=== PATIENT | male | born 1935 | race Caucasian/White ===

== ENCOUNTER 2024-01-31 14:43 | Outpatient (REF) | payer MEDICARE, BC, SELFPAY ==
[2024-01-31 15:16] LABS: Mean Corpuscular HGB Conc 30.8 g/dL (29.9-35.2); Mean Corpuscular Hemoglobin 32.7 pg (25.9-34.0); Mean Corpuscular Volume 106.1 fL (80.0-94.0); Mean Platelet Volume 11.5 fL (9.5-13.5); Platelet Count 142 10^3/uL (150-450); Red Blood Count 2.45 10^6/uL (4.70-6.10); Red Cell Distribution Width 17.7 % (11.0-15.0); White Blood Count 12.7 10^3/uL (4.0-11.0)
[2024-01-31 15:44] LABS: Band Neutrophils Absolute 0.3 10^3/uL (0.0-0.3); Lymphocytes Absolute Manual 1.14 10^3/uL (1.20-3.80); Monocytes Absolute Manual 0.88 10^3/uL (0.30-0.80); Segmented Neut Absolute Manual 10.41 10^3/uL (1.4-6.5)
[2024-01-31 15:45] LABS: Anisocytosis 1+; Macrocytosis 2+
[2024-01-31 15:46] LABS: Alanine Aminotransferase 48 U/L (16-63); Albumin Globulin Ratio 0.9; Alkaline Phosphatase 185 U/L (46-116); Aspartate Amino Transferase 19 U/L (15-37); Bilirubin Total 0.7 mg/dL (0.2-1.0); Calcium 8.8 mg/dL (8.5-10.1); Carbon Dioxide 20.5 mmol/L (21.0-32.0); Chloride 97 mmol/L (98-107); Estimated GFR (African America 15 (>=60); Estimated GFR (Non-African Ame 12 (>=60); Globulin 3.5 g/dL; Glucose 352 mg/dL (74-106); Sodium 128 mmol/L (136-145); Total Protein 6.5 g/dL (6.4-8.2)
[2024-01-31 15:54] LABS: Potassium 8.5 mmol/L (3.5-5.1)
== END 2024-01-31 14:44 | disposition home or self-care (01) ==
LOC: LAB 14:43
DX: R53.1 Weakness (principal)
CPT/HCPCS: 36415; 80053; 85007; 85027

== ENCOUNTER 2024-02-13 11:35 | Outpatient (REF) | payer MEDICARE, BC, SELFPAY ==
--- OUTSIDE RECORDS SUMMARY | 2024-02-13 11:39 | XMS_ITS | CCD ---
Author Name Unknown Address [address] [place] [address] Organization [facility] Care Team Providers Care Mirror Department Supervisor Name Role Phone Albert Meza DO W Primary Care Provider Aquiles Lim MD Unavailable [phone] Dustin Jacobs Unavailable William Bailey Unavailable Sharift DO Albert W Primary Care Provider Aquiles Lim MD Unavailable [phone] [place] Sharlene CRAVEN Attending U Aquiles Morgan MD Unavailable [phone] AQUILES LIM Attending Unavailable MUMMERT, ALBERT W Primary Care Unavailable AQUIELS LIM Attending Unavailable MUMMERT, ALBERT W Primary Care Unavailable MALKA RIVERA Attending Unavailable MUMMERT, ALBERT W Primary Care Unavailable MALKA RIVERA Referring Unavailable MUMMERT, ALBERT W Primary Care Unavailable MALKA RIVERA Referring Unavailable MUMMERT, ALBERT W Primary Care Unavailable CasimertDO Albert Primary Care Provider MD Dustin Jacobs Attending Provider [phone] Albert Meza DO W Primary Care Provider MD Dustin Jacobs Attending Provider [phone] KENJI Cho Attending Provider [phone] DO Babatunde Masters Emergency Provider [phone] MD Massiel Ramirez Admit Provider MD Massiel Ramirez Attending Provider [phone] Mummert, Albert Primary Care Unavailable Dustin Jacobs Admitting Unavailable Dustin Jacobs Attending Unavailable Mummert, Albert Primary Care Unavailable Willy Quiroz Admitting Unavailable William Bailey Consulting UnavailKevin Thomas Attending Unavailable Mummert, Albert Primary Care Unavailable William Dean Attending Unavailable Kevin Oliveira Consulting Unavailable Massiel Ramirez Admitting Unavailable Jose Rafael Cho Consulting Unavailable Paolo Curtis Consulting Unavailable Miguel Carpenter Consulting Unavailable Nancy Roy Consulting Unavailable Tri Beal Consulting Unavailable SinghArron de la cruz Consulting Unavailable Fly Dinerohash Consulting Unavailable Meron Talbot Consulting Unavailable Samuel Paz Consulting Unavaila ble Jose Rafael Cho REdin Admitting Unavailable Jose Rafael Cho REdin Attending Unavailable Kuavelino Jose Rafael R. Admitting Unavailable Kubitz Ojse Rafael REdin Attending Unavailable Mummert, Albert Primary Care Unavailable Dolce, Alejandro R Attending Unavailable Dolce, Alejandro R Admitting Unavailable Mummert DO, Albert Primary Care Unavailable STEVEN Zamarripa Attending Unavailable STEVEN Zamarripa Admitting Unavailable Mummert DO, Albert Primary Care Unavailable Wilberto Holland Attending Unavailable StaerWilberto Admitting Unavailable Mummert DO, Albert Primary Care Unavailable Kevin Shell Attending Unavailab Kevin Alberto Admitting Unavailab le Mummert DO, Albert Primary Care Unavailable Mummert DO, Albert Primary Care Unavailable Dinero, Markos Admitting Unavailable Dinero, Markos Attending Unavailable Mummert DO, Albert Primary Care Unavailable Mummert DO, Ablert Attending Unavailable Mummert DO, Albert Admitting Unavailable Mummert DO, Albert Primary Care Unavailable Jbara, Yaser Admitting Unavailable Jbara, Yaser Attending Unavailable STEVEN Zamarripa Attending Unavailable Mummert DO, Albert Primary Care Unavailable STEVEN Zamarripa Admitting Unavailable Mummert DO, Albert Primary Care Unavailable Mummert DO, Albert Admitting Unavailable Mummert DO, Albert Attending Unavailable Zamarripa, PA Yeny Attending Unavailable STEVEN Zamarripa Admitting Unavailable Mummert DO, Albert Primary Care Unavailable [place], Sharlene M Attending Unavailable [place], Sharlene M Admitting Unavailable Mummert DO, Albert Primary Care Unavailable Mummert DO, Albert Primary Care Unavailable Dinero, Markos Admitting Unavailable Dinero, Markos Attending Unavailable [place], Sharlene M Attending Unavailable Mummert DO, Albert Primary Care Unavailable [place], Sharlene M Admitting Unavailable Earl, Ziad Attending Unavailable Mummert DO, Albert Primary Care Unavailable Earl, Ziad Admitting Unavailable STEVEN Zamarripa Attending Unavailable STEVEN Zamarripa Admitting Unavailable Mummert DO, Albert Primary Care Unavailable STEVEN Zamarripa Attending Unavailable STEVEN Zamarripa Admitting Unavailable Mummert DO, Albert Primary Care Unavailable Kashk, Adalberto I Attending Unavailable Mummert DO, Albert Primary Care Unavailable Kashk, Adalberto I Admitting Unavailable Earl, Ziad Attending Unavailable Earl, Ziad Admitting Unavailable Mummert DO, Albert Primary Care Unavailable Wilberto Holland Attending Unavailable Mummert DO, Albert Primary Care Unavailable Yessica, Oren Admitting Unavailable Mummert DO, Albert Primary Care Unavailable Mummert DO, Albert Attending Unavailable STEVEN Zamarripa Admitting Unavailable STEVEN Zamarripa Attending Unavailable Mummert DO, Albert Primary Care Unavailable Mummert DO, Albert Primary Care Unavailable Mummert DO, Albert Primary Care Unavailable Mummert DO, Albert Attending Unavailable Mummert DO, Albert Primary Care Unavailable Mummert DO, Albert Primary Care Unavailable Mummert DO, Albert Attending Unavailable Mummert DO, Albert Primary Care Unavailable Mummert DO, Albert Attending Unavailable Mummert DO, Albert Primary Care Unavailable Mummert DO, Albert Attending Unavailable Mummert DO, Albert Primary Care Unavailable Mummert DO, Albert Attending Unavailable Mummert DO, Albert Primary Care Unavailable Mummert DO, Albert Attending Unavailable Mummert DO, Albert Primary Care Unavailable Mummert DO, Albert Attending Unavailable Mummert DO, Albert Primary Care Unavailable Mummert DO, Albert Attending Unavailable Mummert DO, Albert Primary Care Unavailable Mummert DO, Albert Attending Unavailable Mummert DO, Albert Primary Care Unavailable Mummert DO, Albert Attending Unavailable Mummert DO, Albert Primary Care Unavailable Mummert DO, Albert Attending Unavailable Ruiz Muro Attending Unavailable Mummert DO, Albert Primary Care Unavailable Ruiz Muro Admitting Unavailable Mummert DO, Albert Primary Care Unavailable Dinero, Markos Attending Unavailable Dinero, Markos Admitting Unavailable Le, Oscar K Attending Unavailable Mummert DO, Albert Primary Care Unavailable Le, Oscar K Admitting Unavailable Mummert DO, Albert Primary Care Unavailable Yessica, Oren Admitting Unavailable You Sanches Unavailyuval Juan, Oren Attending Unavailable Earl, Oleksandr Attending Unavailable Earl, Ziad Admitting Unavailable Mummert DO, Albert Primary Care Unavailable Mummert DO, Albert Primary Care Unavailable Mummert DO, Albert Attending Unavailable Mummert DO, Albert Admitting Unavailable Mummert DO, Albert Primary Care Unavailable Dinero, Markos Admitting Unavailable Dinero, Markos Attending Unavailable Kong Osman Attending Unavailable Mummert DO, Albert Primary Care Unavailable Kong Osman Admitting Unavailable Shaguftaer, Wilberto Attending Unavailable Mummert DO, Albert Primary Care Unavailable Cristy Hollandvin Admitting Unavailable STEVEN Zamarripa Admitting Unavailable STEVEN Zamarripa Attending Unavailable Mummert DO, Albert Primary Care Unavailable FOX [place] Attending Unavailable Mummert DO, Albert Primary Care Unavailable [place] Admitting Unavailable JOSE RAFAEL CHO Attending Unavailable JOSE RAFAEL CHO Attending Unavailable JOSE RAFAEL CHO Attending Unavailable JOSE RAFAEL HCO R Attending Unavailable JOSE RAFAEL CHO R Attending Unavailable JOSE RAFAEL CHO R Attending Unavailable JOSE RAFAEL CHO Attending Unavailable Medications Current Medications Medication Drug Class(es) Dates Sig (Normalized) Sig (Original) Albuterol Sulfate 108 (90 Base) MCG/ACT (3 sources) take 1 puff(s) by inhalation every four hours as needed Albuterol Sulfate 108 (90 Base) MCG/ACT 1 puff as needed Inhalation every 4 hrs Active allopurinol 100 mg oral tablet (7 sources) Xanthine Oxidase Inhibitor Start: 01-03-2024 take 100 mg by mouth once daily Allopurinol Active 100 MG PO Daily January 03, 2024 12:00am Start: 11-27-2022 take 2 tablets by mo uth once daily allopurinol (Zyloprim) 100 MG tablet See Instructions, Instructions: TAKE 2 TABLETS BY MOUTH ONCE DAILY, # 180 tab(s), 3 Refill(s), Pharmacy: [facility], TAKE 2 TABLETS BY MOUTH ONCE DAILY, 182.88, cm, 05/15/23 22:42:00 EDT, Height/Length Dosing, 118.84, kg, 05/15/23 22:42:00 EDT, Weight Dosing 0 11/27/2022 Active amLODIPine 10 mg oral tablet (17 sources) Dihydropyridine Calcium Channel [place] Start: 06-28-2023 take 10 mg by mouth once daily Amlodipine Active 10 MG PO Daily January 03, 2024 12:00am Comment on above: Take 10 mg by mouth once daily. aspirin 81 mg oral tablet (18 sources) Platelet Aggregation Inhibitor, Nonsteroidal Anti-inflammatory Drug Start: 01-03-2024 take 81 mg by mouth once daily Aspirin Active 81 MG PO Daily January 03, 2024 12:00am aspirin (Aspir-L ow) 81 MG EC tablet 1 (one) time each day at the same time. 0 Active Aspirin Active Comment on above: Take 81 mg by mouth once daily. atorvastatin 40 mg oral tablet (12 sources) HMG-CoA Reductase Inhibitor Start: take 40 mg by mouth once daily at bedtime Atorvastatin Active 40 MG PO Daily at bedtime January 03, 2024 12:00am Start: 11-04-2017 take 1 tablet by hugo th once daily at bedtime atorvastatin (LIPITOR) 80 mg tablet Take 1 tablet by mouth daily at bedtime. 90 tablet 3 11/04/2017 Active take 1 tablet by hugo th every twenty-four hours Atorvastatin Calcium 40 MG 1 tablet Orally Once a day Active Comment on above: Take 1 tablet by hugo th daily at bedtime. buPROPion hydrochloride 100 mg oral tablet (7 sources) Aminoketone Start: take 100 mg by mouth once daily Bupropion Hcl Active 100 MG PO Daily January 03, 2024 12:00am Start: 08-24-2023 take 1 tablet by hugo th twice daily buPROPion SR (Wellbutrin SR) 100 MG 12 hr tablet 1 tab(s), PO, BID, # 180 tab(s), 2 Refill(s), Pharmacy: [facility], 1 tab(s) PO BID, 182.8, cm, 07/20/23 14:00:00 EDT, Height/Length Dosing, 125.1, kg, 07/20/23 14:00:00 EDT, Weight Dosing 0 08/24/2023 Active calcium carbonate 500 mg chewable tablet (1 source) Start: 01-16-2024 take 1000 mg by mouth every four hours Calcium Carbonate Active 1000 MG PO Q4H 0 January 16, 2024 12:00am cilostazol 100 mg oral tablet (3 sources) Phosphodiesterase 3 Inhibitor take 1 tablet by mouth every twelve hours Cilostazol 100 MG 1 tablet 30 minutes before or 2 hours after breakfast and dinner Orally Twice a day Active docosahexaenoic acid 120 mg / eicosapentaenoic acid 180 mg oral capsule (6 sources) omega-3 (fish oil) 1000 MG capsule 1 capsule 1 (one) time each day at the same time. 0 Active famotidine 20 mg oral tablet (5 sources) Histamine-2 Receptor Antagonist Start: 01-03-2024 take 1 tablet by mouth twice daily Famotidine (Acid Vest Tailor (Famotidine)) 20 mg tablet Active 20 MG PO Twice daily January 03, 2024 12:00am take 1 tablet by hugo th every twelve hours Famotidine 20 MG 1 tablet as needed Oral ly Twice a day Active Fish Oils (3 sources) take 1 capsule by mouth once daily Fish Oil 1000 MG 1 capsule Orally Once a day Active fluticasone propionate 0.05 mg/actuat metered dose nasal spray (8 sources) Corticosteroid Start: 01-03-2024 take 1 spray(s) nasal route once daily Fluticasone Propionate (24 Hour Allergy Relief) 50 mcg/actuation spray,suspension Active 1 SPRAY INTRANASAL Daily January 03, 2024 12:00am administer into each nostril fluticasone (Eleazar nase) 50 MCG/ACT nasal spray 1 (one) time each day at the same time. 0 Active furosemide 20 mg oral tablet (19 sources) Loop Diuretic Start: 01-16-2024 take 60 mg by mouth twice daily Furosemide Active 60 MG PO BID@0800,1600 0 January 16, 2024 12:00am Start: 01-03-2024 End: 01-16-2024 take 80 mg by mouth once daily Furosemide Discontinued 80 MG PO Daily January 03, 2024 12:00am January 16, 2024 9:30am Start: 11-29-2020 take 2 tablets by [facility] once daily furosemide (LASIX) 40 mg tablet Take 2 tablets by mouth once daily. Takes 80 mg daily 0 11/29/2020 Active furosemide (Lasi x) 80 MG tablet Take by mouth. 0 Active take 1 tablet by [facility] every twenty-four hours Furosemide 40 MG 1 tablet Orally Once a day Active Comment on above: Take 2 tablets by [facility] once daily. Takes 80 mg daily gabapentin 300 mg oral capsule (18 sources) Anti-epileptic Agent Start: 01-03-2024 take 300 mg by mouth three times daily Gabapentin Active 300 MG PO Three times daily January 03, 2024 12:00am take 1 capsule by [facility] every twelve hours gabapentin (Neurontin) 300 MG capsule 1 capsule every 12 (twelve) hours. 0 Active take 1 capsule by [facility] every twelve hours Gabapentin 300 MG 1 capsule Orally BID Active take 2 tablets by [facility] three times daily gabapentin (NEURONTIN) 300 mg capsule Ta ke 200 mg by mouth three times daily. 2 tabs three times a day 0 Active Comment on above: Take 200 mg by mouth three times daily. 2 tabs three times a day glimepiride 1 mg oral tablet (9 sources) Sulfonylurea glimepiride (Jackson ryl) 1 MG tablet 1 (one) time each day at the same time. 0 Active glipiZIDE 5 mg oral tablet (2 sources) Sulfonylurea Start: 2023 take 2.5 mg by mouth once daily Glipizide Active 2.5 MG PO Daily January 03, 2024 12:00am hydrALAZINE hydrochloride 25 mg oral tablet (2 sources) Arteriolar Vasodilator Start: 2023 take 50 mg by mouth twice daily Hydralazine Active 50 MG PO Twice daily January 03, 2024 12:00am hydroxychloroquine sulfate 200 mg oral tablet (2 sources) Antimalarial, Antirheumatic Agent Start: 2023 take 200 mg by mouth twice daily Hydroxychloroquine Active 200 MG PO Twice daily January 03, 2024 12:00am lisinopril 10 mg oral tablet (13 sources) Angiotensin Converting Enzyme Inhibitor take 1 tablet by mouth once daily lisinopril 10 MG tablet take 1 tablet by oral route every day Oral 0 Active End: 10-12-2023 take 1 tablet by mouth once daily lisinopril (ZESTRIL, PRINIVIL) 5 mg tablet Take 5 mg by mouth once daily. 0 10/12/2023 Discontinued (Course of therapy completed) Comment on above: Take 5 mg by mouth o nce daily. losartan potassium 25 mg oral tablet (2 sources) Angiotensin 2 Receptor Siena Start: 01-03-20 take 25 mg by mouth once daily Losartan Active 25 MG PO Daily January 03, 2024 12:00am mecobalamin 1 mg chewable tablet (6 sources) Methylcobalamin ([id number]) 1 MG chewable tablet [id number] 0 Active melatonin 5 mg oral tablet (1 source) Start: 01-16-20 take 10 mg by mouth once daily at bedtime Melatonin Active 10 MG PO Daily at bedtime 0 January 16, 2024 12:00am metoprolol tartrate 25 mg oral tablet (9 sources) beta-Adrenergic [place] metoprolol tartrate (Lopressor) 25 MG tablet every 12 (twelve) hours. 0 Active take 1 tablet by hugo th every twenty-four hours Metoprolol Succinate ER 25 MG 1 tablet Orally Once a day Active Multivitamin (Daily Multi-Vitamin) tablet (2 sources) Start: 01-03-2024 take 1 tablet by mouth once daily Multivitamin (Daily Multi-Vitamin) tablet Active 1 TAB PO Daily January 03, 2024 12:00am oxyCODONE hydrochloride 5 mg oral tablet (1 source) Opioid Agonist Start: 01-16-2024 take 5 mg by mouth every four hours Oxycodone Active 5 MG PO Every 4 hours 3 January 16, 2024 Start: 01-16-2024 take 5 mg by mouth e very four hours Oxycodone Active 5 MG PO Every 4 hours 3 January 16, 2024 perflutren lipid microspheres 1.3 mL in NaCl (PF) 0.9% 10 mL injection (DEFINITY) (5 sources) Start: 03-02-2022 End: 06-01-2023 perflutren lipid microspheres 1.3 mL in NaCl (PF) 0.9% 10 mL injection (DEFINITY) microencapsulated potassium chloride 20 meq extended release oral tablet (1 source) Start: 01-16-2024 Potassium Chlo ride (Klor-Con M20) 20 mEq Tablet,Er Particles/Crystals Active 40 MEQ PO Daily 0 January 16, 2024 12:00am predniSONE 5 mg oral tablet (7 sources) Start: 01-03-2024 take 7.5 mg by mouth once daily Prednisone Active 7.5 MG PO Daily January 03, 2024 12:00am Start: 12-22-2022 take 1 tablet by hugo th every other day predniSONE (Deltasone) 5 MG tablet Take 5 mg by mouth every other day 0 12/22/2022 Active simvastatin 40 mg oral tablet (6 sources) HMG-CoA Reductase Inhibitor take 0.5 tablet by mouth once daily simvastatin (Zocor) 40 MG tablet take 1/2 tablet by ORAL route every day Oral 0 Active 125 ml sodium chloride 9 mg/ml prefilled syringe (6 sources) Start: 01-13-20 End: 06-01-20 sodium chloride 0.9 % (flush) 10 mL (BD POSIFLUSH) spironolactone 25 mg oral tablet (1 source) Aldosterone Antagonist Start: 01-16-20 take 25 mg by mouth twice daily Spironolactone Active 25 MG PO Twice daily 0 January 16, 2024 12:00am Vitamin B Complex (3 sources) Vitamin B Comple x - as directed Orally Active vitamin b12 1 mg oral capsule (2 sources) Vitamin B12 Start: 01-03-20 take 1000 ug by mouth once daily Cyanocobalamin (Vitamin B-12) Active 1000 MCG PO Daily January 03, 2024 12:00am Completed/Discontinued Medications Medication Drug Class(es) Dates Sig (Normalized) Sig (Original) baclofen 10 mg oral tablet (7 sources) gamma-Aminobutyric Acid-ergic Agonist Start: 12-24-2022 End: 01-04-2024 take 10 mg by mouth once daily Baclofen Discontinued 10 MG PO Daily January 03, 2024 12:00am January 04, 2024 1:55pm carvedilol (3 sources) alpha-Adrenergic Siena, beta-Adrenergic [place] Carvedilol Not-Taking cephalexin 500 mg oral capsule (7 sources) Cephalosporin Antibacterial Start: 01-03-2024 End: 02-06-2024 take 1000 mg by mouth every twelve hours Cephalexin Discontinued 1000 MG PO Q12H January 03, 2024 12:00am January 04, 2024 1:55pm cephalexin (Kefl ex) 250 MG capsule 1 capsule 0 Active citalopram 10 mg oral tablet (7 sources) Serotonin Reuptake Inhibitor citalopram hydrobromide (CELEXA) 10 mg tablet Take 1/2 tablet once daily. 0 Active Comment on above: Take 1/2 tablet once daily. ertapenem (1 source) Penem Antibacterial Start : 01-04 End: 01-16 take 1 g intravenously once daily Ertapenem Discontinued 1 GM IV Daily January 04, 2024 12:00am January 16, 2024 9:30am hydroCHLOROthiazide 12.5 mg / lisinopril 10 mg oral tablet (3 sources) Thiazide Diuretic, Angiotensin Converting Enzyme Inhibitor take 1 tablet by mouth every twenty-four hours Lisinopril-hydro CHLOROthiazide 10-12.5 MG 1 tablet Orally Once a day Not-Taking levoFLOXacin 500 mg oral tablet (7 sources) Quinolone Antimicrobial Start : 12-30 End: 01-16 take 500 mg by mouth once daily Levofloxacin Discontinued 500 MG PO Daily January 03, 2024 12:00am January 16, 2024 9:30am metFORMIN hydrochloride 850 mg oral tablet (7 sources) Biguanide Start : 12-13 End: 10-12 take 1 tablet by mouth three times daily metFORMIN (GLUCOPHAGE) 850 mg tablet Take 1 tablet by mouth three times daily. Resume tomorrow 12/14/17. 0 12/13/2018 10/12/2023 Discontinued (Course of therapy completed) Comment on above: Take 1 tablet by hugo three times daily. Resume tomorrow 12/14/17. Naproxen (3 sources) Nonsteroidal Anti-inflammatory Drug Naproxen Not-Taking omeprazole 20 mg delayed release oral capsule (7 sources) Proton Pump Inhibitor take 1 capsule by mouth once daily omeprazole 20 mg capsule Take 20 mg by mouth once daily. 0 Active Comment on above: Take 20 mg by mouth once daily. Orphenadrine (3 sources) Muscle Relaxant Norflex Not-Taking pioglitazone (10 sources) Peroxisome Proliferator Receptor alpha Agonist, Peroxisome Proliferator Receptor gamma Agonist, Thiazolidinedione pioglitazone (ACTOS) 15 mg tablet Take 2 tablets daily with evening meal. 0 Active Pioglitazone HCl Not-Taking Comment on above: Take 2 tablets daily with evening meal. traMADol hydrochloride 50 mg oral tablet (16 sources) Opioid Agonist Start: 07-04-2019 take 1 tablet by mouth every six hours as needed traMADol (ULTRAM) 50 mg tablet Take 50 mg by mouth every 6 hours as needed. 0 07/04/2019 Active take 0.5 tablet by m outh once daily in the morning as needed traMADol (Ultram) 50 MG tablet 1/2 table t as needed Orally Once a day in the morning 0 Active take 1 tablet by hugo th every twenty-four hours traMADol HCl 50 MG 1 tablet as needed Orally Once a day Active Comment on above: Take 50 mg by mouth every 6 hours as needed. Problems Active Problems Problem Classification Problem Date Documented Da te Episodic/Chronic Acquired foot deformities (18 sources) Acquired hallux valgus; Translations: [Hallux valgus (acquired), unspecified foot] Onset: 3 06-10-2023 Chronic Acute and unspecified renal failure (8 sources) Acute renal failure syndrome; Translations: [Acute kidney failure, unspecified] Onset: 4 01-03-2024 Episodic Aortic; peripheral; and visceral artery aneurysms (2 sources) Carotid artery aneurysm; Translations: [Aneurysm of carotid artery] Onset: 3 Chronic Biliary tract disease (6 sources) Common bile duct calculus; Translations: [CHOLEDOCHOLITHIASIS NOS] Episodic Chronic kidney disease (1 source) Chronic kidney disease, unspecified; Translations: [Chronic kidney disease, unspecified] Onset: 4 Chronic Coagulation and hemorrhagic disorders (3 sources) Thrombocytopenic disorder; Translations: [Thrombocytopenia, unspecified] Onset: 4 01-09-2024 Chronic Congestive heart failure; nonhypertensive (3 sources) Acute on chronic heart failure co-occurrent with normal ejection fraction; Translations: [Acute on chronic diastolic (congestive) heart failure] Onset: 3 10-12-2023 Chronic Coronary atherosclerosis and other heart disease (1 source) Coronary atherosclerosis and other heart disease; Translations: [Atherosclerosis of [place] arteries of extremities with gangrene, bilateral legs] Onset: 4 Deficiency and other anemia (1 source) Chronic anemia; Translations: [Anemia, unspecified] 01-09-2024 Episodic Deficiency and other anemia (2 sources) Anemia, unspecified; Translations: [Anemia, unspecified] Onset: 4 01-03-2024 Episodic Diabetes mellitus with complications (20 sources) Diabetes mellitus; Translations: [Type 2 diabetes mellitus with diabetic neuropathy, unspecified] Onset: 3 06-10-2023 Chronic Diabetes mellitus without complication (14 sources) Type 2 diabetes mellitus without complication; Translations: [Type 2 diabetes mellitus without complications] Onset: 6 10-12-2016 Chronic Disorders of lipid metabolism (7 sources) Dyslipidemia; Translations: [Hyperlipidemia, unspecified] Onset: 6 10-12-2016 Chronic Esophageal disorders (3 sources) Gastroesophageal reflux disease without esophagitis; Translations: [Gastro-esophageal reflux disease without esophagitis] Chronic Essential hypertension (14 sources) Essential hypertension; Translations: [Essential (primary) hypertension] Onset: 6 Chronic Fluid and electrolyte disorders (5 sources) Metabolic acidosis; Translations: [Metabolic acidosis] Onset: 4 01-09-2024 Episodic Gangrene (8 sources) Gangrene of toe; Translations: [Gangrene, not elsewhere classified] 01-03-2024 Episodic Gout and other crystal arthropathies (12 sources) Acute gout; Translations: [Gout, unspecified] Onset: 3 06-10-2023 Chronic Heart valve disorders (10 sources) Aortic incompetence, non-rheumatic ; Translations: [Nonrheumatic aortic (valve) insufficiency] Onset: 5 Chronic Hypertension with complications and secondary hypertension (3 sources) Chronic kidney disease due to hypertension; Translations: [Hypertensive chronic kidney disease with stage 1 through stage 4 chronic kidney disease, or unspecified chronic kidney disease] Onset: 4 01-09-2024 Chronic Miscellaneous mental health disorders (4 sources) Chronic insomnia; Translations: [Psychophysiologic insomnia] Onset: 1 Resolved: 1 Chronic Occlusion or stenosis of precerebral arteries (20 sources) Left carotid artery stenosis; Translations: [Occlusion and stenosis of left carotid artery] Onset: 5 Chronic Osteoarthritis (20 sources) Arthritis of right ankle; Translations: [Primary osteoarthritis, right ankle and foot] Onset: 3 06-10-2023 Chronic Other connective tissue disease (6 sources) History of total knee arthroplasty; Translations: [Presence of right artificial knee joint] Onset: 3 06-10-2023 Chronic Other connective tissue disease (1 source) Foot pain; Translations: [Pain in left foot] 01-16-2024 Episodic Other connective tissue disease (2 sources) Pain in left foot; Translations: [Pain in limb] Onset: 4 01-03-2024 Episodic Other lower respiratory disease (10 sources) Dyspnea on exertion; Translations: [Dyspnea, unspecified] Onset: 5 Episodic Other nutritional; endocrine; and metabolic disorders (6 sources) Simple obesity ; Translations: [Other obesity due to excess calories] Onset: 6 10-12-2016 Chronic Other nutritional; endocrine; and metabolic disorders (4 sources) Body mass index 30+ - obesity; Translations: [Body mass index (BMI) 33.0-33.9, adult] Chronic Other nutritional; endocrine; and metabolic disorders (2 sources) Obesity caused by energy imbalance; Translations: [Other obesity due to excess calories] Onset: 6 10-12-2016 Chronic Other nutritional; endocrine; and metabolic disorders (1 source) Severe obesity; Translations: [Morbid (severe) obesity due to excess calories] 10-12-2023 Chronic Other nutritional; endocrine; and metabolic disorders (1 source) Body mass index (BMI) 35.0-35.9, adult Chronic Other screening for suspected conditions (not mental disorders or infectious disease) (10 sources) Electrocardiogram abnormal; Translations: [Abnormal electrocardiogram [ECG] [EKG]] Onset: 2 Episodic 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) Peripheral vascular disease, unspecified; Translations: [Peripheral vascular disease, unspecified] Onset: 3 Chronic Phlebitis; thrombophlebitis and thromboembolism (1 source) Acute embolism and thrombosis of unspecified deep veins of unspecified lower extremity; Translations: [Acute embolism and thrombosis of unspecified deep veins of unspecified lower extremity] Onset: 4 Episodic Residual codes; unclassified (9 sources) Obstructive sleep apnea syndrome; 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] Chronic Residual codes; unclassified (2 sources) Obstructive sleep apnea (adult) (pediatric); Translations: [Obstructive sleep apnea G47.33] Onset: 1 Resolved: 1 Chronic Residual codes; unclassified (2 sources) Idiopathic sleep related nonobstructive alveolar hypoventilation; 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] Onset: 1 Resolved: 1 Chronic Residual codes; unclassified (1 source) Obstructive sleep apnea (adult)(pediatric); Translations: [Obstructive sleep apnea (adult) (pediatric)] Onset: 3 Chronic Residual codes; unclassified (2 sources) Edema of foot; Translations: [Localized edema] Onset: 3 10-12-2023 Episodic Residual codes; unclassified (2 sources) Non-pitting edema; Translations: [Edema, unspecified] Onset: 3 10-12-2023 Episodic Skin and subcutaneous tissue infections (5 sources) Cellulitis of foot; Translations: [Cellulitis of unspecified part of limb] Onset: 4 01-03-2024 Episodic Unclassified (1 source) Acidosis, unspecified; Translations: [Acidosis, unspecified] Onset: 4 Unclassified (1 source) Non-pressure chronic ulcer of other part of left foot with necrosis of muscle; Translations: [Non-pressure chronic ulcer of other part of left foot with necrosis of muscle] Onset: 4 Past or Other Problems Problem Classification Problem Date Documented Date Episodic/Chronic Other nervous system disorders (6 sources) Impairment of balance; Translations: [Other abnormalities of gait and mobility] Onset: 06-10-2023 06-10-2023 Episodic Other non-traumatic joint disorders (6 sources) Pain in right knee; Translations: [Pain in joint, lower leg] Onset: 06-10-2023 06-10-2023 Episodic Results Test Name Value Interpretation Reference Range Facility Glucose Poct Glucometerson 0 02-04-2024 Glucose [Mass/Vol] 270 mg/dL Normal [facility] Comment on above: Result Comment: [place] om Glucose Reference Range is dependent on time and content of last meal. Glucose of more than 200 mg/dL in a nonstressed, ambulatory subject supports the diagnosis of Diabetes Mellitus. PERFORMED BY: [address] [place] [address] PATHOLOGIST STAFFING MGR NEVA MACKAY M.D. Performed By: #### G LULS #### Point of Care testing , Glucose [Mass/Vol] 261 mg/dL Normal [facility] Comment on above: Result Comment: [place] om Glucose Reference Range is dependent on time and content of last meal. Glucose of more than 200 mg/dL in a nonstressed, ambulatory subject supports the diagnosis of Diabetes Mellitus. PERFORMED BY: [address] [place] [address] PATHOLOGIST STAFFING MGR NEVA MACKAY M.D. Performed By: #### G LULS ####Point of Care testing, Commemt1 Glu2: Cleaned Meter Normal [facility] Comment on above: Result Comment: PERF ORMED BY: [address] [place] [address] PATHOLOGIST STAFFING MGR NEVA MACKAY M.D. Performed By: #### B MP #### [facility] [address] [place] [address] Glucose [Mass/Vol] 177 mg/dL Normal [facility] Comment on above: Result Comment: [place] om Glucose Reference Range is dependent on time and content of last meal. Glucose of more than 200 mg/dL in a nonstressed, ambulatory subject supports the diagnosis of Diabetes Mellitus. Performed By: #### B MP #### [facility] [address] [place] [address] [place] Glucose [Mass/Vol] 104 mg/dL Normal [facility] Comment on above: Result Comment: [place] om Glucose Reference Range is dependent on time and content of last meal. Glucose of more than 200 mg/dL in a nonstressed, ambulatory subject supports the diagnosis of Diabetes Mellitus. PERFORMED BY: [address] [place] [address] PATHOLOGIST STAFFING MGR NEVA MACKAY M.D. Performed By: #### B MP #### [facility] [address] Renal Function Panelon 02-03 Albumin [Mass/Vol] 3.2 g/dL Low 3.5-5.7 [facility] Comment on above: Performed By: #### B MP #### [facility] [address] Anion gap [Moles/Vol] 13.9 mmol/L Normal 6.0-15.0 [facility] Comment on above: Performed By: #### B MP #### [address] Calcium [Mass/Vol] 8.1 mg/dL Low 8.6-10.3 [facility] Comment on above: Performed By: #### B MP #### [address] Chloride [Moles/Vol] 98 mmol/L Normal 98-107 [facility] Comment on above: Performed By: #### B MP #### [address] CO2 [Moles/Vol] 26.7 mmol/L Normal 21.0-31.0 [facility] Comment on above: Performed By: #### B MP #### [facility] [address] [place] [address] Creatinine [Mass/Vol] 2.72 mg/dL Significan t change up 0.70-1.30 [facility] Comment on above: Performed By: #### B MP #### [facility] [address] [place] [address] [place] Creatinine Clr Calc Pharmacy 24.96 Normal [facility] Comment on above: Result Comment: PERF ORMED BY: [place] [address] PATHOLOGIST STAFFING MGR NEVA MACKAY M.D. Performed By: #### B MP #### [address] [place] [address] [place] GFR/1.73 sq M.predicted MDRD (S/P/Bld) [Vol rate/Area] 21.923 mL/min/{1.73_m2} Normal [facility] Comment on above: Performed By: #### B MP #### [facility] [address] Glucose [Mass/Vol] 113 mg/dL High 70-100 [facility] Comment on above: Result Comment: [facility] Glucose Reference Range is dependent on time and content of last meal. Glucose of more than 200 mg/dL in a nonstressed, ambulatory subject supports the diagnosis of Diabetes Mellitus. ADA recommended reference range Performed By: #### B MP #### [facility] [address] Phosphate [Mass/Vol] 4.1 mg/dL Normal 2.5-4.5 [facility] Comment on above: Performed By: #### B MP #### [facility] [address] Potassium [Moles/Vol] 3.6 mmol/L Normal 3.5-5.1 [facility] Comment on above: Performed By: #### B MP #### [address] Sodium [Moles/Vol] 135 mmol/L Low 136-145 [facility] Comment on above: Performed By: #### B MP #### [address] Urea nitrogen [Mass/Vol] 61 mg/dL High 7-25 [facility] Comment on above: Performed By: #### B MP #### [facility] [address] [place] [address] [place] Diff and CBCon 02-03-2024 Anisocytosis Ql (Bld) Moderate Normal [facility] Comment on above: Performed By: #### P TT, PT, DIFF CBC ####[facility] [address] [place] [address] [place] Basophils/100 WBC (Bld) 0 % Normal 0-2 [facility] Comment on above: Performed By: #### P TT, PT, DIFF CBC ####[address] Eosinophils/100 WBC (Bld) 0 % Low 1-3 [facility] Comment on above: Performed By: #### P TT, PT, DIFF CBC ####[address] Erythrocyte distribution width (RBC) [Ratio] 18.3 % High 12.0-14.8 [facility] Comment on above: Performed By: #### P TT, PT, DIFF CBC ####[address] Hematocrit (Bld) [Volume fraction] 26.2 % Low 38.8-50.0 [facility] Comment on above: Performed By: #### P TT, PT, DIFF CBC ####[address] Hemoglobin (Bld) [Mass/Vol] 8.8 g/dL Low 13.0-17.0 [facility] Comment on above: Performed By: #### P TT, PT, DIFF CBC ####[address] Lymphocytes/100 WBC (Bld) 6 % Low 18-42 [facility] Comment on above: Performed By: #### P TT, PT, DIFF CBC ####[address] MCH (RBC) [Entitic mass] 33.5 pg Normal 27.5-35.2 [facility] Comment on above: Performed By: #### P TT, PT, DIFF CBC ####[address] MCV (RBC) [Entitic vol] 99.3 fL Normal 83.5-101 [facility] Comment on above: Performed By: #### P TT, PT, DIFF CBC ####[address] Mean Corpuscular HGB Conc 33.8 g/dL Normal 32.5-35.6 [facility] Comment on above: Performed By: #### P TT, PT, DIFF CBC ####[address] [address] [facility] Metamyelocytes 2 % High 0-0 [facility] Comment on above: Performed By: #### P TT, PT, DIFF CBC ####[place] [id number] [facility] Monocytes/100 WBC (Bld) 5 % Normal 2-11 [facility] Comment on above: Performed By: #### P TT, PT, DIFF CBC ####[place] [id number] [facility] Platelet Estimate Decreased Normal Normal [facility] Comment on above: Performed By: #### P TT, PT, DIFF CBC ####[address] [address] [facility] Platelet mean volume (Bld) [Entitic vol] 9.1 fL Normal 6.6-10.1 [facility] Comment on above: Performed By: #### P TT, PT, DIFF CBC ####[place] [id number] [facility] Platelet Morphology Normal Normal Normal [facility] Comment on above: Result Comment: PERF ORMED BY: [facility] [address] [facility] [place] [address] PATHOLOGIST STAFFING MGR NEVA MACKAY M.D. Performed By: #### P TT, PT, DIFF CBC ####[place] [id number] [facility] Platelets (Bld) [#/Vol] 123 10*3/uL Low 150-450 [facility] Comment on above: Performed By: #### P TT, PT, DIFF CBC ####[place] [id number] [facility] Polychromasia Slight Normal [facility] Comment on above: Performed By: #### P TT, PT, DIFF CBC ####[place] [id number] [facility] RBC (Bld) [#/Vol] 2.63 10*6/uL Low 3.90-5.60 [facility] Comment on above: Performed By: #### P TT, PT, DIFF CBC ####[facility] [address] [place] [address] [facility] Segmented neutrophils/100 WBC (Bld) 87 % High 50-70 [facility] Comment on above: Performed By: #### P TT, PT, DIFF CBC ####[facility] [place] [address] [facility] WBC (Bld) [#/Vol] 9.3 10*3/uL Normal 4.1-10.5 [facility] Comment on above: Performed By: #### P TT, PT, DIFF CBC ####[place] [address] [place] [id number] [facility] Glucose Poct Glucometerson 0 02-03-2024 Glucose [Mass/Vol] 233 mg/dL Normal [facility] Comment on above: Result Comment: [place] om Glucose Reference Range is dependent on time and content of last meal. Glucose of more than 200 mg/dL in a nonstressed, ambulatory subject supports the diagnosis of Diabetes Mellitus. PERFORMED BY: [facility] [address] [place] [address] PATHOLOGIST STAFFING MGR NEVA MACKAY M.D. Performed By: #### G LULS ####Point of Care testing, Commemt1 Glu2: Cleaned Meter Normal [facility] Comment on above: Result Comment: PERF ORMED BY: [facility] [address] [place] [address] PATHOLOGIST STAFFING MGR NEVA MACKAY M.D. Performed By: #### G LULS #### Point of Care testing , Glucose [Mass/Vol] 265 mg/dL Normal [facility] Comment on above: Result Comment: [place] om Glucose Reference Range is dependent on time and content of last meal. Glucose of more than 200 mg/dL in a nonstressed, ambulatory subject supports the diagnosis of Diabetes Mellitus. Performed By: #### G LULS #### Point of Care testing , Commemt1 Glu2: Cleaned Meter Normal [facility] Comment on above: Result Comment: PERF ORMED BY: [facility] [place] [address] PATHOLOGIST STAFFING MGR NEVA MACKAY M.D. Performed By: #### G LULS ####Point of Care testing, Glucose [Mass/Vol] 226 mg/dL Normal [facility] Comment on above: Result Comment: [facility] Glucose Reference Range is dependent on time and content of last meal. Glucose of more than 200 mg/dL in a nonstressed, ambulatory subject supports the diagnosis of Diabetes Mellitus. Performed By: #### G LULS ####Point of Care testing, Partial Thromboplastin Timeo n 02-03-2024 aPTT Coag (Bld) [Time] 72.1 s High 25.1-36.5 [facility] Comment on above: Result Comment: A he matocrit value greater than 55% may lead to inaccurate results in coagulation testing. Patients having hematocrit values >55% require a special collection tube for coagulation studies. Please contact the laboratory at [phone] for redraw instructions. PERFORMED BY: [facility] [address] [place] [address] PATHOLOGIST STAFFING MGR NEVA MACKAY M.D. Performed By: #### G LULS #### Point of Care testing , aPTT Coag (Bld) [Time] 121.2 s Off scale high 25.1-36.5 [facility] Comment on above: Order Comment: List the anticoagulant: HEPARIN, UNFRACTIONATED Result Comment: Resu lts called at 0713 on 02/03/24 A hematocrit value greater than 55% may lead to inaccurate results in coagulation testing. Patients having hematocrit values >55% require a special collection tube for coagulation studies. Please contact the laboratory at [phone] for redraw instructions. PERFORMED BY: [facility] [address] [place] [address] PATHOLOGIST STAFFING MGR NEVA MACKAY M.D. Performed By: #### G LULS #### Point of Care testing , aPTT Coag (Bld) [Time] 116.7 s Off scale high 25.1-36.5 [facility] Comment on above: Result Comment: Resu lts called at 0553 on 02/03/24 A hematocrit value greater than 55% may lead to inaccurate results in coagulation testing. Patients having hematocrit values >55% require a special collection tube for coagulation studies. Please contact the laboratory at [phone] for redraw instructions. PERFORMED BY: [facility] [address] [place] [id number] PATHOLOGIST STAFFING MGR NEVA MACKAY M.D. Performed By: #### P TT, PT, DIFF CBC ####[place] [address] [place] [id number] [facility] Prothrombin Time INRon 02-02 INR Coag (PPP) [Relative time] 1.4 {INR} Normal [facility] Comment on above: Result Comment: INR Therapeutic Range A) Pre- and Peroperative OAT started two weeks before surgery. NOT HIP SURGERY: 1.5 - 2.5 HIP SURGERY: 2 - 3 B) Primary and secondary prevention of venous THROMBOSIS: 2 - 3 C) Active venous thrombosis, pulmonary embolism and prevention of recurrent venous thrombosis: 2 - 3 D) Prevention of arterial thromboembolism including patients with mechanical heart valves: 3 - 4.5 Performed By: #### P TT, PT, DIFF CBC ####[place] [id number] [facility] PT Coag (PPP) [Time] 15.9 s High 9.0-12.9 [facility] Comment on above: Result Comment: A he matocrit value greater than 55% may lead to inaccurate results in coagulation testing. Patients having hematocrit values >55% require a special collection tube for coagulation studies. Please contact the laboratory at [phone] for redraw instructions. Performed By: #### P TT, PT, DIFF CBC ####[place] [address] [place] [id number] [facility] Renal Function Panelon 02-02 Albumin [Mass/Vol] 3.2 g/dL Low 3.5-5.7 [facility] Comment on above: Performed By: #### R ENAL ####[facility] [id number] [place] [address] [facility] Anion gap [Moles/Vol] 17.1 mmol/L High 6.0-15.0 [facility] Comment on above: Performed By: #### R ENAL ####[facility] [id number] [place] [address] [facility] Calcium [Mass/Vol] 8.4 mg/dL Low 8.6-10.3 [facility] Comment on above: Performed By: #### R ENAL ####[facility] [id number] [place] [address] [place] Chloride [Moles/Vol] 97 mmol/L Low 98-107 [facility] Comment on above: Performed By: #### R ENAL ####[place] [address] [place] [address] [facility] CO2 [Moles/Vol] 27.3 mmol/L Normal 21.0-31.0 [facility] Comment on above: Performed By: #### R ENAL ####[facility] [address] [place] [address] [place] Creatinine [Mass/Vol] 3.29 mg/dL High 0.70-1.30 [facility] Comment on above: Performed By: #### R ENAL ####[facility] I[address] [place] [address] [place] Creatinine Clr Calc Pharmacy 20.52 [facility] Comment on above: Result Comment: PERF ORMED BY: [facility] [address] [place] [id number] PATHOLOGIST STAFFING MGR NEVA MACKAY M.D. Performed By: #### R ENAL ####[place] [address] [place] [id number] [place] GFR/1.73 sq M.predicted MDRD (S/P/Bld) [Vol rate/Area] 17.448 mL/min/{1.73_m2} [facility] Comment on above: Performed By: #### R ENAL ####[facility] [place] [address] [facility] Glucose [Mass/Vol] 165 mg/dL High 70-100 [facility] Comment on above: Result Comment: [facility] Glucose Reference Range is dependent on time and content of last meal. Glucose of more than 200 mg/dL in a nonstressed, ambulatory subject supports the diagnosis of Diabetes Mellitus. ADA recommended reference range Performed By: #### R ENAL ####[place] [id number] [facility] Phosphate [Mass/Vol] 5.5 mg/dL High 2.5-4.5 [facility] Comment on above: Performed By: #### R ENAL ####[place] [id number] [facility] Potassium [Moles/Vol] 4.4 mmol/L Normal 3.5-5.1 [facility] Comment on above: Performed By: #### R ENAL ####[place] [id number] [facility] Sodium [Moles/Vol] 137 mmol/L Normal 136-145 [facility] Comment on above: Performed By: #### R ENAL ####[place] [id number] [facility] Urea nitrogen [Mass/Vol] 62 mg/dL High 7-25 [facility] Comment on above: Performed By: #### R ENAL ####[place] [id number] [facility] Coagulation Profileon 2023 aPTT Coag (Bld) [Time] 87.1 s High 25.1-36.5 [facility] Comment on above: Order Comment: REDRA W Result Comment: A he matocrit value greater than 55% may lead to inaccurate results in coagulation testing. Patients having hematocrit values >55% require a special collection tube for coagulation studies. Please contact the laboratory at [phone] for redraw instructions. PERFORMED BY: [facility] [address] [place] [address] PATHOLOGIST STAFFING MGR NEVA MACKAY M.D. Performed By: #### C BC, PP ####[place] [id number] [facility] INR Coag (PPP) [Relative time] 1.4 {INR} Normal [facility] Comment on above: Order Comment: REDRA W Result Comment: INR Therapeutic Range A) Pre- and Peroperative OAT started two weeks before surgery. NOT HIP SURGERY: 1.5 - 2.5 HIP SURGERY: 2 - 3 B) Primary and secondary prevention of venous THROMBOSIS: 2 - 3 C) Active venous thrombosis, pulmonary embolism and prevention of recurrent venous thrombosis: 2 - 3 D) Prevention of arterial thromboembolism including patients with mechanical heart valves: 3 - 4.5 Performed By: #### C BC, PP ####[place] [id number] [facility] PT Coag (PPP) [Time] 15.7 s High 9.0-12.9 [facility] Comment on above: Order Comment: REDRA W Result Comment: A he matocrit value greater than 55% may lead to inaccurate results in coagulation testing. Patients having hematocrit values >55% require a special collection tube for coagulation studies. Please contact the laboratory at [phone] for redraw instructions. Performed By: #### C BC, PP ####[place] [id number] [facility] Complete Blood Count Auto Di ffon 02-02-2024 Basophils (Bld) [#/Vol] 0.0 10*3/uL Normal 0.0-0.2 [facility] Comment on above: Result Comment: PERF ORMED BY: [facility] [address] [place] [id number] PATHOLOGIST STAFFING MGR NEVA MACKAY M.D. Performed By: #### C BC, PP ####[place] [id number] [facility] Basophils/100 WBC (Bld) 0.3 % Normal . [facility] Comment on above: Performed By: #### C BC, PP ####[place] [id number] [facility] Eosinophils (Bld) [#/Vol] 0.0 10*3/uL Normal 0.0-0.45 [facility] Comment on above: Performed By: #### C BC, PP ####[address] Eosinophils/100 WBC (Bld) 0.3 % Normal . [facility] Comment on above: Performed By: #### C BC, PP ####[address] Erythrocyte distribution width (RBC) [Ratio] 18.4 % High 12.0-14.8 [facility] Comment on above: Performed By: #### C BC, PP ####[address] Hematocrit (Bld) [Volume fraction] 24.9 % Low 38.8-50.0 [facility] Comment on above: Performed By: #### C BC, PP ####[address] Hemoglobin (Bld) [Mass/Vol] 8.3 g/dL Low 13.0-17.0 [facility] Comment on above: Performed By: #### C BC, PP ####[address] Lymphocytes (Bld) [#/Vol] 0.5 10*3/uL Low 1.00-4.8 [facility] Comment on above: Performed By: #### C BC, PP ####[address] Lymphocytes/100 WBC (Bld) 5.1 % Normal . [facility] Comment on above: Performed By: #### C BC, PP ####[address] MCH (RBC) [Entitic mass] 33.2 pg Normal 27.5-35.2 [facility] Comment on above: Performed By: #### C BC, PP ####[address] MCV (RBC) [Entitic vol] 99.5 fL Normal 83.5-101 [facility] Comment on above: Performed By: #### C BC, PP ####[address] Mean Corpuscular HGB Conc 33.3 g/dL Normal 32.5-35.6 [facility] Comment on above: Performed By: #### C BC, PP ####[address] Monocytes (Bld) [#/Vol] 0.9 10*3/uL High 0.0-0.8 [facility] Comment on above: Performed By: #### C BC, PP ####[address] Monocytes/100 WBC (Bld) 9.1 % Normal . [facility] Comment on above: Performed By: #### C BC, PP ####[address] Neutrophils (Bld) [#/Vol] 8.8 10*3/uL High 1.8-7.7 [facility] Comment on above: Performed By: #### C BC, PP ####[address] Neutrophils/100 WBC (Bld) 85.2 % Normal . [facility] Comment on above: Performed By: #### C BC, PP ####[address] NRBC% 0.2 /100{WBC} Normal 0-0.5 [facility] Comment on above: Performed By: #### C BC, PP ####[address] Platelet mean volume (Bld) [Entitic vol] 8.8 fL Normal 6.6-10.1 [facility] Comment on above: Performed By: #### C BC, PP ####[address] Platelets (Bld) [#/Vol] 123 10*3/uL Low 150-450 [facility] Comment on above: Performed By: #### C BC, PP ####[facility] [place] [address] [facility] RBC (Bld) [#/Vol] 2.51 10*6/uL Low 3.90-5.60 [facility] Comment on above: Performed By: #### C BC, PP ####[address] [place] [address] [facility] WBC (Bld) [#/Vol] 10.4 10*3/uL Normal 4.1-10.5 [facility] Comment on above: Performed By: #### C BC, PP ####[address] [place] [address] [facility] Glucose Poct Glucometerson 0 02-02-2024 Commemt1 Glu2: Cleaned Meter [facility] Comment on above: Result Comment: PERF ORMED BY: [facility] [address] [address] PATHOLOGIST STAFFING MGR NEVA MACKAY M.D. Performed By: #### G LULS #### Point of Care testing , Glucose [Mass/Vol] 115 mg/dL Normal [facility] Comment on above: Result Comment: [facility] Glucose Reference Range is dependent on time and content of last meal. Glucose of more than 200 mg/dL in a nonstressed, ambulatory subject supports the diagnosis of Diabetes Mellitus. Performed By: #### G LULS #### Point of Care testing , Commemt1 Glu2: Cleaned Meter Normal [facility] Comment on above: Result Comment: PERF ORMED BY: [facility] [address] [facility] [address] PATHOLOGIST STAFFING MGR NEVA MACKAY M.D. Performed By: #### G LULS #### Point of Care testing , Glucose [Mass/Vol] 241 mg/dL Normal [facility] Comment on above: Result Comment: [place] Glucose Reference Range is dependent on time and content of last meal. Glucose of more than 200 mg/dL in a nonstressed, ambulatory subject supports the diagnosis of Diabetes Mellitus. Performed By: #### G LULS #### Point of Care testing , Commemt1 Glu2: Cleaned Meter Normal [facility] Comment on above: Result Comment: PERF ORMED BY: [place] [address] PATHOLOGIST STAFFING MGR NEVA MACKAY M.D. Performed By: #### G LULS ####Point of Care testing, Glucose [Mass/Vol] 131 mg/dL Normal [facility] Comment on above: Result Comment: [place] Glucose Reference Range is dependent on time and content of last meal. Glucose of more than 200 mg/dL in a nonstressed, ambulatory subject supports the diagnosis of Diabetes Mellitus. Performed By: #### G LULS ####Point of Care testing, Partial Thromboplastin Timeo n 02-02-2024 aPTT Coag (Bld) [Time] 87.6 s High 25.1-36.5 [facility] Comment on above: Order Comment: List the anticoagulant: HEPARIN, UNFRACTIONATED Result Comment: A he matocrit value greater than 55% may lead to inaccurate results in coagulation testing. Patients having hematocrit values >55% require a special collection tube for coagulation studies. Please contact the laboratory at [phone] for redraw instructions. PERFORMED BY: [place] [address] PATHOLOGIST STAFFING MGR NEVA MACKAY M.D. Performed By: #### B #### [address] aPTT Coag (Bld) [Time] 114.0 s Off scale high 25.1-36.5 [facility] Comment on above: Result Comment: Resu lts called at 0116 on 02/02/24 A hematocrit value greater than 55% may lead to inaccurate results in coagulation testing. Patients having hematocrit values >55% require a special collection tube for coagulation studies. Please contact the laboratory at [phone] for redraw instructions. PERFORMED BY: [address] [address] PATHOLOGIST STAFFING MGR NEVA MACKAY M.D. Performed By: #### B MP #### [facility] [id number] [facility] Renal Function Panelon 02-01 Albumin [Mass/Vol] 3.2 g/dL Low 3.5-5.7 [facility] Comment on above: Performed By: #### R ENAL ####[address] [place] [id number] [facility] Anion gap [Moles/Vol] 14.9 mmol/L Normal 6.0-15.0 [facility] Comment on above: Performed By: #### R ENAL ####[id number] [facility] Calcium [Mass/Vol] 8.5 mg/dL Low 8.6-10.3 [facility] Comment on above: Performed By: #### R ENAL ####[address] [place] [id number] [facility] Chloride [Moles/Vol] 98 mmol/L Normal 98-107 [facility] Comment on above: Performed By: #### R ENAL ####[address] [place] [id number] [facility] CO2 [Moles/Vol] 27.6 mmol/L Normal 21.0-31.0 [facility] Comment on above: Performed By: #### R ENAL ####[place] [id number] [facility] Creatinine [Mass/Vol] 3.18 mg/dL High 0.70-1.30 [facility] Comment on above: Performed By: #### R ENAL ####[facility] [id number] [place], [place] [id number] [facility] Creatinine Clr Calc Pharmacy 21.36 Normal [facility] Comment on above: Result Comment: PERF ORMED BY: [facility] [address] [place] [id number] PATHOLOGIST STAFFING MGR NEVA MACKAY M.D. Performed By: #### R ENAL ####[address] [place] [address] [place] GFR/1.73 sq M.predicted MDRD (S/P/Bld) [Vol rate/Area] 18.176 mL/min/{1.73_m2} Normal [facility] Comment on above: Performed By: #### R ENAL ####[address] [place] [address] [facility] Glucose [Mass/Vol] 136 mg/dL High 70-100 [facility] Comment on above: Result Comment: [facility] Glucose Reference Range is dependent on time and content of last meal. Glucose of more than 200 mg/dL in a nonstressed, ambulatory subject supports the diagnosis of Diabetes Mellitus. ADA recommended reference range Performed By: #### R ENAL ####[address] [place] [address] [facility] Phosphate [Mass/Vol] 5.6 mg/dL High 2.5-4.5 [facility] Comment on above: Performed By: #### R ENAL ####[address] [address] [place] Potassium [Moles/Vol] 4.5 mmol/L Normal 3.5-5.1 [facility] Comment on above: Performed By: #### R ENAL ####[address] [address] [place] Sodium [Moles/Vol] 136 mmol/L Normal 136-145 [facility] Comment on above: Performed By: #### R ENAL ####[address] [place] [address] [place] Urea nitrogen [Mass/Vol] 55 mg/dL High 7-25 [facility] Comment on above: Performed By: #### R ENAL ####[address] [address] [facility] US venous duplex LE BIon US venous duplex LE BI [facility] [address] [place] [address] Ultrasound Report Signed Patient: Bere Callejas MR#: [id number] [birth year] : 1935 Acct:[id number] Age/Sex: 89 / M ADM Date: 01/31/24 Loc: Room: [address] [place] [address] Type: ADM IN Attending Dr: Alaln Ruvalcaba MD Ordering Provider: Allan Ruvalcaba MD Date of Service: 02/01/24 US/US venous duplex LE BI: suspect popliteal DVT R Copies to: Allan Ruvalcaba MD Bilateral lower extremity venous duplex evaluation INDICATIONS: Edema pain and tenderness FINDINGS: Right lower extremity: Compression and color flow were abnormal. Thrombus was identified. The common femoral vein was not visualized. Popliteal compression was abnormal with thrombus. Left lower extremity: Compression color flow and augmentation were normal. No thrombus was identified. The left groin was evaluated and identified a complex hypoechoic area. A small trickle amount of flow was identified and compressed and the patient bearing down with cough. US/US venous duplex LE BI Impression: Positive study for right lower extremity popliteal vein DVT. Doubtful left groin pseudoaneurysm as patient had recent open surgery and a suture line is present. This may account for a slight amount of anastomotic leakage if the patient bears down. Clinical correlation recommended. Impression dictated by: William Bailey MD02/02/2024 5:16 PM Dictation Location: [place] [address] Tech: Hannah Eugene Transcribed By: RIKKI 02/02/241715 Dictated By: William Bailey MD 02/02/241712 Signed By: 02/02/241715 [facility] Arterial Blood Gason 024 ABG Base Excess 1.7 mmol/L Normal -3.0-3.0 [facility] Comment on above: Performed By: #### B MP #### [facility] [address] [place] [address] ABG Frac Inspired O2 ROOM AIR [facility] Comment on above: Performed By: #### B MP #### [facility] [address] [place] [address] ABG Oxygen Content 5.4 mmol/L Low 6.6-9.7 [facility] Comment on above: Performed By: #### B MP #### [facility] [address] [place] [address] ABG Oxygen Saturation 91.7 % Low 95.0-100.0 [facility] Comment on above: Performed By: #### B MP #### [address] ABG PCO2 29.9 mm[Hg] Off scale low 35.0-45.0 [facility] Comment on above: Performed By: #### B MP #### [address] ABG PH 7.53 High 7.35-7.45 [facility] Comment on above: Performed By: #### B MP #### [address] ABG PO2 59.9 mm[Hg] Low 80.0-100.0 [facility] Comment on above: Performed By: #### B MP #### [address] CO2 [Moles/Vol] 25.1 mmol/L Normal 23.0-27.0 [facility] Comment on above: Performed By: #### B MP #### [address] HCO3 (Bld) [Moles/Vol] 24.1 mmol/L Normal 23.0-29.0 [facility] Comment on above: Performed By: #### B MP #### [address] Respiratory Critical Normal [facility] Comment on above: Result Comment: Crit ical Value called on: 02/01/2024 at 10:47 PERFORMED BY: [place] [address] PATHOLOGIST STAFFING MGR NEVA MACKAY M.D. Performed By: #### B MP #### [address] VBG Draw Site Artline [facility] Comment on above: Performed By: #### B MP #### [facility] [address] [place] [address] Basic Metabolic Panelon 03-0 Anion gap [Moles/Vol] 15.0 mmol/L Normal 6.0-15.0 [facility] Comment on above: Performed By: #### B MP #### [address] Calcium [Mass/Vol] 8.8 mg/dL Normal 8.6-10.3 [facility] Comment on above: Performed By: #### B MP #### [address] Chloride [Moles/Vol] 97 mmol/L Low 98-107 [facility] Comment on above: Performed By: #### B MP #### [address] CO2 [Moles/Vol] 27.4 mmol/L Normal 21.0-31.0 [facility] Comment on above: Performed By: #### B MP #### [address] Creatinine [Mass/Vol] 3.07 mg/dL Significan t change up 0.70-1.30 [facility] Comment on above: Performed By: #### B MP #### [facility] [address] [place] [address] Creatinine Clr Calc Pharmacy 22.49 [facility] Comment on above: Result Comment: PERF ORMED BY: [place] [address] PATHOLOGIST STAFFING MGR NEVA MACKAY M.D. Performed By: #### B MP #### [address] GFR/1.73 sq M.predicted MDRD (S/P/Bld) [Vol rate/Area] 18.959 mL/min/{1.73_m2} [facility] Comment on above: Performed By: #### B MP #### [facility] [address] Glucose [Mass/Vol] 152 mg/dL High 70-100 [facility] Comment on above: Result Comment: [place] Glucose Reference Range is dependent on time and content of last meal. Glucose of more than 200 mg/dL in a nonstressed, ambulatory subject supports the diagnosis of Diabetes Mellitus. ADA recommended reference range Performed By: #### B MP #### [facility] [address] Potassium [Moles/Vol] 5.4 mmol/L High 3.5-5.1 [facility] Comment on above: Performed By: #### B MP #### [facility] [address] Sodium [Moles/Vol] 134 mmol/L Low 136-145 [facility] Comment on above: Performed By: #### B MP #### [facility] [address] Urea nitrogen [Mass/Vol] 55 mg/dL High 7-25 [facility] Comment on above: Performed By: #### B MP #### [facility] [address] Anion gap [Moles/Vol] 13.4 mmol/L Normal 6.0-15.0 [facility] Comment on above: Performed By: #### G ASHLEYLS #### Point of Care testing , Calcium [Mass/Vol] 9.0 mg/dL Normal 8.6-10.3 [facility] Comment on above: Performed By: #### G ASHLEYLS #### Point of Care testing , Chloride [Moles/Vol] 98 mmol/L Normal 98-107 [facility] Comment on above: Performed By: #### G LULS #### Point of Care testing , CO2 [Moles/Vol] 26.6 mmol/L Normal 21.0-31.0 [facility] Comment on above: Performed By: #### G LULS #### Point of Care testing , Creatinine [Mass/Vol] 2.49 mg/dL Significan t change up 0.70-1.30 [facility] Comment on above: Performed By: #### G LULS #### Point of Care testing , Creatinine Clr Calc Pharmacy 27.52 [facility] Comment on above: Performed By: #### G LULS #### Point of Care testing , GFR/1.73 sq M.predicted MDRD (S/P/Bld) [Vol rate/Area] 24.375 mL/min/{1.73_m2} Normal [facility] Comment on above: Performed By: #### G LULS #### Point of Care testing , Glucose [Mass/Vol] 81 mg/dL Significant change down 70-100 [facility] Comment on above: Result Comment: [place] Glucose Reference Range is dependent on time and content of last meal. Glucose of more than 200 mg/dL in a nonstressed, ambulatory subject supports the diagnosis of Diabetes Mellitus. ADA recommended reference range Performed By: #### G LULS #### Point of Care testing , Potassium [Moles/Vol] 5.0 mmol/L Significan t change down 3.5-5.1 [facility] Comment on above: Performed By: #### G LULS #### Point of Care testing , Sodium [Moles/Vol] 133 mmol/L Significant change down 136-145 [facility] Comment on above: Performed By: #### G LULS #### Point of Care testing , Urea nitrogen [Mass/Vol] 49 mg/dL Significant change up 7-25 [facility] Comment on above: Performed By: #### G LULS #### Point of Care testing , Complete Blood Count Auto Di ffon 02-01-2024 Basophils (Bld) [#/Vol] 0.0 10*3/uL Normal 0.0-0.2 [facility] Comment on above: Result Comment: PERF ORMED BY: [facility] [address] [address] PATHOLOGIST STAFFING MGR NEVA MACKAY M.D. Performed By: #### G LULS #### Point of Care testing , Basophils/100 WBC (Bld) 0.2 % Normal . [facility] Comment on above: Performed By: #### G ASHLEYLS #### Point of Care testing , Eosinophils (Bld) [#/Vol] 0.1 10*3/uL Normal 0.0-0.45 [facility] Comment on above: Performed By: #### G ASHLEYLS #### Point of Care testing , Eosinophils/100 WBC (Bld) 0.5 % Normal . [facility] Comment on above: Performed By: #### G ASHLEYLS #### Point of Care testing , Erythrocyte distribution width (RBC) [Ratio] 18.2 % High 12.0-14.8 [facility] Comment on above: Performed By: #### G ASHLEYLS #### Point of Care testing , Hematocrit (Bld) [Volume fraction] 24.9 % Low 38.8-50.0 [facility] Comment on above: Performed By: #### G ASHLEYLS #### Point of Care testing , Hemoglobin (Bld) [Mass/Vol] 8.3 g/dL Low 13.0-17.0 [facility] Comment on above: Performed By: #### G ASHLEYLS #### Point of Care testing , Lymphocytes (Bld) [#/Vol] 0.6 10*3/uL Low 1.00-4.8 [facility] Comment on above: Performed By: #### G ASHLEYLS #### Point of Care testing , Lymphocytes/100 WBC (Bld) 5.1 % Normal . [facility] Comment on above: Performed By: #### G ASHLEYLS #### Point of Care testing , MCH (RBC) [Entitic mass] 32.7 pg Normal 27.5-35.2 [facility] Comment on above: Performed By: #### G LULS #### Point of Care testing , MCV (RBC) [Entitic vol] 98.0 fL Normal 83.5-101 [facility] Comment on above: Performed By: #### G ASHLEYLS #### Point of Care testing , Mean Corpuscular HGB Conc 33.4 g/dL Normal 32.5-35.6 [facility] Comment on above: Performed By: #### Carley BOWER #### Point of Care testing , Monocytes (Bld) [#/Vol] 1.0 10*3/uL High 0.0-0.8 [facility] Comment on above: Performed By: #### Carley BOWER #### Point of Care testing , Monocytes/100 WBC (Bld) 8.8 % Normal . [facility] Comment on above: Performed By: #### Carley RAMIREZLS #### Point of Care testing , Neutrophils (Bld) [#/Vol] 10.1 10*3/uL High 1.8-7.7 [facility] Comment on above: Performed By: #### Carley BOWER #### Point of Care testing , Neutrophils/100 WBC (Bld) 85.4 % Normal . [facility] Comment on above: Performed By: #### Carley BOWER #### Point of Care testing , NRBC% 0.2 /100{WBC} Normal 0-0.5 [facility] Comment on above: Performed By: #### Carley BOWER #### Point of Care testing , Platelet mean volume (Bld) [Entitic vol] 8.7 fL Normal 6.6-10.1 [facility] Comment on above: Performed By: #### Carley BOWER #### Point of Care testing , Platelets (Bld) [#/Vol] 132 10*3/uL Low 150-450 [facility] Comment on above: Performed By: #### Carley BOWER #### Point of Care testing , RBC (Bld) [#/Vol] 2.55 10*6/uL Low 3.90-5.60 [facility] Comment on above: Performed By: #### Carley BOWER #### Point of Care testing , WBC (Bld) [#/Vol] 11.8 10*3/uL High 4.1-10.5 [facility] Comment on above: Performed By: #### Carley BOWER #### Point of Care testing , Creatinine, Urine (Random)on 02-01-2024 Creatinine, Urine (Random) 39.0 mg/dL High 14.0-26.0 [facility] Comment on above: Performed By: #### U EOS, FEMI, ADDONUAPLUS, UCREA, UK, URTP ####[facility] [id number] [facility] [place] [address] [facility] Dipstick and Microscopicon 0 02-01-2024 Appearance (U) Clear Normal Clear [facility] Comment on above: Order Comment: Name Collection Type:: Chambers Catheter Performed By: #### G LULS #### Point of Care testing , Bacteria,Urine None Seen Normal None Seen [facility] Comment on above: Order Comment: Name Collection Type:: Chambers Catheter Performed By: #### G LULS #### Point of Care testing , Bilirubin,Urine Negative Normal Negative [facility] Comment on above: Order Comment: Name Collection Type:: Chambers Catheter Performed By: #### G LULS #### Point of Care testing , Color (U) Yellow Normal Yellow [facility] Comment on above: Order Comment: Name Collection Type:: Chambers Catheter Performed By: #### G LULS #### Point of Care testing , Glucose Ql (U) 100 mg/dL High Normal [facility] Comment on above: Order Comment: Name Collection Type:: Chambers Catheter Performed By: #### G LULS #### Point of Care testing , Hyaline Casts,Urine 0-8 Normal 0-8 [facility] Comment on above: Order Comment: Name Collection Type:: Chambers Catheter Performed By: #### G LULS #### Point of Care testing , Ketones Ql (U) Negative Normal Negative [facility] Comment on above: Order Comment: Name Collection Type:: Chambers Catheter Performed By: #### G LULS #### Point of Care testing , Leukocyte esterase Test strip Ql (U) Negative Normal Negative [facility] Comment on above: Order Comment: Name Collection Type:: Chambers Catheter Performed By: #### G LULS #### Point of Care testing , Nitrite,Urine Negative Normal Negative [facility] Comment on above: Order Comment: Name Collection Type:: Chambers Catheter Performed By: #### G LULS #### Point of Care testing , Occult Blood,Urine 1+ High Negative [facility] Comment on above: Order Comment: Name Collection Type:: Chambers Catheter Performed By: #### G LULS #### Point of Care testing , pH (U) 7.5 [pH] Normal 5.0-9.0 [facility] Comment on above: Order Comment: Name Collection Type:: Chambers Catheter Performed By: #### G LULS #### Point of Care testing , Protein (U) [Mass/Vol] 30 mg/dL High Negative [facility] Comment on above: Order Comment: Name Collection Type:: Chambers Catheter Performed By: #### G LULS #### Point of Care testing , RBC,Urine 20-49 High 0-4 [facility] Comment on above: Order Comment: Name Collection Type:: Chambers Catheter Performed By: #### G LULS #### Point of Care testing , Specificy [place],Urine 1.011 Normal 1.001-1.030 [facility] Comment on above: Order Comment: Name Collection Type:: Chambers Catheter Performed By: #### G LULS #### Point of Care testing , Squamous Epithelial Cell,Urine 0-1 Normal 0-2 [facility] Comment on above: Order Comment: Name Collection Type:: Chambers Catheter Performed By: #### G LULS #### Point of Care testing , Urobilinogen,Urine Normal Normal Normal [facility] Comment on above: Order Comment: Name Collection Type:: Chambers Catheter Performed By: #### G LULS #### Point of Care testing , WBC,Urine 1-2 Normal 0-4 [facility] Comment on above: Order Comment: Name Collection Type:: Chambers Catheter Performed By: #### G LULS #### Point of Care testing , ECG 12 lead ECGon 02-01-2024 ECG 12 lead ECG [place] [address] Electrocardiograph Report Signed Patient: Bere Callejas MR#: [id number] [birth year] : 1935 Acct:[id number] Age/Sex: 89 / M ADM Date: 01/31/24 Loc: Room: [address] [place] [address] Type: ADM IN Attending Dr: Allan Ruvalcaba MD Ordering Provider: Emily Watson APRN Date of Service: 02/01/2404/21/500 ECG/ECG 12 lead ECG: hyperkalemia Copies to: Test Reason : Blood Pressure : / mmHG Vent. Rate : 095 BPM Atrial Rate : 096 BPM P-R Int : 000 ms QRS Dur : 158 ms QT Int : 416 ms P-R-T Axes : 000 -73 013 degrees QTc Int : 522 ms Accelerated Junctional rhythm Right bundle branch block Left anterior fascicular block Bifascicular block Possible Lateral infarct , age undetermined Abnormal ECG No previous ECGs available Confirmed by Emile Gillespie ([id number]) on 02/01/2024 11:15:52 PM Referred By: Electronically Signed By:Emile Gillespie Transcribed By: MUS Signed By Emile Gillespie MD 02/01/24 2315 [facility] ECH echo transthoracicon [facility] echo transthoracic [facility] [address] Echocardiogram Signed Patient: Bere Callejas MR#: [id number] [birth year] : 1935 Acct:[id number] Age/Sex: 89 / M ADM Date: 01/31/24 Loc: Room: [address] [place] [address] Type: ADM IN Attending Dr: Allan Ruvalcaba MD Ordering Provider: Allan Ruvalcaba MD Date of Service: 02/01/2404/21/1312 [facility] echo transthoracic: anasarca Copies to: MD Emile Rivera MD Ordering Physician: Allan Ruvalcaba Height: 72 in Weight: 260 lb Performed By: SIMONA Heath BSA: 2.4 m2 BP: 101/49 mmHg HR: 96 Reason For Study: anasarca, SOB History: MRSA, COVID, CKD, Cellulitis, Carotid Artery Stenosis, Anemia, HLD, DM, HTN, CHF, PVD - recent femoropopliteal bypass Interpretation Summary Ejection Fraction = 55-60%. The left ventricular wall motion is normal. Mild concentric left ventricular hypertrophy. The study was technically suboptimal in quality due to poor acoustic windows . The left ventricle is moderately dilated. There is no comparison study available. Procedure/Quality: A two-dimensional transthoracic echocardiogram with color flow, Doppler and injection of contrast agent Definity was performed. The study was technically suboptimal in quality due to poor acoustic windows . Left Ventricle: Mild concentric left ventricular hypertrophy. The left ventricle is moderately dilated. Ejection Fraction = 55-60%. The left ventricular wall motion is normal. Left Atrium: The left atrium appears normal in size. Right Atrium: The right atrium appears normal in size. Right Ventricle: The right ventricle is normal in size and function. Aortic Valve: The aortic valve is trileaflet. The aortic valve is normal in structure. No hemodynamically significant valvular aortic stenosis. No aortic regurgitation is present. Mitral Valve: The mitral valve is normal in structure. No significant mitral valve stenosis. There is no mitral regurgitation noted. Tricuspid Valve: The tricuspid valve is not well visualized. No tricuspid regurgitation. Pulmonic Valve: The pulmonic valve is not well visualized. No significant pulmonic regurgitation. Arteries: The aortic root is normal size. Pericardium/Pleura: No pericardial effusion seen. There is no pleural effusion. IVC/Hepatic Veins: The IVC is dialted with an abnormal collapsibility index, this suggestive of increased right atrial pressure. Measurements with Normals IVSd: 1.3 cm (0.7-1.1 cm)LVIDd: 5.7 cm (3.7-5.4 cm) LVPWd: 1.2 cm (0.7-1.1 cm)LVIDs: 4.1 cm (2.3-3.6 cm) LA dimension: 3.3 cm (2.3-4.0 cm)Ao root diam: 3.8 cm(2.0-3.6 cm) asc Aorta Diam: 3.3 cm(2.1-3.4cm) Doppler with Normals RVSP(TR): 38.3 mmHg (18-35mmHg) LV V1 max: 115.7 cm/sec (0.7-1.7m/s)MV E max raleigh: 110.0 cm/sec(0.8-1.3m/s) MV A max raleigh: 87.0 cm/sec(0.0-0.0m/s) MV E/A: 1.3 (<1.5) MMode/2D Measurements Calculations RVDd: 2.7 cm FS: 28.0 % Ao root area: LVOT diam: 2.2 cm TAPSE: 2.6 cm EDV(Teich): 11.4 cm2 LVOT area: 3.8 cm2 RV S [place]: 162.6 ml 17.4 cm/sec ESV(Teich): 75.5 ml EF(Teich): 53.6 % __ LVLd ap4: 9.5 cm SV(MOD-sp4): LAV(MOD-sp4): LA A4 area: 24.7 cm2 EDV(MOD-sp4): 86.9 ml 69.4 ml LA length (vol): 180.0 ml 6.8 cm LVLs ap4: 8.3 cm ESV(MOD-sp4): 93.1 ml EF(MOD-sp4): 48.3 % Doppler Measurements Calculations MV dec time: E/E' lat: 8.4 MV dec slope: Ao V2 max: 0.17 sec E/E' med: 12.6 631.8 cm/sec2 173.7 cm/sec Ao max P.1 mmHg Ao mean P.2 mmHg Ao V2 mean: 126.9 cm/sec Ao V2 VTI: 35.2 cm JUANA(I,D): 2.1 cm2 JUANA(V,D): 2.5 cm2 __ LV V1 max PG: TV max PG: TR max raleigh: 5.4 mmHg 28.0 mmHg 266.0 cm/sec LV V1 mean PG: TR max P.3 mmHg 2.7 mmHg RAP systole: 10.0 mmHg LV V1 mean: 75.5 cm/sec LV V1 VTI: 19.9 cm Transcribed By: CLINT Performed At: 02/01/24 1405 Signed By: Emile Gillesipe MD 02/01/24 1637 Normal [facility] Eosinophil,Urineon 4 Eosinophil,Urine 0 % Normal 0-1 [facility] Comment on above: Order Comment: Name Collection Type:: Chambers Catheter Result Comment: PERF ORMED BY: [address] [place] [address] PATHOLOGIST STAFFING MGR NEVA MACKAY M.D. Performed By: #### G LULS #### Point of Care testing , Glucose Poct Glucometerson 0 02-01-2024 Commemt1 Glu2: Cleaned Meter [facility] Comment on above: Result Comment: PERF ORMED BY: [address] [place] [id number] PATHOLOGIST STAFFING MGR NEVA MACKAY M.D. Performed By: #### G LULS #### Point of Care testing , Glucose [Mass/Vol] 163 mg/dL Normal [facility] Comment on above: Result Comment: [place] om Glucose Reference Range is dependent on time and content of last meal. Glucose of more than 200 mg/dL in a nonstressed, ambulatory subject supports the diagnosis of Diabetes Mellitus. Performed By: #### G LULS #### Point of Care testing , Commemt1 Glu2: Cleaned Meter [facility] Comment on above: Result Comment: PERF ORMED BY: [address] [place] [id number] PATHOLOGIST STAFFING MGR NEVA MACKAY M.D. Performed By: #### G LULS #### Point of Care testing , Glucose [Mass/Vol] 127 mg/dL Normal [facility] Comment on above: Result Comment: [place] om Glucose Reference Range is dependent on time and content of last meal. Glucose of more than 200 mg/dL in a nonstressed, ambulatory subject supports the diagnosis of Diabetes Mellitus. Performed By: #### G LULS #### Point of Care testing , Commemt1 Glu2: Cleaned Meter [facility] Comment on above: Result Comment: PERF ORMED BY: [place] [address] PATHOLOGIST STAFFING MGR NEVA MACKAY M.D. Performed By: #### G LULS ####Point of Care testing, Glucose [Mass/Vol] 146 mg/dL Normal [facility] Comment on above: Result Comment: [place] om Glucose Reference Range is dependent on time and content of last meal. Glucose of more than 200 mg/dL in a nonstressed, ambulatory subject supports the diagnosis of Diabetes Mellitus. Performed By: #### G LULS ####Point of Care testing, Commemt1 Glu2: Cleaned Meter [facility] Comment on above: Result Comment: PERF ORMED BY: [place] [address] PATHOLOGIST STAFFING MGR NEVA MACKAY M.D. Performed By: #### B MP #### [facility] [address] [place] [address] Glucose [Mass/Vol] 79 mg/dL Normal [facility] Comment on above: Result Comment: [place] om Glucose Reference Range is dependent on time and content of last meal. Glucose of more than 200 mg/dL in a nonstressed, ambulatory subject supports the diagnosis of Diabetes Mellitus. Performed By: #### B MP #### [facility] [address] [place] [address] Glucose [Mass/Vol] 280 mg/dL Normal [facility] Comment on above: Result Comment: [place] om Glucose Reference Range is dependent on time and content of last meal. Glucose of more than 200 mg/dL in a nonstressed, ambulatory subject supports the diagnosis of Diabetes Mellitus. PERFORMED BY: [place] [address] PATHOLOGIST STAFFING MGR NEVA MACKAY M.D. Performed By: #### G LULS #### Point of Care testing , Magnesiumon 02-01-2024 Magnesium [Mass/Vol] 1.9 mg/dL Normal 1.9-2.7 [facility] Comment on above: Result Comment: PERF ORMED BY: [place] [address] PATHOLOGIST STAFFING MGR NEVA MACKAY M.D. Performed By: #### G LULS #### Point of Care testing , Potassium, Urine (Random)on 02-01-2024 Potassium, Urine (Random) 55.2 mmol/L Normal [facility] Comment on above: Result Comment: No r eference range established PERFORMED BY: [address] [place] [address] PATHOLOGIST STAFFING MGR NEVA MACKAY M.D. Performed By: #### G LULS #### Point of Care testing , Sodium, Urine (Random)on Sodium (U) [Moles/Vol] 67 mmol/L Normal [facility] Comment on above: Result Comment: No r eference range established Performed By: #### G LULS #### Point of Care testing , Total Protein, Urineon 01-31 Protein (U) [Mass/Vol] 40 mg/dL High 0-9 [facility] Comment on above: Performed By: #### G LULS #### Point of Care testing , US renal BIon 02-01-2024 US renal BI [facility] [address] [address] Ultrasound Report Signed Patient: Bere Callejas MR#: [id number] [birth year] : 1935 Acct:[id number] Age/Sex: 89 / M ADM Date: 01/31/24 Loc: Room: [address] [place] [address] Type: ADM IN Attending Dr: Allan Ruvalcaba MD Ordering Provider: Willy Quiroz DO Date of Service: 02/01/24 US/US renal BI: ARF Copies to: MD Willy Rivera DO BILATERAL RENAL AND BLADDER ULTRASOUND CLINICAL HISTORY: Acute renal failure COMPARISON: 01/09/2024 Assessment is slightly limited by body habitus and poor acoustic windows. The images are intercostal. Estimation of renal size is approximately 12.4 cm on the right and 13.9 cm on the left. No shadowing calculi or hydronephrosis are identified. No renal mass lesions were imaged. There is no perinephric fluid. The urinary bladder contains a Chambers catheter and is not distended for assessment. US/US renal BI IMPRESSION: NO OBSTRUCTIVE UROPATHY. Impression dictated by: Luann Zuniga M.D.02/01/2024 9:52 AM Dictation Location: [place] [address] Tech: Jaquelin Mccrary Transcribed By: RIKKI 02/01/24951 Dictated By: Luann Zuniga MD 02/01/2448 Signed By: 02/01/24951 [facility] Basic Metabolic Panelon Anion gap [Moles/Vol] 18.9 mmol/L High 6.0-15.0 [facility] Comment on above: Performed By: #### G LULS #### Point of Care testing , Calcium [Mass/Vol] 9.1 mg/dL Normal 8.6-10.3 [facility] Comment on above: Performed By: #### G LULS #### Point of Care testing , Chloride [Moles/Vol] 98 mmol/L Normal 98-107 [facility] Comment on above: Performed By: #### G LULS #### Point of Care testing , CO2 [Moles/Vol] 17.7 mmol/L Low 21.0-31.0 [facility] Comment on above: Performed By: #### G LULS #### Point of Care testing , Creatinine [Mass/Vol] 4.49 mg/dL High 0.70-1.30 [facility] Comment on above: Performed By: #### G LULS #### Point of Care testing , Creatinine Clr Calc Pharmacy 15.26 [facility] Comment on above: Performed By: #### G LULS #### Point of Care testing , GFR/1.73 sq M.predicted MDRD (S/P/Bld) [Vol rate/Area] 12.014 mL/min/{1.73_m2} Normal [facility] Comment on above: Performed By: #### G LULS #### Point of Care testing , Glucose [Mass/Vol] 353 mg/dL High 70-100 [facility] Comment on above: Result Comment: [place] Glucose Reference Range is dependent on time and content of last meal. Glucose of more than 200 mg/dL in a nonstressed, ambulatory subject supports the diagnosis of Diabetes Mellitus. ADA recommended reference range Performed By: #### G LULS #### Point of Care testing , Potassium [Moles/Vol] 7.6 mmol/L Off scale high 3.5-5.1 [facility] Comment on above: Result Comment: Crit ical Result Called to and read back by: LILIBETH CLOUD at: 01/31/2024 22:27:24 by:SURAJ Performed By: #### G LULS #### Point of Care testing , Sodium [Moles/Vol] 127 mmol/L Low 136-145 [facility] Comment on above: Performed By: #### G LULS #### Point of Care testing , Urea nitrogen [Mass/Vol] 107 mg/dL High 7-25 [facility] Comment on above: Performed By: #### G LULS #### Point of Care testing , Complete Blood Count Auto Di ffon 01-31-2024 Basophils (Bld) [#/Vol] 0.0 10*3/uL Normal 0.0-0.2 [facility] Comment on above: Result Comment: PERF ORMED BY: [facility] [address] [place] [address] PATHOLOGIST STAFFING MGR NEVA MACKAY M.D. Performed By: #### G LULS #### Point of Care testing , Basophils/100 WBC (Bld) 0.2 % Normal . [facility] Comment on above: Performed By: #### G LULS #### Point of Care testing , Eosinophils (Bld) [#/Vol] 0.0 10*3/uL Normal 0.0-0.45 [facility] Comment on above: Performed By: #### G LULS #### Point of Care testing , Eosinophils/100 WBC (Bld) 0.0 % Normal . [facility] Comment on above: Performed By: #### Carley BOWER #### Point of Care testing , Erythrocyte distribution width (RBC) [Ratio] 18.3 % High 12.0-14.8 [facility] Comment on above: Performed By: #### G CHELI #### Point of Care testing , Hematocrit (Bld) [Volume fraction] 25.3 % Low 38.8-50.0 [facility] Comment on above: Performed By: #### G CHELI #### Point of Care testing , Hemoglobin (Bld) [Mass/Vol] 8.2 g/dL Low 13.0-17.0 [facility] Comment on above: Performed By: #### G CHELI #### Point of Care testing , Lymphocytes (Bld) [#/Vol] 0.5 10*3/uL Low 1.00-4.8 [facility] Comment on above: Performed By: #### Carley RAMIREZLS #### Point of Care testing , Lymphocytes/100 WBC (Bld) 3.1 % Normal . [facility] Comment on above: Performed By: #### Carley BOWER #### Point of Care testing , MCH (RBC) [Entitic mass] 32.8 pg Normal 27.5-35.2 [facility] Comment on above: Performed By: #### G CHELI #### Point of Care testing , MCV (RBC) [Entitic vol] 101.0 fL Normal 83.5-101 [facility] Comment on above: Performed By: #### G CHELI #### Point of Care testing , Mean Corpuscular HGB Conc 32.5 g/dL Normal 32.5-35.6 [facility] Comment on above: Performed By: #### G ASHLEYLS #### Point of Care testing , Monocytes (Bld) [#/Vol] 1.0 10*3/uL High 0.0-0.8 [facility] Comment on above: Performed By: #### Carley BOWER #### Point of Care testing , Monocytes/100 WBC (Bld) 6.8 % Normal . [facility] Comment on above: Performed By: #### G LULS #### Point of Care testing , Neutrophils (Bld) [#/Vol] 13.1 10*3/uL High 1.8-7.7 [facility] Comment on above: Performed By: #### G LULS #### Point of Care testing , Neutrophils/100 WBC (Bld) 89.9 % Normal . [facility] Comment on above: Performed By: #### G LULS #### Point of Care testing , NRBC% 0.0 /100{WBC} Normal 0-0.5 [facility] Comment on above: Performed By: #### G LULS #### Point of Care testing , Platelet mean volume (Bld) [Entitic vol] 9.3 fL Normal 6.6-10.1 [facility] Comment on above: Performed By: #### G LULS #### Point of Care testing , Platelets (Bld) [#/Vol] 137 10*3/uL Low 150-450 [facility] Comment on above: Performed By: #### G LULS #### Point of Care testing , RBC (Bld) [#/Vol] 2.51 10*6/uL Low 3.90-5.60 [facility] Comment on above: Performed By: #### G LULS #### Point of Care testing , WBC (Bld) [#/Vol] 14.6 10*3/uL High 4.1-10.5 [facility] Comment on above: Performed By: #### G LULS #### Point of Care testing , ECG 12 lead ECGon 01-31-2024 ECG 12 lead ECG [facility] [address] Electrocardiograph Report Signed Patient: Bere Callejas MR#: [id number] [birth year] : 1935 Acct:[id number] Age/Sex: 89 / M ADM Date: 01/31/24 Loc: Room: [address] [place] [address] Type: ADM IN Attending Dr: Allan Ruvalcaba MD Ordering Provider: Willy Quiroz DO Date of Service: 01/31/2403/22/2105 ECG/ECG 12 lead ECG: hyperkalemia Copies to: Test Reason : Blood Pressure : / mmHG Vent. Rate : 078 BPM Atrial Rate : 064 BPM P-R Int : 000 ms QRS Dur : 166 ms QT Int : 504 ms P-R-T Axes : 000 -78 001 degrees QTc Int : 574 ms Sinus rhythm Right bundle branch block Left anterior fascicular block Bifascicular block Possible Lateral infarct , age undetermined Cannot rule out Inferior infarct , old Abnormal ECG No previous ECGs available Confirmed by Emile Gillespie ([id number]) on 02/01/2024 11:14:48 PM Referred By: Electronically Signed By:Emile Gillespie Transcribed By: MUS Signed By Emile Gillespie MD 02/01/24 2311 Normal [facility] Magnesiumon 01-31-2024 Magnesium [Mass/Vol] 2.2 mg/dL Normal 1.9-2.7 [facility] Comment on above: Result Comment: PERF ORMED BY: [place] [address] PATHOLOGIST STAFFING MGR NEVA MACKAY M.D. Performed By: #### G LUANTONIO #### Point of Care testing , Basic Metabolic Panelon 12-30 Anion gap [Moles/Vol] Not performed Normal 6.0-15.0 [facility] Comment on above: Performed By: #### B MP #### [facility] [address] [place] [address] Calcium [Mass/Vol] 8.5 mg/dL Low 8.6-10.3 [facility] Comment on above: Performed By: #### B MP #### [facility] [address] Chloride [Moles/Vol] 102 mmol/L Normal 98-107 [facility] Comment on above: Performed By: #### B MP #### [facility] [address] [place] [address] [place] CO2 [Moles/Vol] 30.4 mmol/L Normal 21.0-31.0 [facility] Comment on above: Performed By: #### B MP #### [place] [address] [place] Creatinine [Mass/Vol] 2.29 mg/dL High 0.70-1.30 [facility] Comment on above: Performed By: #### B MP #### [facility] [address] [place] [address] [place] Creatinine Clr Calc Pharmacy 33.18 Normal [facility] Comment on above: Result Comment: PERF ORMED BY: [place] [address] PATHOLOGIST STAFFING MGR NEVA MACKAY M.D. Performed By: #### B MP #### [address] GFR/1.73 sq M.predicted MDRD (S/P/Bld) [Vol rate/Area] 27.120 mL/min/{1.73_m2} Normal [facility] Comment on above: Performed By: #### B MP #### [address] Glucose [Mass/Vol] 146 mg/dL High 70-100 [facility] Comment on above: Result Comment: [facility] Glucose Reference Range is dependent on time and content of last meal. Glucose of more than 200 mg/dL in a nonstressed, ambulatory subject supports the diagnosis of Diabetes Mellitus. ADA recommended reference range Performed By: #### B MP #### [address] Potassium Normal 3.5-5.1 [facility] Comment on above: Result Comment: Spec imen hemolyzed, redraw requested Performed By: #### B MP #### [place] [address] [place] Sodium [Moles/Vol] 138 mmol/L Normal 136-145 [facility] Comment on above: Performed By: #### B MP #### [address] [address] [place] Urea nitrogen [Mass/Vol] 36 mg/dL High 7-25 [facility] Comment on above: Performed By: #### B MP #### [facility] [address] [place] [id number] [facility] Glucose Poct Glucometerson 0 - Commemt1 Glu2: Cleaned Meter Normal [facility] Comment on above: Result Comment: PERF ORMED BY: [facility] [address] [facility]. [place] [id number] PATHOLOGIST STAFFING MGR NEVA MACKAY M.D. Performed By: #### G CHELI #### Point of Care testing , Glucose [Mass/Vol] 141 mg/dL Normal [facility] Comment on above: Result Comment: [place] Glucose Reference Range is dependent on time and content of last meal. Glucose of more than 200 mg/dL in a nonstressed, ambulatory subject supports the diagnosis of Diabetes Mellitus. Performed By: #### G CHELI #### Point of Care testing , Basic Metabolic Panelon 12-30 Anion gap [Moles/Vol] 12.8 mmol/L Normal 6.0-15.0 [facility] Comment on above: Performed By: #### G CHELI #### Point of Care testing , Calcium [Mass/Vol] 8.3 mg/dL Low 8.6-10.3 [facility] Comment on above: Performed By: #### G CHELI #### Point of Care testing , Chloride [Moles/Vol] 101 mmol/L Normal 98-107 [facility] Comment on above: Performed By: #### G CHELI #### Point of Care testing , CO2 [Moles/Vol] 27.5 mmol/L Normal 21.0-31.0 [facility] Comment on above: Performed By: #### G ASHLEYLS #### Point of Care testing , Creatinine [Mass/Vol] 2.28 mg/dL High 0.70-1.30 [facility] Comment on above: Performed By: #### G ASHLEYLS #### Point of Care testing , Creatinine Clr Calc Pharmacy 33.33 Normal [facility] Comment on above: Result Comment: PERF ORMED BY: [facility] [address] [place] [address] PATHOLOGIST STAFFING MGR NEVA MACKAY M.D. Performed By: #### G LULS #### Point of Care testing , GFR/1.73 sq M.predicted MDRD (S/P/Bld) [Vol rate/Area] 27.263 mL/min/{1.73_m2} [facility] Comment on above: Performed By: #### G LULS #### Point of Care testing , Glucose [Mass/Vol] 150 mg/dL Significant change up 70-100 [facility] Comment on above: Result Comment: [facility] Glucose Reference Range is dependent on time and content of last meal. Glucose of more than 200 mg/dL in a nonstressed, ambulatory subject supports the diagnosis of Diabetes Mellitus. ADA recommended reference range Performed By: #### G LULS #### Point of Care testing , Potassium [Moles/Vol] 3.3 mmol/L Low 3.5-5.1 [facility] Comment on above: Performed By: #### G LULS #### Point of Care testing , Sodium [Moles/Vol] 138 mmol/L Normal 136-145 [facility] Comment on above: Performed By: #### G LULS #### Point of Care testing , Urea nitrogen [Mass/Vol] 41 mg/dL High 7-25 [facility] Comment on above: Performed By: #### G LULS #### Point of Care testing , Glucose Poct Glucometerson 0 01-15-2024 Glucose [Mass/Vol] 226 mg/dL Normal [facility] Comment on above: Result Comment: [facility] Glucose Reference Range is dependent on time and content of last meal. Glucose of more than 200 mg/dL in a nonstressed, ambulatory subject supports the diagnosis of Diabetes Mellitus. PERFORMED BY: [facility] [address] [place] [address] PATHOLOGIST STAFFING MGR NEVA MACKAY M.D. Performed By: #### G LULS #### Point of Care testing , Glucose [Mass/Vol] 278 mg/dL Normal [facility] Comment on above: Result Comment: [place] om Glucose Reference Range is dependent on time and content of last meal. Glucose of more than 200 mg/dL in a nonstressed, ambulatory subject supports the diagnosis of Diabetes Mellitus. PERFORMED BY: [address] [place] [address] PATHOLOGIST STAFFING MGR NEVA MACKAY M.D. Performed By: #### G LULS #### Point of Care testing , Commemt1 Glu2: Cleaned Meter [facility] Comment on above: Result Comment: PERF ORMED BY: [address] [place] [address] PATHOLOGIST STAFFING MGR NEVA MACKAY M.D. Performed By: #### G LULS #### Point of Care testing , Glucose [Mass/Vol] 281 mg/dL Normal [facility] Comment on above: Result Comment: [facility] Glucose Reference Range is dependent on time and content of last meal. Glucose of more than 200 mg/dL in a nonstressed, ambulatory subject supports the diagnosis of Diabetes Mellitus. Performed By: #### G LULS #### Point of Care testing , Commemt1 Glu2: Cleaned Meter [facility] Comment on above: Result Comment: PERF ORMED BY: [address] [place] [address] PATHOLOGIST STAFFING MGR NEVA MACKAY M.D. Performed By: #### G LULS #### Point of Care testing , Glucose [Mass/Vol] 169 mg/dL Normal [facility] Comment on above: Result Comment: [place] Glucose Reference Range is dependent on time and content of last meal. Glucose of more than 200 mg/dL in a nonstressed, ambulatory subject supports the diagnosis of Diabetes Mellitus. Performed By: #### G LULS #### Point of Care testing , Basic Metabolic Panel 12-30 Anion gap [Moles/Vol] 12.9 mmol/L Normal 6.0-15.0 [facility] Comment on above: Order Comment: poked x1 patient refused a second poke Performed By: #### G LULS #### Point of Care testing , Calcium [Mass/Vol] 8.3 mg/dL Low 8.6-10.3 [facility] Comment on above: Order Comment: poked x1 patient refused a second poke Performed By: #### G LULS #### Point of Care testing , Chloride [Moles/Vol] 100 mmol/L Normal 98-107 [facility] Comment on above: Order Comment: poked x1 patient refused a second poke Performed By: #### G LULS #### Point of Care testing , CO2 [Moles/Vol] 28.0 mmol/L Normal 21.0-31.0 [facility] Comment on above: Order Comment: poked x1 patient refused a second poke Performed By: #### G LULS #### Point of Care testing , Creatinine [Mass/Vol] 2.35 mg/dL High 0.70-1.30 [facility] Comment on above: Order Comment: poked x1 patient refused a second poke Performed By: #### G LULS #### Point of Care testing , Creatinine Clr Calc Pharmacy 32.27 [facility] Comment on above: Order Comment: poked x1 patient refused a second poke Result Comment: PERF ORMED BY: [address] [place] [address] PATHOLOGIST STAFFING MGR NEVA MACKAY M.D. Performed By: #### G LULS #### Point of Care testing , GFR/1.73 sq M.predicted MDRD (S/P/Bld) [Vol rate/Area] 26.291 mL/min/{1.73_m2} [facility] Comment on above: Order Comment: poked x1 patient refused a second poke Performed By: #### G LULS #### Point of Care testing , Glucose [Mass/Vol] 269 mg/dL Significant change up 70-100 [facility] Comment on above: Order Comment: poked x1 patient refused a second poke Result Comment: [facility] Glucose Reference Range is dependent on time and content of last meal. Glucose of more than 200 mg/dL in a nonstressed, ambulatory subject supports the diagnosis of Diabetes Mellitus. ADA recommended reference range Performed By: #### G LULS #### Point of Care testing , Potassium [Moles/Vol] 3.9 mmol/L Normal 3.5-5.1 [facility] Comment on above: Order Comment: poked x1 patient refused a second poke Performed By: #### G LULS #### Point of Care testing , Sodium [Moles/Vol] 137 mmol/L Normal 136-145 [facility] Comment on above: Order Comment: poked x1 patient refused a second poke Performed By: #### G LULS #### Point of Care testing , Urea nitrogen [Mass/Vol] 44 mg/dL High 7-25 [facility] Comment on above: Order Comment: poked x1 patient refused a second poke Performed By: #### G LULS #### Point of Care testing , Glucose Poct Glucometerson 0 01-14-2024 Glucose [Mass/Vol] 251 mg/dL Normal [facility] Comment on above: Result Comment: [facility] Glucose Reference Range is dependent on time and content of last meal. Glucose of more than 200 mg/dL in a nonstressed, ambulatory subject supports the diagnosis of Diabetes Mellitus. PERFORMED BY: [facility] [address] [facility] [place] [id number] PATHOLOGIST STAFFING MGR NEVA MACKAY M.D. Performed By: #### G LULS #### Point of Care testing , Glucose [Mass/Vol] 283 mg/dL Normal [facility] Comment on above: Result Comment: [facility] Glucose Reference Range is dependent on time and content of last meal. Glucose of more than 200 mg/dL in a nonstressed, ambulatory subject supports the diagnosis of Diabetes Mellitus. PERFORMED BY: [facility] [address] [place] [place] [address] PATHOLOGIST STAFFING MGR NEVA MACKAY M.D. Performed By: #### G LULS #### Point of Care testing , Glucose [Mass/Vol] 266 mg/dL Normal [facility] Comment on above: Result Comment: [facility] Glucose Reference Range is dependent on time and content of last meal. Glucose of more than 200 mg/dL in a nonstressed, ambulatory subject supports the diagnosis of Diabetes Mellitus. PERFORMED BY: [facility] [address] [place] [address] PATHOLOGIST STAFFING MGR NEVA MACKAY M.D. Performed By: #### G LULS #### Point of Care testing , Glucose [Mass/Vol] 151 mg/dL Normal [facility] Comment on above: Result Comment: [facility] Glucose Reference Range is dependent on time and content of last meal. Glucose of more than 200 mg/dL in a nonstressed, ambulatory subject supports the diagnosis of Diabetes Mellitus. PERFORMED BY: [facility] [address] [place] [address] PATHOLOGIST STAFFING MGR NEVA MACKAY M.D. Performed By: #### G LULS #### Point of Care testing , Basic Metabolic Panelon 12-30 Anion gap [Moles/Vol] 13.0 mmol/L Normal 6.0-15.0 [facility] Comment on above: Performed By: #### G LULS #### Point of Care testing , Calcium [Mass/Vol] 8.3 mg/dL Low 8.6-10.3 [facility] Comment on above: Performed By: #### G ASHLEYLS #### Point of Care testing , Chloride [Moles/Vol] 101 mmol/L Normal 98-107 [facility] Comment on above: Performed By: #### G LULS #### Point of Care testing , CO2 [Moles/Vol] 30.3 mmol/L Normal 21.0-31.0 [facility] Comment on above: Performed By: #### G LULS #### Point of Care testing , Creatinine [Mass/Vol] 2.60 mg/dL High 0.70-1.30 [facility] Comment on above: Performed By: #### G LULS #### Point of Care testing , Creatinine Clr Calc Pharmacy 29.54 [facility] Comment on above: Result Comment: PERF ORMED BY: [facility] [address] [place] [address] PATHOLOGIST STAFFING MGR NEVA MACKAY M.D. Performed By: #### G LULS #### Point of Care testing , GFR/1.73 sq M.predicted MDRD (S/P/Bld) [Vol rate/Area] 23.288 mL/min/{1.73_m2} [facility] Comment on above: Performed By: #### G LULS #### Point of Care testing , Glucose [Mass/Vol] 155 mg/dL High 70-100 [facility] Comment on above: Result Comment: [facility] Glucose Reference Range is dependent on time and content of last meal. Glucose of more than 200 mg/dL in a nonstressed, ambulatory subject supports the diagnosis of Diabetes Mellitus. ADA recommended reference range Performed By: #### G LULS #### Point of Care testing , Potassium [Moles/Vol] 3.3 mmol/L Low 3.5-5.1 [facility] Comment on above: Performed By: #### G LULS #### Point of Care testing , Sodium [Moles/Vol] 141 mmol/L Normal 136-145 [facility] Comment on above: Performed By: #### G LULS #### Point of Care testing , Urea nitrogen [Mass/Vol] 52 mg/dL High 7-25 [facility] Comment on above: Performed By: #### G LULS #### Point of Care testing , Glucose Poct Glucometerson 0 01-13-2024 Glucose [Mass/Vol] 267 mg/dL Normal [facility] Comment on above: Result Comment: [facility] Glucose Reference Range is dependent on time and content of last meal. Glucose of more than 200 mg/dL in a nonstressed, ambulatory subject supports the diagnosis of Diabetes Mellitus. PERFORMED BY: [facility] [address] [place] [address] PATHOLOGIST STAFFING MGR NEVA MACKAY M.D. Performed By: #### G LULS #### Point of Care testing , Commemt1 Glu2: Cleaned Meter [facility] Comment on above: Result Comment: PERF ORMED BY: [address] [place] [address] PATHOLOGIST STAFFING MGR NEVA MACKAY M.D. Performed By: #### G LULS #### Point of Care testing , Glucose [Mass/Vol] 277 mg/dL Normal [facility] Comment on above: Result Comment: [place] Glucose Reference Range is dependent on time and content of last meal. Glucose of more than 200 mg/dL in a nonstressed, ambulatory subject supports the diagnosis of Diabetes Mellitus. Performed By: #### G LULS #### Point of Care testing , Commemt1 Glu2: Cleaned Meter [facility] Comment on above: Result Comment: PERF ORMED BY: [place] [address] PATHOLOGIST STAFFING MGR NEVA MACKAY M.D. Performed By: #### G LULS #### Point of Care testing , Glucose [Mass/Vol] 279 mg/dL Normal [facility] Comment on above: Result Comment: [place] Glucose Reference Range is dependent on time and content of last meal. Glucose of more than 200 mg/dL in a nonstressed, ambulatory subject supports the diagnosis of Diabetes Mellitus. Performed By: #### G LULS #### Point of Care testing , Commemt1 Glu2: Cleaned Meter [facility] Comment on above: Result Comment: PERF ORMED BY: [address] [place] [address] PATHOLOGIST STAFFING MGR NEVA MACKAY M.D. Performed By: #### G LULS #### Point of Care testing , Glucose [Mass/Vol] 171 mg/dL Normal [facility] Comment on above: Result Comment: [place] Glucose Reference Range is dependent on time and content of last meal. Glucose of more than 200 mg/dL in a nonstressed, ambulatory subject supports the diagnosis of Diabetes Mellitus. Performed By: #### G LULS #### Point of Care testing , Basic Metabolic Panelon 12-30 Anion gap [Moles/Vol] 15.3 mmol/L High 6.0-15.0 [facility] Comment on above: Performed By: #### G LULS #### Point of Care testing , Calcium [Mass/Vol] 8.3 mg/dL Low 8.6-10.3 [facility] Comment on above: Performed By: #### G LULS #### Point of Care testing , Chloride [Moles/Vol] 99 mmol/L Normal 98-107 [facility] Comment on above: Performed By: #### G LULS #### Point of Care testing , CO2 [Moles/Vol] 27.3 mmol/L Normal 21.0-31.0 [facility] Comment on above: Performed By: #### G LULS #### Point of Care testing , Creatinine [Mass/Vol] 2.98 mg/dL Significan t change up 0.70-1.30 [facility] Comment on above: Performed By: #### G LULS #### Point of Care testing , Creatinine Clr Calc Pharmacy 25.89 [facility] Comment on above: Result Comment: PERF ORMED BY: [facility] [address] [address] PATHOLOGIST STAFFING MGR NEVA MACKAY M.D. Performed By: #### G LULS #### Point of Care testing , GFR/1.73 sq M.predicted MDRD (S/P/Bld) [Vol rate/Area] 19.771 mL/min/{1.73_m2} [facility] Comment on above: Performed By: #### G LULS #### Point of Care testing , Glucose [Mass/Vol] 241 mg/dL High 70-100 [facility] Comment on above: Result Comment: [place] Glucose Reference Range is dependent on time and content of last meal. Glucose of more than 200 mg/dL in a nonstressed, ambulatory subject supports the diagnosis of Diabetes Mellitus. ADA recommended reference range Performed By: #### G LULS #### Point of Care testing , Potassium [Moles/Vol] 3.6 mmol/L Normal 3.5-5.1 [facility] Comment on above: Performed By: #### G LULS #### Point of Care testing , Sodium [Moles/Vol] 138 mmol/L Normal 136-145 [facility] Comment on above: Performed By: #### G LULS #### Point of Care testing , Urea nitrogen [Mass/Vol] 58 mg/dL High 7-25 [facility] Comment on above: Performed By: #### G LULS #### Point of Care testing , Glucose Poct Glucometerson 0 01-12-2024 Glucose [Mass/Vol] 303 mg/dL Normal [facility] Comment on above: Result Comment: [facility] Glucose Reference Range is dependent on time and content of last meal. Glucose of more than 200 mg/dL in a nonstressed, ambulatory subject supports the diagnosis of Diabetes Mellitus. PERFORMED BY: [address] [place] [id number] PATHOLOGIST STAFFING MGR NEVA MACKAY M.D. Performed By: #### G LULS ####Point of Care testing, Glucose [Mass/Vol] 338 mg/dL Normal [facility] Comment on above: Result Comment: [facility] Glucose Reference Range is dependent on time and content of last meal. Glucose of more than 200 mg/dL in a nonstressed, ambulatory subject supports the diagnosis of Diabetes Mellitus. PERFORMED BY: [address] [place] [id number] PATHOLOGIST STAFFING MGR NEVA MACKAY M.D. Performed By: #### G LULS #### Point of Care testing , Glucose [Mass/Vol] 281 mg/dL Normal [facility] Comment on above: Result Comment: [facility] Glucose Reference Range is dependent on time and content of last meal. Glucose of more than 200 mg/dL in a nonstressed, ambulatory subject supports the diagnosis of Diabetes Mellitus. PERFORMED BY: [address] [place] [id number] PATHOLOGIST STAFFING MGR NEVA MACKAY M.D. Performed By: #### G LULS #### Point of Care testing , Glucose [Mass/Vol] 210 mg/dL Normal [facility] Comment on above: Result Comment: [facility] Glucose Reference Range is dependent on time and content of last meal. Glucose of more than 200 mg/dL in a nonstressed, ambulatory subject supports the diagnosis of Diabetes Mellitus. PERFORMED BY: [facility] [place] [address] PATHOLOGIST STAFFING MGR NEVA MACKAY M.D. Performed By: #### G LULS #### Point of Care testing , Hemogram CBC Without Diffon 01-12-2024 Erythrocyte distribution width (RBC) [Ratio] 17.8 % High 12.0-14.8 [facility] Comment on above: Order Comment: pt wo uld like for us to come back in a little while rn mylene is aware Performed By: #### G LULS #### Point of Care testing , Hematocrit (Bld) [Volume fraction] 25.2 % Low 38.8-50.0 [facility] Comment on above: Order Comment: pt wo uld like for us to come back in a little while rn mylene is aware Performed By: #### G LULS #### Point of Care testing , Hemoglobin (Bld) [Mass/Vol] 8.7 g/dL Low 13.0-17.0 [facility] Comment on above: Order Comment: pt wo uld like for us to come back in a little while rn mylene is aware Performed By: #### G LULS #### Point of Care testing , MCH (RBC) [Entitic mass] 33.7 pg Normal 27.5-35.2 [facility] Comment on above: Order Comment: pt wo uld like for us to come back in a little while rn mylene is aware Performed By: #### G LULS #### Point of Care testing , MCV (RBC) [Entitic vol] 97.9 fL Normal 83.5-101 [facility] Comment on above: Order Comment: pt wo uld like for us to come back in a little while rn mylene is aware Performed By: #### G LULS #### Point of Care testing , Mean Corpuscular HGB Conc 34.4 g/dL Normal 32.5-35.6 [facility] Comment on above: Order Comment: pt wo uld like for us to come back in a little while rn mylene is aware Performed By: #### G LULS #### Point of Care testing , Platelet mean volume (Bld) [Entitic vol] 9.5 fL Normal 6.6-10.1 [facility] Comment on above: Order Comment: pt wo uld like for us to come back in a little while rn mylene is aware Result Comment: PERF ORMED BY: [facility] [address] [place] [address] PATHOLOGIST STAFFING MGR NEVA MACKAY M.D. Performed By: #### G LULS #### Point of Care testing , Platelets (Bld) [#/Vol] 96 10*3/uL Low 150-450 [facility] Comment on above: Order Comment: pt wo uld like for us to come back in a little while rn mylene is aware Performed By: #### G LULS #### Point of Care testing , RBC (Bld) [#/Vol] 2.57 10*6/uL Low 3.90-5.60 [facility] Comment on above: Order Comment: pt wo uld like for us to come back in a little while rn mylene is aware Performed By: #### G LULS #### Point of Care testing , WBC (Bld) [#/Vol] 9.0 10*3/uL Normal 4.1-10.5 [facility] Comment on above: Order Comment: pt wo uld like for us to come back in a little while rn mylene is aware Performed By: #### G LULS #### Point of Care testing , Basic Metabolic Panelon 12-30 Anion gap [Moles/Vol] 14.1 mmol/L Normal 6.0-15.0 [facility] Comment on above: Performed By: #### G LULS #### Point of Care testing , Calcium [Mass/Vol] 8.1 mg/dL Low 8.6-10.3 [facility] Comment on above: Performed By: #### G LULS #### Point of Care testing , Chloride [Moles/Vol] 103 mmol/L Normal 98-107 [facility] Comment on above: Performed By: #### G LULS #### Point of Care testing , CO2 [Moles/Vol] 24.8 mmol/L Normal 21.0-31.0 [facility] Comment on above: Performed By: #### G LULS #### Point of Care testing , Creatinine [Mass/Vol] 3.92 mg/dL Significan t change up 0.70-1.30 [facility] Comment on above: Performed By: #### G LULS #### Point of Care testing , Creatinine Clr Calc Pharmacy 20.02 [facility] Comment on above: Result Comment: PERF ORMED BY: [facility] [address] [place] [address] PATHOLOGIST STAFFING MGR NEVA MACKAY M.D. Performed By: #### G LULS #### Point of Care testing , GFR/1.73 sq M.predicted MDRD (S/P/Bld) [Vol rate/Area] 14.228 mL/min/{1.73_m2} [facility] Comment on above: Performed By: #### G LULS #### Point of Care testing , Glucose [Mass/Vol] 183 mg/dL High 70-100 [facility] Comment on above: Result Comment: [place] Glucose Reference Range is dependent on time and content of last meal. Glucose of more than 200 mg/dL in a nonstressed, ambulatory subject supports the diagnosis of Diabetes Mellitus. ADA recommended reference range Performed By: #### G LULS #### Point of Care testing , Potassium [Moles/Vol] 3.9 mmol/L Normal 3.5-5.1 [facility] Comment on above: Performed By: #### G LULS #### Point of Care testing , Sodium [Moles/Vol] 138 mmol/L Normal 136-145 [facility] Comment on above: Performed By: #### G CHELI #### Point of Care testing , Urea nitrogen [Mass/Vol] 68 mg/dL High 7-25 [facility] Comment on above: Performed By: #### G CHELI #### Point of Care testing , Diff and CBCon 01-11-2024 Anisocytosis Ql (Bld) Slight Normal [facility] Comment on above: Performed By: #### G CHELI #### Point of Care testing , Eosinophils/100 WBC (Bld) 6 % High 1-3 [facility] Comment on above: Performed By: #### G ASHLEYLS #### Point of Care testing , Erythrocyte distribution width (RBC) [Ratio] 18.1 % High 12.0-14.8 [facility] Comment on above: Performed By: #### G CHELI #### Point of Care testing , Giant Platelet Tally 2 /100{WBC} Normal [facility] Comment on above: Performed By: #### Carley BOWER #### Point of Care testing , Hematocrit (Bld) [Volume fraction] 22.2 % Low 38.8-50.0 [facility] Comment on above: Performed By: #### G CHELI #### Point of Care testing , Hemoglobin (Bld) [Mass/Vol] 7.6 g/dL Low 13.0-17.0 [facility] Comment on above: Performed By: #### G CHELI #### Point of Care testing , Lymphocytes/100 WBC (Bld) 8 % Low 18-42 [facility] Comment on above: Performed By: #### G ASHLEYLS #### Point of Care testing , MCH (RBC) [Entitic mass] 33.2 pg Normal 27.5-35.2 [facility] Comment on above: Performed By: #### G ASHLEYLS #### Point of Care testing , MCV (RBC) [Entitic vol] 96.8 fL Normal 83.5-101 [facility] Comment on above: Performed By: #### G CHELI #### Point of Care testing , Mean Corpuscular HGB Conc 34.2 g/dL Normal 32.5-35.6 [facility] Comment on above: Performed By: #### G CHELI #### Point of Care testing , Monocytes/100 WBC (Bld) 9 % Normal 2-11 [facility] Comment on above: Performed By: #### G ASHLEYLS #### Point of Care testing , Nucleated Red Blood Cell 1 /100{WBC} High 0-0 [facility] Comment on above: Performed By: #### G ASHLEYLS #### Point of Care testing , Platelet Estimate Decreased Normal Normal [facility] Comment on above: Performed By: #### G ASHLEYLS #### Point of Care testing , Platelet mean volume (Bld) [Entitic vol] 9.2 fL Normal 6.6-10.1 [facility] Comment on above: Performed By: #### G ASHLEYLS #### Point of Care testing , Platelet Morphology Normal Normal Normal [facility] Comment on above: Result Comment: PERF ORMED BY: [facility] [address] [place] [address] PATHOLOGIST STAFFING MGR NEVA MACKAY M.D. Performed By: #### G CHELI #### Point of Care testing , Platelets (Bld) [#/Vol] 86 10*3/uL Low 150-450 [facility] Comment on above: Performed By: #### G CHELI #### Point of Care testing , Polychromasia Slight Normal [facility] Comment on above: Performed By: #### G CHELI #### Point of Care testing , RBC (Bld) [#/Vol] 2.30 10*6/uL Low 3.90-5.60 [facility] Comment on above: Performed By: #### G CHELI #### Point of Care testing , RBC morphology finding Nom (Bld) Normal Normal Normal [facility] Comment on above: Performed By: #### G ASHLEYLS #### Point of Care testing , Segmented neutrophils/100 WBC (Bld) 77 % High 50-70 [facility] Comment on above: Performed By: #### Carley RAMIREZLS #### Point of Care testing , WBC (Bld) [#/Vol] 6.3 10*3/uL Normal 4.1-10.5 [facility] Comment on above: Performed By: #### G LULS #### Point of Care testing , Glucose Poct Glucometerson 0 01-11-2024 Glucose [Mass/Vol] 318 mg/dL Normal [facility] Comment on above: Result Comment: [place] Glucose Reference Range is dependent on time and content of last meal. Glucose of more than 200 mg/dL in a nonstressed, ambulatory subject supports the diagnosis of Diabetes Mellitus. PERFORMED BY: [address] [place] [address] PATHOLOGIST STAFFING MGR NEVA MACKAY M.D. Performed By: #### G LULS #### Point of Care testing , Glucose [Mass/Vol] 335 mg/dL Normal [facility] Comment on above: Result Comment: [facility] Glucose Reference Range is dependent on time and content of last meal. Glucose of more than 200 mg/dL in a nonstressed, ambulatory subject supports the diagnosis of Diabetes Mellitus. PERFORMED BY: [address] [place] [address] PATHOLOGIST STAFFING MGR NEVA MACKAY M.D. Performed By: #### G LULS ####Point of Care testing, Glucose [Mass/Vol] 244 mg/dL Normal [facility] Comment on above: Result Comment: [facility] Glucose Reference Range is dependent on time and content of last meal. Glucose of more than 200 mg/dL in a nonstressed, ambulatory subject supports the diagnosis of Diabetes Mellitus. PERFORMED BY: [facility] [address] [place] [address] PATHOLOGIST STAFFING MGR NEVA MACKAY M.D. Performed By: #### G LULS ####Point of Care testing, Glucose [Mass/Vol] 205 mg/dL Normal [facility] Comment on above: Result Comment: [place] Glucose Reference Range is dependent on time and content of last meal. Glucose of more than 200 mg/dL in a nonstressed, ambulatory subject supports the diagnosis of Diabetes Mellitus. PERFORMED BY: [facility] [address] [place] [address] PATHOLOGIST STAFFING MGR NEVA MACKAY M.D. Performed By: #### G LULS #### Point of Care testing , Type and Screenon 01-11-2024 ABO and Rh group Nom (Bld) Blood group O Rh(D) positive [facility] Comment on above: Order Comment: Trans fuse now? Y Number of units to transfuse now? 2 Result Comment: PERF ORMED BY: [facility] [address] [place] [address] PATHOLOGIST STAFFING MGR NEVA MACKAY M.D. Basic Metabolic Panelon 12-30 Anion gap [Moles/Vol] 16.6 mmol/L High 6.0-15.0 [facility] Comment on above: Performed By: #### CARMEN Morales, HEPATIC ####[place] [address] [place] [address] [facility] Calcium [Mass/Vol] 7.7 mg/dL Low 8.6-10.3 [facility] Comment on above: Performed By: #### CARMEN Morales, HEPATIC ####[place] [address] [place] [address] [place] Chloride [Moles/Vol] 102 mmol/L Normal 98-107 [facility] Comment on above: Performed By: #### CARMEN Morales, HEPATIC ####[place] [address] [place] [address] [facility] CO2 [Moles/Vol] 22.9 mmol/L Normal 21.0-31.0 [facility] Comment on above: Performed By: #### CARMEN Morales, HEPATIC ####[facility] [id number] [place] [address] [place] Creatinine [Mass/Vol] 4.87 mg/dL High 0.70-1.30 [facility] Comment on above: Performed By: #### CARMEN Morales, HEPATIC ####[place] [place] [address] [place] Creatinine Clr Calc Pharmacy 16.02 [facility] Comment on above: Performed By: #### CARMEN Morales, HEPATIC ####[place] [place] [address] [place] GFR/1.73 sq M.predicted MDRD (S/P/Bld) [Vol rate/Area] 10.966 mL/min/{1.73_m2} Normal [facility] Comment on above: Performed By: #### CARMEN Morales, HEPATIC ####[place] [place] [address] [facility] Glucose [Mass/Vol] 230 mg/dL High 70-100 [facility] Comment on above: Result Comment: [place] Glucose Reference Range is dependent on time and content of last meal. Glucose of more than 200 mg/dL in a nonstressed, ambulatory subject supports the diagnosis of Diabetes Mellitus. ADA recommended reference range Performed By: #### CARMEN Morales, HEPATIC ####[address] [place] [address] [facility] Potassium [Moles/Vol] 4.5 mmol/L Normal 3.5-5.1 [facility] Comment on above: Performed By: #### CARMEN Morales, HEPATIC ####[address] [place] [address] [facility] Sodium [Moles/Vol] 137 mmol/L Normal 136-145 [facility] Comment on above: Performed By: #### CARMEN Morales, HEPATIC ####[address] [place] [address] [facility] Urea nitrogen [Mass/Vol] 75 mg/dL High 7-25 [facility] Comment on above: Performed By: #### CARMEN Morales, HEPATIC ####[address] [place] [address] [facility] Glucose Poct Glucometerson 0 01-10-2024 Glucose [Mass/Vol] 339 mg/dL Normal [facility] Comment on above: Result Comment: [place] om Glucose Reference Range is dependent on time and content of last meal. Glucose of more than 200 mg/dL in a nonstressed, ambulatory subject supports the diagnosis of Diabetes Mellitus. PERFORMED BY: [place] [address] PATHOLOGIST STAFFING MGR NEVA MACKAY M.D. Performed By: #### G LULS #### Point of Care testing , Glucose [Mass/Vol] 333 mg/dL Normal [facility] Comment on above: Result Comment: [place] Glucose Reference Range is dependent on time and content of last meal. Glucose of more than 200 mg/dL in a nonstressed, ambulatory subject supports the diagnosis of Diabetes Mellitus. PERFORMED BY: [place] [address] PATHOLOGIST STAFFING MGR NEVA MACKAY M.D. Performed By: #### B MP #### [facility] [address] [place] [address] Glucose [Mass/Vol] 276 mg/dL Normal [facility] Comment on above: Result Comment: [place] Glucose Reference Range is dependent on time and content of last meal. Glucose of more than 200 mg/dL in a nonstressed, ambulatory subject supports the diagnosis of Diabetes Mellitus. PERFORMED BY: [place] [address] PATHOLOGIST STAFFING MGR NEVA MACKAY M.D. Performed By: #### G LULS #### Point of Care testing , Glucose [Mass/Vol] 229 mg/dL Normal [facility] Comment on above: Result Comment: [place] Glucose Reference Range is dependent on time and content of last meal. Glucose of more than 200 mg/dL in a nonstressed, ambulatory subject supports the diagnosis of Diabetes Mellitus. PERFORMED BY: [place] [address] PATHOLOGIST STAFFING MGR NEVA MACKAY M.D. Performed By: #### G LULS ####Point of Care testing, Hemogram CBC Without Diffon 01-10-2024 Erythrocyte distribution width (RBC) [Ratio] 18.3 % High 12.0-14.8 [facility] Comment on above: Performed By: #### C BCNO ####[facility] [address] Hematocrit (Bld) [Volume fraction] 22.6 % Low 38.8-50.0 [facility] Comment on above: Performed By: #### C BCNO ####[address] Hemoglobin (Bld) [Mass/Vol] 7.8 g/dL Low 13.0-17.0 [facility] Comment on above: Performed By: #### C BCNO ####[address] MCH (RBC) [Entitic mass] 33.4 pg Normal 27.5-35.2 [facility] Comment on above: Performed By: #### C BCNO ####[address] MCV (RBC) [Entitic vol] 96.8 fL Normal 83.5-101 [facility] Comment on above: Performed By: #### C BCNO ####[address] Mean Corpuscular HGB Conc 34.4 g/dL Normal 32.5-35.6 [facility] Comment on above: Performed By: #### C BCNO ####[address] Platelet mean volume (Bld) [Entitic vol] 9.3 fL Normal 6.6-10.1 [facility] Comment on above: Result Comment: PERF ORMED BY: [facility] [address] [place] [address] PATHOLOGIST STAFFING MGR NEVA MACKAY M.D. Performed By: #### C BCNO ####[address] Platelets (Bld) [#/Vol] 86 10*3/uL Low 150-450 [facility] Comment on above: Performed By: #### C BCNO ####[address] RBC (Bld) [#/Vol] 2.34 10*6/uL Low 3.90-5.60 [facility] Comment on above: Performed By: #### C BCNO ####[id number] [facility] WBC (Bld) [#/Vol] 7.1 10*3/uL Normal 4.1-10.5 [facility] Comment on above: Performed By: #### C BCNO ####[id number] [facility] Hepatic Panelon 01-10-2024 Albumin [Mass/Vol] 2.9 g/dL Low 3.5-5.7 [facility] Comment on above: Performed By: #### CARMEN Morales, HEPATIC ####[id number] [facility] Albumin/Globulin [Mass ratio] 1.3 {ratio} Normal [facility] Comment on above: Performed By: #### CARMEN Morales, HEPATIC ####[id number] [facility] ALP [Catalytic activity/Vol] 122 U/L High 34-104 [facility] Comment on above: Performed By: #### CARMEN Morales, HEPATIC ####[id number] [facility] ALT [Catalytic activity/Vol] 31 U/L Normal 7-52 [facility] Comment on above: Performed By: #### CARMEN Morales, HEPATIC ####[id number] [facility] AST [Catalytic activity/Vol] 28 U/L Normal 13-39 [facility] Comment on above: Performed By: #### CARMEN Morales, HEPATIC ####[id number] [facility] Bilirubin [Mass/Vol] 0.6 mg/dL Normal 0.3-1.0 [facility] Comment on above: Performed By: #### CARMEN Morales, HEPATIC ####[id number] [facility] Bilirubin,Indirect 0.4 mg/dL Normal [facility] Comment on above: Performed By: #### CARMEN Morales, HEPATIC ####[address] Bilirubin.indirect [Mass/Vol] 0.20 mg/dL High 0.03-0.18 [facility] Comment on above: Performed By: #### CARMEN Morales, HEPATIC ####[address] Globulin (S) [Mass/Vol] 2.3 g/dL Normal [facility] Comment on above: Performed By: #### CARMNE Morales, HEPATIC ####[address] Protein [Mass/Vol] 5.2 g/dL Low 6.4-8.9 [facility] Comment on above: Performed By: #### CARMEN Morales, HEPATIC ####[address] Magnesiumon 01-10-2024 Magnesium [Mass/Vol] 2.2 mg/dL Normal 1.9-2.7 [facility] Comment on above: Result Comment: PERF ORMED BY: [place] [address] PATHOLOGIST STAFFING MGR NEVA MACKAY M.D. Performed By: #### CARMEN Morales, HEPATIC ####[address] Basic Metabolic Panelon 12-30 Anion gap [Moles/Vol] 15.1 mmol/L High 6.0-15.0 [facility] Comment on above: Performed By: #### L ACTIC RFX #### [facility] [address] [place] [address] Calcium [Mass/Vol] 7.7 mg/dL Low 8.6-10.3 [facility] Comment on above: Performed By: #### L ACTIC RFX #### [facility] [address] Chloride [Moles/Vol] 105 mmol/L Normal 98-107 [facility] Comment on above: Performed By: #### L ACTIC RFX #### [facility] [address] CO2 [Moles/Vol] 18.2 mmol/L Low 21.0-31.0 [facility] Comment on above: Performed By: #### L ACTIC RFX #### [facility] [address] Creatinine [Mass/Vol] 5.32 mg/dL Significan t change up 0.70-1.30 [facility] Comment on above: Performed By: #### L ACTIC RFX #### [facility] [address] Creatinine Clr Calc Pharmacy 14.67 [facility] Comment on above: Result Comment: PERF ORMED BY: [place] [address] PATHOLOGIST STAFFING MGR NEVA MACKAY M.D. Performed By: #### L ACTIC RFX #### [facility] [address] [place] [address] [place] GFR/1.73 sq M.predicted MDRD (S/P/Bld) [Vol rate/Area] 9.863 mL/min/{1.73_m2} [facility] Comment on above: Performed By: #### L ACTIC RFX #### [facility] [address] [place] [address] [place] Glucose [Mass/Vol] 227 mg/dL High 70-100 [facility] Comment on above: Result Comment: [place] Glucose Reference Range is dependent on time and content of last meal. Glucose of more than 200 mg/dL in a nonstressed, ambulatory subject supports the diagnosis of Diabetes Mellitus. ADA recommended reference range Performed By: #### L ACTIC RFX #### [facility] [address] Potassium [Moles/Vol] 5.3 mmol/L High 3.5-5.1 [facility] Comment on above: Performed By: #### L ACTIC RFX #### [facility] [address] [place] [address] [place] Sodium [Moles/Vol] 133 mmol/L Low 136-145 [facility] Comment on above: Performed By: #### L ACTIC RFX #### [facility] [id number] [facility] Urea nitrogen [Mass/Vol] 70 mg/dL High 7-25 [facility] Comment on above: Performed By: #### L ACTIC RFX #### [facility] [address] Beta Hydroxybuterateon 01-09 Beta Hydroxybuterate 0.10 mmol/L Normal 0.02-0.27 [facility] Comment on above: Result Comment: PERF ORMED BY: [place] [address] PATHOLOGIST STAFFING MGR NEVA MACKAY M.D. Performed By: #### L ACTIC RFX #### [facility] [address] Glucose Poct Glucometerson 0 01-09-2024 Glucose [Mass/Vol] 327 mg/dL Normal [facility] Comment on above: Result Comment: [place] Glucose Reference Range is dependent on time and content of last meal. Glucose of more than 200 mg/dL in a nonstressed, ambulatory subject supports the diagnosis of Diabetes Mellitus. PERFORMED BY: [place] [address] PATHOLOGIST STAFFING MGR NEVA MACKAY M.D. Performed By: #### G LULS #### Point of Care testing , Glucose [Mass/Vol] 318 mg/dL Normal [facility] Comment on above: Result Comment: [place] Glucose Reference Range is dependent on time and content of last meal. Glucose of more than 200 mg/dL in a nonstressed, ambulatory subject supports the diagnosis of Diabetes Mellitus. PERFORMED BY: [place] [address] PATHOLOGIST STAFFING MGR NEVA MACKAY M.D. Performed By: #### L ACTIC RFX #### [facility] [address] [place] [address] Glucose [Mass/Vol] 258 mg/dL Normal [facility] Comment on above: Result Comment: [place] om Glucose Reference Range is dependent on time and content of last meal. Glucose of more than 200 mg/dL in a nonstressed, ambulatory subject supports the diagnosis of Diabetes Mellitus. PERFORMED BY: [place] [address] PATHOLOGIST STAFFING MGR NEVA MACKAY M.D. Performed By: #### G LULS #### Point of Care testing , Glucose [Mass/Vol] 230 mg/dL Normal [facility] Comment on above: Result Comment: [facility] Glucose Reference Range is dependent on time and content of last meal. Glucose of more than 200 mg/dL in a nonstressed, ambulatory subject supports the diagnosis of Diabetes Mellitus. PERFORMED BY: [place] [address] PATHOLOGIST STAFFING MGR NEVA MACKAY M.D. Performed By: #### L ACTIC RFX #### [address] Haptoglobinon 01-09-2024 Haptoglobin 96 mg/dL Normal 44-215 [facility] Comment on above: Result Comment: PERF ORMED BY: [place] [address] PATHOLOGIST STAFFING MGR NEVA MACKAY M.D. Performed By: #### G LULS #### Point of Care testing , Shahriar 01-09-2024 L Specimen: Rec eived: 01/09/24 Status: SOUT Req Num: [id number] Spec Type: Impression Subm Dr: Tri Beal MD Tissues: PATHPER Procedures: PATHREVIEW Age/ Patient Sex Location Account Attending Physician Bere Callejas 88/M 4N [id number] Angus Minaya MD SPEC NUM: RECD: 01/09/24 STATUS: SOUT REQ NUM: [id number] SADIE: 01/09/24- SUBM DR: Tri Beal MD ENTERED: 01/09/24-105 [facility] DR: SPEC TYPE: Impression DEPT: ID ORDERED: PATHREVIEW ORDERED: PATHREVIEW Pathologist Review Abnormal CBC findings, past review: - Normocytic anemia (hemoglobin 8.4G/DL, MCV 97.1 FL). - Thrombocytopenia (platelets 87 K/UL) Comment Examination of the peripheral blood smear demonstrates neutrophils with normal nuclear segmentation and cytoplasmic granularity. No left shift is identified. No circulating blasts are seen. Lymphocytes demonstrate normal, variable morphology. There is no monocytosis eosinophilia or basophilia. Red cells demonstrate mild anisocytosis. Features of hemolysis are not seen. The cause of the patient's normocytic anemia and thrombocytope fabrizio may be reactive. Consider anemia of chronic disease, consumption and immune mediated processes. If there is clinical suspicion for a primary bone marrow disorder such as MDS, a bone marrow biopsy may be helpful. CPT Code: 74190 CBC Date Time Test Result Flag (u) Normal Range 01/09/24 0527 WBC 9.8 4.1-10.5 X10E3/uL RBC 2.55 L 3.90-5.60 X10E6/uL HGB 8.4 L 13.0-17.0 g/dL HCT 24.8 L 38.8-50.0 % Specimen: [id number] Received: 01/09/24 [facility]: [id number] Spec Type: Impression Subm Dr: Tri Beal MD Tissues: PATHPER Procedures: PATHREVIEW Patient: Bere Callejas [id number] (Continued) Specimen: [id number] Received: 01/09/24 (Continued) JAZMINE (Continued) Signed (signature on file) Cris Dexter MD 01/10/24 1133 Specimen: [id number] Received: 01/09/24 Status: MORENA [place] Num: [id number] Spec Type: Impression Subm Dr: Tri Beal MD Tissues: PATHPER Procedures: PATHREVIEW Patient: Bere Callejas [id number] (Continued) Specimen: [id number] Received: 01/09/24-1054 (Continued) CBC (Continued) MCV 97.1 83.5-101 fl MCH 32.9 27.5-35.2 pg MCHC 33.9 32.5-35.6 g/dL RDW 18.1 H 12.0-14.8 % Plt 87 L 150-450 x10E3/uL MPV 8.9 6.6-10.1 fl Neut % (Auto) 77.5 . % Lymp % (Auto) 8.5 . % [place] % (Auto) 12.8 . % Eos % (Auto) 0.7 . % Baso % (Auto) 0.5 . % NRBC% 0.1 0-0.5 /100 WBC Neut # (Auto) 7.6 1.8-7.7 x10E3/uL Lymph # (Auto) 0.8 L 1.00-4.8 x10E3/uL [place] # (Auto) 1.3 H 0.0-0.8 x10E3/uL Eos # (Auto) 0.1 0.0-0.45 x10E3/uL Baso# (Auto) 0.0 0.0-0.2 x10E3/uL Polychrom Slight Aniso Moderate Micro Slight Plt Est Decreased Normal Plt Morphology Normal Normal Specimen: [id number] Received: 01/09/24-1055 Status: MORENA [place] Num: [id number] Spec Type: Impression Subm Dr: Tri Beal MD Tissues: PATHPER Procedures: PATHREVIEW Patient: Bere Callejas [id number] (Continued) Signed (signature on file) Cris Dexter MD 01/10/24 1133 Normal [facility] LDH Lactate Dehydrogenaseon 01-09-2024 LDH Lactate Dehydrogenase 299 U/L High 140-271 [facility] Comment on above: Result Comment: PERF ORMED BY: [facility] [address] [place] [address] PATHOLOGIST STAFFING MGR NEVA MACKAY M.D. Performed By: #### G LULS #### Point of Care testing , Lactic Acidon 01-09-2024 Lactate [Moles/Vol] 2.2 mmol/L Off scale high 0.5-2.2 [facility] Comment on above: Result Comment: Crit ical Result : Called to and read back by: ASHUTOSH FORBES at: 01/09/2024 10:51:28 by:CORBIN PERFORMED BY: [facility] [address] [place] [address] PATHOLOGIST STAFFING MGR NEVA MACKAY M.D. Performed By: #### L ACTIC RFX #### [facility] [address] [place] [address] [place] Lactic Acid Reflexon 024 Lactic Acid Reflex 2.8 mmol/L Off scale high 0.5-2.2 [facility] Comment on above: Result Comment: Crit ical Result : Called to and read back by: ASHUTOSH FORBES at: 01/09/2024 14:11:59 by:CORBIN PERFORMED BY: [place] [address] PATHOLOGIST STAFFING MGR NEVA MACKAY M.D. Performed By: #### L ACTIC RFX ####[facility] [id number] Partial Thromboplastin Timeo n 01-09-2024 aPTT Coag (Bld) [Time] 21.0 s Low 25.1-36.5 [facility] Comment on above: Result Comment: A he matocrit value greater than 55% may lead to inaccurate results in coagulation testing. Patients having hematocrit values >55% require a special collection tube for coagulation studies. Please contact the laboratory at [phone] for redraw instructions. PERFORMED BY: [place] [address] PATHOLOGIST STAFFING MGR NEVA MACKAY M.D. Performed By: #### G LULS #### Point of Care testing , Pathologist Slide Reviewon 0 01-09-2024 Pathologist Slide Review Ordered Path Review Normal [facility] Comment on above: Result Comment: PERF ORMED BY: [place] [address] PATHOLOGIST STAFFING MGR NEVA MACKAY M.D. Performed By: #### G LULS #### Point of Care testing , Prothrombin Time INRon 01-09 INR Coag (PPP) [Relative time] 1.2 {INR} Normal [facility] Comment on above: Result Comment: INR Therapeutic Range A) Pre- and Peroperative OAT started two weeks before surgery. NOT HIP SURGERY: 1.5 - 2.5 HIP SURGERY: 2 - 3 B) Primary and secondary prevention of venous THROMBOSIS: 2 - 3 C) Active venous thrombosis, pulmonary embolism and prevention of recurrent venous thrombosis: 2 - 3 D) Prevention of arterial thromboembolism including patients with mechanical heart valves: 3 - 4.5 Performed By: #### G LULS #### Point of Care testing , PT Coag (PPP) [Time] 13.8 s High 9.0-12.9 [facility] Comment on above: Result Comment: A he matocrit value greater than 55% may lead to inaccurate results in coagulation testing. Patients having hematocrit values >55% require a special collection tube for coagulation studies. Please contact the laboratory at [phone] for redraw instructions. Performed By: #### G LULS #### Point of Care testing , Renal Function Panelon 01-09 Albumin [Mass/Vol] 3.1 g/dL Low 3.5-5.7 [facility] Comment on above: Order Comment: draw gold top with mint Performed By: #### L ACTIC RFX #### [facility] [address] Anion gap [Moles/Vol] 17.1 mmol/L High 6.0-15.0 [facility] Comment on above: Order Comment: draw gold top with mint Performed By: #### L ACTIC RFX #### [facility] [id number] [place] Calcium [Mass/Vol] 7.7 mg/dL Low 8.6-10.3 [facility] Comment on above: Order Comment: draw gold top with mint Performed By: #### L ACTIC RFX #### [facility] [id number] [place] Chloride [Moles/Vol] 102 mmol/L Normal 98-107 [facility] Comment on above: Order Comment: draw gold top with mint Performed By: #### L ACTIC RFX #### [facility] [id number] [place] CO2 [Moles/Vol] 19.0 mmol/L Low 21.0-31.0 [facility] Comment on above: Order Comment: draw gold top with mint Performed By: #### L ACTIC RFX #### [facility] [address] Creatinine [Mass/Vol] 5.34 mg/dL High 0.70-1.30 [facility] Comment on above: Order Comment: draw gold top with mint Performed By: #### L ACTIC RFX #### [facility] [address] [place] [address] [place] Creatinine Clr Calc Pharmacy 14.61 [facility] Comment on above: Order Comment: draw gold top with mint Result Comment: PERF ORMED BY: [place] [address] PATHOLOGIST STAFFING MGR NEVA MACKAY M.D. Performed By: #### L ACTIC RFX #### [facility] [address] [place] [address] [place] GFR/1.73 sq M.predicted MDRD (S/P/Bld) [Vol rate/Area] 9.818 mL/min/{1.73_m2} [facility] Comment on above: Order Comment: draw gold top with mint Performed By: #### L ACTIC RFX #### [facility] [address] [place] [address] Glucose [Mass/Vol] 254 mg/dL High 70-100 [facility] Comment on above: Order Comment: draw gold top with mint Result Comment: [place] Glucose Reference Range is dependent on time and content of last meal. Glucose of more than 200 mg/dL in a nonstressed, ambulatory subject supports the diagnosis of Diabetes Mellitus. ADA recommended reference range Performed By: #### L ACTIC RFX #### [facility] [address] [place] [address] [place] Phosphate [Mass/Vol] 6.5 mg/dL High 2.5-4.5 [facility] Comment on above: Order Comment: draw gold top with mint Performed By: #### L ACTIC RFX #### [facility] [address] Potassium [Moles/Vol] 5.1 mmol/L Normal 3.5-5.1 [facility] Comment on above: Order Comment: draw gold top with mint Performed By: #### L ACTIC RFX #### [facility] [address] Sodium [Moles/Vol] 133 mmol/L Low 136-145 [facility] Comment on above: Order Comment: draw gold top with mint Performed By: #### L ACTIC RFX #### [facility] [address] Urea nitrogen [Mass/Vol] 72 mg/dL High 7-25 [facility] Comment on above: Order Comment: draw gold top with mint Performed By: #### L ACTIC RFX #### [facility] [address] [place] [address] Scan and CBCon 01-09-2024 Anisocytosis Ql (Bld) Moderate Normal [facility] Comment on above: Performed By: #### L ACTIC RFX #### [facility] [address] [place] [address] [place] Basophils (Bld) [#/Vol] 0.0 10*3/uL Normal 0.0-0.2 [facility] Comment on above: Performed By: #### L ACTIC RFX #### [facility] [address] [place] [address] [place] Basophils/100 WBC (Bld) 0.5 % Normal . [facility] Comment on above: Performed By: #### L ACTIC RFX #### [facility] [address] [place] [address] [place] Eosinophils (Bld) [#/Vol] 0.1 10*3/uL Normal 0.0-0.45 [facility] Comment on above: Performed By: #### L ACTIC RFX #### [facility] [address] [place] [address] [place] Eosinophils/100 WBC (Bld) 0.7 % Normal . [facility] Comment on above: Performed By: #### L ACTIC RFX #### [facility] [address] Erythrocyte distribution width (RBC) [Ratio] 18.1 % High 12.0-14.8 [facility] Comment on above: Performed By: #### L ACTIC RFX #### [facility] [address] Hematocrit (Bld) [Volume fraction] 24.8 % Low 38.8-50.0 [facility] Comment on above: Performed By: #### L ACTIC RFX #### [facility] [address] Hemoglobin (Bld) [Mass/Vol] 8.4 g/dL Low 13.0-17.0 [facility] Comment on above: Performed By: #### L ACTIC RFX #### [address] Lymphocytes (Bld) [#/Vol] 0.8 10*3/uL Low 1.00-4.8 [facility] Comment on above: Performed By: #### L ACTIC RFX #### [address] Lymphocytes/100 WBC (Bld) 8.5 % Normal . [facility] Comment on above: Performed By: #### L ACTIC RFX #### [facility] [address] MCH (RBC) [Entitic mass] 32.9 pg Normal 27.5-35.2 [facility] Comment on above: Performed By: #### L ACTIC RFX #### [facility] [address] MCV (RBC) [Entitic vol] 97.1 fL Normal 83.5-101 [facility] Comment on above: Performed By: #### L ACTIC RFX #### [facility] [address] [place] [address] Mean Corpuscular HGB Conc 33.9 g/dL Normal 32.5-35.6 [facility] Comment on above: Performed By: #### L ACTIC RFX #### [facility] [address] [place] [address] [place] Microcytosis Slight Normal [facility] Comment on above: Performed By: #### L ACTIC RFX #### [facility] [address] Monocytes (Bld) [#/Vol] 1.3 10*3/uL High 0.0-0.8 [facility] Comment on above: Performed By: #### L ACTIC RFX #### [facility] [address] Monocytes/100 WBC (Bld) 12.8 % Normal . [facility] Comment on above: Performed By: #### L ACTIC RFX #### [facility] [address] [place] [address] Neutrophils (Bld) [#/Vol] 7.6 10*3/uL Normal 1.8-7.7 [facility] Comment on above: Performed By: #### L ACTIC RFX #### [address] Neutrophils/100 WBC (Bld) 77.5 % Normal . [facility] Comment on above: Performed By: #### L ACTIC RFX #### [facility] [address] [place] [address] NRBC% 0.1 /100{WBC} Normal 0-0.5 [facility] Comment on above: Performed By: #### L ACTIC RFX #### [facility] [address] Platelet Estimate Decreased Normal Normal [facility] Comment on above: Performed By: #### L ACTIC RFX #### [facility] [address] Platelet mean volume (Bld) [Entitic vol] 8.9 fL Normal 6.6-10.1 [facility] Comment on above: Performed By: #### L ACTIC RFX #### [facility] [address] [place] [address] [place] Platelet Morphology Normal Normal Normal [facility] Comment on above: Result Comment: PERF ORMED BY: [place] [address] PATHOLOGIST STAFFING MGR NEVA MACKAY M.D. Performed By: #### L ACTIC RFX #### [facility] [address] [place] [address] Platelets (Bld) [#/Vol] 87 10*3/uL Low 150-450 [facility] Comment on above: Performed By: #### L ACTIC RFX #### [facility] [address] [place] [address] Polychromasia Slight Normal [facility] Comment on above: Performed By: #### L ACTIC RFX #### [facility] [address] [place] [address] RBC (Bld) [#/Vol] 2.55 10*6/uL Low 3.90-5.60 [facility] Comment on above: Performed By: #### L ACTIC RFX #### [facility] [address] [place] [address] WBC (Bld) [#/Vol] 9.8 10*3/uL Normal 4.1-10.5 [facility] Comment on above: Performed By: #### L ACTIC RFX #### [facility] [address] [place] [address] US renal BIon 01-09-2024 US renal BI [facility] [address] Ultrasound Report Signed Patient: Bere Callejas MR#: [id number] [birth year] : 1935 Acct:[id number] Age/Sex: 88 / M ADM Date: 01/03/24 Loc: Room: [address] [place] [address] Type: ADM IN Attending Dr: Massiel Ramirez MD Ordering Provider: Tri Beal MD Date of Service: 01/09/24 US/US renal BI: JANUSZ Copies to: MD Massiel Orellana MD US renal BI 01/08/2024 6:56 PM SIGNS AND SYMPTOMS: JANUSZ COMPARISON: None. FINDINGS: Right kidney measures 12.42 cm x 5.45 cm x 4.62 cm . There is no hydronephrosis or mass. Left kidney measures 11.77 cm x 6.06 cm x 4.85 cm . There is no hydronephrosis or mass. The bladder is decompressed with a Chambers catheter present.. No free fluid is seen in the pelvis. US/US renal BI IMPRESSION: There is no hydronephrosis or mass. Impression dictated by: Rasta Martínez M.D.01/09/2024 8:25 AM Dictation Location: [place] [address] Tech: Karen Shannon Transcribed By: RIKKI 01/09/24824 Dictated By: Rasta Martínez II, MD 01/09/24823 Signed By: 01/09/24824 Normal [facility] Basic Metabolic Panelon 12-30 Anion gap [Moles/Vol] 15.5 mmol/L High 6.0-15.0 [facility] Comment on above: Performed By: #### L ACTIC RFX #### [facility] [address] [place] [address] [place] Calcium [Mass/Vol] 7.6 mg/dL Low 8.6-10.3 [facility] Comment on above: Performed By: #### L ACTIC RFX #### [facility] [address] [place] [address] [place] Chloride [Moles/Vol] 106 mmol/L Normal 98-107 [facility] Comment on above: Performed By: #### L ACTIC RFX #### [facility] [address] [place] [id number] [place] CO2 [Moles/Vol] 20.6 mmol/L Low 21.0-31.0 [facility] Comment on above: Performed By: #### L ACTIC RFX #### [facility] [address] [place] [id number] [place] Creatinine [Mass/Vol] 4.30 mg/dL Significan t change up 0.70-1.30 [facility] Comment on above: Performed By: #### L ACTIC RFX #### [facility] [address] [place] [address] [place] Creatinine Clr Calc Pharmacy 17.71 [facility] Comment on above: Result Comment: PERF ORMED BY: [place] [address] PATHOLOGIST STAFFING MGR NEVA MACKAY M.D. Performed By: #### L ACTIC RFX #### [facility] [address] [place] [address] [place] GFR/1.73 sq M.predicted MDRD (S/P/Bld) [Vol rate/Area] 12.733 mL/min/{1.73_m2} [facility] Comment on above: Performed By: #### L ACTIC RFX #### [facility] [address] [place] [address] [place] Glucose [Mass/Vol] 237 mg/dL High 70-100 [facility] Comment on above: Result Comment: [facility] Glucose Reference Range is dependent on time and content of last meal. Glucose of more than 200 mg/dL in a nonstressed, ambulatory subject supports the diagnosis of Diabetes Mellitus. ADA recommended reference range Performed By: #### L ACTIC RFX #### [facility] [address] [place] [address] [place] Potassium [Moles/Vol] 5.1 mmol/L Normal 3.5-5.1 [facility] Comment on above: Performed By: #### L ACTIC RFX #### [facility] [address] [place] [address] [place] Sodium [Moles/Vol] 137 mmol/L Normal 136-145 [facility] Comment on above: Performed By: #### L ACTIC RFX #### [facility] [address] [place] [address] [place] Urea nitrogen [Mass/Vol] 59 mg/dL High 7-25 [facility] Comment on above: Performed By: #### L ACTIC RFX #### [facility] [address] Complete Blood Count Auto Di ffon 01-08-2024 Basophils (Bld) [#/Vol] 0.0 10*3/uL Normal 0.0-0.2 [facility] Comment on above: Result Comment: PERF ORMED BY: [facility] [address] [place] [address] PATHOLOGIST STAFFING MGR NEVA MACKAY M.D. Performed By: #### C BC ####[address] Basophils/100 WBC (Bld) 0.3 % Normal . [facility] Comment on above: Performed By: #### C BC ####[address] Eosinophils (Bld) [#/Vol] 0.0 10*3/uL Normal 0.0-0.45 [facility] Comment on above: Performed By: #### C BC ####[address] Eosinophils/100 WBC (Bld) 0.0 % Normal . [facility] Comment on above: Performed By: #### C BC ####[address] Erythrocyte distribution width (RBC) [Ratio] 14.6 % Normal 12.0-14.8 [facility] Comment on above: Performed By: #### C BC ####[address] Hematocrit (Bld) [Volume fraction] 21.6 % Low 38.8-50.0 [facility] Comment on above: Performed By: #### C BC ####[address] Hemoglobin (Bld) [Mass/Vol] 7.3 g/dL Low 13.0-17.0 [facility] Comment on above: Performed By: #### C BC ####[address] Lymphocytes (Bld) [#/Vol] 0.7 10*3/uL Low 1.00-4.8 [facility] Comment on above: Performed By: #### C BC ####[address] Lymphocytes/100 WBC (Bld) 5.9 % Normal . [facility] Comment on above: Performed By: #### C BC ####[address] MCH (RBC) [Entitic mass] 34.3 pg Normal 27.5-35.2 [facility] Comment on above: Performed By: #### C BC ####[address] MCV (RBC) [Entitic vol] 101.7 fL High 83.5-101 [facility] Comment on above: Performed By: #### C BC ####[address] Mean Corpuscular HGB Conc 33.7 g/dL Normal 32.5-35.6 [facility] Comment on above: Performed By: #### C BC ####[address] Monocytes (Bld) [#/Vol] 1.4 10*3/uL High 0.0-0.8 [facility] Comment on above: Performed By: #### C BC ####[address] Monocytes/100 WBC (Bld) 11.9 % Normal . [facility] Comment on above: Performed By: #### C BC ####[address] Neutrophils (Bld) [#/Vol] 9.5 10*3/uL High 1.8-7.7 [facility] Comment on above: Performed By: #### C BC ####[address] Neutrophils/100 WBC (Bld) 81.9 % Normal . [facility] Comment on above: Performed By: #### C BC ####[address] [address] [facility] NRBC% 0.1 /100{WBC} Normal 0-0.5 [facility] Comment on above: Performed By: #### C BC ####[address] [address] [facility] Platelet mean volume (Bld) [Entitic vol] 8.9 fL Normal 6.6-10.1 [facility] Comment on above: Performed By: #### C BC ####[address] [address] [facility] Platelets (Bld) [#/Vol] 104 10*3/uL Significant change down 150-450 [facility] Comment on above: Performed By: #### C BC ####[place] [id number] [facility] RBC (Bld) [#/Vol] 2.13 10*6/uL Low 3.90-5.60 [facility] Comment on above: Performed By: #### C BC ####[place] [id number] [facility] WBC (Bld) [#/Vol] 11.6 10*3/uL High 4.1-10.5 [facility] Comment on above: Performed By: #### C BC ####[place] [id number] [facility] Creatine Kinaseon 01-08-2024 CK [Catalytic activity/Vol] 645 U/L High 30-223 [facility] Comment on above: Result Comment: PERF ORMED BY: [facility] [address] [place] [id number] PATHOLOGIST STAFFING MGR NEVA MACKAY M.D. Performed By: #### C K ####[address] [address] [facility] Dipstick and Microscopicon 0 01-08-2024 Appearance (U) Slightly Cloudy Critically abnormal Clear [facility] Comment on above: Order Comment: Name Collection Type:: Collection Method Unknown Performed By: #### A DDONUAPLUS ####[address] [address] [facility] Bacteria,Urine None Seen Normal None Seen [facility] Comment on above: Order Comment: Name Collection Type:: Collection Method Unknown Performed By: #### A DDONUAPLUS ####[address] [address] [place] Bilirubin,Urine Negative Normal Negative [facility] Comment on above: Order Comment: Name Collection Type:: Collection Method Unknown Performed By: #### A DDONUAPLUS ####[address] [address] [place] Color (U) Yellow Normal Yellow [facility] Comment on above: Order Comment: Name Collection Type:: Collection Method Unknown Performed By: #### A DDONUAPLUS ####[address] [address] [facility] Glucose Ql (U) 100 mg/dL High Normal [facility] Comment on above: Order Comment: Name Collection Type:: Collection Method Unknown Performed By: #### A DDONUAPLUS ####[address] [address] [place] Hyaline Casts,Urine 0-8 Normal 0-8 [facility] Comment on above: Order Comment: Name Collection Type:: Collection Method Unknown Result Comment: PERF ORMED BY: [facility] [address] [place] [id number] PATHOLOGIST STAFFING MGR NEVA MACKAY M.D. Performed By: #### A DDONUAPLUS ####[address] [address] [place] Ketones Ql (U) Trace High Negative [facility] Comment on above: Order Comment: Name Collection Type:: Collection Method Unknown Performed By: #### A DDONUAPLUS ####[address] [address] [facility] Leukocyte esterase Test strip Ql (U) 1+ High Negative [facility] Comment on above: Order Comment: Name Collection Type:: Collection Method Unknown Performed By: #### A DDONUAPLUS ####[address] [address] [place] Nitrite,Urine Negative Normal Negative [facility] Comment on above: Order Comment: Name Collection Type:: Collection Method Unknown Performed By: #### A DDONUAPLUS ####[address] [address] [facility] Occult Blood,Urine 3+ High Negative [facility] Comment on above: Order Comment: Name Collection Type:: Collection Method Unknown Performed By: #### A DDONUAPLUS ####[address] [address] [facility] pH (U) 5.0 [pH] Normal 5.0-9.0 [facility] Comment on above: Order Comment: Name Collection Type:: Collection Method Unknown Performed By: #### A DDONUAPLUS ####[address] [address] [facility] Protein (U) [Mass/Vol] 100 mg/dL High Negative [facility] Comment on above: Order Comment: Name Collection Type:: Collection Method Unknown Performed By: #### A DDONUAPLUS ####[address] [address] [facility] RBC,Urine 20-49 High 0-4 [facility] Comment on above: Order Comment: Name Collection Type:: Collection Method Unknown Performed By: #### A DDONUAPLUS ####[address] [address] [facility] Specificy [place],Urine 1.025 Normal 1.001-1.030 [facility] Comment on above: Order Comment: Name Collection Type:: Collection Method Unknown Performed By: #### A DDONUAPLUS ####[address] [address] [facility] Squamous Epithelial Cell,Urine None Seen Normal 0-2 [facility] Comment on above: Order Comment: Name Collection Type:: Collection Method Unknown Performed By: #### A DDONUAPLUS ####[address] [address] [facility] Urobilinogen,Urine Normal Normal Normal [facility] Comment on above: Order Comment: Name Collection Type:: Collection Method Unknown Performed By: #### A DDONUAPLUS ####[facility] [address] [place] [address] [facility] WBC,Urine 3-4 Normal 0-4 [facility] Comment on above: Order Comment: Name Collection Type:: Collection Method Unknown Performed By: #### A DDONUAPLUS ####[facility] [address] [place] [address] [facility] Glucose Poct Glucometerson 0 01-08-2024 Glucose [Mass/Vol] 304 mg/dL Normal [facility] Comment on above: Result Comment: [place] Glucose Reference Range is dependent on time and content of last meal. Glucose of more than 200 mg/dL in a nonstressed, ambulatory subject supports the diagnosis of Diabetes Mellitus. PERFORMED BY: [address] [place] [address] PATHOLOGIST STAFFING MGR NEVA MACKAY M.D. Performed By: #### G LULS ####Point of Care testing, Glucose [Mass/Vol] 317 mg/dL Normal [facility] Comment on above: Result Comment: [place] Glucose Reference Range is dependent on time and content of last meal. Glucose of more than 200 mg/dL in a nonstressed, ambulatory subject supports the diagnosis of Diabetes Mellitus. PERFORMED BY: [address] [place] [address] PATHOLOGIST STAFFING MGR NEVA MACKAY M.D. Performed By: #### G LULS #### Point of Care testing , Glucose [Mass/Vol] 205 mg/dL Normal [facility] Comment on above: Result Comment: [place] Glucose Reference Range is dependent on time and content of last meal. Glucose of more than 200 mg/dL in a nonstressed, ambulatory subject supports the diagnosis of Diabetes Mellitus. PERFORMED BY: [facility] [address] [facility] [place] [address] PATHOLOGIST STAFFING MGR NEVA MACKAY M.D. Performed By: #### G LULS #### Point of Care testing , Commemt1 Glu2: Cleaned Meter Normal [facility] Comment on above: Result Comment: PERF ORMED BY: [facility] [address] [place] [address] PATHOLOGIST STAFFING MGR NEVA MACKAY M.D. Performed By: #### G CHELI #### Point of Care testing , Glucose [Mass/Vol] 252 mg/dL Normal [facility] Comment on above: Result Comment: [facility] Glucose Reference Range is dependent on time and content of last meal. Glucose of more than 200 mg/dL in a nonstressed, ambulatory subject supports the diagnosis of Diabetes Mellitus. Performed By: #### G CHELI #### Point of Care testing , ABO/Rh Retypeon 01-07-2024 ABO/RH Recheck Result Positive Normal [facility] Comment on above: Result Comment: PERF ORMED BY: [facility] [address] [place] [address] PATHOLOGIST STAFFING MGR NEVA MACKAY M.D. Aerobic Cultureon 01-07-2024 Aerobic Culture ORGANISM: Staphyloco ccus aureus (O:STAAUR) Quantity of Growth Light Growth No Anaerobes Isolated 3 Days Gram Stain Result 1+ White Blood Cells No Bacteria Seen Aerobic SALVADOR Charge (PCMIC38) SUSCEPTIBILITY ORGANISM: O:STAAUR ANTIBIOTIC INTERPRETATION SALVADOR Azithromycin S <2 Ceftaroline S <0.5 Ciprofloxacin S <1 Clindamycin S <0.25 Daptomycin S <0.5 Levofloxacin S <1 Linezolid S 2 Oxacillin S <0.25 Penicillin S <0.03 Tetracycline S <4 Trimethoprim/Sulfamethoxaz ole S <0.5 Vancomycin S 1 S = SUSCEPTIBLE I = INTERMEDIATE R = RESISTANT BLANK = DATA NOT AVAILABLE, OR DRUG NOT ADVISABLE OR TESTED R* = RESISTANCE DUE TO EXTENDED SPECTRUM BETA-LACTAMASES ESBL = EXTENDED SPECTRUM BETA-LACTAMASE TFG = THYMIDINE-DEPENDENT STRAIN ISSAC = BETA-LACTAMASE POSITIVE IB = INDUCIBLE BETA-LACTAMASE. APPEARS IN PLACE OF 'S' WITH SPECIES KNOWN TO POSSESS INDUCIBLE BETA-LACTAMASES. POTENTIALLY THEY MAY BECOME RESISTANT TO ALL B-LACTAM DRUGS. PERFORMED BY: [facility] [address] [place] [address] PATHOLOGIST STAFFING MGR NEVA MACKAY M.D. [facility] Comment on above: Performed By: #### G LULS #### Point of Care testing , Basic Metabolic Panelon Anion gap [Moles/Vol] 13.9 mmol/L Normal 6.0-15.0 [facility] Comment on above: Performed By: #### G LULS #### Point of Care testing , Calcium [Mass/Vol] 8.4 mg/dL Low 8.6-10.3 [facility] Comment on above: Performed By: #### G LULS #### Point of Care testing , Chloride [Moles/Vol] 109 mmol/L High 98-107 [facility] Comment on above: Performed By: #### G LULS #### Point of Care testing , CO2 [Moles/Vol] 22.1 mmol/L Normal 21.0-31.0 [facility] Comment on above: Performed By: #### G LULS #### Point of Care testing , Creatinine [Mass/Vol] 2.95 mg/dL Significan t change up 0.70-1.30 [facility] Comment on above: Performed By: #### G LULS #### Point of Care testing , Creatinine Clr Calc Pharmacy 25.62 [facility] Comment on above: Result Comment: PERF ORMED BY: [facility] [address] [place] [address] PATHOLOGIST STAFFING MGR NEVA MACKAY M.D. Performed By: #### G LULS #### Point of Care testing , GFR/1.73 sq M.predicted MDRD (S/P/Bld) [Vol rate/Area] 20.012 mL/min/{1.73_m2} [facility] Comment on above: Performed By: #### G LULS #### Point of Care testing , Glucose [Mass/Vol] 147 mg/dL High 70-100 [facility] Comment on above: Result Comment: [facility] Glucose Reference Range is dependent on time and content of last meal. Glucose of more than 200 mg/dL in a nonstressed, ambulatory subject supports the diagnosis of Diabetes Mellitus. ADA recommended reference range Performed By: #### G LULS #### Point of Care testing , Potassium [Moles/Vol] 4.0 mmol/L Normal 3.5-5.1 [facility] Comment on above: Performed By: #### G LULS #### Point of Care testing , Sodium [Moles/Vol] 141 mmol/L Normal 136-145 [facility] Comment on above: Performed By: #### G LULS #### Point of Care testing , Urea nitrogen [Mass/Vol] 45 mg/dL High 7-25 [facility] Comment on above: Performed By: #### G LULS #### Point of Care testing , Glucose Poct Glucometerson 0 01-07-2024 Glucose [Mass/Vol] 342 mg/dL Normal [facility] Comment on above: Result Comment: [facility] Glucose Reference Range is dependent on time and content of last meal. Glucose of more than 200 mg/dL in a nonstressed, ambulatory subject supports the diagnosis of Diabetes Mellitus. PERFORMED BY: [place] [id number] PATHOLOGIST STAFFING MGR NEVA MACKAY M.D. Performed By: #### G LULS ####Point of Care testing, Glucose [Mass/Vol] 279 mg/dL Normal [facility] Comment on above: Result Comment: [facility] Glucose Reference Range is dependent on time and content of last meal. Glucose of more than 200 mg/dL in a nonstressed, ambulatory subject supports the diagnosis of Diabetes Mellitus. PERFORMED BY: [facility] [address] [place] [address] PATHOLOGIST STAFFING MGR NEVA MACKAY M.D. Performed By: #### G LULS ####Point of Care testing, Glucose [Mass/Vol] 230 mg/dL Normal [facility] Comment on above: Result Comment: [facility] Glucose Reference Range is dependent on time and content of last meal. Glucose of more than 200 mg/dL in a nonstressed, ambulatory subject supports the diagnosis of Diabetes Mellitus. PERFORMED BY: [place] [address] PATHOLOGIST STAFFING MGR NEVA MACKAY M.D. Performed By: #### B MP #### [address] Glucose [Mass/Vol] 154 mg/dL Normal [facility] Comment on above: Result Comment: [facility] Glucose Reference Range is dependent on time and content of last meal. Glucose of more than 200 mg/dL in a nonstressed, ambulatory subject supports the diagnosis of Diabetes Mellitus. PERFORMED BY: [place] [address] PATHOLOGIST STAFFING MGR NEVA MACKAY M.D. Performed By: #### G LULS #### Point of Care testing , Gram Stainon 01-07-2024 Microscopic observation Gram stain Nom (Unsp spec) Gram Stain Result 1+ White Blood Cells No Bacteria Seen PERFORMED BY: [place] [address] PATHOLOGIST STAFFING MGR NEVA MACKAY M.D. [facility] Comment on above: Performed By: #### G LULS #### Point of Care testing , Shahriar 01-07-2024 L Specimen: [id number] Received: 01/07/24 Status: MORENA Arroyo Num: [id number] Spec Type: Surgical Subm Dr: Paolo Curtis MD Tissues: A DIGIT AMPUTATION (LT 2ND TOE AMP) Procedures: HE/2, Gross/Micro L4, Decalcification Age/ Patient Sex Location Account Attending Physician Bere Callejas 88/M 4N [id number] Angus Minaya MD SPEC NUM: [id number] RECD: 01/07/24 STATUS: SOUT REQ NUM: [id number] SADIE: 01/07/[address]: Paolo Curtis MD ENTERED: 01/07/24 [facility] DR: SPEC TYPE: Surgical DEPT: S ORDERED: HE/2, Gross/Micro L4, Decalcification ORDERED: HE/2, Gross/Micro L4, Decalcification Pathological Diagnosis L second toe amputation: Skin Ulceration With Underlying Soft Tissue acute necrotizing Inflammation. 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 The skin is conroy-sanford and sloughing throughout with a sanford-green irregular ulceration 3.7 x 3.1 cm. The edge of the ulceration comes within 0.1 cm of the nearest margin (dorsal lateral). The margin is questionably viable throughout, and is inked blue. There is no nail present. The bony margin does not appear to be at the joint space. The bone is softened throughout and can be sectioned prior to decalcification. Leaflet Distributor are submitted following decalcification in 2 cassettes as follows: A1-A2 - 1 central longitudinal section from distal to proximal, respectively Specimen: [id number] Received: 01/07/24 Status: MORENA Arroyo Num: [id number] Spec Type: Surgical Subm Dr: Paolo Curtis MD Tissues: A DIGIT AMPUTATION (LT 2ND TOE AMP) Procedures: HE/2, Gross/Micro L4, Decalcification Patient: Bere Callejas [id number] (Continued) Specimen: [id number] Received: 01/07/24 (Continued) Signed (signature on file) Steve Posey MD 01/12/242202 Specimen: [id number] Received: 01/07/24 Status: MORENA Arroyo Num: [id number] Spec Type: Surgical Subm Dr: Paolo Curtis MD Tissues: A DIGIT AMPUTATION (LT 2ND TOE AMP) Procedures: HE/2, Gross/Micro L4, Decalcification Patient: Bere Callejas [id number] (Continued) Specimen: [id number] Received: 01/07/24 (Continued) CPT Codes 36708, 94128 Specimen: [id number] Received: 01/07/24 Status: MORENA Arroyo Num: [id number] Spec Type: Surgical Subm Dr: Paolo Curtis MD Tissues: A DIGIT AMPUTATION (LT 2ND TOE AMP) Procedures: HE/2, Gross/Micro L4, Decalcification Patient: Bere Callejas [id number] (Continued) Signed (signature on file) Steve Posey MD 01/12/24 [address] [facility] [facility] LeukoReduced RBCon LeukoReduced RBC TRANSFUSED 01/08/24 2234 [facility] US venous mapping BI loweron 01-07-2024 US venous mapping BI [facility] [place] [address] Ultrasound Report Signed Patient: Bere Callejas MR#: [id number] 96 : 1935 Acct:[id number] Age/Sex: 88 / M ADM Date: 01/03/24 Loc: Room: [address] [place] [address] Type: ADM IN Attending Dr: Massiel Ramirez MD Ordering Provider: Paolo Curtis MD Date of Service: 01/06/24 US/US venous mapping BI lower: need for bypass Copies to: MD Massiel Zaldivar MD Bilateral lower extremity vein mapping. INDICATION:: Need for lower extremity bypass. FINDINGS: Right lower extremity: The greater saphenous vein is patent from the groin to the ankle. Size is adequate for conduit for bypass. Left lower extremity: The left greater saphenous vein is patent from the groin to the ankle. Size is adequate for bypass conduit. US/US venous mapping BI lower Impression: As above Impression dictated by: William Bailey MD01/07/2024 12:38 PM Dictation Location: [place] [address] Tech: Valentina Otero Transcribed By: [facility] 01/07/24 1238 Dictated By: William Bailey MD 01/07/24 1237 Signed By: 01/07/24 1238 [facility] Basic Metabolic Panelon Anion gap [Moles/Vol] 12.8 mmol/L Normal 6.0-15.0 [facility] Comment on above: Performed By: #### G LULS #### Point of Care testing , Calcium [Mass/Vol] 8.3 mg/dL Low 8.6-10.3 [facility] Comment on above: Performed By: #### G LULS #### Point of Care testing , Chloride [Moles/Vol] 107 mmol/L Normal 98-107 [facility] Comment on above: Performed By: #### G LULS #### Point of Care testing , CO2 [Moles/Vol] 25.3 mmol/L Normal 21.0-31.0 [facility] Comment on above: Performed By: #### G LULS #### Point of Care testing , Creatinine [Mass/Vol] 2.21 mg/dL High 0.70-1.30 [facility] Comment on above: Performed By: #### G LULS #### Point of Care testing , Creatinine Clr Calc Pharmacy 34.19 [facility] Comment on above: Result Comment: PERF ORMED BY: [facility] [address] [address] PATHOLOGIST STAFFING MGR NEVA MACKAY M.D. Performed By: #### G LULS #### Point of Care testing , GFR/1.73 sq M.predicted MDRD (S/P/Bld) [Vol rate/Area] 28.302 mL/min/{1.73_m2} Normal [facility] Comment on above: Performed By: #### G LULS #### Point of Care testing , Glucose [Mass/Vol] 155 mg/dL High 70-100 [facility] Comment on above: Result Comment: [place] Glucose Reference Range is dependent on time and content of last meal. Glucose of more than 200 mg/dL in a nonstressed, ambulatory subject supports the diagnosis of Diabetes Mellitus. ADA recommended reference range Performed By: #### G LULS #### Point of Care testing , Potassium [Moles/Vol] 4.1 mmol/L Normal 3.5-5.1 [facility] Comment on above: Performed By: #### G LULS #### Point of Care testing , Sodium [Moles/Vol] 141 mmol/L Normal 136-145 [facility] Comment on above: Performed By: #### G LULS #### Point of Care testing , Urea nitrogen [Mass/Vol] 38 mg/dL High 7- [facility] Comment on above: Performed By: #### G LULS #### Point of Care testing , Glucose Poct Glucometerson 0 01-06-2024 Glucose [Mass/Vol] 280 mg/dL Normal [facility] Comment on above: Result Comment: [place] om Glucose Reference Range is dependent on time and content of last meal. Glucose of more than 200 mg/dL in a nonstressed, ambulatory subject supports the diagnosis of Diabetes Mellitus. PERFORMED BY: [address] [address] PATHOLOGIST STAFFING MGR NEVA MACKAY M.D. Performed By: #### G LULS #### Point of Care testing , Commemt1 Glu2: Cleaned Meter Normal [facility] Comment on above: Result Comment: PERF ORMED BY: [facility] [address] [place] [address] PATHOLOGIST STAFFING MGR NEVA MACKAY M.D. Performed By: #### G LULS #### Point of Care testing , Glucose [Mass/Vol] 228 mg/dL Normal [facility] Comment on above: Result Comment: [place] om Glucose Reference Range is dependent on time and content of last meal. Glucose of more than 200 mg/dL in a nonstressed, ambulatory subject supports the diagnosis of Diabetes Mellitus. Performed By: #### G LULS #### Point of Care testing , Glucose [Mass/Vol] 155 mg/dL Normal [facility] Comment on above: Result Comment: [place] om Glucose Reference Range is dependent on time and content of last meal. Glucose of more than 200 mg/dL in a nonstressed, ambulatory subject supports the diagnosis of Diabetes Mellitus. PERFORMED BY: [address] [place] [address] PATHOLOGIST STAFFING MGR NEVA MACKAY M.D. Performed By: #### G LULS ####Point of Care testing, Glucose [Mass/Vol] 166 mg/dL Normal [facility] Comment on above: Result Comment: [facility] Glucose Reference Range is dependent on time and content of last meal. Glucose of more than 200 mg/dL in a nonstressed, ambulatory subject supports the diagnosis of Diabetes Mellitus. PERFORMED BY: [address] [address] PATHOLOGIST STAFFING MGR NEVA MACKAY M.D. Performed By: #### G LULS #### Point of Care testing , Glucose [Mass/Vol] 176 mg/dL Normal [facility] Comment on above: Result Comment: [facility] Glucose Reference Range is dependent on time and content of last meal. Glucose of more than 200 mg/dL in a nonstressed, ambulatory subject supports the diagnosis of Diabetes Mellitus. PERFORMED BY: [address] [address] PATHOLOGIST STAFFING MGR NEVA MACKAY M.D. Performed By: #### G LULS #### Point of Care testing , Hemogram CBC Without Diffon 01-06-2024 Erythrocyte distribution width (RBC) [Ratio] 14.7 % Normal 12.0-14.8 [facility] Comment on above: Performed By: #### G LULS #### Point of Care testing , Hematocrit (Bld) [Volume fraction] 31.6 % Low 38.8-50.0 [facility] Comment on above: Performed By: #### G LULS #### Point of Care testing , Hemoglobin (Bld) [Mass/Vol] 10.6 g/dL Low 13.0-17.0 [facility] Comment on above: Performed By: #### G LULS #### Point of Care testing , MCH (RBC) [Entitic mass] 34.0 pg Normal 27.5-35.2 [facility] Comment on above: Performed By: #### G LULS #### Point of Care testing , MCV (RBC) [Entitic vol] 101.0 fL Normal 83.5-101 [facility] Comment on above: Performed By: #### G LULS #### Point of Care testing , Mean Corpuscular HGB Conc 33.6 g/dL Normal 32.5-35.6 [facility] Comment on above: Performed By: #### Carley RAMIREZLS #### Point of Care testing , Platelet mean volume (Bld) [Entitic vol] 8.9 fL Normal 6.6-10.1 [facility] Comment on above: Result Comment: PERF ORMED BY: [facility] [place] [address] PATHOLOGIST STAFFING MGR NEVA MACKAY M.D. Performed By: #### Carley BOWER #### Point of Care testing , Platelets (Bld) [#/Vol] 131 10*3/uL Low 150-450 [facility] Comment on above: Performed By: #### Carley BOWER #### Point of Care testing , RBC (Bld) [#/Vol] 3.13 10*6/uL Low 3.90-5.60 [facility] Comment on above: Performed By: #### Carley BOWER #### Point of Care testing , WBC (Bld) [#/Vol] 6.9 10*3/uL Normal 4.1-10.5 [facility] Comment on above: Performed By: #### Carley BOWER #### Point of Care testing , Basic Metabolic Panelon Anion gap [Moles/Vol] 12.3 mmol/L Normal 6.0-15.0 [facility] Comment on above: Performed By: #### Carley BOWER #### Point of Care testing , Calcium [Mass/Vol] 8.7 mg/dL Normal 8.6-10.3 [facility] Comment on above: Performed By: #### Carley BOWER #### Point of Care testing , Chloride [Moles/Vol] 103 mmol/L Normal 98-107 [facility] Comment on above: Performed By: #### Carley BOWER #### Point of Care testing , CO2 [Moles/Vol] 27.6 mmol/L Normal 21.0-31.0 [facility] Comment on above: Performed By: #### G ASHLEYLS #### Point of Care testing , Creatinine [Mass/Vol] 2.03 mg/dL High 0.70-1.30 [facility] Comment on above: Performed By: #### G ASHLEYLS #### Point of Care testing , Creatinine Clr Calc Pharmacy 36.71 [facility] Comment on above: Result Comment: PERF ORMED BY: [facility] [place] [address] PATHOLOGIST STAFFING MGR NEVA MACKAY M.D. Performed By: #### G ASHLEYLS #### Point of Care testing , GFR/1.73 sq M.predicted MDRD (S/P/Bld) [Vol rate/Area] 31.340 mL/min/{1.73_m2} Normal [facility] Comment on above: Performed By: #### G ASHLEYLS #### Point of Care testing , Glucose [Mass/Vol] 141 mg/dL High 70-100 [facility] Comment on above: Result Comment: [facility] Glucose Reference Range is dependent on time and content of last meal. Glucose of more than 200 mg/dL in a nonstressed, ambulatory subject supports the diagnosis of Diabetes Mellitus. ADA recommended reference range Performed By: #### G ASHLEYLS #### Point of Care testing , Potassium [Moles/Vol] 3.9 mmol/L Normal 3.5-5.1 [facility] Comment on above: Performed By: #### G ASHLEYLS #### Point of Care testing , Sodium [Moles/Vol] 139 mmol/L Normal 136-145 [facility] Comment on above: Performed By: #### G ASHLEYLS #### Point of Care testing , Urea nitrogen [Mass/Vol] 40 mg/dL High 7-25 [facility] Comment on above: Performed By: #### G ASHLEYLS #### Point of Care testing , Glucose Poct Glucometerson 0 01-05-2024 Glucose [Mass/Vol] 225 mg/dL Normal [facility] Comment on above: Result Comment: [facility] Glucose Reference Range is dependent on time and content of last meal. Glucose of more than 200 mg/dL in a nonstressed, ambulatory subject supports the diagnosis of Diabetes Mellitus. PERFORMED BY: [address] [place] [address] PATHOLOGIST STAFFING MGR NEVA MACKAY M.D. Performed By: #### G LULS ####Point of Care testing, Commemt1 Glu2: Cleaned Meter [facility] Comment on above: Result Comment: PERF ORMED BY: [address] [place] [address] PATHOLOGIST STAFFING MGR NEVA MACKAY M.D. Performed By: #### G LULS #### Point of Care testing , Glucose [Mass/Vol] 214 mg/dL Normal [facility] Comment on above: Result Comment: [place] om Glucose Reference Range is dependent on time and content of last meal. Glucose of more than 200 mg/dL in a nonstressed, ambulatory subject supports the diagnosis of Diabetes Mellitus. Performed By: #### G LULS #### Point of Care testing , Commemt1 Glu2: Cleaned Meter [facility] Comment on above: Result Comment: PERF ORMED BY: [place] [address] PATHOLOGIST STAFFING MGR NEVA MACKAY M.D. Performed By: #### L ACTIC RFX #### [facility] [address] [place] [address] [place] Glucose [Mass/Vol] 152 mg/dL Normal [facility] Comment on above: Result Comment: [place] om Glucose Reference Range is dependent on time and content of last meal. Glucose of more than 200 mg/dL in a nonstressed, ambulatory subject supports the diagnosis of Diabetes Mellitus. Performed By: #### L ACTIC RFX #### [facility] [address] [place] [address] [place] Glucose [Mass/Vol] 169 mg/dL Normal [facility] Comment on above: Result Comment: [place] om Glucose Reference Range is dependent on time and content of last meal. Glucose of more than 200 mg/dL in a nonstressed, ambulatory subject supports the diagnosis of Diabetes Mellitus. PERFORMED BY: [facility] [address] [place] [address] PATHOLOGIST STAFFING MGR NEVA MACKAY M.D. Performed By: #### G CHELI #### Point of Care testing , Hemogram CBC Without Diffon 01-05-2024 Erythrocyte distribution width (RBC) [Ratio] 14.7 % Normal 12.0-14.8 [facility] Comment on above: Performed By: #### G LULS #### Point of Care testing , Hematocrit (Bld) [Volume fraction] 31.0 % Low 38.8-50.0 [facility] Comment on above: Performed By: #### G ASHLEYLS #### Point of Care testing , Hemoglobin (Bld) [Mass/Vol] 10.5 g/dL Low 13.0-17.0 [facility] Comment on above: Performed By: #### G ASHLEYLS #### Point of Care testing , MCH (RBC) [Entitic mass] 34.2 pg Normal 27.5-35.2 [facility] Comment on above: Performed By: #### G LULS #### Point of Care testing , MCV (RBC) [Entitic vol] 100.7 fL Normal 83.5-101 [facility] Comment on above: Performed By: #### G ASHLEYLS #### Point of Care testing , Mean Corpuscular HGB Conc 33.9 g/dL Normal 32.5-35.6 [facility] Comment on above: Performed By: #### G LULS #### Point of Care testing , Platelet mean volume (Bld) [Entitic vol] 8.9 fL Normal 6.6-10.1 [facility] Comment on above: Result Comment: PERF ORMED BY: [facility] [address] [place] [address] PATHOLOGIST STAFFING MGR NEVA MACKAY M.D. Performed By: #### G ASHLEYLS #### Point of Care testing , Platelets (Bld) [#/Vol] 147 10*3/uL Low 150-450 [facility] Comment on above: Performed By: #### G CHELI #### Point of Care testing , RBC (Bld) [#/Vol] 3.08 10*6/uL Low 3.90-5.60 [facility] Comment on above: Performed By: #### Carley BOWER #### Point of Care testing , WBC (Bld) [#/Vol] 7.1 10*3/uL Normal 4.1-10.5 [facility] Comment on above: Performed By: #### Carley BOWER #### Point of Care testing , Basic Metabolic Panelon Anion gap [Moles/Vol] 11.9 mmol/L Normal 6.0-15.0 [facility] Comment on above: Performed By: #### Carley BOWER #### Point of Care testing , Calcium [Mass/Vol] 8.8 mg/dL Normal 8.6-10.3 [facility] Comment on above: Performed By: #### Carley BOWER #### Point of Care testing , Chloride [Moles/Vol] 103 mmol/L Normal 98-107 [facility] Comment on above: Performed By: #### Carley BOWER #### Point of Care testing , CO2 [Moles/Vol] 27.0 mmol/L Normal 21.0-31.0 [facility] Comment on above: Performed By: #### Carley BOWER #### Point of Care testing , Creatinine [Mass/Vol] 2.30 mg/dL High 0.70-1.30 [facility] Comment on above: Performed By: #### Carley BOWER #### Point of Care testing , Creatinine Clr Calc Pharmacy 32.33 [facility] Comment on above: Performed By: #### Carley BOWER #### Point of Care testing , GFR/1.73 sq M.predicted MDRD (S/P/Bld) [Vol rate/Area] 26.978 mL/min/{1.73_m2} [facility] Comment on above: Performed By: #### Carley BOWER #### Point of Care testing , Glucose [Mass/Vol] 120 mg/dL Significant change up 70-100 [facility] Comment on above: Result Comment: [place] Glucose Reference Range is dependent on time and content of last meal. Glucose of more than 200 mg/dL in a nonstressed, ambulatory subject supports the diagnosis of Diabetes Mellitus. ADA recommended reference range Performed By: #### G LULS #### Point of Care testing , Potassium [Moles/Vol] 3.9 mmol/L Normal 3.5-5.1 [facility] Comment on above: Performed By: #### G LULS #### Point of Care testing , Sodium [Moles/Vol] 138 mmol/L Normal 136-145 [facility] Comment on above: Performed By: #### G LULS #### Point of Care testing , Urea nitrogen [Mass/Vol] 42 mg/dL High 7-25 [facility] Comment on above: Performed By: #### G LULS #### Point of Care testing , C-Reactive Proteinon 024 C-Reactive Protein 1.4 mg/dL High 0.0-0.5 [facility] Comment on above: Result Comment: PERF ORMED BY: [place] [address] PATHOLOGIST STAFFING MGR NEVA MACKAY M.D. Performed By: #### G LULS #### Point of Care testing , ECG 12 lead ECGon 01-04-2024 ECG 12 lead ECG [facility] [address] [place] [address] Electrocardiograph Report Signed Patient: Bere Callejas MR#: [id number] 96 : 1935 Acct:[id number] Age/Sex: 88 / M ADM Date: 01/03/24 Loc: Room: [address] [place] [address] Type: ADM IN Attending Dr: Massiel Ramirez MD Ordering Provider: Sc[facility] MD Date of Service: 01/04/2405/22/1057 ECG/ECG 12 lead ECG: preop Copies to: Test Reason : Blood Pressure : / mmHG Vent. Rate : 079 BPM Atrial Rate : 084 BPM P-R Int : 000 ms QRS Dur : 160 ms QT Int : 458 ms P-R-T Axes : 000 -84 053 degrees QTc Int : 525 ms Sinus rhythm Right bundle branch block Left anterior fascicular block Bifascicular block Possible Lateral infarct , age undetermined Abnormal ECG No previous ECGs available Confirmed by JOSY NAVAS MD ([id number]) on 01/05/2024 2:45:40 PM Referred By: Electronically Signed By:JOSY NAVAS MD Transcribed By: MUS Signed By Josy Navas MD 0 01/05/24 1445 Normal [facility] Erythrocyte Sedimentation Ra manan 01-04-2024 ESR (Bld) [Velocity] 41 mm/h High 0-19 [facility] Comment on above: Result Comment: PERF ORMED BY: [address] [address] PATHOLOGIST STAFFING MGR NEVA MACKAY M.D. Performed By: #### G LULS #### Point of Care testing , Glucose Poct Glucometerson 0 01-04-2024 Glucose [Mass/Vol] 348 mg/dL Normal [facility] Comment on above: Result Comment: [facility] Glucose Reference Range is dependent on time and content of last meal. Glucose of more than 200 mg/dL in a nonstressed, ambulatory subject supports the diagnosis of Diabetes Mellitus. PERFORMED BY: [address] [address] PATHOLOGIST STAFFING MGR NEVA MACKAY M.D. Performed By: #### G LULS #### Point of Care testing , Glucose [Mass/Vol] 258 mg/dL Normal [facility] Comment on above: Result Comment: [facility] Glucose Reference Range is dependent on time and content of last meal. Glucose of more than 200 mg/dL in a nonstressed, ambulatory subject supports the diagnosis of Diabetes Mellitus. PERFORMED BY: [address] [place] [address] PATHOLOGIST STAFFING MGR NEVA MACKAY M.D. Performed By: #### G LULS #### Point of Care testing , Glucose [Mass/Vol] 170 mg/dL Normal [facility] Comment on above: Result Comment: [facility] Glucose Reference Range is dependent on time and content of last meal. Glucose of more than 200 mg/dL in a nonstressed, ambulatory subject supports the diagnosis of Diabetes Mellitus. PERFORMED BY: [address] [address] PATHOLOGIST STAFFING MGR NEVA MACKAY M.D. Performed By: #### G LULS #### Point of Care testing , Glucose [Mass/Vol] 126 mg/dL Normal [facility] Comment on above: Result Comment: [facility] Glucose Reference Range is dependent on time and content of last meal. Glucose of more than 200 mg/dL in a nonstressed, ambulatory subject supports the diagnosis of Diabetes Mellitus. PERFORMED BY: [address] [place] [address] PATHOLOGIST STAFFING MGR NEVA MACKAY M.D. Performed By: #### G LULS #### Point of Care testing , Glucose [Mass/Vol] 275 mg/dL Normal [facility] Comment on above: Result Comment: [facility] Glucose Reference Range is dependent on time and content of last meal. Glucose of more than 200 mg/dL in a nonstressed, ambulatory subject supports the diagnosis of Diabetes Mellitus. PERFORMED BY: [address] [place] [address] PATHOLOGIST STAFFING MGR NEVA MACKAY M.D. Performed By: #### G LULS #### Point of Care testing , Hemogram CBC Without Diffon 01-04-2024 Erythrocyte distribution width (RBC) [Ratio] 14.8 % Normal 12.0-14.8 [facility] Comment on above: Performed By: #### G LULS #### Point of Care testing , Hematocrit (Bld) [Volume fraction] 31.8 % Low 38.8-50.0 [facility] Comment on above: Performed By: #### G LULS #### Point of Care testing , Hemoglobin (Bld) [Mass/Vol] 10.9 g/dL Low 13.0-17.0 [facility] Comment on above: Performed By: #### G CHELI #### Point of Care testing , MCH (RBC) [Entitic mass] 34.4 pg Normal 27.5-35.2 [facility] Comment on above: Performed By: #### G ASHLEYLS #### Point of Care testing , MCV (RBC) [Entitic vol] 100.7 fL Normal 83.5-101 [facility] Comment on above: Performed By: #### Carley RAMIREZLS #### Point of Care testing , Mean Corpuscular HGB Conc 34.2 g/dL Normal 32.5-35.6 [facility] Comment on above: Performed By: #### Carley RAMIREZLS #### Point of Care testing , Platelet mean volume (Bld) [Entitic vol] 8.6 fL Normal 6.6-10.1 [facility] Comment on above: Performed By: #### Carley BOWER #### Point of Care testing , Platelets (Bld) [#/Vol] 152 10*3/uL Normal 150-450 [facility] Comment on above: Performed By: #### Carley BOWER #### Point of Care testing , RBC (Bld) [#/Vol] 3.16 10*6/uL Low 3.90-5.60 [facility] Comment on above: Performed By: #### Carley BOWER #### Point of Care testing , WBC (Bld) [#/Vol] 8.1 10*3/uL Normal 4.1-10.5 [facility] Comment on above: Performed By: #### Carley RAMIREZLS #### Point of Care testing , Basic Metabolic Panelon Anion gap [Moles/Vol] 15.0 mmol/L Normal 6.0-15.0 [facility] Comment on above: Performed By: #### Carley RAMIREZLS #### Point of Care testing , Calcium [Mass/Vol] 9.4 mg/dL Normal 8.6-10.3 [facility] Comment on above: Performed By: #### Carley BOWER #### Point of Care testing , Chloride [Moles/Vol] 99 mmol/L Normal 98-107 [facility] Comment on above: Performed By: #### G LULS #### Point of Care testing , CO2 [Moles/Vol] 26.2 mmol/L Normal 21.0-31.0 [facility] Comment on above: Performed By: #### G LULS #### Point of Care testing , Creatinine [Mass/Vol] 2.43 mg/dL High 0.70-1.30 [facility] Comment on above: Performed By: #### G LULS #### Point of Care testing , Creatinine Clr Calc Pharmacy 29.04 [facility] Comment on above: Result Comment: PERF ORMED BY: [facility] [address] [address] PATHOLOGIST STAFFING MGR NEVA MACKAY M.D. Performed By: #### G LULS #### Point of Care testing , GFR/1.73 sq M.predicted MDRD (S/P/Bld) [Vol rate/Area] 25.256 mL/min/{1.73_m2} Normal [facility] Comment on above: Performed By: #### G LULS #### Point of Care testing , Glucose [Mass/Vol] 271 mg/dL High 70-100 [facility] Comment on above: Result Comment: [place] Glucose Reference Range is dependent on time and content of last meal. Glucose of more than 200 mg/dL in a nonstressed, ambulatory subject supports the diagnosis of Diabetes Mellitus. ADA recommended reference range Performed By: #### G LULS #### Point of Care testing , Potassium [Moles/Vol] 4.2 mmol/L Normal 3.5-5.1 [facility] Comment on above: Performed By: #### G LULS #### Point of Care testing , Sodium [Moles/Vol] 136 mmol/L Normal 136-145 [facility] Comment on above: Performed By: #### G LULS #### Point of Care testing , Urea nitrogen [Mass/Vol] 51 mg/dL High 7-25 [facility] Comment on above: Performed By: #### G LULS #### Point of Care testing , Basophils Auto (Bld) [#/Vol] Ordered By: Babatunde Masters on 01-03-2024 Basophils (Bld) [#/Vol] 0.0 10*3/uL 0.0-0.2 [facility] Basophils/100 WBC Auto (Bld) Ordered By: Babatunde Masters on 01-03-2024 Basophils/100 WBC (Bld) 0.3 % . [facility] Blood Cultureon 01-03-2024 Bacteria identified Cx Nom (Bld) NO GROWTH 5 DAYS PERFORMED BY: [address] [place] [address] PATHOLOGIST STAFFING MGR NEVA MACKAY M.D. [facility] Comment on above: Performed By: #### G LULS #### Point of Care testing , Bacteria identified Cx Nom (Bld) NO GROWTH 5 DAYS PERFORMED BY: [address] [place] [address] PATHOLOGIST STAFFING MGR NEVA MACKAY M.D. [facility] Comment on above: Performed By: #### G LULS #### Point of Care testing , Calcium [Mass/volume] in Ser um or PlasmaOrdered By: Babatunde Masters on 01-03-2024 Calcium [Mass/Vol] 9.4 mg/dL 8.6-10.3 [facility] Carbon dioxide, total [Moles /volume] in Serum or PlasmaOrdered By: Babatunde Masters on 01-03-2024 CO2 [Moles/Vol] 26.2 mmol/L 21.0-31.0 [facility] Chloride [Moles/volume] in S jan or PlasmaOrdered By: Babatunde Masters on 01-03-2024 Chloride [Moles/Vol] 99 mmol/L 98-107 [facility] Complete Blood Count Auto Di ffon 01-03-2024 Basophils (Bld) [#/Vol] 0.0 10*3/uL Normal 0.0-0.2 [facility] Comment on above: Result Comment: PERF ORMED BY: [address] [place] [address] PATHOLOGIST STAFFING MGR NEVA MACKAY M.D. Performed By: #### G ASHLEYLS #### Point of Care testing , Basophils/100 WBC (Bld) 0.3 % Normal . [facility] Comment on above: Performed By: #### G ASHLEYLS #### Point of Care testing , Eosinophils (Bld) [#/Vol] 0.1 10*3/uL Normal 0.0-0.45 [facility] Comment on above: Performed By: #### G LULS #### Point of Care testing , Eosinophils/100 WBC (Bld) 1.1 % Normal . [facility] Comment on above: Performed By: #### G LULS #### Point of Care testing , Erythrocyte distribution width (RBC) [Ratio] 14.4 % Normal 12.0-14.8 [facility] Comment on above: Performed By: #### G LULS #### Point of Care testing , Hematocrit (Bld) [Volume fraction] 33.2 % Low 38.8-50.0 [facility] Comment on above: Performed By: #### G LULS #### Point of Care testing , Hemoglobin (Bld) [Mass/Vol] 11.1 g/dL Low 13.0-17.0 [facility] Comment on above: Performed By: #### G LULS #### Point of Care testing , Lymphocytes (Bld) [#/Vol] 0.8 10*3/uL Low 1.00-4.8 [facility] Comment on above: Performed By: #### G LULS #### Point of Care testing , Lymphocytes/100 WBC (Bld) 6.8 % Normal . [facility] Comment on above: Performed By: #### G LULS #### Point of Care testing , MCH (RBC) [Entitic mass] 33.9 pg Normal 27.5-35.2 [facility] Comment on above: Performed By: #### G LULS #### Point of Care testing , MCV (RBC) [Entitic vol] 101.0 fL Normal 83.5-101 [facility] Comment on above: Performed By: #### G CHELI #### Point of Care testing , Mean Corpuscular HGB Conc 33.6 g/dL Normal 32.5-35.6 [facility] Comment on above: Performed By: #### G ASLHEYLS #### Point of Care testing , Monocytes (Bld) [#/Vol] 0.8 10*3/uL Normal 0.0-0.8 [facility] Comment on above: Performed By: #### G ASHLEYLS #### Point of Care testing , Monocytes/100 WBC (Bld) 16.44 % Normal 0.00-20.00 [facility] Comment on above: Performed By: #### G ASHLEYLS #### Point of Care testing , Monocytes/100 WBC (Bld) 7.0 % Normal . [facility] Comment on above: Performed By: #### G CHELI #### Point of Care testing , Neutrophils (Bld) [#/Vol] 9.7 10*3/uL High 1.8-7.7 [facility] Comment on above: Performed By: #### G CHELI #### Point of Care testing , Neutrophils/100 WBC (Bld) 84.8 % Normal . [facility] Comment on above: Performed By: #### G CHELI #### Point of Care testing , NRBC% 0.1 /100{WBC} Normal 0-0.5 [facility] Comment on above: Performed By: #### Carley RAMIREZLS #### Point of Care testing , Platelet mean volume (Bld) [Entitic vol] 8.8 fL Normal 6.6-10.1 [facility] Comment on above: Performed By: #### G CHELI #### Point of Care testing , Platelets (Bld) [#/Vol] 157 10*3/uL Normal 150-450 [facility] Comment on above: Performed By: #### G CHELI #### Point of Care testing , RBC (Bld) [#/Vol] 3.28 10*6/uL Low 3.90-5.60 [facility] Comment on above: Performed By: #### G LULS #### Point of Care testing , WBC (Bld) [#/Vol] 11.4 10*3/uL High 4.1-10.5 [facility] Comment on above: Performed By: #### Carley RAMIREZLS #### Point of Care testing , Comprehensive Metabolic Pane shahriar 01-03-2024 Albumin [Mass/Vol] 3.8 g/dL Normal 3.5-5.7 [facility] Comment on above: Performed By: #### Carley RAMIREZLS #### Point of Care testing , Albumin/Globulin [Mass ratio] 1.2 {ratio} Normal [facility] Comment on above: Performed By: #### Carley BOWER #### Point of Care testing , ALP [Catalytic activity/Vol] 122 U/L High 34-104 [facility] Comment on above: Performed By: #### Carley BOWER #### Point of Care testing , ALT [Catalytic activity/Vol] 29 U/L Normal 7-52 [facility] Comment on above: Performed By: #### Carley BOWER #### Point of Care testing , Anion gap [Moles/Vol] 13.8 mmol/L Normal 6.0-15.0 [facility] Comment on above: Performed By: #### Carley BOWER #### Point of Care testing , AST [Catalytic activity/Vol] 20 U/L Normal 13-39 [facility] Comment on above: Performed By: #### Carley BOWER #### Point of Care testing , Bilirubin [Mass/Vol] 0.7 mg/dL Normal 0.3-1.0 [facility] Comment on above: Performed By: #### Carley BOWER #### Point of Care testing , Calcium [Mass/Vol] 9.1 mg/dL Normal 8.6-10.3 [facility] Comment on above: Performed By: #### Carley BOWER #### Point of Care testing , Chloride [Moles/Vol] 99 mmol/L Normal 98-107 [facility] Comment on above: Performed By: #### Carley BOWER #### Point of Care testing , CO2 [Moles/Vol] 25.6 mmol/L Normal 21.0-31.0 [facility] Comment on above: Performed By: #### G ASHLEYLS #### Point of Care testing , Creatinine [Mass/Vol] 2.51 mg/dL High 0.70-1.30 [facility] Comment on above: Performed By: #### G ASHLEYLS #### Point of Care testing , Creatinine Clr Calc Pharmacy 27.84 [facility] Comment on above: Performed By: #### G ASHLEYLS #### Point of Care testing , GFR/1.73 sq M.predicted MDRD (S/P/Bld) [Vol rate/Area] 24.293 mL/min/{1.73_m2} [facility] Comment on above: Performed By: #### G ASHLEYLS #### Point of Care testing , Globulin (S) [Mass/Vol] 3.3 g/dL [facility] Comment on above: Performed By: #### G ASHLEYLS #### Point of Care testing , Glucose [Mass/Vol] 337 mg/dL High 70-100 [facility] Comment on above: Result Comment: [facility] Glucose Reference Range is dependent on time and content of last meal. Glucose of more than 200 mg/dL in a nonstressed, ambulatory subject supports the diagnosis of Diabetes Mellitus. ADA recommended reference range Performed By: #### G ASHLEYLS #### Point of Care testing , Potassium [Moles/Vol] 4.4 mmol/L Normal 3.5-5.1 [facility] Comment on above: Performed By: #### G ASHLEYLS #### Point of Care testing , Protein [Mass/Vol] 7.1 g/dL Normal 6.4-8.9 [facility] Comment on above: Performed By: #### G ASHLEYLS #### Point of Care testing , Sodium [Moles/Vol] 134 mmol/L Low 136-145 [facility] Comment on above: Performed By: #### G ASHLEYLS #### Point of Care testing , Urea nitrogen [Mass/Vol] 46 mg/dL High 7-25 [facility] Comment on above: Performed By: #### G LUANTONIO #### Point of Care testing , Creatinine [Mass/volume] in Serum or PlasmaOrdered By: Babatunde Masters on 01-03-2024 Creatinine [Mass/Vol] 2.43 mg/dL 0.70-1.30 [facility] Eosinophils Auto (Bld) [#/Vo l]Ordered By: Babatunde Masters on 01-03-2024 Eosinophils (Bld) [#/Vol] 0.1 10*3/uL 0.0-0.45 [facility] Eosinophils/100 WBC Auto (Bl d)Ordered By: Babatunde Masters on 01-03-2024 Eosinophils/100 WBC (Bld) 1.1 % . [facility] Erythrocyte distribution wid th Auto (RBC) [Ratio]Ordered By: Babatunde Masters on 01-03-2024 Erythrocyte distribution width (RBC) [Ratio] 14.4 % 12.0-14.8 [facility] Glucose Poct Glucometerson 0 01-03-2024 Glucose [Mass/Vol] 290 mg/dL Normal [facility] Comment on above: Result Comment: [place] Glucose Reference Range is dependent on time and content of last meal. Glucose of more than 200 mg/dL in a nonstressed, ambulatory subject supports the diagnosis of Diabetes Mellitus. PERFORMED BY: [facility] [address] [place] [address] PATHOLOGIST STAFFING MGR NEVA MACKAY M.D. Performed By: #### G LUANTONIO #### Point of Care testing , Glucose [Mass/volume] in Ser um or PlasmaOrdered By: Babatunde Masters on 01-03-2024 Glucose [Mass/Vol] 271 mg/dL 70-100 [facility] Comment on above: ADA recommended refe rence rangeRandom Glucose Reference Range is dependent on time and content of last meal. Glucose of more than 200 mg/dL in a nonstressed, ambulatory subject supports the diagnosis of Diabetes Mellitus. Hematocrit Auto (Bld) [Volum e fraction]Ordered By: Babatunde Masters on 01-03-2024 Hematocrit (Bld) [Volume fraction] 33.2 % 38.8-50.0 [facility] Hemoglobin [Mass/volume] in BloodOrdered By: Babatunde Masters on 01-03-2024 Hemoglobin (Bld) [Mass/Vol] 11.1 g/dL 13.0-17.0 [facility] INR in Platelet poor plasma by Coagulation assayOrdered By: Babatunde Masters on 01-03-2024 INR Coag (PPP) [Relative time] 1.2 {INR} [facility] Comment on above: INR Therapeutic Rang e A) Pre- and Peroperative OAT started two weeks before surgery. NOT HIP SURGERY: 1.5 - 2.5 HIP SURGERY: 2 - 3B) Primary and secondary prevention of venous THROMBOSIS: 2 - 3C) Active venous thrombosis, pulmonary embolismand prevention of recurrent venous thrombosis: 2 - 3D) Prevention of arterial thromboembolismincluding patients with mechanical heart valves: 3 - 4.5 Lactate [Moles/volume] in Se rum or PlasmaOrdered By: Babatunde Masters on 01-03-2024 Lactate [Moles/Vol] 1.1 mmol/L 0.5-2.2 [facility] Lactic Acidon 01-03-2024 Lactate [Moles/Vol] 2.0 mmol/L Off scale high 0.5-2.2 [facility] Comment on above: Result Comment: Crit ical Result : Called to and read back by: АНДРЕЙ GARZA at: 01/03/2024 12:47:44 by:CORBIN PERFORMED BY: [place] [address] PATHOLOGIST STAFFING MGR NEVA MACKAY M.D. Performed By: #### G LULS #### Point of Care testing , Lactic Acid Reflexon 024 Lactic Acid Reflex 1.1 mmol/L Normal 0.5-2.2 [facility] Comment on above: Result Comment: PERF ORMED BY: [place] [address] PATHOLOGIST STAFFING MGR NEVA MACKAY M.D. Performed By: #### L ACTIC RFX #### [place] [address] [place] Leukocytes [#/volume] correc chip for nucleated erythrocytes in Blood by Automated counOrdered By: Babatunde Masters on 01-03-2024 WBC corrected for nucl RBC Auto (Bld) [#/Vol] 11.4 10*3/uL 4.1-10.5 [facility] Lymphocytes Auto (Bld) [#/Vo l]Ordered By: Babatunde Masters on 01-03-2024 Lymphocytes (Bld) [#/Vol] 0.8 10*3/uL 1.00-4.8 [facility] Lymphocytes/100 WBC Auto (Bl d)Ordered By: Babatunde Masters on 01-03-2024 Lymphocytes/100 WBC (Bld) 6.8 % . [facility] MCH Auto (RBC) [Entitic mass ]Ordered By: Babatunde Masters on 01-03-2024 MCH (RBC) [Entitic mass] 33.9 pg 27.5-35.2 [facility] MCHC Auto (RBC) [Mass/Vol]Or dered By: Babatunde Masters on 01-03-2024 MCHC (RBC) [Mass/Vol] 33.6 g/dL 32.5-35.6 [facility] MCV Auto (RBC) [Entitic vol] Ordered By: Babatunde Masters on 01-03-2024 MCV (RBC) [Entitic vol] 101.0 fL 83.5-101 [facility] Monocyte distribution width [Entitic volume] in Blood by AutomatedOrdered By: Babatunde Masters on 01-03-2024 Monocyte distribution width Auto (Bld) [Entitic vol] 16.44 % 0.00-20.00 [facility] Monocytes Auto (Bld) [#/Vol] Ordered By: Babatunde Masters on 01-03-2024 Monocytes (Bld) [#/Vol] 0.8 10*3/uL 0.0-0.8 [facility] Monocytes/100 WBC Auto (Bld) Ordered By: Babatunde Masters on 01-03-2024 Monocytes/100 WBC (Bld) 7.0 % . [facility] Neutrophils Auto (Bld) [#/Vo l]Ordered By: Babatunde Masters on 01-03-2024 Neutrophils (Bld) [#/Vol] 9.7 10*3/uL 1.8-7.7 [facility] Neutrophils/100 WBC Auto (Bl d)Ordered By: Babatunde Masters on 01-03-2024 Neutrophils/100 WBC (Bld) 84.8 % . [facility] No Panel InformationOrdered By: Babatunde Masters on 01-03-2024 Estimated GFR (CKD-EPI) 25.256 mL/Min [facility] Creatinine Clearance (Chem 29.04 [facility] Nucleated erythrocytes [Pres ence] in Blood by Automated countOrdered By: Babatunde Masters on 01-03-2024 Nucleated RBC Auto Ql (Bld) 0.1 /100{WBC} 0-0.5 [facility] Platelet mean volume Auto (B ld) [Entitic vol]Ordered By: Babatunde Masters on 01-03-2024 Platelet mean volume (Bld) [Entitic vol] 8.8 fL 6.6-10.1 [facility] Platelets Auto (Bld) [#/Vol] Ordered By: Babatunde Masters on 01-03-2024 Platelets (Bld) [#/Vol] 157 10*3/uL 150-450 [facility] Potassium [Moles/volume] in Serum or PlasmaOrdered By: Babatunde Masters on 01-03-2024 Potassium [Moles/Vol] 4.2 mmol/L 3.5-5.1 [facility] Prealbuminon 01-03-2024 Prealbumin [Mass/Vol] 21.2 mg/dL Normal 17.0-34.0 [facility] Comment on above: Result Comment: PERF ORMED BY: [facility] [address] [place] [address] PATHOLOGIST STAFFING MGR NEVA MACKAY M.D. Performed By: #### G LUANTONIO #### Point of Care testing , Prothrombin Time INRon 01-03 INR Coag (PPP) [Relative time] 1.2 {INR} Normal [facility] Comment on above: Result Comment: INR Therapeutic Range A) Pre- and Peroperative OAT started two weeks before surgery. NOT HIP SURGERY: 1.5 - 2.5 HIP SURGERY: 2 - 3 B) Primary and secondary prevention of venous THROMBOSIS: 2 - 3 C) Active venous thrombosis, pulmonary embolism and prevention of recurrent venous thrombosis: 2 - 3 D) Prevention of arterial thromboembolism including patients with mechanical heart valves: 3 - 4.5 PERFORMED BY: [facility] [place] [address] PATHOLOGIST STAFFING MGR NEVA MACKAY M.D. Performed By: #### G LULS #### Point of Care testing , PT Coag (PPP) [Time] 14.4 s High 9.0-12.9 [facility] Comment on above: Result Comment: A he matocrit value greater than 55% may lead to inaccurate results in coagulation testing. Patients having hematocrit values >55% require a special collection tube for coagulation studies. Please contact the laboratory at [phone] for redraw instructions. Performed By: #### G LULS #### Point of Care testing , Prothrombin time (PT)Ordered By: Babatunde Masters on 01-03-2024 PT Coag (PPP) [Time] 14.4 s 9.0-12.9 [facility] Comment on above: A hematocrit value g reater than 55% may lead to inaccurate results in coagulation testing. Patients having hematocrit values >55% require a special collection tube for coagulation studies. Please contact the laboratory at [phone] for redraw instructions. RBC Auto (Bld) [#/Vol]Ordere d By: Babatunde Masters on 01-03-2024 RBC (Bld) [#/Vol] 3.28 10*6/uL 3.90-5.60 [facility] Serum or plasma anion gap de terminationOrdered By: Babatunde Masters on 01-03-2024 Anion gap [Moles/Vol] 15.0 mmol/L 6.0-15.0 [facility] Sodium [Moles/volume] in Ser um or PlasmaOrdered By: Babatunde Masters on 01-03-2024 Sodium [Moles/Vol] 136 mmol/L 136-145 [facility] Urea nitrogen [Mass/volume] in Serum or PlasmaOrdered By: Babatunde Masters on 01-03-2024 Urea nitrogen [Mass/Vol] 51 mg/dL 7-25 [facility] WBC Auto (Bld) [#/Vol]Ordere d By: Babatunde Masters on 01-03-2024 WBC (Bld) [#/Vol] 11.4 10*3/uL 4.1-10.5 [facility] XR toe LT 2nd digiton 2023 XR toe LT 2nd digit [facility] [address] [place] [address] XRay Report Signed Patient: Bere Callejas MR#: [id number] : 1935 Acct:[id number] Age/Sex: 88 / M ADM Date: 01/03/24 Loc: ER Room: Type: [facility] ER Attending Dr: Copies to: Babatunde Masters DO Ordering Provider: Babatunde Masters DO Date of Service: 01/03/24 XR/XR toe LT 2nd digit: Skin/Abscess/Foreign Body XR toe LT 2nd digit 01/03/2024 12:05 PM SIGNS AND SYMPTOMS: Necrosis of the left second digit PROTOCOL: Frontal, lateral, and oblique radiographs of the left foot COMPARISON: None FINDINGS: Soft tissue swelling is noted, greatest in the second digit. No definite osteolytic or bony destructive process. MRI may be helpful if there is ongoing clinical suspicion for osteomyelitis. Vascular calcifications are present in the soft tissues. There is no fracture or dislocation. Plantar surface calcaneal spurring is noted. XR/XR toe LT 2nd digit IMPRESSION: Soft tissue swelling is noted, greatest in the second digit. No definite osteolytic or bony destructive process. MRI may be helpful if there is ongoing clinical suspicion for osteomyelitis. Impression dictated by: Rasta Martínez M.D.01/03/2024 12:52 PM Dictation Location: [place] [address] Transcribed By: [facility] 01/03/24 1252 Dictated By: Rasta Martínez II, MD 01/03/24 1248 Signed By: 01/03/24 1252 Normal [facility] US arterial pvr rest Jn US arterial pvr rest LE [facility] [address] [place] [address] Ultrasound Report Signed Patient: Bere Callejas MR#: [id number] : 1935 Acct:[id number] Age/Sex: 88 / M ADM Date: 12/31/23 [facility]: [facility]: Jose Rafael Cho DPM, Ordering Provider: Jose Rafael Cho DPM, MS, BRYCE Date of Service: 12/31/23 US/US arterial pvr rest LE: I96,E11.49, L97.523, I73.9 Copies to: Jose Rafael Cho DPM, , BRYCE LOWER EXTREMITY SEGMENTAL ARTERIAL DOPSCAN (PVR) INDICATION: Left foot gangrene. PROCEDURE: Right arm blood pressure is 155 , left is 137 . Pressures throughout the right leg are cno at the high thigh, cno at the low thigh, 241 at the calf, >254 at the ankle using the posterior tibial artery and 166 at the ankle using the dorsalis pedis artery with ankle- brachial index of 1.07 -NC- . Pressures throughout the left leg are 0 at the high thigh, cno at the low thigh, cno at the calf, 156 at the ankle using the posterior tibial artery and 240 at the ankle using the dorsalis pedis artery with ankle-brachial index of 1.55 1.01 . Wave forms by plethysmography are biphasic, bilaterally. 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 THE PATIENT IS MOST LIKELY TO HAVE diffuse DISEASE OF THE bilateral LOWER EXTREMITY. Impression dictated by: William Bailey MD12/31/2023 2:17 PM Dictation Location: [place] [address] Tech: Kristie Cagle Transcribed By: RIKKI 12/31/23 1417 Dictated By: William Bailey MD 12/31/23 1416 Signed By: 12/31/23 1417 Normal [facility] Bacteria identified Aer cx N om (Unsp spec)Ordered By: BRYCE Cho on 12-30-2023 Superficial Wound Culture Pantoea agglomerangel [facility] Superficial Wound Cultureon 12-30-2023 Superficial Wound Culture TOE ULCER LEFT ORGANISM: Staphylococcus aureus (O:STAAUR) Quantity of Growth Moderate Growth ORGANISM: Acinetobacter pittii (O:ACIPIT) Quantity of Growth Light Growth ORGANISM: Pantoea agglomerans (O:PANAGG) Comments . Quantity of Growth Light Growth Send Test to Ref. Lab Sent to [facility] for ID/SALVADOR Organism #3 Identified as : Pantoea septica Sending to [facility] for confirmation Organism #3 - Identified by [facility] as Pantoea agglomerans S = Susceptible; I = Intermediate; R = Resistant P = Positive; N = Negative MICS are expressed in micrograms per mL Antibiotic Amoxicillin/Clavulanic Acid S Cefepime S Ceftriaxone S Cefuroxime I Ciprofloxacin S Gentamicin S Levofloxacin S Meropenem S Nitrofurantoin I Tetracycline S Tobramycin S Performed at: [address] [id number] Zipper Cutter: Truman Shipley PhD, Phone: [phone] Aerobic SALVADOR Charge (PCMIC38) SUSCEPTIBILITY ORGANISM: O:STAAUR ANTIBIOTIC INTERPRETATION SALVADOR Azithromycin S <2 Ceftaroline S <0.5 Ciprofloxacin S <1 Clindamycin S <0.25 Daptomycin S 1 Levofloxacin S <1 Linezolid S 2 Oxacillin S <0.25 Penicillin S <0.03 Tetracycline S <4 Trimethoprim/Sulfamethoxaz ole S <0.5 Vancomycin S 1 Aerobic SALVADOR Charge (NMIC56) SUSCEPTIBILITY ORGANISM: O:ACIPIT ANTIBIOTIC INTERPRETATION SALVADOR Amikacin S <16 Ampicillin/Sulbactam S <4 Cefepime S 8 Ceftazidime S 4 Ceftriaxone I 32 Gentamicin S <2 Meropenem S <1 Minocycline S <4 Tetracycline S <4 Tobramycin S <2 Trimethoprim/Sulfamethoxaz ole S <0.5 S = SUSCEPTIBLE I = INTERMEDIATE R = RESISTANT BLANK = DATA NOT AVAILABLE, OR DRUG NOT ADVISABLE OR TESTED R* = RESISTANCE DUE TO EXTENDED SPECTRUM BETA-LACTAMASES ESBL = EXTENDED SPECTRUM BETA-LACTAMASE TFG = THYMIDINE-DEPENDENT STRAIN ISSAC = BETA-LACTAMASE POSITIVE IB = INDUCIBLE BETA-LACTAMASE. APPEARS IN PLACE OF 'S' WITH SPECIES KNOWN TO POSSESS INDUCIBLE BETA-LACTAMASES. POTENTIALLY THEY MAY BECOME RESISTANT TO ALL B-LACTAM DRUGS. PERFORMED BY: [facility] [address] [place] [address] PATHOLOGIST STAFFING MGR NEVA MACKAY M.D. Normal [facility] Comment on above: Performed By: #### G CHELI #### Point of Care testing , POCT Glucose Levelon 023 Glucose, POC See comment Invalid Interpretation Code [id number] [facility] Comment on above: Result Comment: Jessica lindsey no record during lab audit. Okay to remove per director. 11/27/2023 14:43:30 EST SD Performed By: #### [id number] ####[facility] (DEFAULT)[address] [place] [address] CNOVon 10-12-2023 CNOV Office Visit (CARDAV ) -- BERE CALLEJAS ([id number]) 1935 M Date Time Provider Department 10/12/23 2:00 PM AQUILSE LIM During your visit today, we recorded the following information about you: Pulse Blood pressure Weight Height 86/minute 116/50 125.2 kg 1.829 m Aquiles Lim MD 10/12/2023 2:20 PM Signed REASON FOR VISIT: Follow up of aortic regurgitation. INTERVAL HISTORY: Previous visit was on 10.27.2022; assessment and plan at that time: Moderate aortic regurgitation, unchanged as per last year's echocardiogram. Preserved LV systolic function, normal LV diameters. Asymptomatic (he has dyspnea on exertion but most probably due to deconditioning/obesity). Will obtain a follow up echocardiogram at 2 years from previous, if no change in symptoms. Hypertension. Well-controlled now. Type 2 diabetes mellitus. Severe left carotid artery disease; s/p CEA in November 2018. Asymptomatic; to continue with statin and aspirin. 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 Dyspnea on exertion: Stable. Most probably multifactorial: obesity/deconditioning/ast hma. Obesity. Patient instructed ONCE AGAIN to engage on a healthy lifestyle that includes low fat low calorie diet along with regular aerobic exercise for at least 30', 5-7 days a week. Since then Hospital admission with acute on chronic HF for 10 days COVID and MRSA infection Walks a little, had a fall. Unchanged shortness of breath on exertion. PAST CARDIAC HISTORY: See above and below. PAST MEDICAL HISTORY Diagnosis Date Carotid artery stenosis, asymptomatic, left 10/05/2017 Controlled type 2 diabetes mellitus without complication, without long-term current use of insulin ([facility]) 10/12/2016 Cyst and pseudocyst of pancreas Depressive disorder, not elsewhere classified Diabetic neuropathy ([facility]) Dyslipidemia 10/12/2016 Essential hypertension 10/12/2016 Non morbid obesity due to excess calories 10/12/2016 Nonrheumatic aortic valve insufficiency 10/10/2015 Obstructive sleep apnea on CPAP Occlusion and stenosis of carotid artery without mention of cerebral infarction Left Orthostatic hypotension Other and unspecified hyperlipidemia PVD (peripheral vascular disease) ([facility]) Shortness of breath Thyroid cyst 03/2013 R lobe. 0.5 cm x 0.4 cm Type II or unspecified type diabetes mellitus without mention of complication, uncontrolled Unspecified essential hypertension MEDICATIONS: furosemide (LASIX) 40 mg tablet Take 2 tablets by mouth once daily. Takes 80 mg daily traMADol (ULTRAM) 50 mg tablet Take 50 mg by mouth every 6 hours as needed. aspirin, enteric coated (ASPIRIN, ENTERIC COATED) 81 mg EC tablet Take 81 mg by mouth once daily. amLODIPine (NORVASC) 10 mg tablet Take 10 mg by mouth once daily. atorvastatin (LIPITOR) 80 mg tablet Take 1 tablet by mouth daily at bedtime. pioglitazone (ACTOS) 15 mg tablet Take 2 tablets daily with evening meal. gabapentin (NEURONTIN) 300 mg capsule Take 200 mg by mouth three times daily. 2 tabs three times a day omeprazole 20 mg capsule Take 20 mg by mouth once daily. metFORMIN (GLUCOPHAGE) 850 mg tablet Take 1 tablet by mouth three times daily. Resume tomorrow 12/14/17. (Patient not taking: Reported on 08/06/2020) lisinopril (ZESTRIL, PRINIVIL) 5 mg tablet Take 5 mg by mouth once daily. (Patient not taking: Reported on 09/15/2023) citalopram hydrobromide (CELEXA) 10 mg tablet Take 1/2 tablet once daily. (Patient not taking: Reported on 09/15/2023) REVIEW OF SYSTEMS: GENERAL: Negative for: weight loss or weight gain, fever or chills, and sleep difficulties HEENT: Negative for: headache, impaired vision, glasses, hearing impairment, ringing in ears, vertigo, nosebleeds, poor dental care, bleeding gums, dentures NECK: Negative for: swelling, pain, stiffness RESPIRATORY: Negative for: blood in sputum, wheezing GASTROINTESTINAL: Negative for: abdominal pain, trouble swallowing, heartburn, change in bowel habits, blood in stool, dark black stools MUSCULOSKELETAL: Negative for: muscle or joint pain, stiffness, joint swelling NEUROLOGIC/PSYCHIATRIC: Negative for: weakness, paralysis, numbness, tingling, tremor, nervousness, depressed mood, memory loss SKIN: Negative for: rashes, itching HEMATOLOGICAL/LYMPHATIC: Negative for: easy bruising, easy bleeding ENDOCRINE: Negative for: heat or cold intolerance, excessive sweating, frequent urination, frequent thirst PHYSICAL EXAMINATION: Blood Pressure 116/50 Pulse 86 Height 182.9 cm (6') Weight 125.2 kg (276 lb) Body Mass Index 37.43 kg/m? Ill appearing in no distress. Skin: No clubbing, no cyanosis. Eyes: Extra ocular movements intact Neck: No jugular venous distention, no carotid bruits. Lungs: Clear to auscultation bilaterally, no wheezing or rhonchi. Heart: Regular rhyth (more content not included)... 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 BIFASCICULAR BLOCK POSSIBLE LATERAL MYOCARDIAL INFARCTION , AGE UNDETERMINED ABNORMAL ECG Confirmed by KENNEDY GIBBONS DO ([id number]) on 10/16/2023 3:19:49 PM NAME : DANNAJUANJOBERE PID : [id number] : 1935 Gender : Male Race : ORD : Procedure Date : Oct 12 2023 13:47:41 Edit Date : Oct 16 2023 15:19:54 Diagnosis: SINUS RHYTHM WITH 1ST DEGREE AV BLOCK 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 Provider [place] 10-08-2023 Provider Orders [id number]#1.00OTGTIFF [facility] Provider [place] 10-07-2023 Provider Orders [id number]#1.00OTGTI [facility] Provider [place] 10-05-2023 Provider Orders [id number]#1.00OTGTIFF [facility] Provider [place] 09-24-2023 Provider Orders [id number]#1.00OTGTIFF [facility] Outside Recordson 09-23-2023 Outside Records [id number]#1.00OTGTIF [facility] Progress Note - Nurseon 08-30 Progress Note - Nurse [facility] CNOVon 09-15-2023 CNOV Office Visit (VASSMN ) -- BERE CALLEJAS ([id number]) 1935 M Date Time Provider Department 09/15/23 2:45 PM MALKA RIVERA During your visit today, we recorded the following information about you: Pulse Blood pressure 84/minute 143/57 Malka Rivera MD 09/15/2023 3:08 PM Signed Heart [facility] Vascular [facility] Thor[facility] [place] DEPARTMENT OF VASCULAR SURGERY OUTPATIENT VISIT DATE September 15, 2023 OUTPATIENT VISIT TYPE ESTABLISHED SERVICE DATE: 09/15/2023 SERVICE TIME: 3:03 PM PRIMARY CARE PHYSICIAN: Albert Meza DO HISTORY OF PRESENT ILLNESS: Mr. Callejas is a 88 year old male who presents today for a vascular surgery follow follow-up. continued follow-up of r left carotid endarterectomy. Doing well denies any unilateral weakness Arther vision changes. Had a left heel wound after a stay in a SNF. This has resolved with local wound care PAST MEDICAL HISTORY Diagnosis Date Carotid artery stenosis, asymptomatic, left 10/05/2017 Controlled type 2 diabetes mellitus without complication, without long-term current use of insulin ([facility]) 10/12/2016 Cyst and pseudocyst of pancreas Depressive disorder, not elsewhere classified Diabetic neuropathy ([facility]) Dyslipidemia 10/12/2016 Essential hypertension 10/12/2016 Non morbid obesity due to excess calories 10/12/2016 Nonrheumatic aortic valve insufficiency 10/10/2015 Obstructive sleep apnea on CPAP Occlusion and stenosis of carotid artery without mention of cerebral infarction Left Orthostatic hypotension Other and unspecified hyperlipidemia PVD (peripheral vascular disease) ([facility]) Shortness of breath Thyroid cyst 03/2013 R lobe. 0.5 cm x 0.4 cm Type II or unspecified type diabetes mellitus without mention of complication, uncontrolled Unspecified essential hypertension PAST SURGICAL HISTORY Procedure Laterality Date PAST SURGICAL HISTORY OF Bilat knees laparoscopic procedures PAST SURGICAL HISTORY OF Bilat carpal tunnel repair SOCIAL HISTORY Social History Tobacco Use Smoking status: Never Smokeless tobacco: Never Substance Use Topics Alcohol use: No Drug use: No MEDICATIONS: traMADol (ULTRAM) 50 mg tablet Take 50 mg by mouth every 6 hours as needed. aspirin, enteric coated (ASPIRIN, ENTERIC COATED) 81 mg EC tablet Take 81 mg by mouth once daily. amLODIPine (NORVASC) 10 mg tablet Take 10 mg by mouth once daily. atorvastatin (LIPITOR) 80 mg tablet Take 1 tablet by mouth daily at bedtime. pioglitazone (ACTOS) 15 mg tablet Take 2 tablets daily with evening meal. gabapentin (NEURONTIN) 300 mg capsule Take 200 mg by mouth three times daily. 2 tabs three times a day omeprazole 20 mg capsule Take 20 mg by mouth once daily. metFORMIN (GLUCOPHAGE) 850 mg tablet Take 1 tablet by mouth three times daily. Resume tomorrow 12/14/17. (Patient not taking: No sig reported) lisinopril (ZESTRIL, PRINIVIL) 5 mg tablet Take 5 mg by mouth once daily. (Patient not taking: Reported on 09/15/2023) citalopram hydrobromide (CELEXA) 10 mg tablet Take 1/2 tablet once daily. (Patient not taking: Reported on 09/15/2023) ALLERGIES: ALLERGIES No Known Allergies PHYSICAL EXAM: BP 143/57 Pulse 84 General: Alert and oriented Integumentary: Normal color, no rash, no lesions. HEENT: EOM, pupils equal, round and reactive. Cardiovascular: Normal S1 AND S2, no rubs, murmurs or gallops. No JVD., Pulse regular. Lungs: Normal breath sounds, no wheezes or crackles. Abdomen: Soft, non-tender, no rigidity. Bilateral palpable femoral pulse no popliteal pedal pulse calf level edema pitting bilaterally Diagnostic tests reviewed for today's visit: Duplex ultrasound demonstrates no evidence of hemodynamically significant carotid stenosis IMPRESSION: Mr. Callejas is a 88 year old male with artery stenosis doing well. Follow-up in 2 years continue with antiplatelet,. PLAN and RECOMMENDATIONS: As above SIGNATURE: Malka Rivera MD PATIENT NAME: Bere Callejas DATE: September 15, 2023 TIME: 3:03 PM Referring Provider: SELF [200] Allergies As of Date: 09/15/2023 (No Known Allergies) Date Reviewed: 09/15/2023 Reviewed by: Porter Powell MA - Fully Assessed Reason for Visit: Established Patient [175] Primary Visit Diagnosis:PAD (peripheral artery disease) (HCC) [I73.9] Other Visit Diagnosis:Bilateral carotid artery stenosis [I65.23] Prescriptions as of 09/15/2023 - traMADol (ULTRAM) 50 mg tablet Take 50 mg by mouth every 6 hours as needed. - metFORMIN (GLUCOPHAGE) 850 mg tablet Take 1 tablet by mouth three times daily. Resume tomorrow 12/14/17. - aspirin, enteric coated (ASPIRIN, ENTERIC COATED) 81 mg EC tablet Take 81 mg by mouth once daily. - lisinopril (ZESTRIL, PRINIVIL) 5 mg tablet Take 5 mg by mouth once daily. - amLODIPine (NORVASC) 10 mg tablet Take 10 mg by mouth once daily. - nini (more content not included)... Normal [facility] PVR LEG JESSICA VAS LABon 2022 PVR LEG JESSICA VAS LAB Non-Invasive Vascula r Laboratory [facility] F30 Lower Extremity Arterial Physiology Study Bilateral/Complete Date of service/time: 09/15/2023 12:47:25 PM Name: MR. BERE CALLEJAS Date of : 1935 Age: 88 years Gender: M Clinical Indication Peripheral arterial disease. TECHNIQUE -------- An arterial physiological examination was performed, including measurement of blood pressures using continuous wave Doppler and recording of plethysmographic with or without Doppler waveforms at the below-mentioned limb segments. FINDINGS -------- RIGHT SIDE AT REST Right Pressures Brachial: 138 mmHg High thigh: greater than 255 mmHg Non-compressible arteries. Low thigh: greater than 255 mmHg Non-compressible arteries. Calf: greater than 255 mmHg Non-compressible arteries. Ankle dorsalis pedis: greater than 255 mmHg VALERIO: greater than 1.73 Non-compressible arteries. Ankle posterior tibial: greater than 255 mmHg VALERIO: 1.73 Non-compressible arteries. Digit: 34 mmHg Right PVR Waveforms High thigh: Normal. Low thigh: Normal. Calf: Mildly dampened. Ankle: Mildly dampened. Transmetatarsal: Mildly dampened. Digit: Mildly dampened. LEFT SIDE AT REST Left Pressures Brachial: 147 mmHg High thigh: greater than 255 mmHg Non-compressible arteries. Low thigh: greater than 255 mmHg Non-compressible arteries. Calf: greater than 255 mmHg Non-compressible arteries. Ankle dorsalis pedis: greater than 255 mmHg VALERIO: greater than 1.73 Non-compressible arteries. Ankle posterior tibial: 107 mmHg VALERIO: 0.73 Digit: 32 mmHg Left PVR Waveforms High thigh: Normal. Low thigh: Normal. Calf: Mildly dampened. Ankle: Mildly dampened. Transmetatarsal: Moderately dampened. Digit: Moderately dampened. IMPRESSION Noncompressible vessels noted throughout, level of disease called by tracings. Compared to prior study of 08/05/2021, no significant change. RIGHT SIDE Resting right ankle brachial index: greater than 1.73 Non-compressible arteries, VALERIO not accurate. Right toe brachial index: 0.23 Non-compressible vessels, results called by PVR tracings. Right ankle: Mild disease at rest. Right infrapopliteal disease. LEFT SIDE Resting left ankle brachial index: greater than 1.73 Non-compressible arteries, VALERIO not accurate. Left toe brachial index: 0.22 Non-compressible vessels, results called by PVR tracings. Left ankle: Mild disease at rest. Left infrapopliteal disease. Technologist: Kristi Irwin RVT Ordering physician: MALKA RIVERA Interpreting physician: Sarah Preston MD, RPVI Final CC [facility] : [id number] See Link below for Image Normal [facility] US CAROTID ARTERIES JESSICA VAS LABon 09-15-2023 US CAROTID ARTERIES JESSICA VAS LAB Non-Invasive Vascular Laboratory [facility] F30 Carotid Duplex Bilateral/Complete Date of service/time: 09/15/2023 12:52:00 PM Name: MR. BERE CALLEJAS Date of : 1935 Age: 88 years Gender: M Clinical Indication Follow-up study on a patient with known carotid disease. Status post left common carotid and internal carotid endarterectomy 12/12/2018 patch type pericardium. TECHNIQUE -------- A carotid duplex ultrasound examination was performed, including grayscale imaging and color Doppler and spectral Doppler examination of the below mentioned arteries. FINDINGS -------- RIGHT SIDE Common carotid artery: Origin: PSV: 161 cm/s. EDV: 0 cm/s. Proximal: PSV: 155 cm/s. EDV: 0 cm/s. Mid: PSV: 66 cm/s. EDV: 8 cm/s. Distal: PSV: 74 cm/s. EDV: 10 cm/s. Mild heterogeneous plaque at distal. Internal carotid artery: Origin: PSV: 52 cm/s. EDV: 11 cm/s. Proximal: PSV: 54 cm/s. EDV: 13 cm/s. Mid: PSV: 78 cm/s. EDV: 17 cm/s. Distal: PSV: 74 cm/s. EDV: 17 cm/s. Mild heterogeneous calcified and shadowing plaque from origin to proximal. ICA/CCA Ratio: 1.1 External carotid artery: Proximal: PSV: 109 cm/s. EDV: 0 cm/s. Subclavian artery: Origin: PSV: 131 cm/s. EDV: 0 cm/s. Proximal: PSV: 380 cm/s. EDV: 0 cm/s. Innominate artery: PSV: 114 cm/s. EDV: 16 cm/s. Vertebral artery: PSV: 48 cm/s. EDV: 4 cm/s. LEFT SIDE Common carotid artery: Proximal: PSV: 149 cm/s. EDV: 0 cm/s. Mid: PSV: 74 cm/s. EDV: 0 cm/s. Distal: PSV: 77 cm/s. EDV: 14 cm/s. Internal carotid artery: Origin: PSV: 61 cm/s. EDV: 10 cm/s. Proximal: PSV: 69 cm/s. EDV: 15 cm/s. Mid: PSV: 80 cm/s. EDV: 16 cm/s. Distal: PSV: 67 cm/s. EDV: 15 cm/s. ICA/CCA Ratio: 1.0 External carotid artery: Proximal: PSV: 89 cm/s. EDV: 8 cm/s. Subclavian artery: Proximal: PSV: 86 cm/s. EDV: 0 cm/s. Vertebral artery: PSV: 107 cm/s. EDV: 11 cm/s. IMPRESSION Compared to prior study of 08/05/2021, No significant change. RIGHT SIDE Common carotid artery: Plaque visualized without evidence of hemodynamically significant stenosis. Internal carotid artery: 20-39% stenosis. Findings may be underestimated due to calcified shadowing plaque at proximal . Vertebral artery: Patent and antegrade flow noted. Abnormal signal suggests pre-steal. Subclavian artery: 50-99% stenosis. LEFT SIDE Common carotid artery: Patent. Endarterectomy patch at distal measuring 1.26 cm. Internal carotid artery: 0-19% stenosis. Vertebral artery: Patent and antegrade flow noted. Technologist: Darline Vega T Ordering physician: MALKA RIVERA Interpreting physician: Sarah Preston MD, RPVI Final CC [facility] : [id number] See Link below for Image Normal [facility] Consultation/Specialist Note on 09-08-2023 Consultation/Specialis t Note [id number]#1.00OTGTIF F [facility] Provider [place] 09-08-2023 Provider Orders [id number]#1.00OTGTIF F [facility] Plan of Care Noteon 09-01-20 23 Plan of Care Note [id number]#1.00OTGTI FF [facility] POCT Glucose Levelon 023 Glucose [Mass/Vol] 165 mg/dL High 74-118 [facility] Comment on above: Result Comment: Resu lt corrected during lab audit SD 08/25/2023 14:40:28 EDT Performed By: #### 4 [id number] ####[facility] (DEFAULT)[address] [place] [address] Glucose [Mass/Vol] 265 mg/dL High 74-118 [facility] Comment on above: Result Comment: Resu lt corrected during lab audit SD 08/25/2023 14:40:28 EDT Performed By: #### 4 [id number] ####[facility] (DEFAULT)[address] [place] [address] Provider [place] 08-24-2023 Provider Orders [id number]#1.00OTGTIFF [facility] Physical Therapy Noteon 07-31 Physical Therapy Note [id number]#1.00OTGTIFF [facility] Coding Summaryon 08-17-2023 Coding Summary [facility] Outside Recordson 08-16-2023 Outside Records [facility] IHS Referralon 08-12-2023 I[facility] Referral [id number]#1.00OTGTIFF [facility] Coding Summaryon 08-10-2023 Coding Summary [facility] Consent Formson 08-09-2023 Consent Forms [id number][facility] [place] 08-09-2023 Provider Orders [id number][facility] Coding [facility] 08-06-2023 Coding Summary [facility] Consent Formson 08-06-2023 Consent Forms [id number]#1.00OTGTIFF [facility] Implantable Deviceson 2022 Implantable Devices [id number]#1.00OTGTIFF [facility] Education Noteon 08-05-2023 Education Note [facility] Inpatient Clinical Summaryon 08-05-2023 Inpatient Clinical Summary [facility] Inpatient Patient Summaryon 08-05-2023 Inpatient Patient Summary [facility] Nutrition Noteon 08-05-2023 Nutrition Note [facility] POCT Glucose Levelon 023 Glucose [Mass/Vol] 131 mg/dL High 74-118 [facility] Comment on above: Performed By: #### 4 [id number] ####[facility] (DEFAULT)[address] [place] [address]365 Glucose [Mass/Vol] 78 mg/dL Normal 74-118 [facility] Comment on above: Performed By: #### 4 [id number] ####[facility] (DEFAULT)[address] [place] [address] 57364 Pharmacy Noteon 08-05-2023 Pharmacy Note Normal [facility] BMP Standardon 08-04-2023 eGFR Non AA 36 mL/min/1.73m2 Invalid Interpretation Code [facility] Comment on above: Performed By: #### 1 [id number] ####[facility] (DEFAULT)[address] [place] [address] 16440 eGFR AA 44 mL/min/1.73m2 Invalid Interpretation Code [facility] Comment on above: Performed By: #### 1 [id number] ####[facility] (DEFAULT)[address] [place] [address] 74815 Anion gap [Moles/Vol] 12.7 mmol/L Normal 5.0-19.0 [facility] Comment on above: Performed By: #### 1 [id number] ####[facility] (DEFAULT)[address] [place] [address] 07293 Calcium [Mass/Vol] 8.4 mg/dL Low 8.9-10.3 [facility] Comment on above: Performed By: #### 1 [id number] ####[facility] (DEFAULT)[address] [place] [address] 11661 Chloride [Moles/Vol] 104 mmol/L Normal 101-111 [facility] Comment on above: Performed By: #### 1 [id number] ####[facility] (DEFAULT)[address] [place] [address] 22391 CO2 [Moles/Vol] 25 mmol/L Normal 21-32 [facility] Comment on above: Performed By: #### 1 [id number] ####[facility] (DEFAULT)[address] [place] [address] 40085 Creatinine [Mass/Vol] 1.78 mg/dL High 0.90-1.30 [facility] Comment on above: Performed By: #### 1 [id number] ####[facility] (DEFAULT)[address] [place] [address] 78863 Glucose [Mass/Vol] 95.0 mg/dL Normal 74.0-118.0 [facility] Comment on above: Performed By: #### 1 [id number] ####[facility] (DEFAULT)[address] [place] [address] 68793 Osmolality 287 mOsm/L Invalid Interpretation Code [facility] Comment on above: Performed By: #### 1 [id number] ####[facility] (DEFAULT)[address] [place] [address] 64089 Potassium [Moles/Vol] 3.7 mmol/L Normal 3.6-5.1 [facility] Comment on above: Performed By: #### 1 [id number] ####[facility] (DEFAULT)[address] [place] [address] 21677 Sodium [Moles/Vol] 138.0 mmol/L Normal 136.0-144.0 [facility] Comment on above: Performed By: #### 1 [id number] ####[facility] (DEFAULT)[address] [place] [address] 78128 Urea nitrogen [Mass/Vol] 44 mg/dL High 8-26 [facility] Comment on above: Performed By: #### 1 [id number] ####[facility] (DEFAULT)[address] [place] [address] 95390 Urea nitrogen/Creatinine [Mass ratio] 24.7 mg/mg High 4.6-16.2 [facility] Comment on above: Performed By: #### 1 [id number] ####[facility] (DEFAULT)[address] [place] [address] 48533 POCT Glucose Levelon 023 Glucose [Mass/Vol] 242 mg/dL High 74-118 [facility] Comment on above: Performed By: #### 4 [id number] ####[facility] (DEFAULT)[address] [place] [address] 86362 Glucose [Mass/Vol] 141 mg/dL High 74-118 [facility] Comment on above: Performed By: #### 4 [id number] ####[facility] (DEFAULT)[address] [place] [address] 44323 Glucose [Mass/Vol] 94 mg/dL Normal 74-[address] [place] [address] Comment on above: Performed By: #### 4 [id number] ####[facility] (DEFAULT)[address] [place] [address] 31075 Progress Note - Nurseon Progress Note - Nurse [facility] Consent Formson 08-03-2023 Consent Forms [id number]#1.00OTGTIFF [facility] POCT Glucose Levelon 023 Glucose [Mass/Vol] 192 mg/dL High 74-[address] [place] [address] Comment on above: Performed By: #### 4 [id number] ####[facility] (DEFAULT)[address] [place] [address] 52803 Glucose [Mass/Vol] 183 mg/dL High 74-118 [facility] Comment on above: Performed By: #### 4 [id number] ####[facility] (DEFAULT)[address] [place] [address] 18179 Glucose [Mass/Vol] 123 mg/dL High 74-118 [facility] Comment on above: Performed By: #### 4 [id number] ####[facility] (DEFAULT)[address] [place] [address] 57917 Glucose [Mass/Vol] 92 mg/dL Normal -[address] [place] [address] Comment on above: Performed By: #### 4 [id number] ####[facility] (DEFAULT)[address] [place] [address] 70742 BMP Standardon 08-02-2023 eGFR Non AA 36 mL/min/1.73m2 Invalid Interpretation Code [facility] Comment on above: Performed By: #### 1 [id number] ####[facility] (DEFAULT)[address] [place] [address] 23173 eGFR AA 44 mL/min/1.73m2 Invalid Interpretation Code [facility] Comment on above: Performed By: #### 1 [id number] ####[facility] (DEFAULT)[address] [place] [address] 44355 Anion gap [Moles/Vol] 13.0 mmol/L Normal 5.0-19.0 [facility] Comment on above: Performed By: #### 1 [id number] ####[facility] (DEFAULT)[address] [place] [address] 17394 Calcium [Mass/Vol] 8.5 mg/dL Low 8.9-10.3 [facility] Comment on above: Performed By: #### 1 [id number] ####[facility] (DEFAULT)[address] [place] [address] 16899 Chloride [Moles/Vol] 103 mmol/L Normal 101-111 [facility] Comment on above: Performed By: #### 1 [id number] ####[facility] (DEFAULT)[address] [place] [address] 06849 CO2 [Moles/Vol] 27 mmol/L Normal 21-32 [facility] Comment on above: Performed By: #### 1 [id number] ####[facility] (DEFAULT)[address] [place] [address] 30070 Creatinine [Mass/Vol] 1.78 mg/dL High 0.90-1.30 [facility] Comment on above: Performed By: #### 1 [id number] ####[facility] (DEFAULT)[address] [place] [address] 36104 Glucose [Mass/Vol] 117.0 mg/dL Normal 74.0-118.0 [facility] Comment on above: Performed By: #### 1 [id number] ####[facility] (DEFAULT)[address] [place] [address] 62853 Osmolality 290 mOsm/L Invalid Interpretation Code [facility] Comment on above: Performed By: #### 1 [id number] ####[facility] (DEFAULT)[address] [place] [address] 38521 Potassium [Moles/Vol] 4.0 mmol/L Normal 3.6-5.1 [facility] Comment on above: Performed By: #### 1 [id number] ####[facility] (DEFAULT)[address] [place] [address] 01507 Sodium [Moles/Vol] 139.0 mmol/L Normal 136.0-144.0 [facility] Comment on above: Performed By: #### 1 [id number] ####[facility] (DEFAULT)[address] [place] [address] 36945 Urea nitrogen [Mass/Vol] 44 mg/dL High 8-26 [facility] Comment on above: Performed By: #### 1 [id number] ####[facility] (DEFAULT)[address] [place] [address] 76524 Urea nitrogen/Creatinine [Mass ratio] 24.7 mg/mg High 4.6-16.2 [facility] Comment on above: Performed By: #### 1 [id number] ####[facility] (DEFAULT)[address] [place] [address] 80242 POCT Glucose Levelon 023 Glucose [Mass/Vol] 294 mg/dL High 74-118 [facility] Comment on above: Performed By: #### 4 [id number] ####[facility] (DEFAULT)[address] [place] [address] 80464 Glucose [Mass/Vol] 248 mg/dL High 74-118 [facility] Comment on above: Performed By: #### 4 [id number] ####[facility] (DEFAULT)[address] [place] [address] 61501 Glucose [Mass/Vol] 138 mg/dL High 74-118 [facility] Comment on above: Performed By: #### 4 [id number] ####[facility] (DEFAULT)[address] [place] [address] 32556 Glucose [Mass/Vol] 110 mg/dL Normal 74[address] [place] [address] Comment on above: Performed By: #### 4 [id number] ####[facility] (DEFAULT)[address] [place] [address] 15657 POCT Glucose Levelon 023 Glucose [Mass/Vol] 234 mg/dL High 74-[address] [place] [address] Comment on above: Performed By: #### 4 [id number] ####[facility] (DEFAULT)[address] [place] [address] 94234 Glucose [Mass/Vol] 276 mg/dL High [address] Comment on above: Performed By: #### 4 [id number] ####[facility] (DEFAULT)[address] [place] [address] 32276 Glucose [Mass/Vol] 157 mg/dL High 74-118 [facility] Comment on above: Performed By: #### 4 [id number] ####[facility] (DEFAULT)[address] [place] [address] 92915 Glucose [Mass/Vol] 125 mg/dL High [address] [place] [address] Comment on above: Performed By: #### 4 [id number] ####[facility] (DEFAULT)[address] [place] [address] 34146 POCT Glucose Levelon 023 Glucose [Mass/Vol] 258 mg/dL High -[address] [place] [address] Comment on above: Performed By: #### 4 [id number] ####[facility] (DEFAULT)[address] [place] [address] 94936 Glucose [Mass/Vol] 286 mg/dL High [address] [place] [address] Comment on above: Performed By: #### 4 [id number] ####[facility] (DEFAULT)[address] [place] [address] 12366 Glucose [Mass/Vol] 170 mg/dL High 74[address] [place] [address] Comment on above: Performed By: #### 4 [id number] ####[facility] (DEFAULT)[address] [place] [address] 20279 Glucose [Mass/Vol] 110 mg/dL Normal [address] [place] [address] Comment on above: Performed By: #### 4 [id number] ####[facility] (DEFAULT)[address] [place] [address] 65346 POCT Glucose Levelon 023 Glucose [Mass/Vol] 189 mg/dL High 74-[address] [place] [address] Comment on above: Performed By: #### 4 [id number] ####[facility] (DEFAULT)[address] [place] [address] 60804 Consent Formson 07-29-2023 Consent Forms [id number]#1.00OTGTIFF Normal [facility] POCT Glucose Levelon 023 Glucose [Mass/Vol] 126 mg/dL High 74-118 [facility] Comment on above: Performed By: #### 4 [id number] ####[facility] (DEFAULT)[address] [place] [address] 75280 BMP Standardon 07-28-2023 eGFR Non AA 35 mL/min/1.73m2 Invalid Interpretation Code [facility] Comment on above: Performed By: #### 5 [id number], 0422040, [id number] ####[facility] (DEFAULT)[address] [place] [address] 10297 eGFR AA 43 mL/min/1.73m2 Invalid Interpretation Code [facility] Comment on above: Performed By: #### 5 [id number], 3151647, [id number] ####[facility] (DEFAULT)[address] [place] [address] 53813 Anion gap [Moles/Vol] 16.1 mmol/L Normal 5.0-19.0 [facility] Comment on above: Performed By: #### 5 [id number], 7865417, [id number] ####[facility] (DEFAULT)[address] [place] [address] 73689 Calcium [Mass/Vol] 9.0 mg/dL Normal 8.9-10.3 [facility] Comment on above: Performed By: #### 5 [id number], 1493880, [id number] ####[facility] (DEFAULT)[address] [place] [address] 15972 Chloride [Moles/Vol] 99 mmol/L Low 101-111 [facility] Comment on above: Performed By: #### 5 [id number], 6466391, [id number] ####[facility] (DEFAULT)[address] [place] [address] 75811 CO2 [Moles/Vol] 27 mmol/L Normal 21-32 [facility] Comment on above: Performed By: #### 5 [id number], 5597865, [id number] ####[facility] (DEFAULT)[address] [place] [address] 56989 Creatinine [Mass/Vol] 1.83 mg/dL High 0.90-1.30 [facility] Comment on above: Performed By: #### 5 [id number], 3881707, [id number] ####[facility] (DEFAULT)[address] [place] [address] 38959 Glucose [Mass/Vol] 171.0 mg/dL High 74.0-118.0 [facility] Comment on above: Performed By: #### 5 [id number], 5737571, [id number] ####[facility] (DEFAULT)[address] [place] [address] 15478 Osmolality 292 mOsm/L Invalid Interpretation Code [facility] Comment on above: Performed By: #### 5 [id number], [id number], [id number] ####[facility] (DEFAULT)[address] [place] [address] 00440 Potassium [Moles/Vol] 4.1 mmol/L Normal 3.6-5.1 [facility] Comment on above: Performed By: #### 5 [id number], 2430331, [id number] ####[facility] (DEFAULT)[address] [place] [address] 42325 Sodium [Moles/Vol] 138.0 mmol/L Normal 136.0-144.0 [facility] Comment on above: Performed By: #### 5 [id number], 8057449, [id number] ####[facility] (DEFAULT)[address] [place] [address] 39768 Urea nitrogen [Mass/Vol] 48 mg/dL High 8-26 [facility] Comment on above: Performed By: #### 5 [id number], 6265297, [id number] ####[facility] (DEFAULT)[address] [place] [address] 10836 Urea nitrogen/Creatinine [Mass ratio] 26.2 mg/mg High 4.6-16.2 [facility] Comment on above: Performed By: #### 5 [id number], 7117794, [id number] ####[facility] (DEFAULT)[address] [place] [address] C Bloodon 07-28-2023 C Blood No growth at 5 Days Normal [facility] Comment on above: Performed By: #### 6 [id number] ####[facility] (DEFAULT)[address] [place] [address] CBC w/ Auto Diffon Erythrocyte distribution width (RBC) [Ratio] 15.2 % High 11.5-15.0 [facility] Comment on above: Performed By: #### 5 [id number], 4288433, [id number] ####[facility] (DEFAULT)[address] [place] [address] Hematocrit (Bld) [Volume fraction] 34.8 % Normal 34.8-51.9 [facility] Comment on above: Performed By: #### 5 [id number], 2561846, [id number] ####[facility] (DEFAULT)[address] [place] [address] Hemoglobin (Bld) [Mass/Vol] 11.6 g/dL Low 11.8-17.7 [facility] Comment on above: Performed By: #### 5 [id number], 2507644, [id number] ####[facility] (DEFAULT)[address] [place] [address] MCH (RBC) [Entitic mass] 34 pg Normal 24-34 [facility] Comment on above: Performed By: #### 5 [id number], 5210694, [id number] ####[facility] (DEFAULT)[address] [place] [address] MCHC (RBC) [Mass/Vol] 33 g/dL Normal 26-37 [facility] Comment on above: Performed By: #### 5 [id number], 6907346, [id number] ####[facility] (DEFAULT)[address] [place] [address] MCV (RBC) [Entitic vol] 103 fL High 81-100 [facility] Comment on above: Performed By: #### 5 [id number], 8184031, [id number] ####[facility] (DEFAULT)[address] [place] [address] 29773 Platelet 172 x10 Normal 138-427 [facility] Comment on above: Performed By: #### 5 [id number], 4043136, [id number] ####[facility] (DEFAULT)[address] [place] [address] Platelet mean volume (Bld) [Entitic vol] 9.5 fL Normal 6.3-10.2 [facility] Comment on above: Performed By: #### 5 [id number], 3472277, [id number] ####[facility] (DEFAULT)[address] [place] [address] RBC 3.37 x10 Low 3.70-5.30 [facility] Comment on above: Performed By: #### 5 [id number], 5469404, [id number] ####[facility] (DEFAULT)[address] [place] [address] 24849 WBC 11.8 x10 High 3.5-10.5 [facility] Comment on above: Performed By: #### 5 [id number], 1150065, 1534906085 ####[facility] (DEFAULT)[address] [place] [address] 24310 Man Diff? Manual Invalid Interpretation Code [facility] Comment on above: Performed By: #### 5 [id number], 0316866, [id number] ####[facility] (DEFAULT)[address] [place] [address] 46809 Manual Differential 3on 083 0-2022 Eos Man 0 % Low 1-3 [facility] Comment on above: Order Comment: Order added by Garima. Performed By: #### 5 [id number], 5344101, [id number] ####[facility] (DEFAULT)[address] [place] [address] 56092 Lymph Man 25 % Normal 20-40 [facility] Comment on above: Order Comment: Order added by Discern. Performed By: #### 5 [id number], 7171325, [id number] ####[facility] (DEFAULT)[address] [place] [address] 73073 Macro 1+ Invalid Interpretation Code [facility] Comment on above: Order Comment: Order added by Discern. Performed By: #### 5 [id number], 0613037, [id number] ####[facility] (DEFAULT)[address] [place] [address] 17432 [place] Man 3 Invalid Interpretation Code [facility] Comment on above: Order Comment: Order added by Discern. Performed By: #### 5 [id number], 3775531, [id number] ####[facility] (DEFAULT)[address] [place] [address] 12955 Monocyte Man 7 % Normal 1-10 [facility] Comment on above: Order Comment: Order added by Discern. Performed By: #### 5 [id number], 6818751, [id number] ####[facility] (DEFAULT)[address] [place] [address] 59968 Myelo Man 3 Invalid Interpretation Code [facility] Comment on above: Order Comment: Order added by Discern. Performed By: #### 5 [id number], 9132877, [id number] ####[facility] (DEFAULT)[address] [place] [address] 22781 NRBC Man 3 % Normal 1-5 [facility] Comment on above: Order Comment: Order added by Discern. Performed By: #### 5 [id number], 9710389, [id number] ####[facility] (DEFAULT)[address] [place] [address] 22271 Plt Large 1+ Invalid Interpretation Code [facility] Comment on above: Order Comment: Order added by Discern. Performed By: #### 5 [id number], 2883401, [id number] ####[facility] (DEFAULT)[address] [place] [address] 30452 Promyelo Man 2 Invalid Interpretation Code [facility] Comment on above: Order Comment: Order added by Discern. Performed By: #### 5 [id number], [id number], [id number] ####[facility] (DEFAULT)[address] [place] [address] 82031 React Lymph Man 3 % Invalid Interpretation Code [facility] Comment on above: Order Comment: Order added by Garima. Performed By: #### 5 [id number], 6367378, [id number] ####[facility] (DEFAULT)[address] [place] [address] 46109 Segs Man 57 % Normal 50-70 [facility] Comment on above: Order Comment: Order added by Garima. Performed By: #### 5 [id number], 7660121, [id number] ####[facility] (DEFAULT)[address] [place] [address] 30350 Nutrition Noteon 07-28-2023 Nutrition Note Normal [facility] POCT Glucose Levelon 023 Glucose [Mass/Vol] 312 mg/dL High 74-118 [facility] Comment on above: Performed By: #### 4 [id number] ####[facility] (DEFAULT)[address] [place] [address] 90759 Glucose [Mass/Vol] 279 mg/dL High 74-118 [facility] Comment on above: Performed By: #### 4 [id number] ####[facility] (DEFAULT)[address] [place] [address] 15188 Glucose [Mass/Vol] 143 mg/dL High 74-118 [facility] Comment on above: Performed By: #### 4 [id number] ####[facility] (DEFAULT)[address] [place] [address] 97352 Glucose [Mass/Vol] 114 mg/dL Normal 74-118 [facility] Comment on above: Performed By: #### 4 [id number] ####[facility] (DEFAULT)[address] [place] [address] 79607 Pharmacy Noteon 07-28-2023 Pharmacy Note Normal [facility] Vanc Trough 1on 07-28-2023 Vanco Tr 21.9 mcg/mL High 5.0-10.0 [facility] Comment on above: Performed By: #### 3 [id number] ####[facility] (DEFAULT)[address] [place] [address] Consent Formson 07-27-2023 Consent Forms [id number]#1.00OTGTIFF Normal [facility] POCT Glucose Levelon 023 Glucose [Mass/Vol] 313 mg/dL High [address] Comment on above: Performed By: #### 4 [id number] ####[facility] (DEFAULT)[address] [place] [address] Glucose [Mass/Vol] 268 mg/dL [address] Comment on above: Performed By: #### 4 [id number] ####[facility] (DEFAULT)[address] [place] [address] Glucose [Mass/Vol] 170 mg/dL [address] Comment on above: Performed By: #### 4 [id number] ####[facility] (DEFAULT)[address] [place] [address] Glucose [Mass/Vol] 144 mg/dL [address] Comment on above: Performed By: #### 4 [id number] ####[facility] (DEFAULT)[address] [place] [address] Telemetry Stripson Telemetry Strips [id number]#1.00OTGTIFF [facility] .Auto Diff 1on 07-26-2023 Auto [place] % 8 % Normal -12 [facility] Comment on above: Performed By: #### 1 [id number], 9927153, 0420031, 622082657, 72563069 ####[facility] (DEFAULT)[address] [place] [address] Baso Abs# 0.0 x10 Normal 0.0-0.2 [facility] Comment on above: Performed By: #### 1 [id number], 2533907, 8784934, 160115487, 66582606 ####[facility] (DEFAULT)[address] [place] [address] Basophils/100 WBC (Bld) 0.3 % Normal 0.2-2.0 [facility] Comment on above: Performed By: #### 1 [id number], 0601176, 7514589, 029647388, 27999239 ####[facility] (DEFAULT)[address] [place] [address] 66526 Eos Abs# 0.0 x10 Normal 0.0-0.4 [facility] Comment on above: Performed By: #### 1 [id number], 1515662, 7795838, 758142348, 03990672 ####[facility] (DEFAULT)[address] [place] [address] Eosinophils/100 WBC (Bld) 0.2 % Low 0.9-4.0 [facility] Comment on above: Performed By: #### 1 [id number], 1302317, 7688383, 977285260, 58958471 ####[facility] (DEFAULT)[address] [place] [address] 33634 Lymph Abs# 1.0 x10 Low 1.3-2.9 [facility] Comment on above: Performed By: #### 1 034567862, 3956168, 4844890, 952017477, 63162140 ####[facility] (DEFAULT)[address] [place] [address] 86599 Lymphocytes/100 WBC (Bld) 13 % Low 14-48 [facility] Comment on above: Performed By: #### 1 263073633, 9372079, 5645723, 169122328, 22943322 ####[facility] (DEFAULT)[address] [place] [address] 27915 [place] Abs# 0.7 x10 Normal 0.0-0.8 [facility] Comment on above: Performed By: #### 1 576331678, 1042456, 6973565, 894035456, 81288466 ####[facility] (DEFAULT)[address] [place] [address] 52780 Neut Abs# 6.1 x10 Normal 1.5-9.2 [facility] Comment on above: Performed By: #### 1 095220284, 7206735, 6585167, 803308433, 51123923 ####[facility] (DEFAULT)[address] [place] [address] Neutrophils/100 WBC (Bld) 78 % Normal 44-88 [facility] Comment on above: Performed By: #### 1 776492424, 4955169, 0365097, 762450929, 96576235 ####[facility] (DEFAULT)[address] [place] [address] BMP Standardon 07-26-2023 eGFR Non AA 39 mL/min/1.73m2 Invalid Interpretation Code [facility] Comment on above: Performed By: #### 1 308143269, 4580041, 2770822, 843878787, 97240854 ####[facility] (DEFAULT)[address] [place] [address] eGFR AA 48 mL/min/1.73m2 Invalid Interpretation Code [facility] Comment on above: Performed By: #### 1 [id number], 7402763, 7330663, 556295421, 40586576 ####[facility] (DEFAULT)[address] [place] [address] 32994 Anion gap [Moles/Vol] 7.9 mmol/L Normal 5.0-19.0 [facility] Comment on above: Performed By: #### 1 255606946, 8293441, 1179567, 293800260, 16144957 ####[facility] (DEFAULT)[address] [place] [address] 79170 Calcium [Mass/Vol] 8.3 mg/dL Low 8.9-10.3 [facility] Comment on above: Performed By: #### 1 427155812, 4685072, 7021160, 868161038, 81621884 ####[facility] (DEFAULT)[address] [place] [address] 83248 Chloride [Moles/Vol] 103 mmol/L Normal 101-111 [facility] Comment on above: Performed By: #### 1 793113804, 5336259, 8042241, 578101254, 74708335 ####[facility] (DEFAULT)[address] [place] [address] 27403 CO2 [Moles/Vol] 30 mmol/L Normal 21-32 [facility] Comment on above: Performed By: #### 1 243858204, 4524369, 5092695, 399541560, 75472256 ####[facility] (DEFAULT)[address] [place] [address] 65927 Creatinine [Mass/Vol] 1.66 mg/dL High 0.90-1.30 [facility] Comment on above: Performed By: #### 1 581474292, 9163666, 7080371, 091719147, 45675594 ####[facility] (DEFAULT)[address] [place] [address] 31114 Glucose [Mass/Vol] 136.0 mg/dL High 74.0-118.0 [facility] Comment on above: Performed By: #### 1 797023802, 0287923, 2334655, 990468691, 75251671 ####[facility] (DEFAULT)[address] [place] [address] 47276 Osmolality 286 mOsm/L Invalid Interpretation Code [facility] Comment on above: Performed By: #### 1 [id number], 5772398, 2840692, 958637117, 86458060 ####[facility] (DEFAULT)[address] [place] [address] 01593 Potassium [Moles/Vol] 3.9 mmol/L Normal 3.6-5.1 [facility] Comment on above: Performed By: #### 1 584372777, 4469753, 1430671, 827656263, 97996735 ####[facility] (DEFAULT)[address] [place] [address] 42051 Sodium [Moles/Vol] 137.0 mmol/L Normal 136.0-144.0 [facility] Comment on above: Performed By: #### 1 380364957, 1396003, 7629596, 246854067, 68598104 ####[facility] (DEFAULT)[address] [place] [address] 38751 Urea nitrogen [Mass/Vol] 42 mg/dL High 8-26 [facility] Comment on above: Performed By: #### 1 277431591, 0088852, 0761229, 397823821, 37612243 ####[facility] (DEFAULT)[address] [place] [address] Urea nitrogen/Creatinine [Mass ratio] 25.3 mg/mg High 4.6-16.2 [facility] Comment on above: Performed By: #### 1 746478121, 7374789, 8602040, 006215328, 84738459 ####[facility] (DEFAULT)[address] [place] [address] CBC w/ Auto Diffon 3 Erythrocyte distribution width (RBC) [Ratio] 15.0 % Normal 11.5-15.0 [facility] Comment on above: Performed By: #### 1 543746914, 6580231, 4593637, 791356668, 73762077 ####[facility] (DEFAULT)[address] [place] [address] Hematocrit (Bld) [Volume fraction] 29.6 % Low 34.8-51.9 [facility] Comment on above: Performed By: #### 1 355206503, 6082932, 4410422, 300167639, 51909172 ####[facility] (DEFAULT)[address] [place] [address] Hemoglobin (Bld) [Mass/Vol] 10.2 g/dL Low 11.8-17.7 [facility] Comment on above: Performed By: #### 1 341414398, 3375537, 0298082, 280472894, 28940895 ####[facility] (DEFAULT)[address] [place] [address] MCH (RBC) [Entitic mass] 35 pg High 24-34 [facility] Comment on above: Performed By: #### 1 894710779, 2152081, 9305977, 773833693, 97914529 ####[facility] (DEFAULT)[address] [place] [address] MCHC (RBC) [Mass/Vol] 34 g/dL Normal 26-37 [facility] Comment on above: Performed By: #### 1 026002886, 4378789, 3976037, 484305853, 70487206 ####[facility] (DEFAULT)[address] [place] [address] 68566 MCV (RBC) [Entitic vol] 102 fL High 81-100 [facility] Comment on above: Performed By: #### 1 [id number], 0634835, 9204664, 118806881, 83651148 ####[facility] (DEFAULT)[address] [place] [address] Platelet 99 x10 Low 138-427 [facility] Comment on above: Performed By: #### 1 [id number], 9039638, 5786781, 420631742, 13675935 ####[facility] (DEFAULT)[address] [place] [address] Platelet mean volume (Bld) [Entitic vol] 9.6 fL Normal 6.3-10.2 [facility] Comment on above: Performed By: #### 1 [id number], 6530775, 1255349, 482415531, 16554961 ####[facility] (DEFAULT)[address] [place] [address] RBC 2.91 x10 Low 3.70-5.30 [facility] Comment on above: Performed By: #### 1 [id number], 4935110, 4140031, 303741895, 10655969 ####[facility] (DEFAULT)[address] [place] [address] WBC 7.9 x10 Normal 3.5-10.5 [facility] Comment on above: Result Comment: Slid e Reviewed Performed By: #### 1 [id number], 1128656, 8360991, 833028344, 55731579 ####[facility] (DEFAULT)[address] [place] [address] Man Diff? Auto Invalid Interpretation Code [facility] Comment on above: Performed By: #### 1 [id number], [id number] ####[facility] (DEFAULT)[address] [place] [id number] CRPon 07-26-2023 CRP 9.1 mg/dL High <=0.5 [facility] Comment on above: Performed By: #### 1 [id number], [id number] ####[facility] (DEFAULT)[address] [place] [id number] Extra Parrish 07-26-2023 Tube Collected Yes Invalid Interpretation Code [facility] Comment on above: Performed By: #### 1 [id number] ####[facility] (DEFAULT)[address] [place] [id number] Nutrition Noteon 07-26-2023 Nutrition Note Normal [facility] POCT Glucose Levelon 023 Glucose [Mass/Vol] 329 mg/dL High [address] Comment on above: Performed By: #### 4 [id number] ####[facility] (DEFAULT)[address] [place] [address] 67062 Glucose [Mass/Vol] 272 mg/dL High 74-118 [facility] Comment on above: Performed By: #### 4 [id number] ####[facility] (DEFAULT)[address] [place] [address] 53270 Glucose [Mass/Vol] 197 mg/dL High 74-[address] [place] [address] Comment on above: Performed By: #### 4 [id number] ####[facility] (DEFAULT)[address] [place] [address] 33159 Glucose [Mass/Vol] 115 mg/dL Normal 74-[address] [place] [address] Comment on above: Performed By: #### 4 [id number] ####[facility] (DEFAULT)[address] [place] [address] 01479 Pharmacy Noteon 07-26-2023 Pharmacy Note Normal [facility] Procalcitoninon 07-26-2023 Procalcitonin 0.186 ng/mL Low 0.500-1.000 [facility] Comment on above: Performed By: #### 1 [id number], [id number], 8443556, [id number], [id number] ####[facility] (DEFAULT)[address] [place] [address] 86050 Telemetry Stripson Telemetry Strips [id number] Normal [facility] Vanc Trough 1on 07-26-2023 Vanco Tr 24.1 mcg/mL High 5.0-10.0 [facility] Comment on above: Performed By: #### 1 [id number], [id number] ####[facility] (DEFAULT)[address] [place] [address] 72811 .Auto Diff 07-25-2023 Auto [place] % 8 % Normal 12 [facility] Comment on above: Performed By: #### 1 [id number], [id number] ####[facility] (DEFAULT)[address] [place] [address] 50818 Baso Abs# 0.0 x10 Normal 0.0-0.2 [facility] Comment on above: Performed By: #### 1 [id number], [id number] ####[facility] (DEFAULT)[address] [place] [address] 17052 Basophils/100 WBC (Bld) 0.2 % Normal 0.2-2.0 [facility] Comment on above: Performed By: #### 1 [id number], [id number] ####[facility] (DEFAULT)[address] [place] [address] 47392 Eos Abs# 0.0 x10 Normal 0.0-0.4 [facility] Comment on above: Performed By: #### 1 3363748, [id number] ####[facility] (DEFAULT)[address] [place] [address] 36973 Eosinophils/100 WBC (Bld) 0.3 % Low 0.9-4.0 [facility] Comment on above: Performed By: #### 1 5716799, 4995974 ####[facility] (DEFAULT)[address] [place] [address] 13128 Lymph Abs# 1.0 x10 Low 1.3-2.9 [facility] Comment on above: Performed By: #### 1 3531147, 0997574 ####[facility] (DEFAULT)[address] [place] [address] 04852 Lymphocytes/100 WBC (Bld) 11 % Low 14-48 [facility] Comment on above: Performed By: #### 1 [id number], 0817008 ####[facility] (DEFAULT)[address] [place] [address] 40101 [place] Abs# 0.7 x10 Normal 0.0-0.8 [facility] Comment on above: Performed By: #### 1 7706985, [id number] ####[facility] (DEFAULT)[address] [place] [address] 52881 Neut Abs# 7.5 x10 Normal 1.5-9.2 [facility] Comment on above: Performed By: #### 1 6681685, 7333352 ####[facility] (DEFAULT)[address] [place] [address] 36830 Neutrophils/100 WBC (Bld) 80 % Normal 44-88 [facility] Comment on above: Performed By: #### 1 4071578, [id number] ####[facility] (DEFAULT)[address] [place] [address] 23055[facility] Standardon 07-25-2023 eGFR Non AA 36 mL/min/1.73m2 Invalid Interpretation Code [facility] Comment on above: Performed By: #### 1 [id number], 7645691, [id number] ####[facility] (DEFAULT)[address] [place] [address] 19440 eGFR AA 44 mL/min/1.73m2 Invalid Interpretation Code [facility] Comment on above: Performed By: #### 1 [id number], 5430309, [id number] ####[facility] (DEFAULT)[address] [place] [address] 77893 Calcium [Mass/Vol] 8.6 mg/dL Low 8.9-10.3 [facility] Comment on above: Performed By: #### 1 [id number], 9243150, 864772392 ####[facility] (DEFAULT)[address] [place] [address] 39952 Chloride [Moles/Vol] 102 mmol/L Normal 101-111 [facility] Comment on above: Performed By: #### 1 [id number], 0029355, [id number] ####[facility] (DEFAULT)[address] [place] [address] 18867 CO2 [Moles/Vol] 29 mmol/L Normal 21-32 [facility] Comment on above: Performed By: #### 1 [id number], 4247230, 240566908 ####[facility] (DEFAULT)[address] [place] [address] 41569 Creatinine [Mass/Vol] 1.78 mg/dL High 0.90-1.30 [facility] Comment on above: Performed By: #### 1 [id number], 8334459, 647730588 ####[facility] (DEFAULT)[address] [place] [address] 13805 Glucose [Mass/Vol] 179.0 mg/dL High 74.0-118.0 [facility] Comment on above: Performed By: #### 1 [id number], 3652918, 450176985 ####[facility] (DEFAULT)[address] [place] [address] 34550 Potassium [Moles/Vol] 4.1 mmol/L Normal 3.6-5.1 [facility] Comment on above: Performed By: #### 1 [id number], 2993707, 739371242 ####[facility] (DEFAULT)[address] [place] [address] 99276 Sodium [Moles/Vol] 140.0 mmol/L Normal 136.0-144.0 [facility] Comment on above: Performed By: #### 1 [id number], 1172423, [id number] ####[facility] (DEFAULT)[address] [place] [address] 23515 Urea nitrogen [Mass/Vol] 47 mg/dL High 8-26 [facility] Comment on above: Performed By: #### 1 [id number], 6856438, [id number] ####[facility] (DEFAULT)[address] [place] [address] 38237 Anion gap [Moles/Vol] 13.1 mmol/L Normal 5.0-19.0 [facility] Comment on above: Performed By: #### 1 [id number], 4536584, [id number] ####[facility] (DEFAULT)[address] [place] [address] 49205 Osmolality 296 mOsm/L Invalid Interpretation Code [facility] Comment on above: Performed By: #### 1 [id number], 7033036, [id number] ####[facility] (DEFAULT)[address] [place] [address] Urea nitrogen/Creatinine [Mass ratio] 26.4 mg/mg High 4.6-16.2 [facility] Comment on above: Performed By: #### 1 [id number], 2966974, 530174744 ####[facility] (DEFAULT)[address] [place] [address] 54810 C Bloodon 07-25-2023 C Blood No growth at 5 Days Normal [facility] Comment on above: Performed By: #### 6 [id number] ####[facility] (DEFAULT)[address] [place] [address] 01779 CBC w/ Auto Diffon Erythrocyte distribution width (RBC) [Ratio] 15.4 % High 11.5-15.0 [facility] Comment on above: Performed By: #### 1 [id number], 6020413 ####[facility] (DEFAULT)[address] [place] [address] 67354 Hematocrit (Bld) [Volume fraction] 33.8 % Low 34.8-51.9 [facility] Comment on above: Performed By: #### 1 [id number], 8079332 ####[facility] (DEFAULT)[address] [place] [address] 57765 Hemoglobin (Bld) [Mass/Vol] 11.5 g/dL Low 11.8-17.7 [facility] Comment on above: Performed By: #### 1 6761763, 4827216 ####[facility] (DEFAULT)[address] [place] [address] 76060 Man Diff? Auto Invalid Interpretation Code [facility] Comment on above: Performed By: #### 1 8927889, 1061823 ####[facility] (DEFAULT)[address] [place] [address] 11857 MCH (RBC) [Entitic mass] 35 pg High 24-34 [facility] Comment on above: Performed By: #### 1 0300776, 1682090 ####[facility] (DEFAULT)[address] [place] [address] 32165 MCHC (RBC) [Mass/Vol] 34 g/dL Normal 26-37 [facility] Comment on above: Performed By: #### 1 [id number], 1261448 ####[facility] (DEFAULT)[address] [place] [address] 33169 MCV (RBC) [Entitic vol] 103 fL High 81-100 [facility] Comment on above: Performed By: #### 1 0333735, 4232916 ####[facility] (DEFAULT)[address] [place] [address] 18015 Platelet 102 x10 Low 138-427 [facility] Comment on above: Performed By: #### 1 5549001, 1586269 ####[facility] (DEFAULT)[address] [place] [address] 74377 Platelet mean volume (Bld) [Entitic vol] 9.8 fL Normal 6.3-10.2 [facility] Comment on above: Performed By: #### 1 6600844, 5437288 ####[facility] (DEFAULT)[address] [place] [address] 58021 RBC 3.28 x10 Low 3.70-5.30 [facility] Comment on above: Performed By: #### 1 7240033, 0795773 ####[facility] (DEFAULT)[address] [place] [address] 74298 WBC 9.3 x10 Normal 3.5-10.5 [facility] Comment on above: Performed By: #### 1 8803495, 8114360 ####[facility] (DEFAULT)[address] [place] [address] 36436 CRPon 07-25-2023 CRP 15.6 mg/dL High <=0.5 [facility] Comment on above: Performed By: #### 1 [id number], 4455839, 295603801 ####[facility] (DEFAULT)[address] [place] [address] 43217 POCT Glucose Levelon 023 Glucose [Mass/Vol] 279 mg/dL High [address] [place] [address] Comment on above: Performed By: #### 4 [id number] ####[facility] (DEFAULT)[address] [place] [address] 15645 Glucose [Mass/Vol] 287 mg/dL High [address] [place] [address] Comment on above: Performed By: #### 4 [id number] ####[facility] (DEFAULT)[address] [place] [address] 71885 Glucose [Mass/Vol] 336 mg/dL High [address] [place] [address] Comment on above: Performed By: #### 4 [id number] ####[facility] (DEFAULT)[address] [place] [address] 56359 Glucose [Mass/Vol] 172 mg/dL High [address] [place] [address] Comment on above: Performed By: #### 4 [id number] ####[facility] (DEFAULT)[address] [place] [address] 63793 Procalcitoninon 07-25-2023 Procalcitonin 0.198 ng/mL Low 0.500-1.000 [facility] Comment on above: Performed By: #### 1 [id number], 4545303, 032746231 ####[facility] (DEFAULT)[address] [place] [address] 96303 Progress Note - Nurseon 06-30 Progress Note - Nurse Normal [facility] Standardon 07-24-2023 eGFR AA 41 mL/min/1.73m2 Invalid Interpretation Code [facility] Comment on above: Performed By: #### 2 [id number], [id number], [id number] ####[facility] (DEFAULT)[address] [place] [address] 23928 eGFR Non AA 34 mL/min/1.73m2 Invalid Interpretation Code [facility] Comment on above: Performed By: #### 2 652080, 416354469, [id number] ####[facility] (DEFAULT)[address] [place] [address] Anion gap [Moles/Vol] 12.7 mmol/L Normal 5.0-19.0 [facility] Comment on above: Performed By: #### 2 335215, [id number], [id number] ####[facility] (DEFAULT)[address] [place] [address] 71982 Calcium [Mass/Vol] 8.1 mg/dL Low 8.9-10.3 [facility] Comment on above: Performed By: #### 2 180768, 925344923, [id number] ####[facility] (DEFAULT)[address] [place] [address] 54183 Chloride [Moles/Vol] 101 mmol/L Normal 101-111 [facility] Comment on above: Performed By: #### 2 145237, [id number], [id number] ####[facility] (DEFAULT)[address] [place] [address] 24203 CO2 [Moles/Vol] 28 mmol/L Normal 21-32 [facility] Comment on above: Performed By: #### 2 851509, 051345586, [id number] ####[facility] (DEFAULT)[address] [place] [address] 84971 Creatinine [Mass/Vol] 1.89 mg/dL High 0.90-1.30 [facility] Comment on above: Performed By: #### 2 860230, [id number], [id number] ####[facility] (DEFAULT)[address] [place] [address] 54748 Glucose [Mass/Vol] 108.0 mg/dL Normal 74.0-118.0 [facility] Comment on above: Performed By: #### 2 099964, 179396808, [id number] ####[facility] (DEFAULT)[address] [place] [address] 21517 Osmolality 289 mOsm/L Invalid Interpretation Code [facility] Comment on above: Performed By: #### 2 751194, 740098518, [id number] ####[facility] (DEFAULT)[address] [place] [address] 89825 Potassium [Moles/Vol] 3.7 mmol/L Normal 3.6-5.1 [facility] Comment on above: Result Comment: Diur etic Therapy Performed By: #### 2 726157, [id number], [id number] ####[facility] (DEFAULT)[address] [place] [address] 12707 Sodium [Moles/Vol] 138.0 mmol/L Normal 136.0-144.0 [facility] Comment on above: Performed By: #### 2 491438, 496253890, [id number] ####[facility] (DEFAULT)[address] [place] [address] 29871 Urea nitrogen [Mass/Vol] 48 mg/dL High 07-24 [facility] Comment on above: Performed By: #### 2 082597, 421559556, [id number] ####[facility] (DEFAULT)[address] [place] [address] 07523 Urea nitrogen/Creatinine [Mass ratio] 25.3 mg/mg High 4.6-16.2 [facility] Comment on above: Performed By: #### 2 625262, 599604360, [id number] ####[facility] (DEFAULT)[address] [place] [address] 94922 CRPon 07-24-2023 CRP 20.7 mg/dL High <=0.5 [facility] Comment on above: Performed By: #### 2 049892, 264451760, [id number] ####[facility] (DEFAULT)[address] [place] [address] 75700 POCT Glucose Levelon 023 Glucose [Mass/Vol] 262 mg/dL High 74-118 [facility] Comment on above: Performed By: #### 4 [id number] ####[facility] (DEFAULT)[address] [place] [address] 01273 Glucose [Mass/Vol] 281 mg/dL High 74-118 [facility] Comment on above: Performed By: #### 4 [id number] ####[facility] (DEFAULT)[address] [place] [address] Glucose [Mass/Vol] 200 mg/dL High 74-118 [facility] Comment on above: Performed By: #### 4 [id number] ####[facility] (DEFAULT)[address] [place] [address] Glucose [Mass/Vol] 111 mg/dL Normal 74-118 [facility] Comment on above: Performed By: #### 4 [id number] ####[facility] (DEFAULT)[address] [place] [address] Pharmacy Noteon 07-24-2023 Pharmacy Note Normal [facility] Procalcitoninon 07-24-2023 Procalcitonin 0.267 ng/mL Low 0.500-1.000 [facility] Comment on above: Performed By: #### 2 098564, [id number], [id number] ####[facility] (DEFAULT)[address] [place] [address] Progress Note - Nurseon 06-30 Progress Note - Nurse Normal [facility] Vanc Trough 1on 07-24-2023 Vanco Tr 20.5 mcg/mL High 5.0-10.0 [facility] Comment on above: Performed By: #### 3 [id number] ####[facility] (DEFAULT)[address] [place] [address] .Auto Diff 07-23-2023 Auto [place] % 14 % High 1-12 [facility] Comment on above: Performed By: #### 1 5110124, 8355021 ####[facility] (DEFAULT)[address] [place] [address] 00372 Baso Abs# 0.0 x10 Normal 0.0-0.2 [facility] Comment on above: Performed By: #### 1 6680725, 4059936 ####[facility] (DEFAULT)[address] [place], [place] [address] Basophils/100 WBC (Bld) 0.6 % Normal 0.2-2.0 [facility] Comment on above: Performed By: #### 1 1564925, 8794117 ####[facility] (DEFAULT)[address] [place] [address] 95179 Eos Abs# 0.1 x10 Normal 0.0-0.4 [facility] Comment on above: Performed By: #### 1 2465925, 1859719 ####[facility] (DEFAULT)[address] [place] [address] 06053 Eosinophils/100 WBC (Bld) 1.4 % Normal 0.9-4.0 [facility] Comment on above: Performed By: #### 1 9273218, 2610147 ####[facility] (DEFAULT)[address] [place] [address] 60647 Lymph Abs# 0.9 x10 Low 1.3-2.9 [facility] Comment on above: Performed By: #### 1 5668721, 4386025 ####[facility] (DEFAULT)[address] [place] [address] 26117 Lymphocytes/100 WBC (Bld) 13 % Low 14-48 [facility] Comment on above: Performed By: #### 1 0652835, 7001607 ####[facility] (DEFAULT)[address] [place] [address] 74206 [place] Abs# 1.0 x10 High 0.0-0.8 [facility] Comment on above: Performed By: #### 1 3375055, 1011910 ####[facility] (DEFAULT)[address] [place] [address] 57187 Neut Abs# 4.8 x10 Normal 1.5-9.2 [facility] Comment on above: Performed By: #### 1 0700488, 7492144 ####[facility] (DEFAULT)[address] [place] [address] 56011 Neutrophils/100 WBC (Bld) 71 % Normal 44-88 [facility] Comment on above: Performed By: #### 1 5574523, 9268202 ####[facility] (DEFAULT)[address] [place] [address] 71945 Auto [place] % 13 % High 1-12 [facility] Comment on above: Performed By: #### 1 4382669, [id number], 9341314 ####[facility] (DEFAULT)[address] [place] [address] 69396 Baso Abs# 0.0 x10 Normal 0.0-0.2 [facility] Comment on above: Performed By: #### 1 3500936, [id number], 6981800 ####[facility] (DEFAULT)[address] [place] [address] 76864 Basophils/100 WBC (Bld) 0.3 % Normal 0.2-2.0 [facility] Comment on above: Performed By: #### 1 0237322, [id number], 0124742 ####[facility] (DEFAULT)[address] [place] [address] 34007 Eos Abs# 0.0 x10 Normal 0.0-0.4 [facility] Comment on above: Performed By: #### 1 4034639, [id number], 1686949 ####[facility] (DEFAULT)[address] [place] [address] 42228 Eosinophils/100 WBC (Bld) 1.1 % Normal 0.9-4.0 [facility] Comment on above: Performed By: #### 1 2177911, [id number], 9916707 ####[facility] (DEFAULT)[address] [place] [address] 46904 Lymph Abs# 0.4 x10 Low 1.3-2.9 [facility] Comment on above: Performed By: #### 1 4553291, [id number], 9827951 ####[facility] (DEFAULT)[address] [place] [address] 82550 Lymphocytes/100 WBC (Bld) 16 % Normal 14-48 [facility] Comment on above: Performed By: #### 1 8138612, [id number], 0326364 ####[facility] (DEFAULT)[address] [place] [address] 82154 [place] Abs# 0.3 x10 Normal 0.0-0.8 [facility] Comment on above: Performed By: #### 1 0598264, [id number], 4604367 ####[facility] (DEFAULT)[address] [place] [address] 17842 Neut Abs# 1.6 x10 Normal 1.5-9.2 [facility] Comment on above: Performed By: #### 1 0887631, [id number], 8734146 ####[facility] (DEFAULT)[address] [place] [address] 10620 Neutrophils/100 WBC (Bld) 70 % Normal 44-88 [facility] Comment on above: Performed By: #### 1 3734562, [id number], 8562793 ####[facility] (DEFAULT)[address] [place] [address] 03914 BMP Standardon 07-23-2023 eGFR Non AA 34 mL/min/1.73m2 Invalid Interpretation Code [facility] Comment on above: Performed By: #### 1 2658778, [id number], 6333649 ####[facility] (DEFAULT)[address] [place] [address] 51601 eGFR AA 42 mL/min/1.73m2 Invalid Interpretation Code [facility] Comment on above: Performed By: #### 1 6392187, [id number], 2132899 ####[facility] (DEFAULT)[address] [place] [address] 19878 Anion gap [Moles/Vol] 8.2 mmol/L Normal 5.0-19.0 [facility] Comment on above: Performed By: #### 1 1086164, [id number], 5996774 ####[facility] (DEFAULT)[address] [place] [address] 58576 Calcium [Mass/Vol] 8.2 mg/dL Low 8.9-10.3 [facility] Comment on above: Performed By: #### 1 8391713, [id number], 2271075 ####[facility] (DEFAULT)[address] [place] [address] 97203 Chloride [Moles/Vol] 102 mmol/L Normal 101-111 [facility] Comment on above: Performed By: #### 1 0531515, [id number], 9178076 ####[facility] (DEFAULT)[address] [place] [address] 39381 CO2 [Moles/Vol] 29 mmol/L Normal 21-32 [facility] Comment on above: Performed By: #### 1 0293568, [id number], 9262726 ####[facility] (DEFAULT)[address] [place] [address] 28004 Creatinine [Mass/Vol] 1.87 mg/dL High 0.90-1.30 [facility] Comment on above: Performed By: #### 1 9646949, [id number], 8061175 ####[facility] (DEFAULT)[address] [place] [address] 82690 Glucose [Mass/Vol] 93.0 mg/dL Normal 74.0-118.0 [facility] Comment on above: Performed By: #### 1 3334931, [id number], 4267004 ####[facility] (DEFAULT)[address] [place] [address] 27844 Osmolality 282 mOsm/L Invalid Interpretation Code [facility] Comment on above: Performed By: #### 1 6642632, [id number], 3089318 ####[facility] (DEFAULT)[address] [place] [address] 33657 Potassium [Moles/Vol] 3.2 mmol/L Low 3.6-5.1 [facility] Comment on above: Performed By: #### 1 9382810, 9042725123, 0526591 ####[facility] (DEFAULT)[address] [place] [address] 10006 Sodium [Moles/Vol] 136.0 mmol/L Normal 136.0-144.0 [facility] Comment on above: Performed By: #### 1 0411795, [id number], 9490434 ####[facility] (DEFAULT)[address] [place] [address] 59362 Urea nitrogen [Mass/Vol] 41 mg/dL High 8-26 [facility] Comment on above: Performed By: #### 1 4788663, [id number], 0902816 ####[facility] (DEFAULT)[address] [place] [address] 52888 Urea nitrogen/Creatinine [Mass ratio] 21.9 mg/mg High 4.6-16.2 [facility] Comment on above: Performed By: #### 1 2798127, [id number], 0152958 ####[facility] (DEFAULT)[address] [place] [address] CBC w/ Auto Diffon 3 Erythrocyte distribution width (RBC) [Ratio] 15.8 % High 11.5-15.0 [facility] Comment on above: Performed By: #### 1 2851711, 9384672 ####[facility] (DEFAULT)[address] [place] [address] Hematocrit (Bld) [Volume fraction] 33.1 % Low 34.8-51.9 [facility] Comment on above: Performed By: #### 1 7129527, 4310004 ####[facility] (DEFAULT)[address] [place] [address] Hemoglobin (Bld) [Mass/Vol] 11.3 g/dL Low 11.8-17.7 [facility] Comment on above: Result Comment: Gabe parr to verify, suspect pre-analytical error on previous sample. Performed By: #### 1 [id number] ####[facility] (DEFAULT)[address] [place] [address] Man Diff? Auto Invalid Interpretation Code [facility] Comment on above: Performed By: #### 1 [id number] ####[facility] (DEFAULT)[address] [place] [address]4826 MCH (RBC) [Entitic mass] 35 pg High 24-34 [facility] Comment on above: Performed By: #### 1 [id number], [id number] ####[facility] (DEFAULT)[address] [place] [address] 32892 MCHC (RBC) [Mass/Vol] 34 g/dL Normal 26-37 [facility] Comment on above: Performed By: #### 1 [id number] ####[facility] (DEFAULT)[address] [place] [address] 30503 MCV (RBC) [Entitic vol] 103 fL High 81-100 [facility] Comment on above: Performed By: #### 1 [id number], [id number] ####[facility] (DEFAULT)[address] [place] [id number] Platelet 91 x10 Low 138-427 [facility] Comment on above: Performed By: #### 1 [id number] ####[facility] (DEFAULT)[address] [place] [address] 21758 Platelet mean volume (Bld) [Entitic vol] 9.5 fL Normal 6.3-10.2 [facility] Comment on above: Performed By: #### 1 [id number], [id number] ####[facility] (DEFAULT)[address] [place] [address] 28058 RBC 3.23 x10 Low 3.70-5.30 [facility] Comment on above: Performed By: #### 1 [id number], [id number] ####[facility] (DEFAULT)[address] [place] [address] 67779 WBC 6.8 x10 Normal 3.5-10.5 [facility] Comment on above: Performed By: #### 1 [id number], [id number] ####[facility] (DEFAULT)[address] [place] [address] 03535 Erythrocyte distribution width (RBC) [Ratio] 15.7 % High 11.5-15.0 [facility] Comment on above: Performed By: #### 1 [id number], [id number], 9221023 ####[facility] (DEFAULT)[address] [place] [address] 69088 Hematocrit (Bld) [Volume fraction] 54.7 % High 34.8-51.9 [facility] Comment on above: Performed By: #### 1 [id number], [id number], 0606900 ####[facility] (DEFAULT)[address] [place] [address] 17043 Hemoglobin (Bld) [Mass/Vol] 18.6 g/dL High 11.8-17.7 [facility] Comment on above: Result Comment: IV T herapy Dc'd Performed By: #### 1 [id number], [id number], 9176480 ####[facility] (DEFAULT)[address] [place] [address] 64902 Man Diff? Auto Invalid Interpretation Code [facility] Comment on above: Performed By: #### 1 [id number], [id number], 8234917 ####[facility] (DEFAULT)[address] [place] [address] 40051 MCH (RBC) [Entitic mass] 35 pg High 24-34 [facility] Comment on above: Performed By: #### 1 [id number], [id number], 7414498 ####[facility] (DEFAULT)[address] [place] [address] 87213 MCHC (RBC) [Mass/Vol] 34 g/dL Normal 26-37 [facility] Comment on above: Performed By: #### 1 [id number], [id number], 3711370 ####[facility] (DEFAULT)[address] [place] [address] 21735 MCV (RBC) [Entitic vol] 102 fL High 81-100 [facility] Comment on above: Performed By: #### 1 [id number], [id number], 1611904 ####[facility] (DEFAULT)[address] [place] [address] 05717 Platelet 37 x10 Low 138-427 [facility] Comment on above: Result Comment: Plat elet Estimated Verified by Slide Review Performed By: #### 1 [id number], [id number], 0924275 ####[facility] (DEFAULT)[address] [place] [address] 73611 Platelet mean volume (Bld) [Entitic vol] 9.6 fL Normal 6.3-10.2 [facility] Comment on above: Performed By: #### 1 [id number], [id number], 0280823 ####[facility] (DEFAULT)[address] [place] [address] 19374 RBC 5.36 x10 High 3.70-5.30 [facility] Comment on above: Performed By: #### 1 3461549, [id number], 1629228 ####[facility] (DEFAULT)[address] [place] [address] 96293 WBC 2.3 x10 Low 3.5-10.5 [facility] Comment on above: Performed By: #### 1 7944313, [id number], 7063010 ####[facility] (DEFAULT)[address] [place] [address] 14338 CKon 07-23-2023 CK [Catalytic activity/Vol] 198 U/L Normal 49-397 [facility] Comment on above: Performed By: #### 2 766838, 8803552, 8279121, 383639650, 2004817 ####[facility] (DEFAULT)[address] [place] [address] 90900 CRPon 07-23-2023 CRP 19.4 mg/dL High <=0.5 [facility] Comment on above: Performed By: #### 2 362554, 7515257, 4411151, 209216842, 2747138 ####[facility] (DEFAULT)[address] [place] [address] 66778 Infection Prevention Noteon 07-23-2023 Infection Prevention Note Case entered into the [place] Disease Reporting System (ODRS).ODRS # [id number]. Normal [facility] LDHon 07-23-2023 LDH 372.0 IU/L High 98.0-192.0 [facility] Comment on above: Performed By: #### 2 200787, 7902323, 9389694, 314830618, 5742767 ####[facility] (DEFAULT)[address] [place] [address] 11068 Nutrition Noteon 07-23-2023 Nutrition Note Normal [facility] POCT Glucose Levelon 023 Glucose [Mass/Vol] 270 mg/dL High 74-118 [facility] Comment on above: Performed By: #### 4 [id number] ####[facility] (DEFAULT)[address] [place] [address] 38342 Glucose [Mass/Vol] 148 mg/dL High 74-118 [facility] Comment on above: Performed By: #### 4 [id number] ####[facility] (DEFAULT)[address] [place] [address] 55606 Procalcitoninon 07-23-2023 Procalcitonin 0.239 ng/mL Low 0.500-1.000 [facility] Comment on above: Performed By: #### 2 861209, 4948135, 3426393, 148461448, 0749597 ####[facility] (DEFAULT)[address] [place] [address] Progress Note - Nurseon 06-30 Progress Note - Nurse [facility] Telemetry Stripson Telemetry Strips [id number] Normal [facility] Uric Acidon 07-23-2023 Urate [Mass/Vol] 7.0 mg/dL Normal 4.8-8.7 [facility] Comment on above: Performed By: #### 2 039073, 0104302, 7866310, 657708652, 4518873 ####[facility] (DEFAULT)[address] [place] [address] 85620 Vanco Levelon 07-23-2023 Vanco Level 18.3 mcg/mL Invalid Interpretation Code [facility] Comment on above: Performed By: #### 2 [id number] ####[facility] (DEFAULT)[address] [place] [address] 84760 XR Chest 1 View Frontalon XR Chest 1 View Frontal [facility] .Auto Diff 1on 07-22-2023 Auto [place] % 19 % High -12 [facility] Comment on above: Performed By: #### 1 [id number], 09922029, 5287232, 4638524, 0291942354, 1118319, 2506594733 ####[facility] (DEFAULT)[address] [place] [address] 68159 Baso Abs# 0.0 x10 Normal 0.0-0.2 [facility] Comment on above: Performed By: #### 1 [id number], 41619048, 9733536, 5015567, 7155394109, 2968775, 6087113540 ####[facility] (DEFAULT)[address] [place] [address] 29285 Basophils/100 WBC (Bld) 0.4 % Normal 0.2-2.0 [facility] Comment on above: Performed By: #### 1 [id number], 92318750, 7087916, 1875527, 6372310118, 1478182, 9771907163 ####[facility] (DEFAULT)[address] [place] [address] Eos Abs# 0.1 x10 Normal 0.0-0.4 [facility] Comment on above: Performed By: #### 1 [id number], 50503074, 9535932, 8906394, 6432973570, 7544662, 7038030799 ####[facility] (DEFAULT)[address] [place] [address] Eosinophils/100 WBC (Bld) 0.6 % Low 0.9-4.0 [facility] Comment on above: Performed By: #### 1 631757597, 74884279, 8313797, 0570427, 2180993017, 7370436, 0152518013 ####[facility] (DEFAULT)[address] [place] [address] Lymph Abs# 1.1 x10 Low 1.3-2.9 [facility] Comment on above: Performed By: #### 1 091471165, 90977645, 4527202, 4610667, 0079330852, 9395434, 6267684478 ####[facility] (DEFAULT)[address] [place] [address] Lymphocytes/100 WBC (Bld) 13 % Low 14-48 [facility] Comment on above: Performed By: #### 1 998278108, 04067008, 3345488, 2717289, 1189160317, 5708298, 8118857315 ####[facility] (DEFAULT)[address] [place] [address] [place] Abs# 1.6 x10 High 0.0-0.8 [facility] Comment on above: Performed By: #### 1 038238069, 04348386, 7463394, 4847855, 8658762803, 0045290, 4101570339 ####[facility] (DEFAULT)[address] [place] [address] Neut Abs# 5.7 x10 Normal 1.5-9.2 [facility] Comment on above: Performed By: #### 1 205874473, 05941098, 2658813, 0742236, 1400976272, 8996455, 9046481308 ####[facility] (DEFAULT)[address] [place] [address] Neutrophils/100 WBC (Bld) 67 % Normal 44-88 [facility] Comment on above: Performed By: #### 1 730400461, 38482567, 0368213, 8980790, 8087265255, 9669458, 8703050604 ####[facility] (DEFAULT)[address] [place] [address] 88970 BMP Standardon 07-22-2023 Breakpoint Chem Normal [facility] Comment on above: Order Comment: I had called up to Lilibeth Isaac RN and had told her about the water down in main part of [facility] and had let her know that there is no way for me to get to the second floor. Lilibeth understood and said that morning draws can wait til later. 07/22/2023 04:22:53 EDT Performed By: #### 1 [id number], 61652908, 4281235, 0517362, 3910852555, 1097427, 8753981158 ####[facility] (DEFAULT)[address] [place] [address] 87196 eGFR Non AA 33 mL/min/1.73m2 Invalid Interpretation Code [facility] Comment on above: Order Comment: I had called up to Lilibeth Isaac RN and had told her about the water down in [facility] part of [facility] and had let her know that there is no way for me to get to the second floor. Lilibeth understood and said that morning draws can wait til later. 07/22/2023 04:22:53 EDT Performed By: #### 1 750397476, 90263355, 6093798, 6892107, 0562295423, 5025175, 6278361083 ####[facility] (DEFAULT)[address] [place] [address] 21607 eGFR AA 40 mL/min/1.73m2 Invalid Interpretation Code [facility] Comment on above: Order Comment: I had called up to Lilibeth Isaac RN and had told her about the water down in main part of hospital and had let her know that there is no way for me to get to the second floor. Lilibeth understood and said that morning draws can wait til later. 07/22/2023 04:22:53 EDT Performed By: #### 1 [id number], 82438159, 8116087, 3868808, 2925411759, 2965148, 4020921026 ####[facility] (DEFAULT)[address] [place] [address] Anion gap [Moles/Vol] 13.6 mmol/L Normal 5.0-19.0 [facility] Comment on above: Order Comment: I had called up to Lilibeth Isaac RN and had told her about the water down in main part of [facility] and had let her know that there is no way for me to get to the second floor. Lilibeth understood and said that morning draws can wait til later. 07/22/2023 04:22:53 EDT Performed By: #### 1 [id number], 26730836, 8318301, 1257299, 0290178399, 6009482, 0528379599 ####[facility] (DEFAULT)[address] [place] [address] Calcium [Mass/Vol] 8.6 mg/dL Low 8.9-10.3 [facility] Comment on above: Order Comment: I had called up to Lilibeth Isaac RN and had told her about the water down in main part of [facility] and had let her know that there is no way for me to get to the second floor. Lilibeth understood and said that morning draws can wait til later. 07/22/2023 04:22:53 EDT Performed By: #### 1 [id number], 30982669, 6003019, 5718315, 7032423377, 5328513, 0665458487 ####[facility] (DEFAULT)[address] [place] [address] Chloride [Moles/Vol] 99 mmol/L Low 101-111 [facility] Comment on above: Order Comment: I had called up to Lilibeth Isaac RN and had told her about the water down in main part of hospital and had let her know that there is no way for me to get to the second floor. Lilibeth understood and said that morning draws can wait til later. 07/22/2023 04:22:53 EDT Performed By: #### 1 [id number], 36890280, 0292031, 5611425, 8827909297, 6457937, 8170360279 ####[facility] (DEFAULT)[address] [place] [address] 08119 CO2 [Moles/Vol] 30 mmol/L Normal 21-32 [facility] Comment on above: Order Comment: I had called up to Lilibeth Isaac RN and had told her about the water down in main part of [facility] and had let her know that there is no way for me to get to the second floor. Lilibeth understood and said that morning draws can wait til later. 07/22/2023 04:22:53 EDT Performed By: #### 1 [id number], 72567349, 7105606, 7402206, 4967323937, 4632879, 0932199406 ####[facility] (DEFAULT)[address] [place] [address] 24308 Creatinine [Mass/Vol] 1.92 mg/dL High 0.90-1.30 [facility] Comment on above: Order Comment: I had called up to Lilibeth Isaac RN and had told her about the water down in main part of hospital and had let her know that there is no way for me to get to the second floor. Lilibeth understood and said that morning draws can wait til later. 07/22/2023 04:22:53 EDT Performed By: #### 1 582310157, 49786262, 9452715, 7078960, 3024634507, 6773881, 0398566292 ####[facility] (DEFAULT)[address] [place] [address] 90014 Glucose [Mass/Vol] 101.0 mg/dL Normal 74.0-118.0 [facility] Comment on above: Order Comment: I had called up to Lilibteh Isaac RN and had told her about the water down in main part of hospital and had let her know that there is no way for me to get to the second floor. Lilibeth understood and said that morning draws can wait til later. 07/22/2023 04:22:53 EDT Performed By: #### 1 [id number], 70787842, 8751677, 1807998, 9353430510, 4775439, 2235046332 ####[facility] (DEFAULT)[address] [place] [address] Osmolality 286 mOsm/L Invalid Interpretation Code [facility] Comment on above: Order Comment: I had called up to Lilibeth Isaac RN and had told her about the water down in main part of [facility] and had let her know that there is no way for me to get to the second floor. Lilibeth understood and said that morning draws can wait til later. 07/22/2023 04:22:53 EDT Performed By: #### 1 [id number], 85363774, 3498471, 4076192, 4445690559, 6689341, 1418768700 ####[facility] (DEFAULT)[address] [place] [address] Potassium [Moles/Vol] 3.6 mmol/L Normal 3.6-5.1 [facility] Comment on above: Order Comment: I had called up to Lilibeth Isaac RN and had told her about the water down in [facility] part of [facility] and had let her know that there is no way for me to get to the second floor. Lilibeth understood and said that morning draws can wait til later. 07/22/2023 04:22:53 EDT Performed By: #### 1 835004368, 62263295, 1836418, 0701246, 0831232117, 2288935, 9671633452 ####[facility] (DEFAULT)[address] [place] [address] 72746 Sodium [Moles/Vol] 139.0 mmol/L Normal 136.0-144.0 [facility] Comment on above: Order Comment: I had called up to Lilibeth Isaac RN and had told her about the water down in main part of hospital and had let her know that there is no way for me to get to the second floor. Lilibeth understood and said that morning draws can wait til later. 07/22/2023 04:22:53 EDT Performed By: #### 1 346273038, 52788439, 0333920, 9130525, 8799081149, 1747024, 4558428119 ####[facility] (DEFAULT)[address] [place] [address] 90846 Urea nitrogen [Mass/Vol] 37 mg/dL High 07-24 [facility] Comment on above: Order Comment: I had called up to Lilibeth Isaac RN and had told her about the water down in main part of hospital and had let her know that there is no way for me to get to the second floor. Lilibeth understood and said that morning draws can wait til later. 07/22/2023 04:22:53 EDT Performed By: #### 1 [id number], 66454091, 6891346, 8564316, 7087002612, 8934834, 2382526555 ####[facility] (DEFAULT)[address] [place] [address] 33406 Urea nitrogen/Creatinine [Mass ratio] 19.2 mg/mg High 4.6-16.2 [facility] Comment on above: Order Comment: I had called up to Lilibeth Isaac RN and had told her about the water down in main part of hospital and had let her know that there is no way for me to get to the second floor. Lilibeth understood and said that morning draws can wait til later. 07/22/2023 04:22:53 EDT Performed By: #### 1 [id number], 67897663, 6427600, 7024621, 5735179826, 3094083, 4651738483 ####[facility] (DEFAULT)[address] [place] [address] 88632 BNP.on 07-22-2023 Natriuretic peptide B (Bld) [Mass/Vol] 272.0 pg/mL High 0.0-100.0 [facility] Comment on above: Result Comment: BNP results greater than 100 pg/mL are considered abnormal and suggestive of patients with CHF. Higher BNP concentrations measured in the first 72 hours after an acute coronary syndorme are associated with an increased risk of , myocardial infarction, and CHF. Performed By: #### 1 [id number], 06243777, 3269629, 7961838, 1221023477, 9623255, 2268303828 ####[facility] (DEFAULT)[address] [place] [address] C Bloodon 07-22-2023 C Blood Normal [facility] Comment on above: Performed By: #### 6 [id number] ####[facility] (DEFAULT)[address] [place] [address] 68635 CBC w/ Auto Diffon Erythrocyte distribution width (RBC) [Ratio] 15.7 % High 11.5-15.0 [facility] Comment on above: Order Comment: I had called up to Lilibeth Isaac RN and had told her about the water down in [facility] part [facility] and had let her know that there is no way for me to get to the second floor. Lilibeth understood and said that morning draws can wait til later. 07/22/2023 04:22:53 EDT Performed By: #### 1 [id number], 75400136, 9437520, 5409542, 7295392855, 6962616, 2765301223 ####[facility] (DEFAULT)[address] [place] [address] 75291 Hematocrit (Bld) [Volume fraction] 34.2 % Low 34.8-51.9 [facility] Comment on above: Order Comment: I had called up to Lilibeth Isaac RN and had told her about the water down in [facility] part [facility] and had let her know that there is no way for me to get to the second floor. Lilibeth understood and said that morning draws can wait til later. 07/22/2023 04:22:53 EDT Performed By: #### 1 [id number], 18673223, 9334169, 5125336, 1540552218, 8842512, 3643421315 ####[facility] (DEFAULT)[address] [place] [address] Hemoglobin (Bld) [Mass/Vol] 11.7 g/dL Low 11.8-17.7 [facility] Comment on above: Order Comment: I had called up to Lilibeth Isaac RN and had told her about the water down in main part of [facility] and had let her know that there is no way for me to get to the second floor. Lilibeth understood and said that morning draws can wait til later. 07/22/2023 04:22:53 EDT Performed By: #### 1 [id number], 64881915, 8108733, 7254867, 2700692860, 1523951, 8013911089 ####[facility] (DEFAULT)[address] [place] [address] Man Diff? Auto Invalid Interpretation Code [facility] Comment on above: Order Comment: I had called up to Lilibeth Isaac RN and had told her about the water down in main part of hospital and had let her know that there is no way for me to get to the second floor. Lilibeth understood and said that morning draws can wait til later. 07/22/2023 04:22:53 EDT Performed By: #### 1 [id number], 95953532, 9431395, 1321975, 2342663155, 1176174, 2122261153 ####[facility] (DEFAULT)[address] [place] [address] MCH (RBC) [Entitic mass] 35 pg High 24-34 [facility] Comment on above: Order Comment: I had called up to Lilibeth Isaac RN and had told her about the water down in main part of [facility] and had let her know that there is no way for me to get to the second floor. Lilibeth understood and said that morning draws can wait til later. 07/22/2023 04:22:53 EDT Performed By: #### 1 [id number], 61925447, 7282875, 5622755, 2114375880, 8689657, 5199865257 ####[facility] (DEFAULT)[address] [place] [address] 57695 MCHC (RBC) [Mass/Vol] 34 g/dL Normal 26-37 [facility] Comment on above: Order Comment: I had called up to Lilibeth Isaac RN and had told her about the water down in main part of hospital and had let her know that there is no way for me to get to the second floor. Lilibeth understood and said that morning draws can wait til later. 07/22/2023 04:22:53 EDT Performed By: #### 1 [id number], 82662599, 0889734, 2005474, 7426879031, 5938576, 6250835004 ####[facility] (DEFAULT)[address] [place] [address] 36974 MCV (RBC) [Entitic vol] 102 fL High 81-100 [facility] Comment on above: Order Comment: I had called up to Lilibeth Isaac RN and had told her about the water down in main part of [facility] and had let her know that there is no way for me to get to the second floor. Lilibeth understood and said that morning draws can wait til later. 07/22/2023 04:22:53 EDT Performed By: #### 1 008105342, 91549835, 8036261, 5814692, 3607898862, 8191280, 7601410928 ####[facility] (DEFAULT)[address] [place] [address] 81554 Platelet 85 x10 Low 138-427 [facility] Comment on above: Order Comment: I had called up to Lilibeth Isaac RN and had told her about the water down in main part of [facility] and had let her know that there is no way for me to get to the second floor. Lilibeth understood and said that morning draws can wait til later. 07/22/2023 04:22:53 EDT Performed By: #### 1 [id number], 34686002, 0500635, 3931775, 8478983374, 5486082, 8665223496 ####[facility] (DEFAULT)[address] [place] [address] 00233 Platelet mean volume (Bld) [Entitic vol] 9.5 fL Normal 6.3-10.2 [facility] Comment on above: Order Comment: I had called up to Lilibeth Isaac RN and had told her about the water down in main part of hospital and had let her know that there is no way for me to get to the second floor. Lilibeth understood and said that morning draws can wait til later. 07/22/2023 04:22:53 EDT Performed By: #### 1 [id number], 68649545, 2954331, 8498976, 4365295027, 8482914, 3454395942 ####[facility] (DEFAULT)[address] [place] [address] 54675 RBC 3.36 x10 Low 3.70-5.30 [facility] Comment on above: Order Comment: I had called up to Lilibeth Isaac RN and had told her about the water down in main part of hospital and had let her know that there is no way for me to get to the second floor. Lilibeth understood and said that morning draws can wait til later. 07/22/2023 04:22:53 EDT Performed By: #### 1 [id number], 85518842, 5807051, 5599164, 0376704952, 2051875, [id number] ####[facility] (DEFAULT)[address] [place] [address] 04301 WBC 8.5 x10 Normal 3.5-10.5 [facility] Comment on above: Order Comment: I had called up to Lilibeth Isaac RN and had told her about the water down in main part of hospital and had let her know that there is no way for me to get to the second floor. Lilibeth understood and said that morning draws can wait til later. 07/22/2023 04:22:53 EDT Performed By: #### 1 [id number], 31631058, 3365736, 9881723, 3867526549, 3376883, 5379544383 ####[facility] (DEFAULT)[address] [place] [address] 29974 HgbA1c Standardon 07-22-2023 .Hb 12.8 Invalid Interpretation Code [facility] Comment on above: Order Comment: I had called up to Lilibeth Isaac RN and had told her about the water down in main part of hospital and had let her know that there is no way for me to get to the second floor. Lilibeth understood and said that morning draws can wait til later. 07/22/2023 04:22:53 EDT Performed By: #### 1 [id number], 62314211, 4742752, 4594321, 6855043569, 0418121, 5167252696 ####[facility] (DEFAULT)[address] [place] [address] .Hgb A1c 0.62 g/dL Invalid Interpretation Code [facility] Comment on above: Order Comment: I had called up to Lilibeth Isaac RN and had told her about the water down in main part of hospital and had let her know that there is no way for me to get to the second floor. Lilibeth understood and said that morning draws can wait til later. 07/22/2023 04:22:53 EDT Performed By: #### 1 [id number], 42104598, 7757431, 9061843, [id number], [id number], [id number] ####[facility] (DEFAULT)[address] [place] [address] Glucose [Mass/Vol] 140 mg/dL Invalid Interpretation Code [facility] Comment on above: Order Comment: I had called up to Lilibeth Isaac RN and had told her about the water down in main part of hospital and had let her know that there is no way for me to get to the second floor. Lilibeth understood and said that morning draws can wait til later. 07/22/2023 04:22:53 EDT Performed By: #### 1 [id number], 59538349, 2347079, 1925219, [id number], 0520916, [id number] ####[facility] (DEFAULT)[address] [place] [address] 88815 HbA1c (Bld) [Mass fraction] 6.5 % High 4.6-6.2 [facility] Comment on above: Order Comment: I had called up to Lilibeth Isaac RN and had told her about the water down in main part of hospital and had let her know that there is no way for me to get to the second floor. Lilibeth understood and said that morning draws can wait til later. 07/22/2023 04:22:53 EDT Performed By: #### 1 [id number], 40484280, 0351351, 7408395, [id number], 1696162, [id number] ####[facility] (DEFAULT)[address] [place] [address] 72502 Magnesiumon 07-22-2023 Magnesium [Mass/Vol] 1.80 mg/dL Normal 1.80-2.50 [facility] Comment on above: Order Comment: I had called up to Lilibeth Isaac RN and had told her about the water down in [facility] and had let her know that there is no way for me to get to the second floor. Lilibeth understood and said that morning draws can wait til later. 07/22/2023 04:22:53 EDT Performed By: #### 1 [id number], 35506960, 8168414, 0234613, [id number], 4331412, [id number] ####[facility] (DEFAULT)[address] [place] [address] 58869 POCT Glucose Levelon 023 Glucose, POC See Comment Invalid Interpretation Code [address] [place] [address] Comment on above: Result Comment: Erro r per Muriel Alonso Performed By: #### 4 [id number] ####[facility] (DEFAULT)[address] [place] [address] 47003 Glucose, POC See comment Invalid Interpretation Code [address] [place] [address] Comment on above: Result Comment: Erro r per Muriel Alonso Performed By: #### 4 [id number] ####[facility] (DEFAULT)[address] [place] [address] 98699 Glucose [Mass/Vol] 143 mg/dL High [address] [place] [address] Comment on above: Performed By: #### 4 [id number] ####[facility] (DEFAULT)[address] [place] [address] Glucose [Mass/Vol] 99 mg/dL Normal 74-118 [facility] Comment on above: Performed By: #### 4 [id number] ####[facility] (DEFAULT)[address] [place] [address] 40425 Glucose [Mass/Vol] 129 mg/dL High 74-118 [facility] Comment on above: Performed By: #### 4 [id number] ####[facility] (DEFAULT)[address] [place] [address] 50138 Glucose [Mass/Vol] 95 mg/dL Normal 74-118 [facility] Comment on above: Performed By: #### 4 [id number] ####[facility] (DEFAULT)[address] [place] [address] Pharmacy Noteon 07-22-2023 Pharmacy Note Normal [facility] Sed Rateon 07-22-2023 Sed Rate 46 mm/hr High 0-15 [facility] Comment on above: Order Comment: I had called up to Lilibeth Isaac RN and had told her about the water down in main part of hospital and had let her know that there is no way for me to get to the second floor. Lilibeth understood and said that morning draws can wait til later. 07/22/2023 04:22:53 EDT Performed By: #### 1 [id number], 63537926, 5826885, 4334664, 4302840543, 6883533, [id number] ####[facility] (DEFAULT)[address] [place], [place] [address] Telemetry Stripson Telemetry Strips [id number]#1.00OTGTIFF Normal [facility] .Auto Diff 1on 07-21-2023 Auto [place] % 16 % High 1-12 [facility] Comment on above: Performed By: #### 1 [id number], 8368158, 4173444, 37065397 ####[facility] (DEFAULT)[address] [place] [address] 61289 Baso Abs# 0.0 x10 Normal 0.0-0.2 [facility] Comment on above: Performed By: #### 1 104352588, 4182670, 9626986, 37523290 ####[facility] (DEFAULT)[address] [place] [address] 17286 Basophils/100 WBC (Bld) 0.3 % Normal 0.2-2.0 [facility] Comment on above: Performed By: #### 1 [id number], 4287968, 2340042, 81068696 ####[facility] (DEFAULT)[address] [place] [address] 01388 Eos Abs# 0.1 x10 Normal 0.0-0.4 [facility] Comment on above: Performed By: #### 1 371894745, 6608723, 0704857, 84883209 ####[facility] (DEFAULT)[address] [place] [address] 13625 Eosinophils/100 WBC (Bld) 1.0 % Normal 0.9-4.0 [facility] Comment on above: Performed By: #### 1 [id number], 6782925, 7076882, 41378229 ####[facility] (DEFAULT)[address] [place] [address] 60829 Lymph Abs# 0.8 x10 Low 1.3-2.9 [facility] Comment on above: Performed By: #### 1 [id number], 5028454, 3164735, 43054973 ####[facility] (DEFAULT)[address] [place] [address] 88644 Lymphocytes/100 WBC (Bld) 12 % Low 14-48 [facility] Comment on above: Performed By: #### 1 [id number], 1084081, 6049396, 36303745 ####[facility] (DEFAULT)[address] [place] [address] 87857 [place] Abs# 1.1 x10 High 0.0-0.8 [facility] Comment on above: Performed By: #### 1 866342433, 6848260, 6231849, 04115779 ####[facility] (DEFAULT)[address] [place] [address] 88493 Neut Abs# 4.8 x10 Normal 1.5-9.2 [facility] Comment on above: Performed By: #### 1 [id number], 4915114, 7600663, 67412282 ####[facility] (DEFAULT)[address] [place] [address] Neutrophils/100 WBC (Bld) 71 % Normal 44-88 [facility] Comment on above: Performed By: #### 1 [id number], 4143867, 0842811, 79747386 ####[facility] (DEFAULT)[address] [place] [address] Bili Directon 07-21-2023 Bili Direct 0.40 mg/dL Normal 0.10-0.50 [facility] Comment on above: Performed By: #### 2 [id number] ####[facility] (DEFAULT)[address] [place] [address] CBC w/ Auto Diffon Erythrocyte distribution width (RBC) [Ratio] 15.8 % High 11.5-15.0 [facility] Comment on above: Performed By: #### 1 [id number], 1891360, 8505372, 12792436 ####[facility] (DEFAULT)[address] [place] [address] Hematocrit (Bld) [Volume fraction] 33.6 % Low 34.8-51.9 [facility] Comment on above: Performed By: #### 1 594287545, 4599110, 9485718, 80519814 ####[facility] (DEFAULT)[address] [place] [address] Hemoglobin (Bld) [Mass/Vol] 11.4 g/dL Low 11.8-17.7 [facility] Comment on above: Performed By: #### 1 [id number], 1107888, 5188861, 44037388 ####[facility] (DEFAULT)[address] [place] [address] Man Diff? Auto Invalid Interpretation Code [facility] Comment on above: Performed By: #### 1 [id number], 7597474, 6210261, 81298231 ####[facility] (DEFAULT)[address] [place] [address] MCH (RBC) [Entitic mass] 35 pg High 24-34 [facility] Comment on above: Performed By: #### 1 [id number], 9815323, 3724690, 54018547 ####[facility] (DEFAULT)[address] [place] [address] MCHC (RBC) [Mass/Vol] 34 g/dL Normal 26-37 [facility] Comment on above: Performed By: #### 1 722342879, 8940144, 2757209, 08580278 ####[facility] (DEFAULT)[address] [place] [address] MCV (RBC) [Entitic vol] 103 fL High 81-100 [facility] Comment on above: Performed By: #### 1 [id number], 0226103, 3442804, 20945937 ####[facility] (DEFAULT)[address] [place] [address] Platelet 87 x10 Low 138-427 [facility] Comment on above: Performed By: #### 1 047331753, 9471989, 9044999, 80754519 ####[facility] (DEFAULT)[address] [place] [address] Platelet mean volume (Bld) [Entitic vol] 9.1 fL Normal 6.3-10.2 [facility] Comment on above: Performed By: #### 1 360793825, 7554615, 4357078, 80620287 ####[facility] (DEFAULT)[address] [place] [address] RBC 3.26 x10 Low 3.70-5.30 [facility] Comment on above: Performed By: #### 1 [id number], 8403036, 6381825, 59105289 ####[facility] (DEFAULT)[address] [place] [address] WBC 6.7 x10 Normal 3.5-10.5 [facility] Comment on above: Performed By: #### 1 339243336, 7705719, 9070956, 49504265 ####[facility] (DEFAULT)[address] [place] [address] CMP Standardon 07-21-2023 eGFR Non AA 35 mL/min/1.73m2 Invalid Interpretation Code [facility] Comment on above: Performed By: #### 1 [id number], 0722235, 1212174, 53583030 ####[facility] (DEFAULT)[address] [place] [address] 46701 eGFR AA 42 mL/min/1.73m2 Invalid Interpretation Code [facility] Comment on above: Performed By: #### 1 [id number], 1359021, 1937806, 16945095 ####[facility] (DEFAULT)[address] [place] [address] Albumin [Mass/Vol] 3.5 g/dL Normal 3.5-5.0 [facility] Comment on above: Performed By: #### 1 955104873, 7697655, 2725830, 98053753 ####[facility] (DEFAULT)[address] [place] [address] Albumin/Globulin [Mass ratio] 1.1 {ratio} Low 1.4-2.6 [facility] Comment on above: Performed By: #### 1 974276580, 0219180, 4158531, 98336995 ####[facility] (DEFAULT)[address] [place] [address] 50949 Alk Phos 103 IU/L High 32-91 [facility] Comment on above: Performed By: #### 1 033337615, 1420615, 3465820, 99758710 ####[facility] (DEFAULT)[address] [place] [address] 94328 ALT [Catalytic activity/Vol] 29.0 U/L Normal 17.0-63.0 [facility] Comment on above: Performed By: #### 1 034996106, 8062792, 4135875, 76372760 ####[facility] (DEFAULT)[address] [place] [address] 49346 Anion gap [Moles/Vol] 9.6 mmol/L Normal 5.0-19.0 [facility] Comment on above: Performed By: #### 1 903614281, 6478747, 3129485, 72438178 ####[facility] (DEFAULT)[address] [place] [address] 59032 AST [Catalytic activity/Vol] 24 U/L Normal 15-41 [facility] Comment on above: Performed By: #### 1 194630224, 3017614, 3642309, 17428307 ####[facility] (DEFAULT)[address] [place] [address] 41619 Bili Total 2.0 mg/dL High 0.3-1.2 [facility] Comment on above: Performed By: #### 1 326942030, 3121195, 7332863, 37464678 ####[facility] (DEFAULT)[address] [place] [address] 41063 Calcium [Mass/Vol] 8.5 mg/dL Low 8.9-10.3 [facility] Comment on above: Performed By: #### 1 526076967, 0598938, 9331424, 72882997 ####[facility] (DEFAULT)[address] [place] [address] 03428 Chloride [Moles/Vol] 104 mmol/L Normal 101-111 [facility] Comment on above: Performed By: #### 1 668975362, 7619608, 8027631, 82161943 ####[facility] (DEFAULT)[address] [place] [address] 15355 CO2 [Moles/Vol] 28 mmol/L Normal 21-32 [facility] Comment on above: Performed By: #### 1 457202156, 9385766, 9469410, 25051441 ####[facility] (DEFAULT)[address] [place] [address] 74926 Creatinine [Mass/Vol] 1.84 mg/dL High 0.90-1.30 [facility] Comment on above: Performed By: #### 1 835482780, 3559442, 9474286, 64863397 ####[facility] (DEFAULT)[address] [place] [address] 22619 Globulin (S) [Mass/Vol] 3.0 g/dL Normal 1.5-4.3 [facility] Comment on above: Performed By: #### 1 434917873, 3381501, 0961293, 41968172 ####[facility] (DEFAULT)[address] [place] [address] 27297 Glucose [Mass/Vol] 107.0 mg/dL Normal 74.0-118.0 [facility] Comment on above: Performed By: #### 1 390688473, 5584481, 7758132, 27003020 ####[facility] (DEFAULT)[address] [place] [address] 86092 Osmolality 284 mOsm/L Invalid Interpretation Code [facility] Comment on above: Performed By: #### 1 [id number], 7728904, 9389925, 15083976 ####[facility] (DEFAULT)[address] [place] [address] 21264 Potassium [Moles/Vol] 3.6 mmol/L Normal 3.6-5.1 [facility] Comment on above: Performed By: #### 1 693208265, 1865938, 2929700, 37415565 ####[facility] (DEFAULT)[address] [place] [address] 71131 Protein [Mass/Vol] 6.5 g/dL Normal 6.5-8.1 [facility] Comment on above: Performed By: #### 1 544492316, 4772831, 5270236, 70508259 ####[facility] (DEFAULT)[address] [place] [address] 19823 Sodium [Moles/Vol] 138.0 mmol/L Normal 136.0-144.0 [facility] Comment on above: Performed By: #### 1 349604712, 7555662, 7538520, 99729623 ####[facility] (DEFAULT)[address] [place] [address] 85616 Urea nitrogen [Mass/Vol] 35 mg/dL High 8-26 [facility] Comment on above: Performed By: #### 1 002279566, 5535555, 6197605, 91778617 ####[facility] (DEFAULT)[address] [place] [address] 82099 Urea nitrogen/Creatinine [Mass ratio] 19.0 mg/mg High 4.6-16.2 [facility] Comment on above: Performed By: #### 1 753615557, 9429858, 3767110, 02539722 ####[facility] (DEFAULT)[address] [place] [address] 17370 Consent Formson 07-21-2023 Consent Forms [id number] [id number]#[facility] Controlled Substances Agreem entson 07-21-2023 Controlled Substances Agreements [id number]#[facility] Magnesiumon 07-21-2023 Magnesium [Mass/Vol] 1.79 mg/dL Low 1.80-2.50 [facility] Comment on above: Performed By: #### 1 [id number], 7442134, 0585010, 39993269 ####[facility] (DEFAULT)[address] [place] [address] 13042 Outside Recordson 07-21-2023 Outside Records Normal [facility] POCT Glucose Levelon 023 Glucose [Mass/Vol] 124 mg/dL High 74-118 [facility] Comment on above: Performed By: #### 4 [id number] ####[facility] (DEFAULT)[address] [place] [address] 26341 Glucose [Mass/Vol] 110 mg/dL Normal 74-118 [facility] Comment on above: Performed By: #### 4 [id number] ####[facility] (DEFAULT)[address] [place] [address] 86858 Glucose [Mass/Vol] 124 mg/dL High 74-118 [facility] Comment on above: Performed By: #### 4 [id number] ####[facility] (DEFAULT)[address] [place] [address] 13719 Glucose [Mass/Vol] 98 mg/dL Normal 74-118 [facility] Comment on above: Performed By: #### 4 [id number] ####[facility] (DEFAULT)[address] [place] [address] 74284 PTTon 07-21-2023 PTT 41 second(s) High 25-35 [facility] Comment on above: Performed By: #### 2 491750, [id number] ####[facility] (DEFAULT)[address] [place] [address] 19773 Pharmacy Noteon 07-21-2023 Pharmacy Note Normal [facility] Progress Note - Nurseon 06-30 Progress Note - Nurse Normal [facility] Progress Note - Nurse Normal [facility] Progress Note - Nurse Normal [facility] Progress Note - Nurse Normal [facility] Progress Note - Provideron 0 07-21-2023 Progress Note - Provider [id number]#1.00OTGTIFF [facility] Provider Orderson 07-21-2023 Provider Orders [id number]#1.00OTGTIFF [facility] Telemetry Stripson Telemetry Strips [id number]#1.00OTGTIFF [facility] TnI HSon 07-21-2023 Troponin I High Sensitivity 455.8 pg/mL Critically abnormal <=20.0 [facility] Comment on above: Result Comment: Crit ical result TNIHS 455.8 pg/mL called to and read back by Juliette Mayers at 21-Jul-2023 13:50 by Manpreet. Performed By: #### 5 [id number] ####[facility] (DEFAULT)[address] [place] [address] 70729 Troponin I High Sensitivity 491.5 pg/mL Critically abnormal <=20.0 [facility] Comment on above: Result Comment: Crit ical result TNIHS 491.5 pg/mL called to and read back by juliette myers rn on 2S at 21-Jul-2023 07:40 by Brittani. Performed By: #### 2 [id number], [id number] ####[facility] (DEFAULT)[address] [place] [address] 93655 Troponin I High Sensitivity 487.1 pg/mL Critically abnormal <=20.0 [facility] Comment on above: Result Comment: Crit ical result TNIHS 487.1 pg/mL called to and read back by rene durbin at 21-Jul-2023 00:33 by harjeet. Performed By: #### 5 [id number] ####[facility] (DEFAULT)[address] [place], [place] [address] US LE Venous Duplex Bilatera shahriar 07-21-2023 US LE Venous Duplex Bilateral Normal [facility] .Auto Diff 1on 07-20-2023 Auto [place] % 15 % High -12 [facility] Comment on above: Performed By: #### 1 3031552, 7932234, 6583526, 5333133 ####[facility] (DEFAULT)[address] [place] [address] Baso Abs# 0.0 x10 Normal 0.0-0.2 [facility] Comment on above: Performed By: #### 1 1055883, 0837442, 1299970, 8115843 ####[facility] (DEFAULT)[address] [place] [address] 49643 Basophils/100 WBC (Bld) 0.3 % Normal 0.2-2.0 [facility] Comment on above: Performed By: #### 1 1676076, 9334682, 5171389, 4245180 ####[facility] (DEFAULT)[address] [place] [address] 79988 Eos Abs# 0.1 x10 Normal 0.0-0.4 [facility] Comment on above: Performed By: #### 1 6065012, 3070019, 6411099, 1999151 ####[facility] (DEFAULT)[address] [place] [address] 20794 Eosinophils/100 WBC (Bld) 1.3 % Normal 0.9-4.0 [facility] Comment on above: Performed By: #### 1 5637707, 4769900, 0004228, 7086015 ####[facility] (DEFAULT)[address] [place] [address] Lymph Abs# 0.8 x10 Low 1.3-2.9 [facility] Comment on above: Performed By: #### 1 7719546, 4323167, 7502550, 6426850 ####[facility] (DEFAULT)[address] [place] [address] 71557 Lymphocytes/100 WBC (Bld) 12 % Low 14-48 [facility] Comment on above: Performed By: #### 1 7645359, 1535024, 7209136, 0838013 ####[facility] (DEFAULT)[address] [place] [address] [place] Abs# 1.0 x10 High 0.0-0.8 [facility] Comment on above: Performed By: #### 1 6423409, 0393517, 9274386, 8232617 ####[facility] (DEFAULT)[address] [place] [address] Neut Abs# 4.7 x10 Normal 1.5-9.2 [facility] Comment on above: Performed By: #### 1 5900117, 6960234, 2213395, 3574023 ####[facility] (DEFAULT)[address] [place] [address] 91287 Neutrophils/100 WBC (Bld) 72 % Normal 44-88 [facility] Comment on above: Performed By: #### 1 8490557, 7958064, 9859649, 8260608 ####[facility] (DEFAULT)[address] [place] [address] 14579 Auto [place] % 10 % Normal 1-12 [facility] Comment on above: Performed By: #### 5 022110522, 3603705, 9804647398, 6492815663, 8471250533, 39585893, 3780858, 5534523 ####[facility] (DEFAULT)[address] [place] [address] 02395 Baso Abs# 0.0 x10 Normal 0.0-0.2 [facility] Comment on above: Performed By: #### 5 636045193, 3965433, 2318203438, 2697131011, 7745874963, 52002364, 8073319, 1740324 ####[facility] (DEFAULT)[address] [place] [address] 81980 Basophils/100 WBC (Bld) 0.5 % Normal 0.2-2.0 [facility] Comment on above: Performed By: #### 5 767117174, 1780727, 9037232576, 3207041997, 9136964817, 91945902, 1352989, 8479099 ####[facility] (DEFAULT)[address] [place] [address] 00869 Eos Abs# 0.1 x10 Normal 0.0-0.4 [facility] Comment on above: Performed By: #### 5 748002193, 9129023, 6086892943, 0348769395, 5570736888, 38982563, 9880467, 5156718 ####[facility] (DEFAULT)[address] [place] [address] 95288 Eosinophils/100 WBC (Bld) 1.8 % Normal 0.9-4.0 [facility] Comment on above: Performed By: #### 5 [id number], 5848853, 7335283845, 3191665208, 8983725957, 99816265, 1236389, 6976160 ####[facility] (DEFAULT)[address] [place] [address] 74778 Lymph Abs# 0.7 x10 Low 1.3-2.9 [facility] Comment on above: Performed By: #### 5 996837846, 2507992, 9687317742, 1132091691, 0876821886, 00037698, 9263267, 5087849 ####[facility] (DEFAULT)[address] [place] [address] 52594 Lymphocytes/100 WBC (Bld) 9 % Low 14-48 [facility] Comment on above: Performed By: #### 5 544370340, 6249867, 1771834038, 3810889930, 2645205829, 13530794, 3050296, 5350699 ####[facility] (DEFAULT)[address] [place] [address] 29438 [place] Abs# 0.8 x10 Normal 0.0-0.8 [facility] Comment on above: Performed By: #### 5 804805828, 1496871, 4368474383, 5892785843, 0232314231, 36699079, 6699042, 7173113 ####[facility] (DEFAULT)[address] [place] [address] 08231 Neut Abs# 6.0 x10 Normal 1.5-9.2 [facility] Comment on above: Performed By: #### 5 471491391, 2151167, 6978722367, 1188928256, 1595244021, 52303463, 3517529, 8456069 ####[facility] (DEFAULT)[address] [place] [address] Neutrophils/100 WBC (Bld) 78 % Normal 44-88 [facility] Comment on above: Performed By: #### 5 461406494, 8613680, 7817505686, 4571232052, 8918675618, 89630883, 4754207, 5912107 ####[facility] (DEFAULT)[address] [place] [address] .QC SARS-CoV-2 (COVID-19)/Fl u/RSV (GeneXpert)on 07-20-2023 Internal Control Pass Normal [facility] Comment on above: Order Comment: Order ed by Discern.[[id number]] Performed By: #### 7 [id number], [id number] ####[facility] (DEFAULT)[address] [place] [address] BNP.on 07-20-2023 Natriuretic peptide B (Bld) [Mass/Vol] 119.0 pg/mL High 0.0-100.0 [facility] Comment on above: Result Comment: BNP results greater than 100 pg/mL are considered abnormal and suggestive of patients with CHF. Higher BNP concentrations measured in the first 72 hours after an acute coronary syndorme are associated with an increased risk of , myocardial infarction, and CHF. Performed By: #### 5 [id number], [id number], [id number], [id number], [id number] ####[facility] (DEFAULT)[address] [place] [address] CBC w/ Auto Diffon Erythrocyte distribution width (RBC) [Ratio] 15.8 % High 11.5-15.0 [facility] Comment on above: Performed By: #### 1 [id number], [id number] ####[facility] (DEFAULT)[address] [place] [address] Hematocrit (Bld) [Volume fraction] 32.9 % Low 34.8-51.9 [facility] Comment on above: Performed By: #### 1 [id number], [id number] ####[facility] (DEFAULT)[address] [place] [address] Hemoglobin (Bld) [Mass/Vol] 11.1 g/dL Low 11.8-17.7 [facility] Comment on above: Performed By: #### 1 [id number], [id number], [id number] ####[facility] (DEFAULT)[address] [place] [address] Man Diff? Auto Invalid Interpretation Code [facility] Comment on above: Performed By: #### 1 [id number], 9614705, 3327720, 5549798 ####[facility] (DEFAULT)[address] [place] [address] MCH (RBC) [Entitic mass] 35 pg High 24-34 [facility] Comment on above: Performed By: #### 1 0996822, 3261869, 3140635, 8597650 ####[facility] (DEFAULT)[address] [place] [address] MCHC (RBC) [Mass/Vol] 34 g/dL Normal 26-37 [facility] Comment on above: Performed By: #### 1 2774547, 1094743, 2068826, 8296190 ####[facility] (DEFAULT)[address] [place] [address] MCV (RBC) [Entitic vol] 103 fL High 81-100 [facility] Comment on above: Performed By: #### 1 5778212, 8762911, 2845935, 2428666 ####[facility] (DEFAULT)[address] [place] [address] 53246 Platelet 89 x10 Low 138-427 [facility] Comment on above: Performed By: #### 1 4658763, 9952972, 2021809, 5811107 ####[facility] (DEFAULT)[address] [place] [address] Platelet mean volume (Bld) [Entitic vol] 10.1 fL Normal 6.3-10.2 [facility] Comment on above: Performed By: #### 1 7030950, 8189473, 5601315, 0602621 ####[facility] (DEFAULT)[address] [place] [address] RBC 3.19 x10 Low 3.70-5.30 [facility] Comment on above: Performed By: #### 1 5347213, 9430536, 6442752, 6572888 ####[facility] (DEFAULT)[address] [place] [address] WBC 6.6 x10 Normal 3.5-10.5 [facility] Comment on above: Performed By: #### 1 6677225, 6334454, 7417531, 6198829 ####[facility] (DEFAULT)[address] [place] [address] Erythrocyte distribution width (RBC) [Ratio] 15.8 % High 11.5-15.0 [facility] Comment on above: Performed By: #### 5 575847071, 2952264, 7294990040, 3223519048, 3948885659, 47421379, 4415497, 5429344 ####[facility] (DEFAULT)[address] [place] [address] Hematocrit (Bld) [Volume fraction] 34.0 % Low 34.8-51.9 [facility] Comment on above: Performed By: #### 5 272503624, 2704998, 9111569592, 7980102765, 4725219767, 88057498, 7995563, 3352966 ####[facility] (DEFAULT)[address] [place] [address] Hemoglobin (Bld) [Mass/Vol] 11.6 g/dL Low 11.8-17.7 [facility] Comment on above: Performed By: #### 5 951355856, 1451641, 3920265523, 5580565884, 8316846291, 55975188, 2187038, 3565103 ####[facility] (DEFAULT)[address] [place] [address] Man Diff? Auto Invalid Interpretation Code [facility] Comment on above: Performed By: #### 5 337071061, 1292942, 6501153689, 7396236282, 8946028707, 83614992, 2535822, 5912888 ####[facility] (DEFAULT)[address] [place] [address] MCH (RBC) [Entitic mass] 35 pg High 24-34 [facility] Comment on above: Performed By: #### 5 078498771, 6216053, 2742653645, 8947520019, 1386357911, 47849380, 5005046, 5053707 ####[facility] (DEFAULT)[address] [place] [address] MCHC (RBC) [Mass/Vol] 34 g/dL Normal 26-37 [facility] Comment on above: Performed By: #### 5 256415058, 5801802, 4225593624, 1055952453, 2868350550, 65638622, 7327238, 5767874 ####[facility] (DEFAULT)[address] [place] [address] MCV (RBC) [Entitic vol] 103 fL High 81-100 [facility] Comment on above: Performed By: #### 5 196857878, 8551434, 6767240350, 5208981291, 4048149951, 24805263, 0123815, 9977807 ####[facility] (DEFAULT)[address] [place] [address] Platelet 96 x10 Low 138-427 [facility] Comment on above: Performed By: #### 5 096446772, 2163809, 6511707482, 9355244396, 6178324041, 24754033, 7817494, 1364435 ####[facility] (DEFAULT)[address] [place] [address] Platelet mean volume (Bld) [Entitic vol] 9.4 fL Normal 6.3-10.2 [facility] Comment on above: Performed By: #### 5 665232590, 1042493, 4262172382, 5634200720, 4226617396, 42705726, 9153474, 1791401 ####[facility] (DEFAULT)[address] [place] [address] RBC 3.29 x10 Low 3.70-5.30 [facility] Comment on above: Performed By: #### 5 056567944, 1063621, 2584698795, 7510647279, 4567211350, 35564724, 5663682, 0012265 ####[facility] (DEFAULT)[address] [place] [address] WBC 7.7 x10 Normal 3.5-10.5 [facility] Comment on above: Performed By: #### 5 719875205, 2062525, 8230093446, 2444852960, 8324992133, 65851373, 0904431, 7247650 ####[facility] (DEFAULT)[address] [place] [address] CMP Standardon 07-20-2023 Breakpoint Chem Normal [facility] Comment on above: Performed By: #### 5 883065270, 2246293, 3351208536, 5050231729, 1133073312, 20845703, 4733717, 9010510 ####[facility] (DEFAULT)[address] [place] [address] eGFR Non AA 32 mL/min/1.73m2 Invalid Interpretation Code [facility] Comment on above: Performed By: #### 5 041112197, 9036385, 2429372447, 7043369422, 8501800770, 13051116, 1780643, 7293077 ####[facility] (DEFAULT)[address] [place] [address] 69117 eGFR AA 39 mL/min/1.73m2 Invalid Interpretation Code [facility] Comment on above: Performed By: #### 5 445995085, 4561960, 7440709811, 9779500419, 0714440442, 55312369, 5023249, 2364887 ####[facility] (DEFAULT)[address] [place] [address] 65870 Albumin [Mass/Vol] 3.7 g/dL Normal 3.5-5.0 [facility] Comment on above: Performed By: #### 5 546553183, 0462518, 2852104600, 3830872566, 3290261012, 32371430, 6664731, 1561400 ####[facility] (DEFAULT)[address] [place] [address] 50953 Alk Phos 119 IU/L High 32-91 [facility] Comment on above: Performed By: #### 5 541049788, 4563135, 0622178371, 0161629827, 3981267643, 39612454, 9227517, 9047120 ####[facility] (DEFAULT)[address] [place] [address] 39016 ALT [Catalytic activity/Vol] 33.0 U/L Normal 17.0-63.0 [facility] Comment on above: Performed By: #### 5 464104975, 7205482, 9483415874, 8897497481, 2569492769, 38014438, 8166644, 7628496 ####[facility] (DEFAULT)[address] [place] [address] 69017 AST [Catalytic activity/Vol] 24 U/L Normal 15-41 [facility] Comment on above: Performed By: #### 5 839773853, 7591370, 5012352379, 8577459265, 1094839097, 35183741, 5524442, 2968408 ####[facility] (DEFAULT)[address] [place] [address] 12345 Bili Total 1.2 mg/dL Normal 0.3-1.2 [facility] Comment on above: Performed By: #### 5 625616332, 3719839, 4166204752, 6355692798, 2993603235, 89393227, 6078668, 9510318 ####[facility] (DEFAULT)[address] [place] [address] 02329 Calcium [Mass/Vol] 9.2 mg/dL Normal 8.9-10.3 [facility] Comment on above: Performed By: #### 5 589111742, 3066881, 3331198094, 8487253275, 5361057765, 88850599, 6477396, 0199086 ####[facility] (DEFAULT)[address] [place] [address] 40728 Chloride [Moles/Vol] 109 mmol/L Normal 101-111 [facility] Comment on above: Performed By: #### 5 984475367, 5995124, 6425938624, 1560022118, 4833104328, 77384166, 7365880, 1839900 ####[facility] (DEFAULT)[address] [place] [address] 54677 CO2 [Moles/Vol] 24 mmol/L Normal 21-32 [facility] Comment on above: Performed By: #### 5 200535390, 3387946, 3875682542, 8601943373, 5806764331, 03329054, 2902026, 2876363 ####[facility] (DEFAULT)[address] [place] [address] 13338 Creatinine [Mass/Vol] 1.97 mg/dL High 0.90-1.30 [facility] Comment on above: Performed By: #### 5 129749659, 8089426, 3488669467, 6795057820, 4468577285, 14654120, 4334649, 8052043 ####[facility] (DEFAULT)[address] [place] [address] 90873 Glucose [Mass/Vol] 157.0 mg/dL High 74.0-118.0 [facility] Comment on above: Performed By: #### 5 944403140, 2429336, 2598022618, 6584699535, 3375594422, 69606376, 6103546, 4764867 ####[facility] (DEFAULT)[address] [place] [address] 97487 Potassium [Moles/Vol] 4.2 mmol/L Normal 3.6-5.1 [facility] Comment on above: Performed By: #### 5 640037324, 4469326, 3564347809, 8767457045, 5693276398, 12090411, 1220796, 8908619 ####[facility] (DEFAULT)[address] [place] [address] 65222 Protein [Mass/Vol] 6.8 g/dL Normal 6.5-8.1 [facility] Comment on above: Performed By: #### 5 141566815, 5428217, 9937083941, 1939133727, 9826797035, 81888736, 9382183, 8121242 ####[facility] (DEFAULT)[address] [place] [address] 25832 Sodium [Moles/Vol] 141.0 mmol/L Normal 136.0-144.0 [facility] Comment on above: Performed By: #### 5 829772544, 5346581, 0214599037, 8551225277, 3902397857, 10009407, 1705236, 7842076 ####[facility] (DEFAULT)[address] [place] [address] 97779 Urea nitrogen [Mass/Vol] 45 mg/dL High 8-26 [facility] Comment on above: Performed By: #### 5 895773956, 0276342, 4597658524, 9481440492, 8390413325, 48930078, 0993751, 7810761 ####[facility] (DEFAULT)[address] [place] [address] 57703 Albumin/Globulin [Mass ratio] 1.1 {ratio} Low 1.4-2.6 [facility] Comment on above: Performed By: #### 5 159889970, 2345827, 7299802530, 9649246474, 2941804933, 09031359, 7815940, 7733165 ####[facility] (DEFAULT)[address] [place] [address] 62194 Anion gap [Moles/Vol] 12.2 mmol/L Normal 5.0-19.0 [facility] Comment on above: Performed By: #### 5 737494442, 5938525, 8161227159, 5297002714, 7402132540, 62190331, 3030871, 3834103 ####[facility] (DEFAULT)[address] [place] [address] 02135 Globulin (S) [Mass/Vol] 3.1 g/dL Normal 1.5-4.3 [facility] Comment on above: Performed By: #### 5 735573150, 4321538, 2398233418, 3737597972, 7254315515, 03203345, 8693751, 4299753 ####[facility] (DEFAULT)[address] [place] [address] 60997 Osmolality 296 mOsm/L Invalid Interpretation Code [facility] Comment on above: Performed By: #### 5 646654243, 5749045, 1541969265, 8637855691, 4622186911, 22158769, 1434481, 1240337 ####[facility] (DEFAULT)[address] [place] [address] 38723 Urea nitrogen/Creatinine [Mass ratio] 22.8 mg/mg High 4.6-16.2 [facility] Comment on above: Performed By: #### 5 389214638, 6780491, 6292080217, 3149033182, 9102979828, 91399554, 8047565, 2016615 ####[facility] (DEFAULT)[address] [place] [address] 25701 COVID/Flu/RSV (GeneXpert)on 07-20-2023 Flu A (GXpert COVFLURSV) Negative Normal Negative [facility] Comment on above: Performed By: #### 7 894957811, 1552573030 ####[facility] (DEFAULT)[address] [place] [address] 71617 Flu B (GXpert COVFLURSV) Negative Normal Negative [facility] Comment on above: Performed By: #### 7 005224208, 3491044466 ####[facility] (DEFAULT)[address] [place] [address] 29272 RSV (GXpert COVFLURSV) Negative Normal Negative [facility] Comment on above: Performed By: #### 7 026170491, 4921560364 ####[facility] (DEFAULT)[address] [place] [address] 27466 SARS-CoV-2 (COVID-19) RNA SERJIO+probe Ql (Unsp spec) Positive Critically abnormal Negative [facility] Comment on above: Result Comment: Resu lts Called To ED JOLANTA WEAVER By CARLO And Read Back For Confirmation On 07/20/2023 06:18:11 EDT.Performed by PCR methodology. Performed By: #### 7 [id number], 1497729294 ####[facility] (DEFAULT)[address] [place] [address] 22414 ED Clinical Summaryon 2022 ED Clinical Summary Normal [facility] ED Clinical Summary Normal [facility] ED Patient Education Noteon 07-20-2023 ED Patient Education Note Normal [facility] ED Patient Education Note Normal [facility] ED Patient Summaryon 023 ED Patient Summary Normal [facility] ED Patient Summary Normal [facility] Lactic Acidon 07-20-2023 Lactic Acid 7.6 mg/dL Normal 4.5-19.8 [facility] Comment on above: Performed By: #### 2 [id number] ####[facility] (DEFAULT)[address] [place] [address] 54970 Magnesiumon 07-20-2023 Magnesium [Mass/Vol] 1.99 mg/dL Normal 1.80-2.50 [facility] Comment on above: Performed By: #### 5 813587518, 3983977, 9856559604, 5775152745, 4356581451, 02756175, 2565251, 4280120 ####[facility] (DEFAULT)[address] [place] [address] 10894 Mycoplasma pneumoniae IgMon 07-20-2023 Internal Control Pass Normal [facility] Comment on above: Performed By: #### 5 691838687, 2723591, 2853450351, 2222429600, 1700609876, 73168856, 5715132, 8355719 ####[facility] (DEFAULT)[address] [place] [address] Mycoplasma IgM Negative Normal Negative [facility] Comment on above: Performed By: #### 5 772224277, 2486675, 7911370428, 9232372685, 6683251067, 35148189, 7920951, 1401447 ####[facility] (DEFAULT)[address] [place] [address] 81336 Nutrition Noteon 07-20-2023 Nutrition Note Normal [facility] POCT Glucose Levelon 023 Glucose [Mass/Vol] 124 mg/dL High [address] [place] [address] Comment on above: Performed By: #### 4 [id number] ####[facility] (DEFAULT)[address] [place] [address] Glucose [Mass/Vol] 112 mg/dL Normal [address] [place] [address] Comment on above: Performed By: #### 4 [id number] ####[facility] (DEFAULT)[address] [place] [address] Glucose [Mass/Vol] 119 mg/dL High [address] [place] [address] Comment on above: Performed By: #### 4 329232481 ####[facility] (DEFAULT)[address] [place] [address] 18346 PTon 07-20-2023 INR Coag (PPP) [Relative time] 1.16 {INR} High 0.91-1.11 [facility] Comment on above: Performed By: #### 1 9865346, 2333002, 0366546, 0077316 ####[facility] (DEFAULT)[address] [place] [address] PT 12.3 second(s) High 9.7-11.8 [facility] Comment on above: Performed By: #### 1 4259513, 2467433, 1597025, 7170824 ####[facility] (DEFAULT)[address] [place] [address] 30083 INR Coag (PPP) [Relative time] 1.11 {INR} Normal 0.91-1.11 [facility] Comment on above: Performed By: #### 5 665292635, 3010380, 8461127947, 9838705749, 0320257302, 24261975, 0157906, 1447040 ####[facility] (DEFAULT)[address] [place] [address] 60653 PT 11.8 second(s) Normal 9.7-11.8 [facility] Comment on above: Performed By: #### 5 302581470, 3806757, 0633599679, 7170294418, 1578658962, 07589566, 8223486, 1844753 ####[facility] (DEFAULT)[address] [place] [address] 81035 PTTon 07-20-2023 PTT 30 second(s) Normal 25-35 [facility] Comment on above: Performed By: #### 1 9554907, 3972918, 9179419, 6976080 ####[facility] (DEFAULT)[address] [place] [address] 02939 TnI HSon 07-20-2023 Troponin I High Sensitivity 484.0 pg/mL Critically abnormal <=20.0 [facility] Comment on above: Result Comment: Crit ical result TNIHS 484.0 pg/mL called to and read back by Halina Quintana RN on 2S at 20-Jul-2023 19:25 by Laurie. Performed By: #### 5 [id number] ####[facility] (DEFAULT)[address] [place], [place] [address] Troponin I High Sensitivity 203.7 pg/mL Critically abnormal <=20.0 [facility] Comment on above: Result Comment: Crit ical result TNIHS 203.7 pg/mL called to and read back by Celestina Lizarraga RN at 20-Jul-2023 14:24 by Daljit. Performed By: #### 5 [id number] ####[facility] (DEFAULT)[address] [place] [address] 08015 Troponin I High Sensitivity 106.4 pg/mL Critically abnormal <=20.0 [facility] Comment on above: Order Comment: To be done 1 hour after first Troponin HS Result Comment: Crit ical result TNIHS 106.4 pg/mL called to and read back by kade michelle RN IN ED at 20-Jul-2023 08:23 by Brittani. Performed By: #### 5 [id number] ####[facility] (DEFAULT)[address] [place] [address] Troponin I High Sensitivity 55.6 pg/mL Critically abnormal <=20.0 [facility] Comment on above: Result Comment: Crit ical result TNIHS 55.6 pg/mL called to and read back by KADE MICHELLE RN IN ED at 20-Jul-2023 07:11 by Brittani. Performed By: #### 5 350247728, 1863217, 0588030191, 3947765901, 4910635514, 34249260, 4686851, 9306393 ####[facility] (DEFAULT)[address] [place] [address] 51901 UA Affva6zz 07-20-2023 UA Bacteria None Normal [facility] Comment on above: Order Comment: Urina lysis Microscopic order added on by [employer] system. Performed By: #### 5 6799876, [id number] ####[facility] (DEFAULT)[address] [place] [address] 61920 UA RBC 0-2 Normal [facility] Comment on above: Order Comment: Urina lysis Microscopic order added on by [employer] system. Performed By: #### 5 5083705, [id number] ####[facility] (DEFAULT)[address] [place] [address] 37971 UA WBC None Seen [facility] Comment on above: Order Comment: Urina lysis Microscopic order added on by [employer] system. Performed By: #### 5 8303090, 9691346507 ####[facility] (DEFAULT)[address] [place] [address] 35343 UA w Culture if Ind Standard on 07-20-2023 Breakpoint UA Normal [facility] Comment on above: Performed By: #### 5 2487062, [id number] ####[facility] (DEFAULT)[address] [place] [address] 39052 Color (U) Yellow Normal [facility] Comment on above: Performed By: #### 5 8415799, 6250284388 ####[facility] (DEFAULT)[address] [place] [address] 64686 Culture? No Normal [facility] Comment on above: Result Comment: Resu lt created by rule GL_MAGR_ADD_UA_CULT Result created by rule GL_MAGR_ADD_UA_CULT1 Performed By: #### 5 0851548, [id number] ####[facility] (DEFAULT)[address] [place] [address] Glucose (U) [Mass/Vol] Negative [facility] Comment on above: Performed By: #### 5 4126242, [id number] ####[facility] (DEFAULT)[address] [place] [address] Ketones Ql (U) Negative [facility] Comment on above: Performed By: #### 5 5096706, 1126715393 ####[facility] (DEFAULT)[address] [place] [address] 78814 Micro? Indicated Invalid Interpretation Code [facility] Comment on above: Result Comment: Resu lt created by rule GL_MAGR_ADD_UA_MICRO Performed By: #### 5 9007305, 3539533235 ####[facility] (DEFAULT)[address] [place] [address] 68263 UA Bilirubin Negative Normal [facility] Comment on above: Performed By: #### 5 6972566, 6045048882 ####[facility] (DEFAULT)[address] [place] [address] 63999 UA Blood Negative Normal NEGATIVE [facility] Comment on above: Performed By: #### 5 0166173, 8961757513 ####[facility] (DEFAULT)[address] [place] [address] 44796 UA Clarity CLEAR Normal CLEAR [facility] Comment on above: Performed By: #### 5 0203962, 6886868870 ####[facility] (DEFAULT)[address] [place] [address] 30846 UA Leuk Est Negative Normal NEGATIVE [facility] Comment on above: Performed By: #### 5 5302659, 3346661274 ####[facility] (DEFAULT)[address] [place] [address] UA Nitrite Negative Normal NEGATIVE [facility] Comment on above: Performed By: #### 5 5980469, [id number] ####[facility] (DEFAULT)[address] [place] [address] UA pH 6.5 Normal 5-8 [facility] Comment on above: Performed By: #### 5 4578697, 5658566195 ####[facility] (DEFAULT)[address] [place] [address] UA Protein 30 Abnormal NEGATIVE [facility] Comment on above: Performed By: #### 5 9830591, 6088652291 ####[facility] (DEFAULT)[address] [place] [address] UA Spec Grav 1.020 Normal 1.001-1.035 [facility] Comment on above: Performed By: #### 5 9287118, [id number] ####[facility] (DEFAULT)[address] [place] [address] UA Urobilinogen 1.0 mg/dL Normal 0.2-1.0 [facility] Comment on above: Performed By: #### 5 1524783, 8558620371 ####[facility] (DEFAULT)[address] [place] [address] Urine Source Clean Catch [facility] Comment on above: Performed By: #### 5 7843941, [id number] ####[facility] (DEFAULT)[address] [place] [address] US Echocardiogram Completeon 07-20-2023 US Echocardiogram Complete Normal [facility] XR Chest 1 View Frontalon XR Chest 1 View Frontal Normal [facility] Coding Summaryon 07-14-2023 Coding Summary Normal [facility] Coding Summaryon 07-06-2023 Coding Summary Normal [facility] Outside Recordson 07-02-2023 Outside Records [id number] Orders [id number][facility]-21-2023 Wound Care Note [id number][facility] [id number][facility] - [facility] Progress [facility] - Nurse [facility] Consent Formson 05-31-2023 Consent Forms [id number][facility]-27-2023 Provider Orders [id number][facility]-26-2023 Coding Summary [facility] Provider Orderson 05-26-2023 Provider Orders [id number]#[facility] [id number]#[facility] X[facility] Foot 2 Views Righton 04-30 XR Foot 2 Views Right [facility] Outside Recordson 05-24-2023 Outside Records [id number]#[facility] C[facility] 05-19-2023 Coding Summary [facility] Provider Orderson 05-18-2023 Provider Orders [id number]#1.00[facility] 05-17-2023 Ambulance Note [id number]#1.[facility]ras [facility]-16-2023 CT Head or Brain w/o Contrast [facility] ED Note-Nursingon 05-16-2023 ED Note-Nursing Wound washed with so ap and water and pat dry. steri strips applied to left hand tear and telfa with kerlix. Patient tolerated well. [facility] Outside Recordson 05-14-2023 Outside Records [id number]#1.00[facility] Provider [place] 05-14-2023 Provider Orders [id number][facility] Records [id number]#1.[facility] [place] [facility]-2023 Provider Orders [id number]#1.00[facility] Provider [place] 05-07-2023 Provider Orders [id number]#1.00[facility] Provider [place] 05-06-2023 Provider Orders [id number]#1.00[facility] Coding Summaryon 05-04-2023 Coding Summary [facility] Provider Orderson 04-30-2023 Provider Orders [id number]#1.00[facility] Provider Orders [id number]#1.00[facility] Provider Orderson 04-27-2023 Provider Orders [id number]#1.00OTGTIF F [facility] Coding Summaryon 04-20-2023 Coding Summary [facility] Coding Summaryon 04-16-2023 Coding Summary [facility] Coding Summary [facility] Coding Summary [facility] Outside Recordson 04-14-2023 Outside Records [id number]#1.00OTGTIFF [facility] Wound Care Noteon 04-14-2023 Wound Care Note [id number]#1.00OTGTIFF [facility] Wound Care Note [id number]#1.00OTGTIFF [facility] Wound Care Note [id number]#1.00OTGTIFF [facility] Coding Summaryon 04-12-2023 Coding Summary [facility] Coding Summary [facility] .Auto Diff 1on 04-11-2023 Auto [place] % 10 % Normal 12-10 [facility] Comment on above: Performed By: #### 5 [id number], 26844794, 7729202975, 1590066, 0107452494, 4849197, 7877399 ####[facility] (DEFAULT)[address] [place] [address] 80811 Baso Abs# 0.0 x10 Normal 0.0-0.2 [facility] Comment on above: Performed By: #### 5 [id number], 82785233, 4890058098, 3594341, 9413057783, 0647246, 4639609 ####[facility] (DEFAULT)[address] [place] [address] 46772 Basophils/100 WBC (Bld) 0.7 % Normal 0.2-2.0 [facility] Comment on above: Performed By: #### 5 [id number], 54604456, 4289328789, 8494582, 7291548577, 8040745, 1236046 ####[facility] (DEFAULT)[address] [place] [address] Eos Abs# 0.2 x10 Normal 0.0-0.4 [facility] Comment on above: Performed By: #### 5 [id number], 50869668, 1587795098, 5662803, 6252795930, 2144502, 9189415 ####[facility] (DEFAULT)[address] [place] [address] Eosinophils/100 WBC (Bld) 3.0 % Normal 0.9-4.0 [facility] Comment on above: Performed By: #### 5 [id number], 21767557, 2642487221, 4380925, 2484916152, 3495194, 1255752 ####[facility] (DEFAULT)[address] [place] [address] Lymph Abs# 1.1 x10 Low 1.3-2.9 [facility] Comment on above: Performed By: #### 5 [id number], 59547269, 4692576453, 0544040, 5867166414, 0246568, 3510095 ####[facility] (DEFAULT)[address] [place] [address] Lymphocytes/100 WBC (Bld) 18 % Normal 14-48 [facility] Comment on above: Performed By: #### 5 [id number], 75242086, 8784197251, 4652373, 9584441694, 6328880, 4562844 ####[facility] (DEFAULT)[address] [place] [address] [place] Abs# 0.6 x10 Normal 0.0-0.8 [facility] Comment on above: Performed By: #### 5 [id number], 87432249, 5251860305, 5986323, 5385378744, 1796093, 5336500 ####[facility] (DEFAULT)[address] [place] [address] Neut Abs# 4.0 x10 Normal 1.5-9.2 [facility] Comment on above: Performed By: #### 5 [id number], 50139704, 3086628056, 6744818, 7216854182, 8254351, 2182664 ####[facility] (DEFAULT)[address] [place] [address] 20488 Neutrophils/100 WBC (Bld) 67 % Normal 44-88 [facility] Comment on above: Performed By: #### 5 [id number], 58005365, 9606118274, 2467515, 9576679847, 2552825, 4712948 ####[facility] (DEFAULT)[address] [place] [address] 74537 BNP.on 04-11-2023 Natriuretic peptide B (Bld) [Mass/Vol] 115.0 pg/mL High 0.0-100.0 [facility] Comment on above: Result Comment: BNP results greater than 100 pg/mL are considered abnormal and suggestive of patients with CHF. Higher BNP concentrations measured in the first 72 hours after an acute coronary syndorme are associated with an increased risk of , myocardial infarction, and CHF. Performed By: #### 5 [id number], 28620147, 7010172018, 3498803, 1233178417, 1283542, 0897040 ####[facility] (DEFAULT)[address] [place] [address] 94473 CBC w/ Auto Diffon Erythrocyte distribution width (RBC) [Ratio] 15.8 % High 11.5-15.0 [facility] Comment on above: Performed By: #### 5 [id number], 06119241, 2081399689, 5103701, 6650638835, 7178985, 6184021 ####[facility] (DEFAULT)[address] [place] [address] 36455 Hematocrit (Bld) [Volume fraction] 34.0 % Low 34.8-51.9 [facility] Comment on above: Performed By: #### 5 609302876, 12353910, 3470790082, 0059788, 6239116676, 2113080, 6102737 ####[facility] (DEFAULT)[address] [place] [address] 15340 Hemoglobin (Bld) [Mass/Vol] 11.6 g/dL Low 11.8-17.7 [facility] Comment on above: Performed By: #### 5 354491940, 19129178, 5156494081, 3345482, 4943101496, 7791357, 5138393 ####[facility] (DEFAULT)[address] [place] [address] Man Diff? Auto Invalid Interpretation Code [facility] Comment on above: Performed By: #### 5 [id number], 55442171, 0563904593, 2229477, 5414867818, 9119394, 4754776 ####[facility] (DEFAULT)[address] [place] [address] 53123 MCH (RBC) [Entitic mass] 35 pg High 24-34 [facility] Comment on above: Performed By: #### 5 645723391, 12083390, 7695358646, 9137403, 1039117875, 6696136, 5041663 ####[facility] (DEFAULT)[address] [place] [address] MCHC (RBC) [Mass/Vol] 34 g/dL Normal 26-37 [facility] Comment on above: Performed By: #### 5 [id number], 06065117, 4842066154, 6645160, 6275626473, 3048154, 5898281 ####[facility] (DEFAULT)[address] [place] [address] 41421 MCV (RBC) [Entitic vol] 102 fL High 81-100 [facility] Comment on above: Performed By: #### 5 347061578, 99186107, 5901468315, 6192081, 2781372823, 2950986, 2055848 ####[facility] (DEFAULT)[address] [place] [address] Platelet 144 x10 Normal 138-427 [facility] Comment on above: Performed By: #### 5 130593896, 97422817, 1141753062, 7446881, 8721119308, 1775955, 3610130 ####[facility] (DEFAULT)[address] [place] [address] 24314 Platelet mean volume (Bld) [Entitic vol] 8.2 fL Normal 6.3-10.2 [facility] Comment on above: Performed By: #### 5 540386714, 73283764, 0731854408, 8703194, 2425135474, 3484398, 4283222 ####[facility] (DEFAULT)[address] [place] [address] RBC 3.34 x10 Low 3.70-5.30 [facility] Comment on above: Performed By: #### 5 507972256, 49786386, 4107552516, 2702159, 3651721080, 1323608, 9526951 ####[facility] (DEFAULT)[address] [place] [address] WBC 6.0 x10 Normal 3.5-10.5 [facility] Comment on above: Performed By: #### 5 168331573, 56116150, 9706124102, 0916174, 3665670676, 2708090, 6534732 ####[facility] (DEFAULT)[address] [place] [address] Standardon 04-11-2023 eGFR Non AA 38 mL/min/1.73m2 Invalid Interpretation Code [facility] Comment on above: Performed By: #### 5 [id number], 45126035, 3646517338, 2516790, 1235498094, 7891037, 0540776 ####[facility] (DEFAULT)[address] [place] [address] eGFR AA 47 mL/min/1.73m2 Invalid Interpretation Code [facility] Comment on above: Performed By: #### 5 938059651, 00094192, 9452601587, 1465072, 9226934321, 7270051, 1322929 ####[facility] (DEFAULT)[address] [place] [address] Albumin [Mass/Vol] 3.1 g/dL Low 3.5-5.0 [facility] Comment on above: Performed By: #### 5 792721120, 09611964, 5287042883, 5990528, 0737456909, 6609328, 0909739 ####[facility] (DEFAULT)[address] [place] [address] Albumin/Globulin [Mass ratio] 1.0 {ratio} Low 1.4-2.6 [facility] Comment on above: Performed By: #### 5 843764045, 36257044, 8037013106, 5972893, 5107999241, 8247877, 9107849 ####[facility] (DEFAULT)[address] [place] [address] 65625 Alk Phos 148 IU/L High 32-91 [facility] Comment on above: Performed By: #### 5 112241825, 65679010, 7323316978, 8338992, 6002038740, 1197267, 1965020 ####[facility] (DEFAULT)[address] [place] [address] ALT [Catalytic activity/Vol] 50.0 U/L Normal 17.0-63.0 [facility] Comment on above: Performed By: #### 5 701680289, 47807157, 8052860070, 3367941, 3223142915, 4155262, 8606108 ####[facility] (DEFAULT)[address] [place] [address] 97014 Anion gap [Moles/Vol] 11.8 mmol/L Normal 5.0-19.0 [facility] Comment on above: Performed By: #### 5 035462944, 36175431, 2206717565, 7924488, 0738635967, 5973335, 8135806 ####[facility] (DEFAULT)[address] [place] [address] 86061 AST [Catalytic activity/Vol] 31 U/L Normal 15-41 [facility] Comment on above: Performed By: #### 5 728778613, 85072803, 1772000713, 5866031, 4567332343, 1985824, 6627827 ####[facility] (DEFAULT)[address] [place] [address] Bili Total 1.0 mg/dL Normal 0.3-1.2 [facility] Comment on above: Performed By: #### 5 340541899, 89400834, 4384037360, 0163848, 2958237438, 2632293, 6582954 ####[facility] (DEFAULT)[address] [place] [address] 98629 Calcium [Mass/Vol] 8.7 mg/dL Low 8.9-10.3 [facility] Comment on above: Performed By: #### 5 756814238, 12993257, 4384662369, 5712580, 4356033949, 6685794, 7241312 ####[facility] (DEFAULT)[address] [place] [address] 85785 Chloride [Moles/Vol] 106 mmol/L Normal 101-111 [facility] Comment on above: Performed By: #### 5 227234973, 21893456, 8790494455, 0734862, 1555607264, 6015346, 1279626 ####[facility] (DEFAULT)[address] [place] [address] 39366 CO2 [Moles/Vol] 25 mmol/L Normal 21-32 [facility] Comment on above: Performed By: #### 5 358865504, 86651318, 5945426141, 6741895, 3526877505, 7917100, 3461001 ####[facility] (DEFAULT)[address] [place] [address] 20547 Creatinine [Mass/Vol] 1.70 mg/dL High 0.90-1.30 [facility] Comment on above: Performed By: #### 5 386215515, 45025025, 0723350553, 7057559, 7827450126, 2747379, 4895097 ####[facility] (DEFAULT)[address] [place] [address] 27489 Globulin (S) [Mass/Vol] 3.1 g/dL Normal 1.5-4.3 [facility] Comment on above: Performed By: #### 5 405034862, 67211390, 1375489312, 5149233, 0081490544, 9794467, 8396733 ####[facility] (DEFAULT)[address] [place] [address] 79526 Glucose [Mass/Vol] 161.0 mg/dL High 74.0-118.0 [facility] Comment on above: Performed By: #### 5 168646857, 96880634, 5480137988, 5163301, 5168287400, 1062278, 9357185 ####[facility] (DEFAULT)[address] [place] [address] 33586 Osmolality 286 mOsm/L Invalid Interpretation Code [facility] Comment on above: Performed By: #### 5 487521751, 04983354, 5430656754, 4789997, 4160035296, 8455328, 6495999 ####[facility] (DEFAULT)[address] [place] [address] 40769 Potassium [Moles/Vol] 3.8 mmol/L Normal 3.6-5.1 [facility] Comment on above: Performed By: #### 5 780161348, 68396312, 5033903458, 9006271, 0326750779, 7195589, 1354108 ####[facility] (DEFAULT)[address] [place] [address] 49610 Protein [Mass/Vol] 6.2 g/dL Low 6.5-8.1 [facility] Comment on above: Performed By: #### 5 598394960, 25702966, 8367066175, 1455366, 5417444985, 3783630, 6485430 ####[facility] (DEFAULT)[address] [place] [address] 10761 Sodium [Moles/Vol] 139.0 mmol/L Normal 136.0-144.0 [facility] Comment on above: Performed By: #### 5 013130742, 72028546, 5962130827, 0338905, 3388890962, 2005141, 7514239 ####[facility] (DEFAULT)[address] [place] [address] 69050 Urea nitrogen [Mass/Vol] 26 mg/dL Normal 8-26 [facility] Comment on above: Performed By: #### 5 865397619, 89332440, 0139525667, 9440666, 9824411914, 9615666, 9891886 ####[facility] (DEFAULT)[address] [place] [address] 33063 Urea nitrogen/Creatinine [Mass ratio] 15.2 mg/mg Normal 4.6-16.2 [facility] Comment on above: Performed By: #### 5 040026502, 38150637, 9419623032, 5285566, 1903208454, 6405050, 7377229 ####[facility] (DEFAULT)[address] [place] [address] 25509 Breakpoint Chem Normal [facility] Comment on above: Performed By: #### 5 [id number], 08505636, 8464490613, 4440300, 9859453949, 3636785, 5575145 ####[facility] (DEFAULT)[address] [place], [place] [address] ED Clinical Summaryon 2022 ED Clinical Summary Normal [facility] ED Note - Physicianon 2022 ED Note - Physician [facility] ED Note-Nursingon 04-11-2023 ED Note-Nursing [facility] ED Patient Education Noteon 04-11-2023 ED Patient Education Note Normal [facility] ED Patient Summaryon 023 ED Patient Summary Normal [facility] Lactic Acidon 04-11-2023 Lactic Acid 15.0 mg/dL Normal 4.5-19.8 [facility] Comment on above: Performed By: #### 2 [id number] ####[facility] (DEFAULT)[address] [place] [address] 32882 Magnesiumon 04-11-2023 Magnesium [Mass/Vol] 1.84 mg/dL Normal 1.80-2.50 [facility] Comment on above: Performed By: #### 5 [id number], 98703943, 2869305254, 1292108, 2747671206, 4880954, 4729143 ####[facility] (DEFAULT)[address] [place] [address] 16052 PTon 04-11-2023 INR Coag (PPP) [Relative time] 1.18 {INR} High 0.91-1.11 [facility] Comment on above: Performed By: #### 5 [id number], 20996662, 7713204021, 0819373, 6604416093, 6928139, 9262740 ####[facility] (DEFAULT)[address] [place] [address] 48375 PT 12.5 second(s) High 9.7-11.8 [facility] Comment on above: Performed By: #### 5 155137531, 00403097, 6465670214, 6678123, 1618849973, 4165663, 5011680 ####[facility] (DEFAULT)[address] [place] [address] 63773 TnI HSon 04-11-2023 Troponin I High Sensitivity 29.1 pg/mL Critically abnormal <=20.0 [facility] Comment on above: Result Comment: Crit ical result TNIHS 29.1 pg/mL called to and read back by Familia at 11-Apr-2023 04:32 by _brannonn. Performed By: #### 5 [id number] ####[facility] (DEFAULT)[address] [place] [address] 28380 Troponin I High Sensitivity 29.0 pg/mL Critically abnormal <=20.0 [facility] Comment on above: Result Comment: Crit ical result TNIHS 29.0 pg/mL called to and read back by Familia at 11-Apr-2023 02:04 by _russell. Performed By: #### 5 [id number], 43808638, 1298163453, 4220893, 6961861164, 8866427, 7702261 ####[facility] (DEFAULT)[address] [place] [address] 08971 XR Chest 1 View Frontalon XR Chest 1 View Frontal [facility] Provider Orderson 04-08-2023 Provider Orders [id number][facility] [id number][facility]23 Consent Forms [id number]#1.00OTGTIFF [facility] Outside Recordson 04-07-2023 Outside Records [id number]#1.00OTGTIFF [facility] Outside Records [id number]#1.00OTGTNICOLE [facility] Progress Note - Nurseon 03-29 Progress Note - Nurse [facility] Coding Summaryon 04-06-2023 Coding Summary [facility] Discharge Noteon 04-06-2023 Discharge Note [facility] Education Noteon 04-06-2023 Education Note [facility] Inpatient Clinical Summaryon 04-06-2023 Inpatient Clinical Summary [facility] Inpatient Patient Summaryon 04-06-2023 Inpatient Patient Summary [facility] POCT Glucose Levelon 023 Glucose [Mass/Vol] 182 mg/dL High [address] [place] [address] Comment on above: Performed By: #### 4 [id number] ####[facility] (DEFAULT)[address] [place] [address] 91767 Glucose [Mass/Vol] 163 mg/dL [address] Comment on above: Performed By: #### 4 [id number] ####[facility] (DEFAULT)[address] [place] [address] 46540 Nutrition Noteon 04-05-2023 Nutrition Note Pt continues to eat well avg 75% of meals. No further low BS, avg 175-225mg/dl; prednisone in place. Last BM 04/04. Per medical rounds, Pt may need O2 when participating in therapy. No new nutrition related recommendations. Will continue to monitor. [facility] POCT Glucose Levelon 023 Glucose [Mass/Vol] 273 mg/dL High [address] [place] [address] Comment on above: Performed By: #### 4 [id number] ####[facility] (DEFAULT)[address] [place] [address] 25694 Glucose [Mass/Vol] 165 mg/dL High [address] [place] [address] Comment on above: Performed By: #### 4 [id number] ####[facility] (DEFAULT)[address] [place] [address] 72883 Glucose [Mass/Vol] 195 mg/dL High [address] [facility] Hospital Comment on above: Performed By: #### 4 [id number] ####[facility] (DEFAULT)[address] [place] [address] 63960 Glucose [Mass/Vol] 174 mg/dL High [address] [facility] Comment on above: Performed By: #### 4 [id number] ####[facility] (DEFAULT)[address] [place] [address] 59907 POCT Glucose Levelon 023 Glucose [Mass/Vol] 283 mg/dL High [address] [place] [address] Hospital Comment on above: Performed By: #### 4 [id number] ####[facility] (DEFAULT)[address] [place] [address] 22548 Glucose [Mass/Vol] 237 mg/dL High [address] [place] [address] Hospital Comment on above: Performed By: #### 4 [id number] ####[facility] (DEFAULT)[address] [place] [address] 79415 Glucose [Mass/Vol] 198 mg/dL High [address] [facility] Comment on above: Performed By: #### 4 [id number] ####[facility] (DEFAULT)[address] [place] [address] 06794 Glucose [Mass/Vol] 196 mg/dL High [facility]118 [facility] Comment on above: Performed By: #### 4 [id number] ####[facility] (DEFAULT)[address] [place] [address] 82381 POCT Glucose Levelon 023 Glucose [Mass/Vol] 225 mg/dL High [address] [place] [address] Hospital Comment on above: Performed By: #### 4 [id number] ####[facility] (DEFAULT)[address] [place] [address] 10687 Glucose [Mass/Vol] 160 mg/dL High [address] [facility] Hospital Comment on above: Performed By: #### 4 [id number] ####[facility] (DEFAULT)[address] [place] [address] 97052 Glucose [Mass/Vol] 175 mg/dL High 74-118 [facility] Comment on above: Performed By: #### 4 [id number] ####[facility] (DEFAULT)[address] [place] [address] 53487 Glucose [Mass/Vol] 147 mg/dL High 74-118 [facility] Comment on above: Performed By: #### 4 [id number] ####[facility] (DEFAULT)[address] [place] [address] 82845 Coding Summaryon 04-02-2023 Coding Summary Normal [facility] Coding Summary Normal [facility] Outside Recordson 04-02-2023 Outside Records [id number]#1.00OTGTIFF Normal [facility] POCT Glucose Levelon 023 Glucose [Mass/Vol] 200 mg/dL High 74-118 [facility] Comment on above: Performed By: #### 4 [id number] ####[facility] (DEFAULT)[address] [place] [address] 08062 Glucose [Mass/Vol] 186 mg/dL High 74-118 [facility] Hospital Comment on above: Performed By: #### 4 [id number] ####[facility] (DEFAULT)[address] [place] [address] 94636 Glucose [Mass/Vol] 166 mg/dL High 74-118 [facility] Comment on above: Performed By: #### 4 [id number] ####[facility] (DEFAULT)[address] [place] [address] 41645 Glucose [Mass/Vol] 120 mg/dL High 74-118 [facility] Comment on above: Performed By: #### 4 [id number] ####[facility] (DEFAULT)[address] [place] [address] 29562 BMP Standardon 04-01-2023 eGFR Non AA 36 mL/min/1.73m2 Invalid Interpretation Code [facility] Comment on above: Performed By: #### 1 [id number], [id number] ####[facility] (DEFAULT)[address] [place] [address] 45500 eGFR AA 44 mL/min/1.73m2 Invalid Interpretation Code [facility] Comment on above: Performed By: #### 1 [id number], ####[facility] (DEFAULT)[address] [place] [address] 48812 Calcium [Mass/Vol] 8.4 mg/dL Low 8.9-10.3 [facility] Comment on above: Performed By: #### 1 [id number], ####[facility] (DEFAULT)[address] [place] [address] 40422 Chloride [Moles/Vol] 102 mmol/L Normal 101-111 [facility] Comment on above: Performed By: #### 1 [id number], ####[facility] (DEFAULT)[address] [place] [address] 96494 CO2 [Moles/Vol] 26 mmol/L Normal 21-32 [facility] Comment on above: Performed By: #### 1 [id number], ####[facility] (DEFAULT)[address] [place] [address] 25125 Creatinine [Mass/Vol] 1.79 mg/dL High 0.90-1.30 [facility] Comment on above: Performed By: #### 1 [id number], ####[facility] (DEFAULT)[address] [place] [address] 25913 Glucose [Mass/Vol] 136.0 mg/dL High 74.0-118.0 [facility] Comment on above: Performed By: #### 1 [id number], ####[facility] (DEFAULT)[address] [place] [address] 86491 Potassium [Moles/Vol] 4.0 mmol/L Normal 3.6-5.1 [facility] Comment on above: Performed By: #### 1 [id number], ####[facility] (DEFAULT)[address] [place] [address] 74472 Sodium [Moles/Vol] 136.0 mmol/L Normal 136.0-144.0 [facility] Comment on above: Performed By: #### 1 [id number], ####[facility] (DEFAULT)[address] [place] [address] 71068 Urea nitrogen [Mass/Vol] 47 mg/dL High 8-26 [facility] Comment on above: Performed By: #### 1 [id number], ####[facility] (DEFAULT)[address] [place] [address] 34944 Anion gap [Moles/Vol] 12.0 mmol/L Normal 5.0-19.0 [facility] Comment on above: Performed By: #### 1 [id number], ####[facility] (DEFAULT)[address] [place] [address] 90389 Osmolality 286 mOsm/L Invalid Interpretation Code [facility] Comment on above: Performed By: #### 1 [id number], ####[facility] (DEFAULT)[address] [place] [address] 36169 Urea nitrogen/Creatinine [Mass ratio] 26.2 mg/mg High 4.6-16.2 [facility] Comment on above: Performed By: #### 1 [id number], ####[facility] (DEFAULT)[address] [place] [address] [id number] C Bloodon 04-01-2023 C Blood No growth at 5 Days Normal [facility] Comment on above: Performed By: #### [id number] ####[facility] (DEFAULT)[address] [place] [address] 53001 Extra [place] 04-01-2023 Tube Collected Yes Invalid Interpretation Code [facility] Comment on above: Performed By: #### 1 [id number], ####[facility] (DEFAULT)[address] [place] [address] [id number] POCT Glucose Levelon 023 Glucose [Mass/Vol] 187 mg/dL High 74-118 [facility] Comment on above: Performed By: #### 4 [id number] ####[facility] (DEFAULT)[address] [place], [place] [address] 79658 Glucose [Mass/Vol] 146 mg/dL High 74-118 [facility] Comment on above: Performed By: #### 4 [id number] ####[facility] (DEFAULT)[address] [place] [address] 32490 Glucose [Mass/Vol] 144 mg/dL High [address] [place] [address] Comment on above: Performed By: #### 4 [id number] ####[facility] (DEFAULT)[address] [place] [address] 11660 Glucose [Mass/Vol] 125 mg/dL High [address] [place] [address] Comment on above: Performed By: #### 4 [id number] ####[facility] (DEFAULT)[address] [place] [address] 66856 Progress Note - Nurseon Progress Note - Nurse Normal [facility] US LE Arterial Duplex Righto n 04-01-2023 US LE Arterial Duplex Right Normal [facility] Coding Summaryon 03-31-2023 Coding Summary Normal [facility] Consent Formson 03-31-2023 Consent Forms [id number]#1.00OTGTIFF [facility] Nutrition Noteon 03-31-2023 Nutrition Note Normal [facility] POCT Glucose Levelon 023 Glucose [Mass/Vol] 180 mg/dL High [address] [place] [address] Comment on above: Performed By: #### 4 [id number] ####[facility] (DEFAULT)[address] [place] [address] 83267 Glucose [Mass/Vol] 174 mg/dL High [address] [place] [address] Comment on above: Performed By: #### 4 [id number] ####[facility] (DEFAULT)[address] [place] [address] 36803 Glucose [Mass/Vol] 198 mg/dL High [address] [place] [address] Comment on above: Performed By: #### 4 [id number] ####[facility] (DEFAULT)[address] [place] [address] 62954 Glucose [Mass/Vol] 103 mg/dL Normal [address] [place] [address] Comment on above: Performed By: #### 4 [id number] ####[facility] (DEFAULT)[address] [place] [address] Progress Note - Nurseon 05-0 Progress Note - Nurse Normal [facility] Progress Note - Nurse Normal [facility] Telemetry Stripson Telemetry Strips [id number]#1.00OTGTIFF Normal [facility] .Auto Diff 1on 03-30-2023 Auto [place] % 14 % High -12 [facility] Comment on above: Performed By: #### 1 [id number], [id number], 4257260 ####[facility] (DEFAULT)[address] [place] [address] Baso Abs# 0.0 x10 Normal 0.0-0.2 [facility] Comment on above: Performed By: #### 1 [id number], 75347773, 0047113 ####[facility] (DEFAULT)[address] [place] [address] Basophils/100 WBC (Bld) 0.7 % Normal 0.2-2.0 [facility] Comment on above: Performed By: #### 1 [id number], 67071040, 4764573 ####[facility] (DEFAULT)[address] [place] [address] Eos Abs# 0.2 x10 Normal 0.0-0.4 [facility] Comment on above: Performed By: #### 1 [id number], 70654809, 2194876 ####[facility] (DEFAULT)[address] [place] [address] Eosinophils/100 WBC (Bld) 3.2 % Normal 0.9-4.0 [facility] Comment on above: Performed By: #### 1 [id number], 73142330, 2824975 ####[facility] (DEFAULT)[address] [place] [address] Lymph Abs# 1.0 x10 Low 1.3-2.9 [facility] Comment on above: Performed By: #### 1 [id number], 70881139, 1352543 ####[facility] (DEFAULT)[address] [place] [address] 66736 Lymphocytes/100 WBC (Bld) 15 % Normal 14-48 [facility] Comment on above: Performed By: #### 1 [id number], 61259879, 5431309 ####[facility] (DEFAULT)[address] [place] [address] 89347 [place] Abs# 0.9 x10 High 0.0-0.8 [facility] Comment on above: Performed By: #### 1 [id number], 22847862, 9888751 ####[facility] (DEFAULT)[address] [place] [address] 78319 Neut Abs# 4.3 x10 Normal 1.5-9.2 [facility] Comment on above: Performed By: #### 1 [id number], 38355710, 4522207 ####[facility] (DEFAULT)[address] [place] [address] 39343 Neutrophils/100 WBC (Bld) 68 % Normal 44-88 [facility] Comment on above: Performed By: #### 1 [id number], 92910491, 3354032 ####[facility] (DEFAULT)[address] [place] [address] 60273[facility] Standardon 03-30-2023 eGFR Non AA 34 mL/min/1.73m2 Invalid Interpretation Code [facility] Comment on above: Performed By: #### 1 [id number], 83657578, 0916230 ####[facility] (DEFAULT)[address] [place] [address] 17126 eGFR AA 41 mL/min/1.73m2 Invalid Interpretation Code [facility] Comment on above: Performed By: #### 1 [id number], 92999593, 3296190 ####[facility] (DEFAULT)[address] [place] [address] 56761 Anion gap [Moles/Vol] 14.6 mmol/L Normal 5.0-19.0 [facility] Comment on above: Performed By: #### 1 [id number], 57581118, 8634830 ####[facility] (DEFAULT)[address] [place] [address] 87249 Calcium [Mass/Vol] 8.5 mg/dL Low 8.9-10.3 [facility] Comment on above: Performed By: #### 1 [id number], 09237863, 1891318 ####[facility] (DEFAULT)[address] [place] [address] 93471 Chloride [Moles/Vol] 99 mmol/L Low 101-111 [facility] Comment on above: Performed By: #### 1 [id number], 09901160, 1718049 ####[facility] (DEFAULT)[address] [place] [address] 56857 CO2 [Moles/Vol] 29 mmol/L Normal 21-32 [facility] Comment on above: Performed By: #### 1 [id number], 50017926, 0161184 ####[facility] (DEFAULT)[address] [place] [address] 73884 Creatinine [Mass/Vol] 1.88 mg/dL High 0.90-1.30 [facility] Comment on above: Performed By: #### 1 [id number], 95147094, 8562739 ####[facility] (DEFAULT)[address] [place] [address] 40675 Glucose [Mass/Vol] 113.0 mg/dL Normal 74.0-118.0 [facility] Comment on above: Performed By: #### 1 [id number], 49504585, 8513712 ####[facility] (DEFAULT)[address] [place] [address] 13868 Osmolality 287 mOsm/L Invalid Interpretation Code [facility] Comment on above: Performed By: #### 1 [id number], 95090015, 1759121 ####[facility] (DEFAULT)[address] [place] [address] 32363 Potassium [Moles/Vol] 3.6 mmol/L Normal 3.6-5.1 [facility] Comment on above: Performed By: #### 1 [id number], 96494165, 3853297 ####[facility] (DEFAULT)[address] [place] [address] 10245 Sodium [Moles/Vol] 139.0 mmol/L Normal 136.0-144.0 [facility] Comment on above: Performed By: #### 1 [id number], 77541595, 0490846 ####[facility] (DEFAULT)[address] [place] [address] Urea nitrogen [Mass/Vol] 38 mg/dL High 8-26 [facility] Comment on above: Performed By: #### 1 [id number], 62595777, 9153105 ####[facility] (DEFAULT)[address] [place] [address] Urea nitrogen/Creatinine [Mass ratio] 20.2 mg/mg High 4.6-16.2 [facility] Comment on above: Performed By: #### 1 [id number], 10898474, 6018716 ####[facility] (DEFAULT)[address] [place] [address] CBC w/ Auto Diffon 3 Erythrocyte distribution width (RBC) [Ratio] 15.9 % High 11.5-15.0 [facility] Comment on above: Performed By: #### 1 [id number], 54031658, 7399874 ####[facility] (DEFAULT)[address] [place] [address] Hematocrit (Bld) [Volume fraction] 35.2 % Normal 34.8-51.9 [facility] Comment on above: Performed By: #### 1 [id number], 10219812, 2090343 ####[facility] (DEFAULT)[address] [place] [address] 76665 Hemoglobin (Bld) [Mass/Vol] 12.2 g/dL Normal 11.8-17.7 [facility] Comment on above: Performed By: #### 1 [id number], 64578929, 3341236 ####[facility] (DEFAULT)[address] [place] [address] Man Diff? Auto Invalid Interpretation Code [facility] Comment on above: Performed By: #### 1 [id number], 19403060, 9768423 ####[facility] (DEFAULT)[address] [place] [address] 70712 MCH (RBC) [Entitic mass] 35 pg High 24-34 [facility] Comment on above: Performed By: #### 1 [id number], 47638319, 6328423 ####[facility] (DEFAULT)[address] [place] [address] MCHC (RBC) [Mass/Vol] 35 g/dL Normal 26-37 [facility] Comment on above: Performed By: #### 1 [id number], 67627070, 9245712 ####[facility] (DEFAULT)[address] [place] [address] MCV (RBC) [Entitic vol] 101 fL High 81-100 [facility] Comment on above: Performed By: #### 1 [id number], 90053941, 7168329 ####[facility] (DEFAULT)[address] [place] [address] Platelet 147 x10 Normal 138-427 [facility] Comment on above: Performed By: #### 1 [id number], 78291207, 8823543 ####[facility] (DEFAULT)[address] [place] [address] Platelet mean volume (Bld) [Entitic vol] 7.7 fL Normal 6.3-10.2 [facility] Comment on above: Performed By: #### 1 [id number], 61140169, 8462884 ####[facility] (DEFAULT)[address] [place] [address] RBC 3.47 x10 Low 3.70-5.30 [facility] Comment on above: Performed By: #### 1 [id number], 14379685, 1936649 ####[facility] (DEFAULT)[address] [place] [address] WBC 6.4 x10 Normal 3.5-10.5 [facility] Comment on above: Performed By: #### 1 [id number], 83179955, 7495782 ####[facility] (DEFAULT)[address] [place] [address] POCT Glucose Levelon 023 Glucose [Mass/Vol] 217 mg/dL High 74-118 [facility] Comment on above: Performed By: #### 4 [id number] ####[facility] (DEFAULT)[address] [place] [address] 38143 Glucose [Mass/Vol] 161 mg/dL High 74-118 [facility] Comment on above: Performed By: #### 4 [id number] ####[facility] (DEFAULT)[address] [place] [address] 10108 Glucose [Mass/Vol] 163 mg/dL High 74-118 [facility] Comment on above: Performed By: #### 4 [id number] ####[facility] (DEFAULT)[address] [place] [address] 29616 Glucose [Mass/Vol] 88 mg/dL Normal 74-118 [facility] Comment on above: Performed By: #### 4 [id number] ####[facility] (DEFAULT)[address] [place] [address] 08941 Glucose [Mass/Vol] 106 mg/dL Normal 74-118 [facility] Comment on above: Performed By: #### 4 [id number] ####[facility] (DEFAULT)[address] [place] [address] 96314 Progress Note - Nurseon 05-0 Progress Note - Nurse [facility] Progress Note-Physicianon Progress Note-Physician [facility] Telemetry Stripson Telemetry Strips [id number]#1.00OTGTIFF Normal [facility] .Auto Diff 103-29-2023 Auto [place] % 16 % High 1-12 [facility] Comment on above: Performed By: #### 1 [id number], 3219658, 77177166 ####[facility] (DEFAULT)[address] [place] [address] 19359 Baso Abs# 0.0 x10 Normal 0.0-0.2 [facility] Comment on above: Performed By: #### 1 [id number], 1728205, 06170843 ####[facility] (DEFAULT)[address] [place] [address] 11768 Basophils/100 WBC (Bld) 0.7 % Normal 0.2-2.0 [facility] Comment on above: Performed By: #### 1 [id number], 7170778, 99342900 ####[facility] (DEFAULT)[address] [place] [address] 57339 Eos Abs# 0.2 x10 Normal 0.0-0.4 [facility] Comment on above: Performed By: #### 1 [id number], 5728629, 46735228 ####[facility] (DEFAULT)[address] [place] [address] 36225 Eosinophils/100 WBC (Bld) 3.2 % Normal 0.9-4.0 [facility] Comment on above: Performed By: #### 1 [id number], 4417964, 19749283 ####[facility] (DEFAULT)[address] [place] [address] 94533 Lymph Abs# 1.1 x10 Low 1.3-2.9 [facility] Comment on above: Performed By: #### 1 [id number], 2477416, 61304587 ####[facility] (DEFAULT)[address] [place] [address] 63074 Lymphocytes/100 WBC (Bld) 18 % Normal 14-48 [facility] Comment on above: Performed By: #### 1 [id number], 4203576, 78125922 ####[facility] (DEFAULT)[address] [place] [address] 38813 [place] Abs# 0.9 x10 High 0.0-0.8 [facility] Comment on above: Performed By: #### 1 [id number], 2349038, 48797827 ####[facility] (DEFAULT)[address] [place] [address] 07413 Neut Abs# 3.8 x10 Normal 1.5-9.2 [facility] Comment on above: Performed By: #### 1 [id number], 4598348, 94008639 ####[facility] (DEFAULT)[address] [place] [address] 65465 Neutrophils/100 WBC (Bld) 63 % Normal 44-88 [facility] Comment on above: Performed By: #### 1 [id number], 5018647, 71748824 ####[facility] (DEFAULT)[address] [place] [address] 80694 [facility] Standardon 03-29-2023 eGFR Non AA 29 mL/min/1.73m2 Invalid Interpretation Code [facility] Comment on above: Performed By: #### 1 [id number], 2418868, 29205326 ####[facility] (DEFAULT)[address] [place] [address] 96764 eGFR AA 36 mL/min/1.73m2 Invalid Interpretation Code [facility] Comment on above: Performed By: #### 1 [id number], 6454215, 81517597 ####[facility] (DEFAULT)[address] [place] [address] 26353 Anion gap [Moles/Vol] 13.7 mmol/L Normal 5.0-19.0 [facility] Comment on above: Performed By: #### 1 [id number], 7183732, 00611473 ####[facility] (DEFAULT)[address] [place] [address] 81166 Calcium [Mass/Vol] 8.3 mg/dL Low 8.9-10.3 [facility] Comment on above: Performed By: #### 1 [id number], 6592915, 82272332 ####[facility] (DEFAULT)[address] [place] [address] 63159 Chloride [Moles/Vol] 102 mmol/L Normal 101-111 [facility] Comment on above: Performed By: #### 1 [id number], 6697127, 24896084 ####[facility] (DEFAULT)[address] [place] [address] 20187 CO2 [Moles/Vol] 27 mmol/L Normal 21-32 [facility] Comment on above: Performed By: #### 1 [id number], 9615159, 19841498 ####[facility] (DEFAULT)[address] [place] [address] 08295 Creatinine [Mass/Vol] 2.15 mg/dL High 0.90-1.30 [facility] Comment on above: Performed By: #### 1 [id number], 7939911, 95721707 ####[facility] (DEFAULT)[address] [place] [address] 49822 Glucose [Mass/Vol] 74.0 mg/dL Normal 74.0-118.0 [facility] Comment on above: Performed By: #### 1 [id number], 2896937, 93605252 ####[facility] (DEFAULT)[address] [place] [address] 48122 Osmolality 284 mOsm/L Invalid Interpretation Code [facility] Comment on above: Performed By: #### 1 [id number], 9094008, 95195506 ####[facility] (DEFAULT)[address] [place] [address] 33903 Potassium [Moles/Vol] 3.7 mmol/L Normal 3.6-5.1 [facility] Comment on above: Performed By: #### 1 [id number], 6685891, 01949133 ####[facility] (DEFAULT)[address] [place] [address] 35362 Sodium [Moles/Vol] 139.0 mmol/L Normal 136.0-144.0 [facility] Comment on above: Performed By: #### 1 [id number], 4332670, 11143117 ####[facility] (DEFAULT)[address] [place] [address] 20514 Urea nitrogen [Mass/Vol] 35 mg/dL High 8-26 [facility] Comment on above: Performed By: #### 1 [id number], 2855114, 56120377 ####[facility] (DEFAULT)[address] [place] [address] 50781 Urea nitrogen/Creatinine [Mass ratio] 16.2 mg/mg Normal 4.6-16.2 [facility] Comment on above: Performed By: #### 1 [id number], 8980597, 92695309 ####[facility] (DEFAULT)[address] [place] [address] 16655 CBC w/ Auto Diffon 3 Erythrocyte distribution width (RBC) [Ratio] 15.8 % High 11.5-15.0 [facility] Comment on above: Performed By: #### 1 [id number], 0481666, 31811272 ####[facility] (DEFAULT)[address] [place] [address] Hematocrit (Bld) [Volume fraction] 33.9 % Low 34.8-51.9 [facility] Comment on above: Performed By: #### 1 [id number], 9599355, 77840686 ####[facility] (DEFAULT)[address] [place] [address] Hemoglobin (Bld) [Mass/Vol] 11.5 g/dL Low 11.8-17.7 [facility] Comment on above: Performed By: #### 1 [id number], 2794645, 34237734 ####[facility] (DEFAULT)[address] [place] [address] Man Diff? Auto Invalid Interpretation Code [facility] Comment on above: Performed By: #### 1 [id number], 7832086, 74690890 ####[facility] (DEFAULT)[address] [place] [address] MCH (RBC) [Entitic mass] 34 pg Normal 24-34 [facility] Comment on above: Performed By: #### 1 [id number], 9814754, 74509848 ####[facility] (DEFAULT)[address] [place] [address] MCHC (RBC) [Mass/Vol] 34 g/dL Normal 26-37 [facility] Comment on above: Performed By: #### 1 [id number], 7886336, 67761972 ####[facility] (DEFAULT)[address] [place] [address] MCV (RBC) [Entitic vol] 102 fL High 81-100 [facility] Comment on above: Performed By: #### 1 [id number], 2754320, 62956348 ####[facility] (DEFAULT)[address] [place] [address] Platelet 145 x10 Normal 138-427 [facility] Comment on above: Performed By: #### 1 [id number], 6104646, 79398074 ####[facility] (DEFAULT)[address] [place] [address] 46602 Platelet mean volume (Bld) [Entitic vol] 7.8 fL Normal 6.3-10.2 [facility] Comment on above: Performed By: #### 1 522104305, 5758765, 66012593 ####[facility] (DEFAULT)[address] [place] [address] 63325 RBC 3.34 x10 Low 3.70-5.30 [facility] Comment on above: Performed By: #### 1 [id number], 8048391, 27784389 ####[facility] (DEFAULT)[address] [place] [address] 28946 WBC 6.1 x10 Normal 3.5-10.5 [facility] Comment on above: Performed By: #### 1 [id number], 6314172, 80975617 ####[facility] (DEFAULT)[address] [place] [address] Consent Formson 03-29-2023 Consent Forms [id number]#1.00OTGTIFF Normal [facility] Nutrition Noteon 03-29-2023 Nutrition Note Per medical rounds, Pt still having low BS. No longer receiving oral DM meds. Intake good avg 75-100% of meals. Will liberalize diet at this time removing DM restrictions and monitor need to re-add if BS increase consistently. Normal [facility] POCT Glucose Levelon 023 Glucose [Mass/Vol] 262 mg/dL High 74-118 [facility] Comment on above: Performed By: #### 4 [id number] ####[facility] (DEFAULT)[address] [place] [address] 03823 Glucose [Mass/Vol] 233 mg/dL High 74-118 [facility] Comment on above: Performed By: #### 4 [id number] ####[facility] (DEFAULT)[address] [place] [address] 95006 Glucose [Mass/Vol] 107 mg/dL Normal 74-[address] [place] [address] Comment on above: Performed By: #### 4 [id number] ####[facility] (DEFAULT)[address] [place] [address] 57044 Glucose [Mass/Vol] 76 mg/dL Normal 74-118 [facility] Comment on above: Performed By: #### 4 [id number] ####[facility] (DEFAULT)[address] [place] [address] 34852 Glucose [Mass/Vol] 64 mg/dL Low 74-118 [facility] Comment on above: Performed By: #### 4 [id number] ####[facility] (DEFAULT)[address] [place] [address] Pharmacy Noteon 03-29-2023 Pharmacy Note [facility] Progress Note - Nurseon Progress Note - Nurse [facility] Progress Note-Physicianon Progress Note-Physician [facility] Telemetry Stripson Telemetry Strips [id number]#1.00OTGTIFF [facility] .Auto Diff 103-28-2023 Auto [place] % 13 % High -12 [facility] Comment on above: Performed By: #### 1 [id number], 9173997355, 8714598488, 4182291511, 0276761 ####[facility] (DEFAULT)[address] [place] [address] Baso Abs# 0.0 x10 Normal 0.0-0.2 [facility] Comment on above: Performed By: #### 1 0200087, 1181482997, 0895070178, 3605578498, 7283549 ####[facility] (DEFAULT)[address] [place] [address] 76322 Basophils/100 WBC (Bld) 0.6 % Normal 0.2-2.0 [facility] Comment on above: Performed By: #### 1 5482379, 5114703153, 2859580720, 9244722471, 7739745 ####[facility] (DEFAULT)[address] [place] [address] Eos Abs# 0.1 x10 Normal 0.0-0.4 [facility] Comment on above: Performed By: #### 1 7640949, 4056018317, 1401060448, 9804184201, 4730695 ####[facility] (DEFAULT)[address] [place] [address] 11800 Eosinophils/100 WBC (Bld) 1.0 % Normal 0.9-4.0 [facility] Comment on above: Performed By: #### 1 6859003, 8735324416, 1757470041, 9172213793, 1078994 ####[facility] (DEFAULT)[address] [place] [address] 66281 Lymph Abs# 0.9 x10 Low 1.3-2.9 [facility] Comment on above: Performed By: #### 1 4484215, 6289795001, 3983581036, 8457819897, 7113221 ####[facility] (DEFAULT)[address] [place] [address] 31151 Lymphocytes/100 WBC (Bld) 10 % Low 14-48 [facility] Comment on above: Performed By: #### 1 8429030, 4220882361, 0374665540, 3279151238, 2141031 ####[facility] (DEFAULT)[address] [place] [address] 40837 [place] Abs# 1.1 x10 High 0.0-0.8 [facility] Comment on above: Performed By: #### 1 1118580, 3880208637, 9384515190, 9866039475, 8271643 ####[facility] (DEFAULT)[address] [place] [address] 96784 Neut Abs# 6.5 x10 Normal 1.5-9.2 [facility] Comment on above: Performed By: #### 1 5536564, 7130990162, 1489817594, 6526128548, 3578156 ####[facility] (DEFAULT)[address] [place] [address] 49288 Neutrophils/100 WBC (Bld) 76 % Normal 44-88 [facility] Comment on above: Performed By: #### 1 5355991, 9459216429, 9588043068, 5626634669, 5240844 ####[facility] (DEFAULT)[address] [place] [address] 63647 [facility] Standardon 03-28-2023 eGFR Non AA 37 mL/min/1.73m2 Invalid Interpretation Code [facility] Comment on above: Performed By: #### 1 [id number], [id number], [id number], [id number], [id number] ####[facility] (DEFAULT)[address] [place] [address]17 eGFR AA 45 mL/min/1.73m2 Invalid Interpretation Code [facility] Comment on above: Performed By: #### 1 [id number], [id number], [id number], [id number], [id number] ####[facility] (DEFAULT)[address] [place] [address]4721 Anion gap [Moles/Vol] 15.8 mmol/L Normal 5.0-19.0 [facility] Comment on above: Performed By: #### 1 [id number], [id number], [id number], [id number], [id number] ####[facility] (DEFAULT)[address] [place] [address] 28184 Calcium [Mass/Vol] 8.4 mg/dL Low 8.9-10.3 [facility] Comment on above: Performed By: #### 1 [id number], [id number], [id number], [id number], [id number] ####[facility] (DEFAULT)[address] [place] [address] 05632 Chloride [Moles/Vol] 102 mmol/L Normal 101-111 [facility] Comment on above: Performed By: #### 1 [id number], [id number], 9022716526, 1696119246, 2288431 ####[facility] (DEFAULT)[address] [place] [address] 32258 CO2 [Moles/Vol] 26 mmol/L Normal 21-32 [facility] Comment on above: Performed By: #### 1 8730508, 8161253809, 0430122319, 9062092035, 7655064 ####[facility] (DEFAULT)[address] [place] [address] 01179 Creatinine [Mass/Vol] 1.76 mg/dL High 0.90-1.30 [facility] Comment on above: Performed By: #### 1 3199071, 2248239557, 9371733256, 3289854085, 1050061 ####[facility] (DEFAULT)[address] [place] [address] 37044 Glucose [Mass/Vol] 137.0 mg/dL High 74.0-118.0 [facility] Comment on above: Performed By: #### 1 2286182, 3975922695, 1049556610, 7115392657, 8565459 ####[facility] (DEFAULT)[address] [place] [address] 59664 Osmolality 287 mOsm/L Invalid Interpretation Code [facility] Comment on above: Performed By: #### 1 2091661, 6280229017, 8530281515, 1818246700, 5614400 ####[facility] (DEFAULT)[address] [place] [address] 57297 Sodium [Moles/Vol] 140.0 mmol/L Normal 136.0-144.0 [facility] Comment on above: Performed By: #### 1 3632439, 6784454471, 8993514638, 8248603572, 2863098 ####[facility] (DEFAULT)[address] [place] [address] 66611 Urea nitrogen [Mass/Vol] 27 mg/dL High 8-26 [facility] Comment on above: Performed By: #### 1 7663173, 9062439916, 9527632103, 3511669117, 2713578 ####[facility] (DEFAULT)[address] [place] [address] 16255 Urea nitrogen/Creatinine [Mass ratio] 15.3 mg/mg Normal 4.6-16.2 [facility] Comment on above: Performed By: #### 1 1854644, 9123074758, 0266674175, 4318020066, 1100946 ####[facility] (DEFAULT)[address] [place] [address] 37326 Potassium [Moles/Vol] 3.8 mmol/L Normal 3.6-5.1 [facility] Comment on above: Performed By: #### 1 1700257, 9092066794, 1581039515, 2191324990, 8745116 ####[facility] (DEFAULT)[address] [place] [address] CBC w/ Auto Diffon 3 Erythrocyte distribution width (RBC) [Ratio] 15.8 % High 11.5-15.0 [facility] Comment on above: Performed By: #### 1 9171292, 6882566993, 4825805021, 4220527652, 0196453 ####[facility] (DEFAULT)[address] [place] [address] Hematocrit (Bld) [Volume fraction] 35.7 % Normal 34.8-51.9 [facility] Comment on above: Performed By: #### 1 7949293, 0743947721, 3578550280, 6645803186, 9899763 ####[facility] (DEFAULT)[address] [place] [address] Hemoglobin (Bld) [Mass/Vol] 12.2 g/dL Normal 11.8-17.7 [facility] Comment on above: Performed By: #### 1 3441331, 6049374980, 0755290373, 5981887276, 5025392 ####[facility] (DEFAULT)[address] [place] [address] Man Diff? Auto Invalid Interpretation Code [facility] Comment on above: Performed By: #### 1 6610515, 9187187369, 4263904276, 1912510072, 9236571 ####[facility] (DEFAULT)[address] [place] [address] 10862 MCH (RBC) [Entitic mass] 35 pg High 24-34 [facility] Comment on above: Performed By: #### 1 6051916, 0831242062, 1403679508, 9341798912, 7604710 ####[facility] (DEFAULT)[address] [place] [address] 79773 MCHC (RBC) [Mass/Vol] 34 g/dL Normal 26-37 [facility] Comment on above: Performed By: #### 1 3500248, 5016295622, 9910420763, 9022366889, 5190038 ####[facility] (DEFAULT)[address] [place] [address] 61763 MCV (RBC) [Entitic vol] 101 fL High 81-100 [facility] Comment on above: Performed By: #### 1 8810211, 9329792695, 3678395572, 5122353514, 4418597 ####[facility] (DEFAULT)[address] [place] [address] 07068 Platelet 149 x10 Normal 138-427 [facility] Comment on above: Performed By: #### 1 4974900, 0861520169, 5311483214, 5035700028, 3844354 ####[facility] (DEFAULT)[address] [place] [address] 59824 Platelet mean volume (Bld) [Entitic vol] 7.7 fL Normal 6.3-10.2 [facility] Comment on above: Performed By: #### 1 0100606, 4600507364, 5124253450, 9183483033, 0213634 ####[facility] (DEFAULT)[address] [place] [address] 87626 RBC 3.52 x10 Low 3.70-5.30 [facility] Comment on above: Performed By: #### 1 1930764, 7762975308, 4334656428, 8768752580, 4547621 ####[facility] (DEFAULT)[address] [place] [address] 53517 WBC 8.6 x10 Normal 3.5-10.5 [facility] Comment on above: Performed By: #### 1 7973628, 5977510242, 7858756980, 3453870126, 6279666 ####[facility] (DEFAULT)[address] [place] [address] 29714 Extra Blueon 03-28-2023 Tube Collected Yes Invalid Interpretation Code [facility] Comment on above: Performed By: #### 1 9553290, 5849852267, 8588219643, 3084627978, 6505252 ####[facility] (DEFAULT)[address] [place] [address] 37685 Nutrition Noteon 03-28-2023 Nutrition Note Normal [facility] POCT Glucose Levelon 023 Glucose [Mass/Vol] 116 mg/dL Normal [address] [place] [address] Comment on above: Performed By: #### 4 [id number] ####[facility] (DEFAULT)[address] [place] [address] 59270 Glucose [Mass/Vol] 89 mg/dL Normal -[address] [place] [address] Comment on above: Performed By: #### 4 [id number] ####[facility] (DEFAULT)[address] [place] [address] 98891 Glucose [Mass/Vol] 128 mg/dL High [address] [place] [address] Comment on above: Performed By: #### 4 [id number] ####[facility] (DEFAULT)[address] [place] [address] Glucose [Mass/Vol] 121 mg/dL High [address] [place] [address] Comment on above: Performed By: #### 4 [id number] ####[facility] (DEFAULT)[address] [place] [address] Glucose [Mass/Vol] 45 mg/dL Critically abnormal [address] [place] [address] Comment on above: Performed By: #### 4 [id number] ####[facility] (DEFAULT)[address] [place] [address] 97774 Glucose [Mass/Vol] 49 mg/dL Critically abnormal [address] [place] [address] Comment on above: Performed By: #### 4 [id number] ####[facility] (DEFAULT)[address] [place] [address] 82209 .Auto Diff 1on 03-27-2023 Auto [place] % 15 % High 1-12 [facility] Comment on above: Performed By: #### 1 [id number], 1755872, 5110280, 4068755843, 26362179 ####[facility] (DEFAULT)[address] [place] [address] 51552 Baso Abs# 0.1 x10 Normal 0.0-0.2 [facility] Comment on above: Performed By: #### 1 869355822, 6696485, 5144765, 8458460429, 47445097 ####[facility] (DEFAULT)[address] [place] [address] 64397 Basophils/100 WBC (Bld) 1.2 % Normal 0.2-2.0 [facility] Comment on above: Performed By: #### 1 223904859, 3606055, 6299714, 7616853228, 64095806 ####[facility] (DEFAULT)[address] [place] [address] Eos Abs# 0.2 x10 Normal 0.0-0.4 [facility] Comment on above: Performed By: #### 1 013426496, 7789476, 0827202, 0301745005, 83477878 ####[facility] (DEFAULT)[address] [place] [address] 00174 Eosinophils/100 WBC (Bld) 2.2 % Normal 0.9-4.0 [facility] Comment on above: Performed By: #### 1 475836967, 9464778, 2910801, 1329733640, 05401294 ####[facility] (DEFAULT)[address] [place] [address] 85198 Lymph Abs# 1.7 x10 Normal 1.3-2.9 [facility] Comment on above: Performed By: #### 1 630303656, 9012373, 3911674, 9249178299, 95201330 ####[facility] (DEFAULT)[address] [place] [address] 49528 Lymphocytes/100 WBC (Bld) 24 % Normal 14-48 [facility] Comment on above: Performed By: #### 1 206634509, 8313075, 4891283, 5807575473, 23860248 ####[facility] (DEFAULT)[address] [place] [address] 11941 [place] Abs# 1.1 x10 High 0.0-0.8 [facility] Comment on above: Performed By: #### 1 682999986, 9183064, 3887247, 5792819346, 96105150 ####[facility] (DEFAULT)[address] [place] [address] Neut Abs# 4.0 x10 Normal 1.5-9.2 [facility] Comment on above: Performed By: #### 1 753912803, 8070102, 6652030, 7725181069, 72206966 ####[facility] (DEFAULT)[address] [place] [address] Neutrophils/100 WBC (Bld) 57 % Normal 44-88 [facility] Comment on above: Performed By: #### 1 474926820, 4242796, 2693501, 5923483481, 53447020 ####[facility] (DEFAULT)[address] [place] [address] CBC w/ Auto Diffon 3 Erythrocyte distribution width (RBC) [Ratio] 15.7 % High 11.5-15.0 [facility] Comment on above: Performed By: #### 1 204116590, 4749962, 0694905, 4952080704, 88536859 ####[facility] (DEFAULT)[address] [place] [address] Hematocrit (Bld) [Volume fraction] 33.9 % Low 34.8-51.9 [facility] Comment on above: Performed By: #### 1 772709190, 9810824, 1903832, 7663562947, 97227548 ####[facility] (DEFAULT)[address] [place] [address] Hemoglobin (Bld) [Mass/Vol] 11.8 g/dL Normal 11.8-17.7 [facility] Comment on above: Performed By: #### 1 292918658, 1246840, 9813836, 0068857074, 41050886 ####[facility] (DEFAULT)[address] [place] [address] Man Diff? Auto Invalid Interpretation Code [facility] Comment on above: Performed By: #### 1 540364581, 0137816, 8792457, 4338430842, 71791646 ####[facility] (DEFAULT)[address] [place] [address] MCH (RBC) [Entitic mass] 35 pg High 24-34 [facility] Comment on above: Performed By: #### 1 516102408, 9708294, 3552294, 2514118799, 87793825 ####[facility] (DEFAULT)[address] [place] [address] 53555 MCHC (RBC) [Mass/Vol] 35 g/dL Normal 26-37 [facility] Comment on above: Performed By: #### 1 641508907, 8063643, 7739361, 0464058617, 48636932 ####[facility] (DEFAULT)[address] [place] [address] 19104 MCV (RBC) [Entitic vol] 101 fL High 81-100 [facility] Comment on above: Performed By: #### 1 253843642, 9321098, 0392523, 0253566012, 76946662 ####[facility] (DEFAULT)[address] [place] [address] Platelet 138 x10 Normal 138-427 [facility] Comment on above: Performed By: #### 1 595302822, 8477120, 5771472, 2869652072, 14533237 ####[facility] (DEFAULT)[address] [place] [address] Platelet mean volume (Bld) [Entitic vol] 7.7 fL Normal 6.3-10.2 [facility] Comment on above: Performed By: #### 1 251272800, 4981378, 9525441, 0476005424, 96535385 ####[facility] (DEFAULT)[address] [place] [address] 16021 RBC 3.36 x10 Low 3.70-5.30 [facility] Comment on above: Performed By: #### 1 728898705, 1015862, 0489724, 7328535442, 77829167 ####[facility] (DEFAULT)[address] [place] [address] WBC 7.0 x10 Normal 3.5-10.5 [facility] Comment on above: Performed By: #### 1 247299798, 4936575, 9133113, 8614118462, 20436853 ####[facility] (DEFAULT)[address] [place] [address] CMP Standardon 03-27-2023 eGFR Non AA 47 mL/min/1.73m2 Invalid Interpretation Code [facility] Comment on above: Performed By: #### 1 200441586, 1840417, 5462190, 0806996482, 41410693 ####[facility] (DEFAULT)[address] [place] [address] eGFR AA 57 mL/min/1.73m2 Invalid Interpretation Code [facility] Comment on above: Performed By: #### 1 972053978, 1439762, 9091742, 9388129844, 90090178 ####[facility] (DEFAULT)[address] [place] [address] Albumin [Mass/Vol] 2.9 g/dL Low 3.5-5.0 [facility] Comment on above: Performed By: #### 1 984791071, 7537859, 7822501, 3096412239, 82922436 ####[facility] (DEFAULT)[address] [place] [address] Albumin/Globulin [Mass ratio] 0.8 {ratio} Low 1.4-2.6 [facility] Comment on above: Performed By: #### 1 139879223, 3906405, 5697178, 8597951598, 14965660 ####[facility] (DEFAULT)[address] [place] [address] Alk Phos 104 IU/L High 32-91 [facility] Comment on above: Performed By: #### 1 677164019, 8823757, 0203731, 6232105110, 54567406 ####[facility] (DEFAULT)[address] [place] [address] ALT [Catalytic activity/Vol] 29.0 U/L Normal 17.0-63.0 [facility] Comment on above: Performed By: #### 1 325041920, 6300857, 8140233, 2318228763, 36885186 ####[facility] (DEFAULT)[address] [place] [address] 73259 Anion gap [Moles/Vol] 10.2 mmol/L Normal 5.0-19.0 [facility] Comment on above: Performed By: #### 1 269846953, 6455167, 9362808, 5917304588, 27374799 ####[facility] (DEFAULT)[address] [place] [address] 34589 AST [Catalytic activity/Vol] 22 U/L Normal 15-41 [facility] Comment on above: Performed By: #### 1 656424524, 8352697, 4950881, 5133108889, 93217747 ####[facility] (DEFAULT)[address] [place] [address] 78814 Bili Total 1.4 mg/dL High 0.3-1.2 [facility] Comment on above: Performed By: #### 1 986607188, 3495746, 1693159, 1888858891, 15730085 ####[facility] (DEFAULT)[address] [place] [address] 00990 Calcium [Mass/Vol] 8.1 mg/dL Low 8.9-10.3 [facility] Comment on above: Performed By: #### 1 399615860, 3681486, 8767392, 9421640966, 92709140 ####[facility] (DEFAULT)[address] [place] [address] 44185 Chloride [Moles/Vol] 107 mmol/L Normal 101-111 [facility] Comment on above: Performed By: #### 1 702876496, 2994098, 7014321, 5960845646, 14158038 ####[facility] (DEFAULT)[address] [place] [address] 03626 CO2 [Moles/Vol] 26 mmol/L Normal 21-32 [facility] Comment on above: Performed By: #### 1 053983022, 0336118, 0525785, 3402833578, 35475623 ####[facility] (DEFAULT)[address] [place] [address] 97532 Creatinine [Mass/Vol] 1.42 mg/dL High 0.90-1.30 [facility] Comment on above: Performed By: #### 1 131013350, 5062706, 0574967, 1363071426, 36784629 ####[facility] (DEFAULT)[address] [place] [address] 96606 Globulin (S) [Mass/Vol] 3.3 g/dL Normal 1.5-4.3 [facility] Comment on above: Performed By: #### 1 109651245, 0151805, 0403127, 7073846446, 74764316 ####[facility] (DEFAULT)[address] [place] [address] 86635 Glucose [Mass/Vol] 55.0 mg/dL Low 74.0-118.0 [facility] Comment on above: Performed By: #### 1 177457464, 7862573, 3216242, 0466418323, 42267969 ####[facility] (DEFAULT)[address] [place] [address] 46539 Osmolality 281 mOsm/L Invalid Interpretation Code [facility] Comment on above: Performed By: #### 1 587844232, 8973039, 4146370, 0843779004, 55391068 ####[facility] (DEFAULT)[address] [place] [address] 62839 Potassium [Moles/Vol] 3.2 mmol/L Low 3.6-5.1 [facility] Comment on above: Result Comment: IV T herapy Performed By: #### 1 356056518, 6329753, 2702253, 5367265837, 51700323 ####[facility] (DEFAULT)[address] [place] [address] 77135 Protein [Mass/Vol] 6.2 g/dL Low 6.5-8.1 [facility] Comment on above: Performed By: #### 1 833889012, 4686024, 4342025, 5324058882, 18581246 ####[facility] (DEFAULT)[address] [place] [address] 23203 Sodium [Moles/Vol] 140.0 mmol/L Normal 136.0-144.0 [facility] Comment on above: Performed By: #### 1 206289802, 5632065, 9705928, 8977080331, 89740848 ####[facility] (DEFAULT)[address] [place] [address] Urea nitrogen [Mass/Vol] 23 mg/dL Normal 8-26 [facility] Comment on above: Performed By: #### 1 747819840, 2660235, 1212921, 2370894845, 31826474 ####[facility] (DEFAULT)[address] [place] [address] Urea nitrogen/Creatinine [Mass ratio] 16.1 mg/mg Normal 4.6-16.2 [facility] Comment on above: Performed By: #### 1 606677449, 7237488, 8498687, 3909392540, 99650794 ####[facility] (DEFAULT)[address] [place] [address] 79542 ED Clinical Summaryon 2022 ED Clinical Summary [facility] ED Patient Education Noteon 03-27-2023 ED Patient Education Note Education Materials [facility] ED Patient Summaryon 023 ED Patient Summary [facility] Magnesiumon 03-27-2023 Magnesium [Mass/Vol] 1.65 mg/dL Low 1.80-2.50 [facility] Comment on above: Performed By: #### 1 451054119, 6724371, 6932999, 6992746154, 57686948 ####[facility] (DEFAULT)[address] [place] [address] 66123 POCT Glucose Levelon 023 Glucose [Mass/Vol] 168 mg/dL High 74-118 [facility] Comment on above: Performed By: #### 4 [id number] ####[facility] (DEFAULT)[address] [place] [address] 88175 Glucose [Mass/Vol] 105 mg/dL Normal 74-118 [facility] Comment on above: Performed By: #### 4 [id number] ####[facility] (DEFAULT)[address] [place] [address] 01385 Glucose [Mass/Vol] 54 mg/dL Low 74-118 [facility] Comment on above: Performed By: #### 4 [id number] ####[facility] (DEFAULT)[address] [place] [address] 67580 Glucose [Mass/Vol] 106 mg/dL Normal 74-118 [facility] Comment on above: Performed By: #### 4 [id number] ####[facility] (DEFAULT)[address] [place] [address] 62712 Glucose [Mass/Vol] 68 mg/dL Low 74-118 [facility] Comment on above: Performed By: #### 4 [id number] ####[facility] (DEFAULT)[address] [place] [address] 84029 Glucose [Mass/Vol] 54 mg/dL Low 74-118 [facility] Comment on above: Performed By: #### 4 [id number] ####[facility] (DEFAULT)[address] [place] [address] 55144 Glucose [Mass/Vol] 122 mg/dL High 74-[address] [place] [address] Comment on above: Performed By: #### 4 [id number] ####[facility] (DEFAULT)[address] [place] [address] 40647 Glucose [Mass/Vol] 65 mg/dL Low 74-[address] [place] [address] Comment on above: Performed By: #### 4 [id number] ####[facility] (DEFAULT)[address] [place] [address] 16293 Glucose [Mass/Vol] 60 mg/dL Low 74-[address] [place] [address] Comment on above: Performed By: #### 4 [id number] ####[facility] (DEFAULT)[address] [place] [address] 69163 Pharmacy Noteon 03-27-2023 Pharmacy Note Normal [facility] Progress Note - Nurseon 02-28 Progress Note - Nurse Normal [facility] Progress Note - Nurse Normal [facility] Progress Note - Nurse Normal [facility] Progress Note - Nurse Normal [facility] TnI HSon 03-27-2023 Troponin I High Sensitivity 34.9 pg/mL Critically abnormal <=20.0 [facility] Comment on above: Result Comment: Crit ical result TNIHS 34.9 pg/mL called to and read back by Paige Waktins RN at 27-Mar-2023 04:53 by Shreya. Performed By: #### 1 [id number], 4094601, 6192721, 6102283668, 16803705 ####[facility] (DEFAULT)[address] [place] [address] Troponin I High Sensitivity 38.8 pg/mL Critically abnormal <=20.0 [facility] Comment on above: Result Comment: Crit ical result TNIHS 38.8 pg/mL called to and read back by Paige Watkins RN at 27-Mar-2023 00:34 by Shreya. Performed By: #### 5 [id number] ####[facility] (DEFAULT)[address] [place] [address] US Echocardiogram Completeon 03-27-2023 US Echocardiogram Complete Normal [facility] .Auto Diff 1on 03-26-2023 Auto [place] % 16 % High 1-12 [facility] Comment on above: Performed By: #### 1 2339130, 7419924, 7442909799, 3060861, 1790460, 3311042185, 9434015604, 1990072 ####[facility] (DEFAULT)[address] [place] [address] Baso Abs# 0.0 x10 Normal 0.0-0.2 [facility] Comment on above: Performed By: #### 1 2642379, 7531959, 7069443686, 2819993, 1343003, 6891821841, 3082303964, 5292229 ####[facility] (DEFAULT)[address] [place] [address] Basophils/100 WBC (Bld) 0.5 % Normal 0.2-2.0 [facility] Comment on above: Performed By: #### 1 5464163, 7584317, 4435709976, 3270700, 8372904, 5609819546, 4111884925, 4160006 ####[facility] (DEFAULT)[address] [place] [address] Eos Abs# 0.2 x10 Normal 0.0-0.4 [facility] Comment on above: Performed By: #### 1 7772720, 3841607, 6650717060, 5400034, 6575629, 6082226598, 5754508169, 2297433 ####[facility] (DEFAULT)[address] [place] [address] 70524 Eosinophils/100 WBC (Bld) 2.4 % Normal 0.9-4.0 [facility] Comment on above: Performed By: #### 1 5189416, 1625524, 1084341603, 4746234, 9146140, 2519165847, 2122455341, 6334058 ####[facility] (DEFAULT)[address] [place] [address] 19900 Lymph Abs# 1.1 x10 Low 1.3-2.9 [facility] Comment on above: Performed By: #### 1 5175033, 4455282, 8296250163, 4734361, 9063071, 6267977864, 5429188641, 9918509 ####[facility] (DEFAULT)[address] [place] [address] 66321 Lymphocytes/100 WBC (Bld) 16 % Normal 14-48 [facility] Comment on above: Performed By: #### 1 3301189, 4479580, 0830600993, 4191849, 1576021, 1540535083, 7500989526, 7711203 ####[facility] (DEFAULT)[address] [place] [address] 87863 [place] Abs# 1.1 x10 High 0.0-0.8 [facility] Comment on above: Performed By: #### 1 6551280, 3254330, 0667364138, 4099236, 2079643, 7168914892, 0810826350, 1295814 ####[facility] (DEFAULT)[address] [place] [address]82 Neut Abs# 4.7 x10 Normal 1.5-9.2 [facility] Comment on above: Performed By: #### 1 [id number], [id number], [id number], [id number], 7073037, [id number], [id number], [id number] ####[facility] (DEFAULT)[address] [place] [address]690 Neutrophils/100 WBC (Bld) 66 % Normal 44-88 [facility] Comment on above: Performed By: #### 1 [id number], 7481710, [id number], 9825265, 1122453, [id number], [id number], 6040183 ####[facility] (DEFAULT)[address] [place] [address] BNP.on 03-26-2023 Natriuretic peptide B (Bld) [Mass/Vol] 294.0 pg/mL High 0.0-100.0 [facility] Comment on above: Result Comment: BNP results greater than 100 pg/mL are considered abnormal and suggestive of patients with CHF. Higher BNP concentrations measured in the first 72 hours after an acute coronary syndorme are associated with an increased risk of , myocardial infarction, and CHF. Performed By: #### 1 [id number], 4811561, [id number], 9069814, 5970624, [id number], [id number], 4634090 ####[facility] (DEFAULT)[address] [place] [address]03 CBC w/ Auto Diffon Erythrocyte distribution width (RBC) [Ratio] 15.6 % High 11.5-15.0 [facility] Comment on above: Performed By: #### 1 [id number], 0918510, [id number], 8759540, 8565718, [id number], [id number], 3554873 ####[facility] (DEFAULT)[address] [place] [address] Hematocrit (Bld) [Volume fraction] 37.5 % Normal 34.8-51.9 [facility] Comment on above: Performed By: #### 1 [id number], [id number], [id number], 6005446, 7048013, 2773791202, 1502024043, 8050526 ####[facility] (DEFAULT)[address] [place] [address] 72825 Hemoglobin (Bld) [Mass/Vol] 12.7 g/dL Normal 11.8-17.7 [facility] Comment on above: Performed By: #### 1 2750956, 6816379, 6568972832, 3483155, 3410184, 8234883582, 8928149043, 1004786 ####[facility] (DEFAULT)[address] [place] [address] Man Diff? Auto Invalid Interpretation Code [facility] Comment on above: Performed By: #### 1 3469998, 8847017, 8587498569, 9786936, 2849545, 6698562884, 2960117920, 8666296 ####[facility] (DEFAULT)[address] [place] [address] 16501 MCH (RBC) [Entitic mass] 35 pg High 24-34 [facility] Comment on above: Performed By: #### 1 6631447, 9832265, 8393287691, 1026087, 6899992, 3624440895, 5939452244, 5203779 ####[facility] (DEFAULT)[address] [place] [address] MCHC (RBC) [Mass/Vol] 34 g/dL Normal 26-37 [facility] Comment on above: Performed By: #### 1 9746409, 6021670, 5303376602, 4962378, 0026151, 9803395725, 3302062099, 9245998 ####[facility] (DEFAULT)[address] [place] [address] 41796 MCV (RBC) [Entitic vol] 102 fL High 81-100 [facility] Comment on above: Performed By: #### 1 7849854, 2257227, 8553086804, 8990051, 3766990, 7749872091, 9438291992, 0028334 ####[facility] (DEFAULT)[address] [place] [address] 21342 Platelet 148 x10 Normal 138-427 [facility] Comment on above: Performed By: #### 1 7571956, 0865574, 2554842256, 5527474, 8057063, 9422371339, 5949821080, 9784275 ####[facility] (DEFAULT)[address] [place] [address] Platelet mean volume (Bld) [Entitic vol] 7.3 fL Normal 6.3-10.2 [facility] Comment on above: Performed By: #### 1 4618203, 2288697, 6375234817, 4630138, 7504089, 9755427146, 3586822591, 3545449 ####[facility] (DEFAULT)[address] [place] [address] RBC 3.67 x10 Low 3.70-5.30 [facility] Comment on above: Performed By: #### 1 7502797, 8446634, 5433475947, 6592822, 5179662, 3928605134, 8282315634, 7250800 ####[facility] (DEFAULT)[address] [place] [address] WBC 7.1 x10 Normal 3.5-10.5 [facility] Comment on above: Performed By: #### 1 6244445, 0990566, 5630026914, 6979677, 3345800, 2307745138, 2415638573, 0163260 ####[facility] (DEFAULT)[address] [place] [address] CMP Standardon 03-26-2023 Breakpoint Chem Normal [facility] Comment on above: Performed By: #### 1 2880346, 4628803, 2354346028, 2259780, 9156600, 2155196902, 7057452662, 1507392 ####[facility] (DEFAULT)[address] [place] [address] eGFR Non AA 44 mL/min/1.73m2 Invalid Interpretation Code [facility] Comment on above: Performed By: #### 1 3018815, 7303047, 4887221225, 6463851, 6120567, 7007238914, 6662097717, 4846326 ####[facility] (DEFAULT)[address] [place] [address] eGFR AA 53 mL/min/1.73m2 Invalid Interpretation Code [facility] Comment on above: Performed By: #### 1 6368211, 1387243, 4209256629, 2892299, 3223722, 6105059017, 1450551015, 1821817 ####[facility] (DEFAULT)[address] [place] [address] Albumin [Mass/Vol] 3.2 g/dL Low 3.5-5.0 [facility] Comment on above: Performed By: #### 1 1248892, 2597055, 7923632417, 6571218, 1145158, 8725405440, 0315355667, 2189075 ####[facility] (DEFAULT)[address] [place] [address] Albumin/Globulin [Mass ratio] 0.8 {ratio} Low 1.4-2.6 [facility] Comment on above: Performed By: #### 1 4252343, 7229727, 2713921981, 5183236, 9815658, 7880157701, 5854168074, 5207985 ####[facility] (DEFAULT)[address] [place] [address] Alk Phos 128 IU/L High 32-91 [facility] Comment on above: Performed By: #### 1 0066844, 1605558, 6051709682, 9815832, 8319598, 9419876683, 2572713443, 5334031 ####[facility] (DEFAULT)[address] [place] [address] ALT [Catalytic activity/Vol] 34.0 U/L Normal 17.0-63.0 [facility] Comment on above: Performed By: #### 1 1780427, 3517807, 0170297734, 8398542, 6501612, 0064503005, 8305075892, 0438469 ####[facility] (DEFAULT)[address] [place] [address] Anion gap [Moles/Vol] 13.8 mmol/L Normal 5.0-19.0 [facility] Comment on above: Performed By: #### 1 7653710, 9789607, 9578561690, 7710437, 8425602, 8212526018, 0239277574, 9762672 ####[facility] (DEFAULT)[address] [place] [address] 60813 AST [Catalytic activity/Vol] 28 U/L Normal 15-41 [facility] Comment on above: Performed By: #### 1 2979970, 3478141, 5910227092, 4746624, 2088553, 6103196206, 8018207272, 7733201 ####[facility] (DEFAULT)[address] [place] [address] 94851 Bili Total 1.5 mg/dL High 0.3-1.2 [facility] Comment on above: Performed By: #### 1 2763666, 4229391, 9426426283, 3226129, 7553727, 2839625857, 8245240570, 5038986 ####[facility] (DEFAULT)[address] [place] [address] 10746 Calcium [Mass/Vol] 8.5 mg/dL Low 8.9-10.3 [facility] Comment on above: Performed By: #### 1 7962168, 5335205, 8223849508, 5109737, 3337315, 7991913376, 3056082327, 0870184 ####[facility] (DEFAULT)[address] [place] [address] 85459 Chloride [Moles/Vol] 106 mmol/L Normal 101-111 [facility] Comment on above: Performed By: #### 1 5323373, 2227079, 2049938052, 5406935, 6685259, 3125693943, 8175907349, 3975553 ####[facility] (DEFAULT)[address] [place] [address] 92646 CO2 [Moles/Vol] 25 mmol/L Normal 21-32 [facility] Comment on above: Performed By: #### 1 3566926, 8370327, 6769133381, 9602128, 2937981, 5314183198, 9513080890, 6854379 ####[facility] (DEFAULT)[address] [place] [address] 62272 Creatinine [Mass/Vol] 1.51 mg/dL High 0.90-1.30 [facility] Comment on above: Performed By: #### 1 0453501, 3235078, 4297074555, 8886674, 5629499, 9561450113, 6527007250, 9166485 ####[facility] (DEFAULT)[address] [place] [address] 49026 Globulin (S) [Mass/Vol] 3.8 g/dL Normal 1.5-4.3 [facility] Comment on above: Performed By: #### 1 9265373, 8253571, 5165582435, 8658031, 9440915, 5161208994, 9821857933, 2123391 ####[facility] (DEFAULT)[address] [place] [address] 70033 Glucose [Mass/Vol] 122.0 mg/dL High 74.0-118.0 [facility] Comment on above: Performed By: #### 1 4932038, 8849030, 7301074589, 6161234, 8519576, 0623822242, 8079386939, 9858989 ####[facility] (DEFAULT)[address] [place] [address] 62246 Osmolality 287 mOsm/L Invalid Interpretation Code [facility] Comment on above: Performed By: #### 1 4753764, 6348663, 2446253786, 3481294, 4257958, 9910143111, 7663451303, 6018942 ####[facility] (DEFAULT)[address] [place] [address] 37813 Potassium [Moles/Vol] 3.8 mmol/L Normal 3.6-5.1 [facility] Comment on above: Performed By: #### 1 1267926, 8043831, 8586965883, 9257182, 3356514, 5845552662, 8746619771, 7520053 ####[facility] (DEFAULT)[address] [place] [address] 42069 Protein [Mass/Vol] 7.0 g/dL Normal 6.5-8.1 [facility] Comment on above: Performed By: #### 1 4453806, 6302389, 3316935154, 4752281, 0098769, 5955838064, 3261735515, 0148085 ####[facility] (DEFAULT)[address] [place] [address] 34290 Sodium [Moles/Vol] 141.0 mmol/L Normal 136.0-144.0 [facility] Comment on above: Performed By: #### 1 4681863, 4369399, 8858419103, 6145055, 6700109, 7464307937, 0587266804, 4040359 ####[facility] (DEFAULT)[address] [place] [address] 19833 Urea nitrogen [Mass/Vol] 26 mg/dL Normal 8-26 [facility] Comment on above: Performed By: #### 1 8485678, 6925529, 9825527602, 4574254, 4402040, 1224347038, 6478658723, 4794712 ####[facility] (DEFAULT)[address] [place] [address] 89449 Urea nitrogen/Creatinine [Mass ratio] 17.2 mg/mg High 4.6-16.2 [facility] Comment on above: Performed By: #### 1 2233727, 3204969, 5797977790, 0618144, 5204899, 0514528856, 2014508230, 0172948 ####[facility] (DEFAULT)[address] [place] [address] 64324 ED Note - Physicianon 2022 ED Note - Physician [facility] ED Note-Nursingon 03-26-2023 ED Note-Nursing [facility] Lactic Acidon 03-26-2023 Lactic Acid 13.9 mg/dL Normal 4.5-19.8 [facility] Comment on above: Order Comment: patie nt ask if he can get a break from poking since he got two IV line that dont draw blood he is swollen. let osman(nurse supervisor parking lot) know. patient will be going upstair for the night @ 2029 olya Performed By: #### 2 643979 ####[facility] (DEFAULT)[address] [place] [address] 00761 Lipaseon 03-26-2023 Lipase Level 25.0 IU/L Normal 22.0-51.0 [facility] Comment on above: Performed By: #### 1 5281920, 8626197, 1541245041, 0404270, 1361445, 7186271986, 0790336579, 7844768 ####[facility] (DEFAULT)[address] [place] [address] Magnesiumon 03-26-2023 Magnesium [Mass/Vol] 1.71 mg/dL Low 1.80-2.50 [facility] Comment on above: Performed By: #### 1 0663860, 1790184, 7473379318, 0139834, 0880942, 6202797006, 2329799898, 3107482 ####[facility] (DEFAULT)[address] [place], [place] [address] PTon 03-26-2023 INR Coag (PPP) [Relative time] 1.22 {INR} High 0.91-1.11 [facility] Comment on above: Performed By: #### 1 7129575, 8894962, 4501595293, 3603616, 7303310, 9946912757, 4347355057, 6201897 ####[facility] (DEFAULT)[address] [place] [address] PT 13.0 second(s) High 9.7-11.8 [facility] Comment on above: Performed By: #### 1 3904612, 6278406, 0972486738, 3800670, 4720085, 5476823583, 9071382108, 0136035 ####[facility] (DEFAULT)[address] [place] [address] SARS-CoV-2 (COVID-19) PCRon 03-26-2023 Internal Control Pass Normal [facility] Comment on above: Performed By: #### 6 [id number] ####[facility] (DEFAULT)[address] [place] [address] SARS-CoV-2 (COVID-19) RNA SERJIO+probe Ql (Unsp spec) Not detected Normal Not Detected [facility] Comment on above: Result Comment: Perf ormed by PCR methodology. Performed By: #### 6 [id number] ####[facility] (DEFAULT)[address] [place] [address] 61829 TnI HSon 03-26-2023 Troponin I High Sensitivity 28.8 pg/mL Critically abnormal <=20.0 [facility] Comment on above: Order Comment: To be done 1 hour after first Troponin [id number] next trop Result Comment: Crit ical result TNIHS 28.8 pg/mL called to and read back by Paige Watkins RN [address] [place] and Selina Merlos RN in ER at 26-Mar-2023 21:50 by [facility]. Performed By: #### 5 [id number] ####[facility] (DEFAULT)[address] [place] [address] Troponin I High Sensitivity 28.4 pg/mL Critically abnormal <=20.0 [facility] Comment on above: Result Comment: Crit ical result TNIHS 28.4 pg/mL called to and read back by Sanaz Cage RN in ER at 26-Mar-2023 19:49 by _[facility]. Performed By: #### 1 8360164, 3964044, 1920543249, 3956897, 5712972, 2422052813, 0178521369, 8926485 ####[facility] (DEFAULT)[address] [place] [address] 92389 UA Yfvwu5me 03-26-2023 UA Amorph. Rare [facility] Comment on above: Order Comment: Urina lysis Microscopic order added on by [employer] system. Performed By: #### 5 2500388, [id number] ####[facility] (DEFAULT)[address] [place] [address] 95181 UA Bacteria None [facility] Comment on above: Order Comment: Urina lysis Microscopic order added on by [employer] system. Performed By: #### 5 9815114, 4089814405 ####[facility] (DEFAULT)[address] [place] [address] 50674 UA RBC 0-2 Normal [facility] Comment on above: Order Comment: Urina lysis Microscopic order added on by [employer] system. Performed By: #### 5 7229321, [id number] ####[facility] (DEFAULT)[address] [place] [address] UA Squam Epi Rare [facility] Comment on above: Order Comment: Urina lysis Microscopic order added on by [employer] system. Performed By: #### 5 8544981, 8418978889 ####[facility] (DEFAULT)[address] [place] [address] 23698 UA WBC None Seen [facility] Comment on above: Order Comment: Urina lysis Microscopic order added on by [employer] system. Performed By: #### 5 4045549, [id number] ####[facility] (DEFAULT)[address] [place] [address] UA w Culture if Ind Standard on 03-26-2023 Breakpoint UA [facility] Comment on above: Order Comment: Autom atically placed with order Insert Chambers Cath Performed By: #### 5 9537421, [id number] ####[facility] (DEFAULT)[address] [place] [address] Color (U) Yellow [facility] Comment on above: Order Comment: Autom atically placed with order Insert Chambers Cath Performed By: #### 5 1089348, [id number] ####[facility] (DEFAULT)[address] [place] [address] Culture? Not Indicated Invalid Interpretation Code [facility] Comment on above: Order Comment: Autom atically placed with order Insert Chambers Cath Result Comment: Resu lt created by rule GL_MAGR_ADD_UA_CULT Result created by rule GL_MAGR_ADD_UA_CULT Result created by rule GL_MAGR_ADD_UA_CULT1 Performed By: #### 5 6945418, [id number] ####[facility] (DEFAULT)[address] [place] [address] Glucose (U) [Mass/Vol] Negative [facility] Comment on above: Order Comment: Autom atically placed with order Insert Chambers Cath Performed By: #### 5 9689976, [id number] ####[facility] (DEFAULT)[address] [place] [address] Ketones Ql (U) Negative Normal [facility] Comment on above: Order Comment: Autom atically placed with order Insert Chambers Cath Performed By: #### 5 7582607, [id number] ####[facility] (DEFAULT)[address] [place] [address] Micro? Indicated Invalid Interpretation Code [facility] Comment on above: Order Comment: Autom atically placed with order Insert Chambers Cath Result Comment: Resu lt created by rule GL_MAGR_ADD_UA_MICRO Performed By: #### 5 7446704, [id number] ####[facility] (DEFAULT)[address] [place] [address] 76284 UA Bilirubin Negative [facility] Comment on above: Order Comment: Autom atically placed with order Insert Chambers Cath Performed By: #### 5 5755192, [id number] ####[facility] (DEFAULT)[address] [place] [address] 69235 UA Blood SMALL Abnormal NEGATIVE [facility] Comment on above: Order Comment: Autom atically placed with order Insert Chambers Cath Performed By: #### 5 2840422, [id number] ####[facility] (DEFAULT)[address] [place] [address] 29553 UA Clarity CLEAR Normal CLEAR [facility] Comment on above: Order Comment: Autom atically placed with order Insert Chambers Cath Performed By: #### 5 4505855, [id number] ####[facility] (DEFAULT)[address] [place] [address] 01409 UA Leuk Est Negative Normal NEGATIVE [facility] Comment on above: Order Comment: Autom atically placed with order Insert Chamebrs Cath Performed By: #### 5 9936724, [id number] ####[facility] (DEFAULT)[address] [place] [address] 29994 UA Nitrite Negative Normal [facility] Comment on above: Order Comment: Autom atically placed with order Insert Chambers Cath Performed By: #### 5 8953065, [id number] ####[facility] (DEFAULT)[address] [place] [address] 50441 UA pH 5.5 Normal 5-8 [facility] Comment on above: Order Comment: Autom atically placed with order Insert Chambers Cath Performed By: #### 5 6978941, [id number] ####[facility] (DEFAULT)[address] [place] [address] UA Protein Negative Normal NEGATIVE [facility] Comment on above: Order Comment: Autom atically placed with order Insert Chambers Cath Performed By: #### 5 9653401, [id number] ####[facility] (DEFAULT)[address] [place] [address] UA Spec Grav 1.015 Normal 1.001-1.035 [facility] Comment on above: Order Comment: Autom atically placed with order Insert Chambers Cath Performed By: #### 5 0024408, [id number] ####[facility] (DEFAULT)[address] [place] [address] UA Urobilinogen 0.2 mg/dL Normal 0.2-1.0 [facility] Comment on above: Order Comment: Autom atically placed with order Insert Chambers Cath Performed By: #### 5 3884557, [id number] ####[facility] (DEFAULT)[address] [place] [address] Urine Source Clean Catch [facility] Comment on above: Order Comment: Autom atically placed with order Insert Chambers Cath Performed By: #### 5 4171181, [id number] ####[facility] (DEFAULT)[address] [place] [address] XR Chest 1 View Frontalon XR Chest 1 View Frontal [facility] Advance Beneficiary Notifica tionson 03-25-2023 Advance Beneficiary Notifications [id number]#1.00OTGTIFF [facility] Coding Summaryon 03-25-2023 Coding Summary [facility] Lab - Reference Lab Resultso n 03-25-2023 Lab - Reference Lab Results [id number]#1.00OTGTIFF [facility] Coding Summaryon 03-23-2023 Coding Summary [facility] Coding Summaryon 03-19-2023 Coding Summary [facility] Coding Summary [facility] Outside Recordson 03-19-2023 Outside Records [id number]#1.00OTGTI FF [facility] Wound Care Noteon 03-19-2023 Wound Care Note [id number]#1.00OTGTIFF [facility] Progress Note - Provideron 0 03-18-2023 Progress Note - Provider [id number]#1.00OTGTIFF [facility] Wound Cultureon 03-18-2023 Wound Culture [facility] Comment on above: Performed By: #### 6 [id number] ####[facility] (DEFAULT)[address] [place] [address] Progress Note-Physicianon Progress Note-Physician [facility] Coding Summaryon 03-12-2023 Coding Summary [facility] Coding Summaryon 03-10-2023 Coding Summary [facility] Wound Cultureon 03-09-2023 Wound Culture No growth at 2 days. No organisms seen. [facility] Comment on above: Performed By: #### 6 [id number] ####[facility] (DEFAULT)[address] [place] [id number] Consultation/Specialist Note on 03-08-2023 Consultation/Specialis t Note [id number]#1.00OTGTI FF [facility] ED Clinical Summaryon 2022 ED Clinical Summary [facility] ED Note - Physicianon 2022 ED Note - Physician [facility] ED Note-Nursingon 03-05-2023 ED Note-Nursing [facility] ED Patient Education Noteon 03-05-2023 ED Patient Education Note [facility] ED Patient Summaryon 023 ED Patient Summary [facility] Wound Cultureon 03-05-2023 Wound Culture right posterior heel/calcaneus No growth at 2 days. Few White Blood Cells seen No organisms seen. [facility] Comment on above: Performed By: #### 6 [id number] ####[facility] (DEFAULT)[address] [place] [address] Coding Summaryon 03-04-2023 Coding Summary [facility] Consent Formson 03-04-2023 Consent Forms [id number]#1.00OTGTIFF [facility] Lab - Reference Lab Resultso n 03-04-2023 Lab - Reference Lab Results [id number]#1.00OTGTIFF [facility] Advance Beneficiary Notifica tionson 03-03-2023 Advance Beneficiary Notifications [id number]#1.00OTGTIFF [facility] Inpatient Clinical Summaryon 03-03-2023 Inpatient Clinical Summary [facility] Inpatient Patient Summaryon 03-03-2023 [facility]2023 [facility] [facility] [facility] Recordon 0 03-03-2023 [facility] [place] Preoperative Record [facility] Operative Report - Surgeon/P steve 03-03-2023 Operative Report - Surgeon/Physician [facility] POCT Glucose Levelon 023 Glucose [Mass/Vol] 105 mg/dL Normal 74-118 [facility] Comment on above: Performed By: #### 4 [id number] ####[facility] (DEFAULT)[address] [place] [address] Patient Handouton 03-03-2023 Patient Handout [facility] Coding Summaryon 02-25-2023 Coding Summary [facility] Consultation/Specialist Note on 02-25-2023 Consultation/Specialis t Note [id number]#1.00OTGTIFF [facility] Progress Note - Provideron 0 02-25-2023 Progress Note - Provider [id number]#1.00OTGTIFF [facility] Ambulatory Clinical Summaryo n 02-24-2023 Ambulatory Clinical Summary [facility] Ambulatory Patient Summaryon 02-24-2023 Ambulatory Patient Summary [facility] CNPNon 02-24-2023 CNPN Telephone (4CQ) -- BERE CALLEJAS ([id number]) 1935 M Date Time Provider Department 02/24/23 ALBERT MEZA 4CQ During your visit today, we recorded the following information about you: Edwige Youngblood 02/24/2023 11:22 AM Signed Reason for call: Ms Wood called and she would like to schedule an appointment with Contact Name (If not the pt): Nina Home and cell number: [phone] Diagnosis: 4 y f/u Kind Regards, Edwige Rader Allergies As of Date: 02/24/2023 (No Known Allergies) Date Reviewed: 10/27/2022 Reviewed by: Ama Barbosa, MARCELO - Fully Assessed Reason for Visit: Appointment [186] Prescriptions as of 02/24/2023 - traMADol (ULTRAM) 50 mg tablet Take 50 mg by mouth every 6 hours as needed. - metFORMIN (GLUCOPHAGE) 850 mg tablet Take 1 tablet by mouth three times daily. Resume tomorrow 12/14/17. - aspirin, enteric coated (ASPIRIN, ENTERIC COATED) 81 mg EC tablet Take 81 mg by mouth once daily. - lisinopril (ZESTRIL, PRINIVIL) 5 mg tablet Take 5 mg by mouth once daily. - amLODIPine (NORVASC) 10 mg tablet Take 10 mg by mouth once daily. - atorvastatin (LIPITOR) 80 mg tablet Take 1 tablet by mouth daily at bedtime. - citalopram hydrobromide (CELEXA) 10 mg tablet Take 1/2 tablet once daily. - pioglitazone (ACTOS) 15 mg tablet Take 2 tablets daily with evening meal. - gabapentin (NEURONTIN) 300 mg capsule Take 200 mg by mouth three times daily. 2 tabs three times a day - omeprazole 20 mg capsule Take 20 mg by mouth once daily. Facility-Administered Medications as of 02/24/2023 - perflutren lipid microspheres 1.3 mL in NaCl (PF) 0.9% 10 mL injection (DEFINITY) - sodium chloride 0.9 % (flush) 10 mL (BD POSIFLUSH) Problem List As Of Date 02/24/2023 Noted Resolved Other dyspnea and respiratory abnormality [R06.*07/15/2015 09/01/2016 Bilateral carotid artery stenosis [I65.23] 08/15/2015 Nonrheumatic aortic valve insufficiency [I35.1] 10/10/2015 DACOSTA (dyspnea on exertion) [R06.09] 10/10/2015 Non morbid obesity due to excess calories [E66.*10/12/2016 Essential hypertension [I10] 10/12/2016 Controlled type 2 diabetes mellitus without com*10/12/2016 Dyslipidemia [E78.5] 10/12/2016 Stenosis of left carotid artery [I65.22] 10/05/2017 EKG abnormality [R94.31] 03/02/2022 Preoperative clearance [Z01.818] 10/27/2022 Encounter Status:Closed by EDWIGE SHIRLEY on 02/24/23 Normal [facility] Patient Handouton 02-24-2023 Patient Handout Normal [facility] CMP Standardon 02-23-2023 eGFR Non AA 44 mL/min/1.73m2 Invalid Interpretation Code [facility] Comment on above: Performed By: #### 1 [id number], [id number] ####[facility] (DEFAULT)[address] [place] [address] 74104 eGFR AA 53 mL/min/1.73m2 Invalid Interpretation Code [facility] Comment on above: Performed By: #### 1 [id number], [id number] ####[facility] (DEFAULT)[address] [place] [address] 79406 Albumin [Mass/Vol] 3.8 g/dL Normal 3.5-5.0 [facility] Comment on above: Performed By: #### 1 [id number], [id number] ####[facility] (DEFAULT)[address] [place] [address] 92042 Albumin/Globulin [Mass ratio] 1.1 {ratio} Low 1.4-2.6 [facility] Comment on above: Performed By: #### 1 [id number], [id number] ####[facility] (DEFAULT)[address] [place] [address] 58753 Alk Phos 121 IU/L High 32-91 [facility] Comment on above: Performed By: #### 1 [id number], [id number] ####[facility] (DEFAULT)[address] [place] [address] 29164 ALT [Catalytic activity/Vol] 31.0 U/L Normal 17.0-63.0 [facility] Comment on above: Performed By: #### 1 [id number], [id number] ####[facility] (DEFAULT)[address] [place] [address] 60917 Anion gap [Moles/Vol] 13.1 mmol/L Normal 5.0-19.0 [facility] Comment on above: Performed By: #### 1 [id number], [id number] ####[facility] (DEFAULT)[address] [place] [address] 91090 AST [Catalytic activity/Vol] 25 U/L Normal 15-41 [facility] Comment on above: Performed By: #### 1 [id number], [id number] ####[facility] (DEFAULT)[address] [place] [address] 61257 Bili Total 1.6 mg/dL High 0.3-1.2 [facility] Comment on above: Performed By: #### 1 [id number], [id number] ####[facility] (DEFAULT)[address] [place] [address] 72985 Calcium [Mass/Vol] 9.3 mg/dL Normal 8.9-10.3 [facility] Comment on above: Performed By: #### 1 [id number], [id number] ####[facility] (DEFAULT)[address] [place] [address] 07418 Chloride [Moles/Vol] 104 mmol/L Normal 101-111 [facility] Comment on above: Performed By: #### 1 [id number], [id number] ####[facility] (DEFAULT)[address] [place] [address] 41928 CO2 [Moles/Vol] 28 mmol/L Normal 21-32 [facility] Comment on above: Performed By: #### 1 [id number], [id number] ####[facility] (DEFAULT)[address] [place] [address] 25187 Creatinine [Mass/Vol] 1.51 mg/dL High 0.90-1.30 [facility] Comment on above: Performed By: #### 1 [id number], [id number] ####[facility] (DEFAULT)[address] [place] [address] 23844 Globulin (S) [Mass/Vol] 3.3 g/dL Normal 1.5-4.3 [facility] Comment on above: Performed By: #### 1 [id number], [id number] ####[facility] (DEFAULT)[address] [place] [address] 71431 Glucose [Mass/Vol] 132.0 mg/dL High 74.0-118.0 [facility] Comment on above: Performed By: #### 1 [id number], [id number] ####[facility] (DEFAULT)[address] [place] [address] 79062 Osmolality 288 mOsm/L Invalid Interpretation Code [facility] Comment on above: Performed By: #### 1 [id number], [id number] ####[facility] (DEFAULT)[address] [place] [address] 57591 Potassium [Moles/Vol] 4.1 mmol/L Normal 3.6-5.1 [facility] Comment on above: Performed By: #### 1 [id number], [id number] ####[facility] (DEFAULT)[address] [place] [address] 75200 Protein [Mass/Vol] 7.1 g/dL Normal 6.5-8.1 [facility] Comment on above: Performed By: #### 1 [id number], [id number] ####[facility] (DEFAULT)[address] [place] [address] 72243 Sodium [Moles/Vol] 141.0 mmol/L Normal 136.0-144.0 [facility] Comment on above: Performed By: #### 1 [id number], [id number] ####[facility] (DEFAULT)[address] [place] [address] 64543 Urea nitrogen [Mass/Vol] 28 mg/dL High 8-26 [facility] Comment on above: Performed By: #### 1 [id number], [id number] ####[facility] (DEFAULT)[address] [place] [address] 89631 Urea nitrogen/Creatinine [Mass ratio] 18.5 mg/mg High 4.6-16.2 [facility] Comment on above: Performed By: #### 1 [id number], [id number] ####[facility] (DEFAULT)[address] [place] [address] 70022 Coding Summaryon 02-23-2023 Coding Summary Normal [facility] Lipid Panel Standardon 02-23 Cholesterol [Mass/Vol] 113.0 mg/dL Normal 66.0-200.0 [facility] Comment on above: Performed By: #### 1 [id number], [id number] ####[facility] (DEFAULT)[address] [place] [address] 43462 Cholesterol in HDL [Mass/Vol] 59 mg/dL Normal 40-71 [facility] Comment on above: Performed By: #### 1 [id number], [id number] ####[facility] (DEFAULT)[address] [place] [address] 15351 Cholesterol in LDL [Mass/Vol] 40 mg/dL Normal 1-100 [facility] Comment on above: Performed By: #### 1 [id number], [id number] ####[facility] (DEFAULT)[address] [place] [address] 53299 Cholesterol.total/Chol esterol in HDL [Mass ratio] 1.9 {ratio} Normal 0.0-4.5 [facility] Comment on above: Performed By: #### 1 [id number], [id number] ####[facility] (DEFAULT)[address] [place] [address] Triglyceride [Mass/Vol] 66.0 mg/dL Normal 0.0-150.0 [facility] Comment on above: Performed By: #### 1 [id number], [id number] ####[facility] (DEFAULT)[address] [place] [address] 28807 VLDL. 13 mg/dL Normal 5-40 [facility] Comment on above: Performed By: #### 1 [id number], [id number] ####[facility] (DEFAULT)[address] [place] [address] 46089 Progress Note-Physicianon Progress Note-Physician [facility] CNOVon 10-27-2022 CNOV Office Visit (CARDAV ) -- BERE CALLEJAS ([id number]) 1935 M Date Time Provider Department 10/27/22 4:00 PM AQUILES LIM During your visit today, we recorded the following information about you: Pulse Blood pressure Weight 68/minute 142/64 118.4 kg Aquiles Lim MD 10/27/2022 4:14 PM Signed REASON FOR VISIT: Follow up of aortic regurgitation. INTERVAL HISTORY: Previous visit was on 03.02.2022; assessment and plan at that time: Moderate aortic regurgitation, unchanged as per last year's echocardiogram. Preserved LV systolic function, normal LV diameters. Asymptomatic (he has dyspnea on exertion but most probably due to deconditioning/obesity). Will obtain a follow up echocardiogram at 2 years from previous, if no change in symptoms. Hypertension. Well-controlled now. Type 2 diabetes mellitus. Severe left carotid artery disease; s/p CEA in November 2018. Asymptomatic; to continue with statin and aspirin. 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 Dyspnea on exertion: Stable. Most probably multifactorial: obesity/deconditioning/ast hma. Obesity. Patient instructed ONCE AGAIN to engage on a healthy lifestyle that includes low fat low calorie diet along with regular aerobic exercise for at least 30', 5-7 days a week. Labs done by his PCP (Pt. Harper). Since then No cardiac complaints except for poor balance. Unchanged shortness of breath on exertion that he attributes to his asthma. Denies chest pain, orthopnea, cough, edema, palpitations, PND, lightheadedness or syncope. About to have shoulder sx. PAST CARDIAC HISTORY: See above and below. PAST MEDICAL HISTORY Diagnosis Date Carotid artery stenosis, asymptomatic, left 10/05/2017 Controlled type 2 diabetes mellitus without complication, without long-term current use of insulin ([facility]) 10/12/2016 Cyst and pseudocyst of pancreas Depressive disorder, not elsewhere classified Diabetic neuropathy ([facility]) Dyslipidemia 10/12/2016 Essential hypertension 10/12/2016 Non morbid obesity due to excess calories 10/12/2016 Nonrheumatic aortic valve insufficiency 10/10/2015 Obstructive sleep apnea on CPAP Occlusion and stenosis of carotid artery without mention of cerebral infarction Left Orthostatic hypotension Other and unspecified hyperlipidemia PVD (peripheral vascular disease) ([facility]) Shortness of breath Thyroid cyst 03/2013 R lobe. 0.5 cm x 0.4 cm Type II or unspecified type diabetes mellitus without mention of complication, uncontrolled Unspecified essential hypertension MEDICATIONS: traMADol (ULTRAM) 50 mg tabletTake 50 mg by mouth every 6 hours as needed. Disp: Rfl: 0 aspirin, enteric coated (ASPIRIN, ENTERIC COATED) 81 mg EC tabletTake 81 mg by mouth once daily.Disp: Rfl: lisinopril (ZESTRIL, PRINIVIL) 5 mg tabletTake 5 mg by mouth once daily.Disp: Rfl: amLODIPine (NORVASC) 10 mg tabletTake 10 mg by mouth once daily.Disp: Rfl: atorvastatin (LIPITOR) 80 mg tabletTake 1 tablet by mouth daily at bedtime.Disp: 90 tabletRfl: 3 citalopram hydrobromide (CELEXA) 10 mg tabletTake 1/2 tablet once daily.Disp: Rfl: pioglitazone (ACTOS) 15 mg tabletTake 2 tablets daily with evening meal.Disp: Rfl: gabapentin (NEURONTIN) 300 mg capsuleTake 200 mg by mouth three times daily. 2 tabs three times a day Disp: Rfl: omeprazole 20 mg capsuleTake 20 mg by mouth once daily.Disp: Rfl: metFORMIN (GLUCOPHAGE) 850 mg tabletTake 1 tablet by mouth three times daily. Resume tomorrow 12/14/17.Disp: Rfl: (Patient not taking: No sig reported) REVIEW OF SYSTEMS: GENERAL: Negative for: weight loss or weight gain, fever or chills, and sleep difficulties HEENT: Negative for: headache, impaired vision, glasses, hearing impairment, ringing in ears, vertigo, nosebleeds, poor dental care, bleeding gums, dentures NECK: Negative for: swelling, pain, stiffness RESPIRATORY: Negative for: blood in sputum, wheezing GASTROINTESTINAL: Negative for: abdominal pain, trouble swallowing, heartburn, change in bowel habits, blood in stool, dark black stools MUSCULOSKELETAL: Negative for: muscle or joint pain, stiffness, joint swelling NEUROLOGIC/PSYCHIATRIC: Negative for: weakness, paralysis, numbness, tingling, tremor, nervousness, depressed mood, memory loss SKIN: Negative for: rashes, itching HEMATOLOGICAL/LYMPHATIC: Negative for: easy bruising, easy bleeding ENDOCRINE: Negative for: heat or cold intolerance, excessive sweating, frequent urination, frequent thirst PHYSICAL EXAMINATION: Blood Pressure 142/64 (BP Site: Left Arm, BP Position: Sitting, BP Cuff Size: Regular Adult) Pulse 68 Weight 118.4 kg (261 lb) Oxygen Saturation 98% Body Mass Index 35.40 kg/m? Skin: No clubbing, no cyanosis. Eyes: Extra ocular movements intact Neck: No jugular venous distention, no carotid bruits. Lungs (more content not included)... Normal [facility] [id number] 10-27-2022 ECG01 Ventricular Rate : 8 0 BPM Atrial Rate : 80 BPM P-R Interval : 232 ms QRS Duration : 152 ms Q-T Interval : 446 ms QTC Calculation(Bazett) : 514 ms Calculated P [place] : 31 degrees Calculated R [place] : -53 degrees Calculated T [place] : 0 degrees SINUS RHYTHM WITH 1ST DEGREE AV BLOCK COMPLETE RIGHT BUNDLE BRANCH BLOCK LEFT ANTERIOR FASCICULAR BLOCK BIFASCICULAR BLOCK MINIMAL VOLTAGE CRITERIA FOR LVH, MAY BE NORMAL VARIANT ( R in aVL ) ABNORMAL ECG Confirmed by FOX GAN M.D. ([id number]) on 10/30/2022 6:26:25 PM NAME : BERE CALLEJAS PID : [id number] : 1935 Gender : Male Race : ORD : Procedure Date : Oct 27 2022 16:04:25 Edit Date : Oct 30 2022 18:26:25 Diagnosis: SINUS RHYTHM WITH 1ST DEGREE AV BLOCK COMPLETE RIGHT BUNDLE BRANCH BLOCK LEFT ANTERIOR FASCICULAR BLOCK BIFASCICULAR BLOCK MINIMAL VOLTAGE CRITERIA FOR LVH, MAY BE NORMAL VARIANT ( R in aVL ) ABNORMAL ECG Confirmed by FOX GAN M.D. ([id number]) on 10/30/2022 6:26:25 PM Test Reason : Location : 192 : AVCRD Overread By : FOX GAN M.D. Edited By : FOX GAN M.D. Referred By : , Acquired by : [id number], Normal [facility] Francine 10-19-2022 CNPN Telephone (CARDAV) -- BERE CALLEJAS ([id number]) 1935 M Date Time Provider Department 10/19/22 AQUILES LIM During your visit today, we recorded the following information about you: Sapphire Anglin MA 10/19/2022 8:08 AM Signed Received form from [facility] requesting cardiac clearance for pt's upcoming R TSA. Dr. Lim is out of office until 10/26/2022. Placed on his desk along with SAYDA note for review upon return. Nancy Sparks LPN 10/26/2022 8:46 AM Signed Received fax from Dr Lim. Patient needs an appointment prior to cardiac clearance Will send this message to the schedulers and will fax back to [facility] Nancy Lal 10/26/2022 2:30 PM Signed Scheduled for 10/27. Left message for patient with details. Allergies As of Date: 10/19/2022 (No Known Allergies) Date Reviewed: 03/02/2022 Reviewed by: Carmela Frederick RN - Fully Assessed Reason for Visit: Other [Other] Cmt: Cardiac Clearance Prescriptions as of 10/26/2022 - traMADol (ULTRAM) 50 mg tablet Take 50 mg by mouth every 6 hours as needed. - metFORMIN (GLUCOPHAGE) 850 mg tablet Take 1 tablet by mouth three times daily. Resume tomorrow 12/14/17. - aspirin, enteric coated (ASPIRIN, ENTERIC COATED) 81 mg EC tablet Take 81 mg by mouth once daily. - lisinopril (ZESTRIL, PRINIVIL) 5 mg tablet Take 5 mg by mouth once daily. - amLODIPine (NORVASC) 10 mg tablet Take 10 mg by mouth once daily. - atorvastatin (LIPITOR) 80 mg tablet Take 1 tablet by mouth daily at bedtime. - citalopram hydrobromide (CELEXA) 10 mg tablet Take 1/2 tablet once daily. - pioglitazone (ACTOS) 15 mg tablet Take 2 tablets daily with evening meal. - gabapentin (NEURONTIN) 300 mg capsule Take 200 mg by mouth three times daily. 2 tabs three times a day - omeprazole 20 mg capsule Take 20 mg by mouth once daily. Facility-Administered Medications as of 10/26/2022 - perflutren lipid microspheres 1.3 mL in NaCl (PF) 0.9% 10 mL injection (DEFINITY) - sodium chloride 0.9 % (flush) 10 mL (BD POSIFLUSH) Problem List As Of Date 10/19/2022 Noted Resolved Other dyspnea and respiratory abnormality [R06.*07/15/2015 09/01/2016 Bilateral carotid artery stenosis [I65.23] 08/15/2015 Nonrheumatic aortic valve insufficiency [I35.1] 10/10/2015 DACOSTA (dyspnea on exertion) [R06.09] 10/10/2015 Non morbid obesity due to excess calories [E66.*10/12/2016 Essential hypertension [I10] 10/12/2016 Controlled type 2 diabetes mellitus without com*10/12/2016 Dyslipidemia [E78.5] 10/12/2016 Stenosis of left carotid artery [I65.22] 10/05/2017 EKG abnormality [R94.31] 03/02/2022 Encounter Status:Closed by SAPPHIRE ANGLIN on 10/21/22 Normal [facility] Vital Signs Date Time Vital Sign Value Performing Clinician Renaldo calderón 01-16-2024 07:37-0500 Body temperature 97.7 [degF] DO Albert Mummert Work Phone: [facility] 01-16-2024 07:37-0500 Diastolic blood pressure 65 mm[Hg] DO Albert Mummert Work Phone: [facility] 01-16-2024 07:37-0500 Heart rate 76 /min DO Albert Mummert Work Phone: [facility] 01-16-2024 07:37-0500 Respiratory rate 16 /min DO Albert Mummert Work Phone: [facility] 01-16-2024 07:37-0500 SaO2% (BldA) [Mass fraction] 95 % DO Albert Mummert Work Phone: [facility] 01-16-2024 07:37-0500 Systolic blood pressure 118 mm[Hg] DO Albert Mummert Work Phone: [facility] 01-16-2024 05:48-0500 Body weight 136.9 kg DO Albert Mummert Work Phone: [facility] 01-13-2024 20:05-0500 Inhaled oxygen flow rate 2 L/min DO Albert Mummert Work Phone: [facility] 01-11-2024 11:37-0500 Body height 182.88 cm DO Albert Mummert Work Phone: [facility] 01-07-2024 08:22-0500 Body mass index (BMI) [Ratio] 40.5 kg/m2 DO Albert Mummert Work Phone: [facility] 01-03-2024 15:30-0500 Diastolic blood pressure 66 mm[Hg] DO Albert Mummert Work Phone: [facility] 01-03-2024 15:30-0500 Heart rate 75 /min DO Albert Mummert Work Phone: [facility] 01-03-2024 15:30-0500 Respiratory rate 20 /min DO Albert Mummert Work Phone: [facility] 01-03-2024 15:30-0500 SaO2% (BldA) [Mass fraction] 97 % DO Albert Mummert Work Phone: [facility] 01-03-2024 15:30-0500 Systolic blood pressure 146 mm[Hg] DO Albert Mummert Work Phone: [facility] 01-03-2024 14:30-0500 Inhaled oxygen flow rate 2 L/min DO Albert Mummert Work Phone: [facility] 01-03-2024 11:01-0500 Body height 182.88 cm DO Albert Mummert Work Phone: [facility] 01-03-2024 11:01-0500 Body temperature 97.6 [degF] DO Albert Mummert Work Phone: [facility] 01-03-2024 11:01-0500 Body weight 118.84 kg DO Albert Mummert Work Phone: [facility] 10-27-2023 14:00-0500 Body height 182.88 cm Dustin Jacobs Other [facility] 10-27-2023 14:00-0500 Body mass index (BMI) [Ratio] 35.94 kg/m2 Dustin Jacobs Other [employer] Other 10-27-2023 14:00-0500 Body weight 120.2 kg Dustin Jacobs Other [facility] 10-27-2023 14:00-0500 Diastolic blood pressure 60 mm[Hg] Dustin Jacobs Other [facility] 10-27-2023 14:00-0500 SaO2% (BldA) [Mass fraction] 95 % Dustin Jacobs Other [place] [employer] Other 10-27-2023 14:00-0500 Systolic blood pressure 130 mm[Hg] Dustin Jacobs Other [facility] 10-12-2023 13:40-0500 Body height 182.9 cm Aquiles Lim MD Work Phone: [facility] 10-12-2023 13:40-0500 Body weight 125.19 kg Aquiles Lim MD Work Phone: [facility] 10-12-2023 13:40-0500 Diastolic blood pressure 50 mm[Hg] Aquiles Lim MD Work Phone: [facility] 10-12-2023 13:40-0500 Heart rate 86 /min Aquiles Lim MD Work Phone: [facility] 10-12-2023 13:40-0500 Systolic blood pressure 116 mm[Hg] Aquiles Lim MD Work Phone: [facility] 09-15-2023 14:38-0400 Diastolic blood pressure 57 mm[Hg] Malka Rivera MD Work Phone: [facility] 09-15-2023 14:38-0400 Heart rate 84 /min Malka Rivera MD Work Phone: [facility] 09-15-2023 14:38-0400 Systolic blood pressure 143 mm[Hg] Malka Rivera MD Work Phone: [facility] 10-27-2022 15:59-0500 Body weight 118.39 kg Aquiles Lim MD Work Phone: [facility] 10-27-2022 15:59-0500 Diastolic blood pressure 64 mm[Hg] Aquiles Lim MD Work Phone: [facility] 10-27-2022 15:59-0500 Heart rate 68 /min Aquiles Lim MD Work Phone: [facility] 10-27-2022 15:59-0500 SaO2% (BldA) [Mass fraction] 98 % Aquiles Lim MD Work Phone: [facility] 10-27-2022 15:59-0500 Systolic blood pressure 142 mm[Hg] Aquiles Lim MD Work Phone: [facility] 03-02-2022 14:29-0400 Body height 182.9 cm Aquiles Lim MD Work Phone: [facility] 03-02-2022 14:29-0400 Body weight 113.85 kg Aquiles Lim MD Work Phone: [facility] 03-02-2022 14:29-0400 Diastolic blood pressure 72 mm[Hg] Aquiles Lim MD Work Phone: [facility] 03-02-2022 14:29-0400 Heart rate 73 /min Aquiles Lim MD Work Phone: [facility] 03-02-2022 14:29-0400 Systolic blood pressure 142 mm[Hg] Aquiles Lim MD Work Phone: [facility] 09-17-2021 16:30-0400 Body height 182.88 cm Dustin Jacobs Other [employer] Other 09-17-2021 16:30-0400 Body mass index (BMI) [Ratio] 32.55 kg/m2 Dustin Jacobs Other [employer] Other 09-17-2021 16:30-0400 Body weight 108.86 kg Dustin Jacobs Other [employer] Other 09-17-2021 16:30-0400 Diastolic blood pressure 67 mm[Hg] Dustin Jacobs Other [employer] Other 09-17-2021 16:30-0400 SaO2% (BldA) [Mass fraction] 96 % Dustin Jacobs Other [employer] Other 09-17-2021 16:30-0400 Systolic blood pressure 152 mm[Hg] Dustin Jacobs Other [employer] Other Encounters Encounter Date Encounter Type Care Provider Facility Start: 02-10-2024 End: 02-10-2024 ambulatory JOSE RAFAEL GRAVESSUSANAMulugeta Not Available Start: 01-31-2024 End: 02-04-2024 Evaluation and management of inpatient Albert Mummert Facility:[facility] Start: 01-31-2024 End: 01-31-2024 Emergency department patient visit [facility] Facility:[facility] Start: 01-21-2024 End: 01-21-2024 ambulatory JOSE RAFAEL GRAVESAVELINO Not Available Start: 01-19-2024 ambulatory Alebrt Mummert DO Faci [facility]ity[facility] Start: 01-16-2024 Non-patient / Non-visit DO Richard othy Mummert Work Phone: [facility] Nephrology Work Phone: Start: 01-16-2024 Non-patient / Non-visit DO Richard othy Mummert Work Phone: [facility] Work Phone: Start: 01-14-2024 Non-patient / Non-visit DO Richard othy Mummert Work Phone: [facility] Vascular Surgery Work Phone: Start: 01-11-2024 Non-patient / Non-visit DO Richard othy Mummert Work Phone: [facility] Work Phone: Start: 01-10-2024 Non-patient / Non-visit DO Rcihard othy Mummert Work Phone: [facility] Work Phone: Start: 01-10-2024 Non-patient / Non-visit DO Richard Lancemert Work Phone: [facility] Physician [facility] Infectious Disease Work Phone: Start: 01-09-2024 Non-patient / Non-visit DO Richard otlissette Mummert Work Phone: [facility] Physician [facility] Nephrology Work Phone: Start: 01-07-2024 Bamboo flowsheet Jose Rafael golden DPM Work Phone: [facility] Start: 01-07-2024 Bamboo flowsheet Jose Rafael golden DPM Work Phone: [facility] Start: 01-07-2024 End: 01-07-2024 ambulatory JOSE RAFAEL CHO Not Available Start: 01-05-2024 End: 01-05-2024 ambulatory JOSE RAFAEL CHO Not Available Start: 01-05-2024 End: 01-05-2024 Patient encounter procedure Jose Rafael Cho DPM Work Phone: [facility] Comment on above: 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); Gangrene of toe of left foot (CMS/HCC); Peripheral arterial disease (CMS/HCC) Start: 01-05-2024 Bamboo flowsheet Jose Rafael golden DPM Work Phone: [facility] Start: 01-05-2024 Bamboo flowsheet Jose Rafael golden DPM Work Phone: [facility] Start: 01-04-2024 End: 01-05-2024 Patient encounter procedure Jose Rafael Cho DPM Work Phone: [facility] Comment on above: 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); Peripheral arterial disease (CMS/HCC); Gangrene of toe of left foot (CMS/HCC) Start: 01-04-2024 End: 01-04-2024 ambulatory JOSE RAFAEL CHO Not Available Start: 01-03-2024 End: 01-16-2024 Evaluation and management of inpatient Albert Meza Facility:[facility] Start: 01-03-2024 Evaluation and management of inpatient DO Albert Meza Work Phone: [facility] [place] [facility] Work Phone: Start: 01-03-2024 Non-patient / Non-visit DO Richard Meza Work Phone: [facility] Vascular Surgery Work Phone: Start: 12-31-2023 Chart abstracting Jose Rafael jonesz DPM Work Phone: [facility] Start: 12-31-2023 End: 12-31-2023 ambulatory Jose Rafael Cho Facility:[facility] Start: 12-31-2023 End: 12-31-2023 ambulatory DO Albert Meza Work Phone: [facility] Work Phone: Start: 12-31-2023 End: 12-31-2023 Patient encounter procedure DO Albert Meza Work Phone: [facility] [place] Work Phone: Start: 12-30-2023 End: 12-30-2023 ambulatory Jose Rafael Cho Facility:[facility] Start: 12-30-2023 Bamboo flowsheet Jose Rafael golden DPM Work Phone: [facility] Start: 12-30-2023 Bamboo flowsheet Jose Rafael golden DPM Work Phone: [facility] Start: 12-30-2023 End: 12-30-2023 ambulatory DO Albert Meza Work Phone: [facility] Work Phone: Start: 12-30-2023 End: 12-30-2023 Departed Referred DO Albert Mummert Work Phone: [facility] [place] Work Phone: Start: 12-29-2023 End: 12-30-2023 ambulatory Albert Mummert DO Facility: [facility] Start: 12-25-2023 End: 12-25-2023 Emergency department patient visit Wilberto Holland Facility:[facility] Start: 12-22-2023 End: 12-23-2023 ambulatory Albert Mummert DO Facility: [facility] Start: 12-21-2023 End: 12-22-2023 ambulatory Albert Mummert DO Facility: [facility] Start: 12-21-2023 End: 12-21-2023 Emergency department patient visit Adalberto Del Toro Facility:[facility] Start: 12-20-2023 ambulatory Sharlene Hall ty:[facility] Start: 10-27-2023 End: 10-27-2023 ambulatory Albert Mummert Facility:[facility] Start: 10-27-2023 Office outpatient vi sit 25 minutes Dustin Jacobs [facility] Medical OutPt Start: 10-27-2023 End: 10-27-2023 ambulatory DO Albert Mummert Work Phone: [facility] Work Phone: Start: 10-27-2023 End: 10-27-2023 Patient encounter procedure DO Albert Mummert Work Phone: [facility] Work Phone: Start: 10-27-2023 End: 10-27-2023 Patient encounter procedure DO Albert Mummert Work Phone: [facility] Med OutPt Work Phone: Start: 10-12-2023 End: 10-12-2023 ambulatory AQUILES LIM Facility:[facility] Start: 10-12-2023 End: 10-12-2023 Office outpatient visit 25 minutes Aquiles Lim MD Work Phone: Cardiology Comment on above: 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 (HCC) (Primary Dx); Pedal edema; Nonrheumatic aortic valve insufficiency; Controlled type 2 diabetes mellitus without complication, without long-term current use of insulin (HCC); EKG abnormality; Stenosis of left carotid artery; DACOSTA (dyspnea on exertion); Essential hypertension; 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 and body mass index (BMI) of 37.0 to 37.9 in adult ; Non-pitting edema Start: 09-28-2023 End: 09-29-2023 ambulatory Albert Olguint Facility:[facility] Start: 09-15-2023 End: 09-15-2023 ambulatory [facility] Facility:[facility] Start: 09-15-2023 End: 09-15-2023 Patient encounter procedure Malka Rivera MD Work Phone: Vascular Surg Dept Comment on above: PAD (peripheral jena ry disease) ([facility]) (Primary Dx); Bilateral carotid artery stenosis Start: 09-15-2023 End: 09-15-2023 ambulatory [facility] Facility:[facility] Start: 09-13-2023 End: 09-14-2023 ambulatory Albertradha Meza Facility:[facility] Start: 08-10-2023 End: 08-11-2023 ambulatory Albert Mummert DO Facility:[facility] Start: 07-26-2023 End: 08-05-2023 Evaluation and management of inpatient Albert Mummert DO Facility:[facility] Start: 07-20-2023 End: 07-26-2023 Evaluation and management of inpatient Albert Mummert DO Facility:[facility] Start: 07-20-2023 End: 07-20-2023 Emergency department patient visit Wilberto Holland Facility:[facility] Start: 07-08-2023 End: 07-09-2023 ambulatory Sharlene Crawford APRN-BAND NAILER Facility:[facility] Start: 07-08-2023 End: 07-09-2023 ambulatory Sharlene Crawford Facility:[facility] Start: 07-05-2023 End: 08-20-2023 ambulatory Albert Mummert DO Facility:[facility] Start: 06-02-2023 End: 06-03-2023 ambulatory Albert Mummert DO Facility:[facility] Start: 05-25-2023 End: 05-26-2023 ambulatory Albert Mummert DO Facility:[facility] Start: 05-16-2023 End: 05-16-2023 Emergency department patient visit Kong Osman Facility:[facility] Start: 05-11-2023 End: 05-12-2023 ambulatory Albert Mummert DO Facility:[facility] Start: 05-04-2023 End: 05-05-2023 ambulatory Albert Mummert DO Facility:[facility] Start: 04-23-2023 End: 04-24-2023 ambulatory PA Yeny Zamarripa Facility:[facility] Start: 04-16-2023 End: 04-17-2023 ambulatory PA Yeny Zamarripa Facility:[facility] Start: 04-12-2023 End: 04-13-2023 ambulatory Albert Mummert DO Facility:[facility] Start: 04-11-2023 End: 04-11-2023 Emergency department patient visit Kevin Shell Facility:[facility] Start: 04-09-2023 End: 04-10-2023 ambulatory PA Yeny Zamarripa Facility:[facility] Start: 04-05-2023 End: 04-05-2023 ambulatory Albert Mummert DO Facility:[facility] Start: 04-02-2023 End: 04-03-2023 ambulatory PA Yeny Zamarripa Facility:[facility] Start: 04-01-2023 End: 04-02-2023 ambulatory PA Yeny Zamarripa Facility:[facility] Start: 03-30-2023 End: 04-06-2023 Evaluation and management of inpatient Ziad Earl Facility:[facility] Start: 03-26-2023 End: 03-30-2023 Evaluation and management of inpatient Ziad Earl Facility:[facility] Start: 03-26-2023 End: 03-28-2023 ambulatory Ziad Earl Facility:[facility] Start: 03-24-2023 End: 03-25-2023 ambulatory Albert Mummert DO Facility:[facility] Start: 03-22-2023 End: 03-23-2023 ambulatory Alejandro Monte Facility:[facility] Start: 03-19-2023 End: 03-20-2023 ambulatory PA Yeny Zamarripa Facility:[facility] Start: 03-18-2023 ambulatory Ruiz Muro Facility :[facility] Start: 03-16-2023 End: 03-17-2023 ambulatory PA Yeny Zamarripa Facility:[facility] Start: 03-15-2023 End: 03-16-2023 ambulatory Albert Meza DO Facility:[facility] Start: 03-09-2023 End: 03-10-2023 ambulatory FOX HARRIS Facility:[facility] Start: 03-05-2023 End: 03-05-2023 Emergency department patient visit Oscar Vasquez Facility:[facility] Start: 03-03-2023 End: 03-03-2023 ambulatory Albert Meza DO Facility:[facility] Start: 02-25-2023 Orders Only Malka mares MD Work Phone: Vascular Surg Dept Comment on above: PAD (peripheral jena ry disease) (HCC) (Primary Dx); Aneurysm of carotid artery (HCC) Start: 02-24-2023 End: 02-25-2023 ambulatory Albert Meza DO Facility:[facility] Start: 02-24-2023 Telephone encounter Albert Meza DO Work Phone: [address] [place] [address] Comment on above: Appointment Start: 02-23-2023 End: 02-24-2023 ambulatory Albertradha Meza DO Facility:[facility] Start: 02-22-2023 End: 02-23-2023 ambulatory Albertradha Olguint Facility:[facility] Start: 10-27-2022 End: 10-27-2022 ambulatory AQUILES LIM Facility:[facility] Start: 10-27-2022 End: 10-27-2022 Patient encounter procedure Aquiles Lim MD Work Phone: Cardiology Comment on above: Essential hypertensi on (Primary Dx); Nonrheumatic aortic valve insufficiency; Stenosis of left carotid artery; EKG abnormality; DACOSTA (dyspnea on exertion); Preoperative clearance; Controlled type 2 diabetes mellitus without complication, without long-term current use of insulin (HCC); Non morbid obesity due to excess calories Start: 10-27-2022 End: 10-27-2022 Preoperative state Aquiles Lim MD Work Phone: Cardiology Start: 10-19-2022 Telephone encounter Aquiles quintanilla MD Work Phone: Cardiology Comment on above: Other (Cardiac Clear ance) Start: 03-02-2022 End: 03-02-2022 Patient encounter procedure Aquiles Lim MD Work Phone: Cardiology Comment on above: Nonrheumatic aortic valve insufficiency (Primary Dx); Essential hypertension; EKG abnormality; Stenosis of left carotid artery; DACOSTA (dyspnea on exertion) Start: 11-04-2021 End: 11-04-2021 ambulatory William Bailey Other [employer] Other Start: 11-04-2021 Telephone encounter William Coy rg [facility] Start: 09-17-2021 Office outpatient vi sit 15 minutes [facility] Procedures Date Procedure Procedure Detail Performing Clinician Start: 01-11-2024 Antibody screen Albert Meza Comment on above: Order Comment: Trans fuse now? Y Number of units to transfuse now? 2 Result Comment: PERF ORMED BY: [facility] [address] [place] [address] PATHOLOGIST STAFFING MGR NEVA MACKAY M.D. Start: 01-03-2024 Plain X-ray of toe DO T jazmine Meza Work Phone: Start: 12-31-2023 Pulse volume recorde r pneumoplethysmography DO Albert Meza Work Phone: Start: 12-30-2023 Aerobic microbial culture DO Albert Meza Work Phone: Start: 10-12-2023 Ecg routine ecg w/le ast 12 lds i&r only [facility] Provider Start: 10-27-2022 Ecg routine ecg w/le ast 12 lds i&r only [facility] Provider Plan of Treatment Date Care Activity Detail Author Start: 05-15-2033 Urine microalbumin profile DTa P,Tdap,Td Vaccine (2 - Td or Tdap) [facility] Start: 04-14-2024 End: 04-14-2024 Patient encounter procedure 04/14/2024 11:00 AM EDT Office Visit [facility] [address] [place] [phone] Roney Mitchell, [address] [facility] [address] [place] [address] [facility] Start: 01-16-2024 [facility] Start: 01-10-2024 Referral to rehabili tation physician [facility] Start: 01-08-2024 Referral to speed belt sander [facility] Start: 01-03-2024 Referral to vascular surgeon [facility] Start: 01-03-2024 Referral to infectio us diseases physician [facility] Start: 01-03-2024 Referral to recreation superintendent [facility] Start: 01-03-2024 Hospital admission [facility] Start: 01-03-2024 Bacteria identified in Blood by Culture [facility] Start: 01-03-2024 End: 01-03-2024 Patient encounter procedure 01/03/2024 10:45 AM EST [facility] [address] [place] [phone] Jose Rafael Cho DPM [address] [place] [address] ARMANDO [facility] Start: 12-30-2023 Aerobic microbial culture Supe rficial Wound Culture [facility] Start: 12-30-2023 Superficial Wound Culture Supe rficial Wound Culture [facility] Start: 12-30-2023 End: 12-30-2023 Patient encounter procedure 12/30/2023 1:15 PM EST Procedure Visit [facility] [address] [place] [phone] Jose Rafael Cho DPM [address] [place] [address] Arrived [facility] Comment on above: Arrived Start: 07-30-2023 Covid-19 Vaccine () Covid-19 Vaccine () [facility] Start: 03-02-2023 End: 03-02-2023 Echocardiography ECHO Cardiology Routine Nonrheumatic aortic valve insufficiency Expected: 03/02/2023, Expires: 03/02/2023 [facility] Work Phone: Comment on above: Expected: 03/02/2023 , Expires: 03/02/2023 Start: 11-29-2022 ADVANCE DIRECTIVE DISCUSSION ADVANCE DIRECTIVE DISCUSSION [facility] Start: 11-29-2022 DEPRESSION ASSESSMENT DEPRESSION ASS ESSMENT [facility] Start: 07-30-2022 Influenza vaccination INFLUENZA (#1) [facility] Start: 07-23-2022 COVID-19 VACCINE (5 - Booster for Pfizer series) COVID-19 VACCINE (5 - Booster for Pfizer series) [facility] Start: 04-04-2022 Pneumococcal Vaccine : 65+ Years (2 - PCV) Pneumococcal Vaccine: 65+ Years (2 - PCV) [facility] Start: 11-29-2021 ADVANCE DIRECTIVE DISCUSSION ADVANCE DIRECTIVE DISCUSSION [facility] Start: 11-29-2021 DEPRESSION ASSESSMENT DEPRESSION ASS ESSMENT [facility] Start: 10-24-2021 COVID-19 VACCINE (4 - Booster for Pfizer series) COVID-19 VACCINE (4 - Booster for Pfizer series) [facility] Start: 2002 PNEUMOVAX AGE 65 AND OVER WITH 5YR LOOKBACK (#1) PNEUMOVAX AGE 65 AND OVER WITH 5YR LOOKBACK (#1) [facility] Start: 1997 Hepatitis B Vaccine (1 of 3 - Risk 3-dose series) Hepatitis B Vaccine (1 of 3 - Risk 3-dose series) [facility] Start: 1997 RSV Vaccine (1 - 1-d ose 60+ series) RSV Vaccine (1 - 1-dose 60+ series) [facility] Start: 1987 SHINGRIX VACCINE (1 of 2) LARA GRIX VACCINE (1 of 2) [facility] Start: 1956 Urine microalbumin profile DTAP,TDAP ,TD (1 - Tdap) [facility] Start: 1955 Hepatitis B surface antibody level LDL CHOLESTEROL [facility] Start: 1947 3 comp foot exam completed DIABETIC FOOT EXAM [facility] Start: 1947 Hepatitis B screening URINE ALBUMIN:CREATININE RATIO [facility] Start: 1947 Hepatitis C antibody , confirmatory test DILATED RETINAL EXAM [facility] Start: 1943 Pneumococcal Vaccine : 65+ (1 - PCV) Pneumococcal Vaccine: 65+ (1 - PCV) [facility] Start: 1943 PNEUMOCOCCAL: 65+ (1 - PCV) PNEUMOCOCCAL: 65+ (1 - PCV) [facility] Start: 1942 Hemoglobin A1c/Hemoglobin.total in Blood HBA1C [facility] Bacteria identified in Unspecified specimen by Aerobe culture [facility] End: 03-02-2023 ECG COMPLETE ECG COMPLETE ECG Routine Nonrheumatic aortic valve insufficiency 1 Occurrences starting 03/02/2022 until 03/02/2023 [facility] Work Phone: Comment on above: 1 Occurrences starti ng 03/02/2022 until 03/02/2023 ECG COMPLETE ECG COMPLETE ECG 10/27/2022 4:04 PM EST [facility] ECG COMPLETE [facility] Work Phone: Comment on above: Ordered: 10/12/2023 End: 10-12-2024 Echocardiography ECHO Cardiology Routine Nonrheumatic aortic valve insufficiency 1 Occurrences starting 10/12/2023 until 10/12/2024 [facility] Work Phone: Comment on above: 1 Occurrences starti ng 10/12/2023 until 10/12/2024 Patient referral [facility] Work Phone: End: 02-26-2024 PVR [facility]G [facility] Vascular Lab Routine PAD (peripheral artery disease) (HCC) 1 Occurrences starting 02/25/2023 until 02/26/2024 [facility] Work Phone: Comment on above: 1 Occurrences starti ng 02/25/2023 until 02/26/2024 End: 02-26-2024 US CAROTID ARTERIES [facility] US CAROTID ARTERIES [facility] Vascular Lab Routine PAD (peripheral artery disease) (HCC) Aneurysm of carotid artery (HCC) 1 Occurrences starting 02/25/2023 until 02/26/2024 [facility] Work Phone: Comment on above: 1 Occurrences starti ng 02/25/2023 until 02/26/2024 [facility] Immunizations Immunization Date Immunization Notes Care Provider Fa cili 09-19-2018 influenza, high dose seasonal, preservative-free Aquiles Lim MD Work Phone: [facility] Work Phone: 11-29-2017 pneumococcal vaccine , unspecified formulation Aquiles Lim MD Work Phone: [facility] Work Phone: Payers Date Payer Category Payer Self-pay [id number] 2016 [facility] [id number] 2016 Unknown [employer] [employer] [place] DICARE SUPPLEMENT [id number] 2016-Present [phone] [address] [place] [address] Indemnity [id number] .[id number] 2016 Unknown [id number]. 1.13.159.2 .7.3.834078.315 2001 Medicare MEDICARE MEDICAR E A AND B [id number] 2001-Present [phone] [address] [address] [place] [address] Medicare [id number] .[id number] 2001 Medicare [id number] 2.16.840.1.209049.19 2001 Medicare 1.2.840.649129. 1.13.159.2 .7.3.659607.315 1937 Unknown [id number] 2.16.840.1.203829.3.579.2 .196 1937 Unknown [id number] 2.16.840.1.774622.3.579.2 .1937 Unknown [id number] 2.16.840.1.591800.3.579.2 .1937 Unknown [id number] 2.16840.1.015901.3.579.2 1937 Unknown [id number] 2.16.840.1.331188.3.579.2 .1937 Unknown [id number] 2.16.840.1.015499.3.579.2 .1937 Unknown [id number] 2.16.840.1.215451.3.579.2 .8 1937 Unknown [id number] 2.16840.1.156627.3.579.2 .1937 Unknown [id number] 2.16.840.1.901581.3.579.2 .8 1937 Unknown [id number] 2.16.840.1.073670.3.579.2 .1937 Unknown [id number] 2.16.840.1.077190.3.579.2 .1937 Unknown [id number] 2.16.840.1.712530.3.579.2 .1937 Unknown [id number] 2.16.840.1.962592.3.579.2 .1937 Unknown [id number] 2.16.840.1.183241.3.579.2 .1937 Unknown [id number] 2.16.840.1.583948.3.579.2 1937 Unknown [id number] 2.16.840.1.346850.3.579.2 .1937 Unknown [id number] 2.16.840.1.229769.3.579.2 1937 Unknown [id number] 2.16.840.1.657737.3.579.2 1937 Unknown [id number] 2.16.840.1.478427.3.579.2 1937 Unknown [id number] 2.840.1.396176.3.579.2 1937 Unknown [id number] 2.840.1.056517.3.579.2 1937 Unknown [id number] 2.16840.1.267741.3.579.2 1937 Unknown [id number] 2.16840.1.652294.3.579.2 1937 Unknown [id number] 2.16.840.1.023170.3.579.2 1937 Unknown [id number] 2.16.840.1.700243.3.579.2 1937 Unknown [id number] 2.16.840.1.568124.3.579.2 1937 Unknown [id number] 2.16.840.1.783122.3.579.2 1937 Unknown [id number] 2.16.840.1.299281.3.579.2 .8 1937 Unknown [id number] 2.16.840.1.891556.3.579.2 .1937 Unknown [id number] 2.16.840.1.958909.3.579.2 .1937 Unknown [id number] 2.16.840.1.648434.3.579.2 1937 Unknown [id number] 2.16840.1.135135.3.579.2 .1937 Unknown [id number] 2.840.1.199130.3.579.2 1937 Unknown [id number] 2.840.1.905337.3.579.2 1937 Unknown [id number] .840.1.310904.3.579.2 1937 Unknown [id number] .840.1.962901.3.579.2 1937 Unknown [id number] .840.1.005373.3.579.2 1937 Unknown [id number] 2.840.1.212114.3.579.2 1937 Unknown [id number] .840.1.487124.3.579.2 .1937 Unknown [id number] .840.1.770943.3.579.2 .1937 Unknown [id number] .16840.1.362581.3.579.2 .1937 Unknown [id number] 2.840.1.412942.3.579.2 .1937 Unknown [id number] 2.16840.1.570712.3.579.2 1937 Unknown [id number] 2.16840.1.783504.3.579.2 .718 1937 Unknown [id number] 2.16840.1.871990.3.579.2 .1258 1937 Unknown [id number] 2.16840.1.956274.3.579.2 .1258 1937 Unknown [id number] 2.16840.1.807167.3.579.2 .1258 1937 Unknown [id number] 2.16840.1.155308.3.579.2 .1258 1937 Unknown [id number] 2.16840.1.093006.3.579.2 .1258 1937 Unknown [id number] 2.840.1.941204.3.579.2 .1258 1937 Unknown [id number] 2.840.1.645219.3.579.2 .1259 Medicare Medicare Outpatient [id number] [id number] Unknown [facility] [id number] Unknown [id number] 2840.1.743803.3.579.2 .531 Unknown [id number] 2.0.1.259520.3.579.2 .531 Unknown [id number] 2.840.1.273882.3.579.2 .531 Unknown [id number] 2.840.1.477054.3.579.2 .531 Unknown [id number] 2.840.1.303691.3.579.2 .531 Social History Date Type Detail Facility Start: 05-19-2013 End: 01-10-2024 Tobacco smoking status VAIS Never smoked tobacco [facility] Work Phone: Start: 05-19-2013 End: 06-10-2023 Tobacco use and exposure Smokeless tobacco non-user [facility] Work Phone: Start: 03-02-2022 End: 10-12-2023 Alcohol intake Current non-drinker of alcohol (finding) [facility] Start: 1935 Sex Assigned At Not on file C [facility] Start: 09-15-2023 End: 12-30-2023 Sex Assigned At [facility] Work Phone: Start: 10-17-2022 End: 10-27-2022 Exposure to SARS-CoV-2 (event) Not sure [facility] Start: 09-15-2023 End: 12-30-2023 History of Social function [facility] Work Phone: PHQ2 Score 0 [facility] Work Phone: Start: 1935 Sex Assigned At Male F [facility] Start: 10-13-2023 End: 12-30-2023 Alcohol intake Lifetime non-drinker (finding) [facility] Start: 06-19-2023 Alcohol Comment caffeine: 1-2 cups per day coffee [facility] Medical Equipment Procedure Code Equipment Code Equipment Origin al Text Equipment Identifier Dates Patch Bovine Pericardial Vascular Duravess 8x8 - [id number] Start: 12-12-2018 Goals Date Patient Goal Desired Activity /State Functional Status Date Assessment Result Facility 01-03-2024 Functional status Patient at Baseline [facility] Work Phone: Mental Status Date Assessment Result Facility 01-03-2024 Cognitive function Cognitive Sta tus Patient at Baseline [facility] Work Phone: Clinical Notes 07-15-2015 to 01-05-2024 Jose Rafael Cho DPM - 01/05/2024 6:00 PM Rosio Cho DPM - 01/04/2024 6:00 PM EST Note Date & Type Note Facility 01-05-2024 History of Presen t illness Narrative See consult progress follow up note. documented in this encounter [facility] 01-04-2024 History of Presen t illness Narrative See [facility] [place]. documented in this encounter [facility] 10-27-2023 Evaluation note Encounter Date Diagnosis Assessment Notes Sep, Obstructive sleep apnea (ICD-10 - G47.33) He is fortunately using and benefiting from the machine. He will continue with device, and will call if problems. He is encouraged to use it for entire sleep time. 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 This emphasizes importance of using treatment every night, all night. Sep, BMI 35.0-35.9,adult (ICD-10 - Z68.35) Weight reduction would be broadly beneficial for overall health, but would also have direct benefits on apnea severity and sleep quality. Even moderate weight reduction can affect LYN and snoring, and in some patients weight reduction can completely resolve sleep apnea Sep, Other Sleep habits are much improved and he does not have significant insomnia issues now [employer] Other 11-14-2023 NoteHNO ID: [id number] Author: Aquiles Lim MD Service: ? Author Type: Physician Type: Progress Notes Filed: 10/12/2023 2:20 PM Note Text: REASON FOR VISIT: Follow up of aortic regurgitation. INTERVAL HISTORY: Previous visit was on 10.27.2022; assessment and plan at that time: Moderate aortic regurgitation, unchanged as per last year's echocardiogram. Preserved LV systolic function, normal LV diameters. Asymptomatic (he has dyspnea on exertion but most probably due to deconditioning/obesity). Will obtain a follow up echocardiogram at 2 years from previous, if no change in symptoms. Hypertension. Well-controlled now. Type 2 diabetes mellitus. Severe left carotid artery disease; s/p CEA in November 2018. Asymptomatic; to continue with statin and aspirin. 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 Dyspnea on exertion: Stable. Most probably multifactorial: obesity/deconditioning/asthma. Obesity. Patient instructed ONCE AGAIN to engage on a healthy lifestyle that includes low fat low calorie diet along with regular aerobic exercise for at least 30', 5-7 days a week. Since then Hospital admission with acute on chronic HF for 10 days COVID and MRSA infection Walks a little, had a fall. Unchanged shortness of breath on exertion. PAST CARDIAC HISTORY: See above and below. PAST MEDICAL HISTORY Diagnosis Date Carotid artery stenosis, asymptomatic, left 10/05/2017 Controlled type 2 diabetes mellitus without complication, without long-term current use of insulin ([facility]) 10/12/2016 Cyst and pseudocyst of pancreas Depressive disorder, not elsewhere classified Diabetic neuropathy ([facility]) Dyslipidemia 10/12/2016 Essential hypertension 10/12/2016 Non morbid obesity due to excess calories 10/12/2016 Nonrheumatic aortic valve insufficiency 10/10/2015 Obstructive sleep apnea on CPAP Occlusion and stenosis of carotid artery without mention of cerebral infarction Left Orthostatic hypotension Other and unspecified hyperlipidemia PVD (peripheral vascular disease) ([facility]) Shortness of breath Thyroid cyst 03/2013 R lobe. 0.5 cm x 0.4 cm Type II or unspecified type diabetes mellitus without mention of complication, uncontrolled Unspecified essential hypertension MEDICATIONS: furosemide (LASIX) 40 mg tablet Take 2 tablets by mouth once daily. Takes 80 mg daily traMADol (ULTRAM) 50 mg tablet Take 50 mg by mouth every 6 hours as needed. aspirin, enteric coated (ASPIRIN, ENTERIC COATED) 81 mg EC tablet Take 81 mg by mouth once daily. amLODIPine (NORVASC) 10 mg tablet Take 10 mg by mouth once daily. atorvastatin (LIPITOR) 80 mg tablet Take 1 tablet by mouth daily at bedtime. pioglitazone (ACTOS) 15 mg tablet Take 2 tablets daily with evening meal. gabapentin (NEURONTIN) 300 mg capsule Take 200 mg by mouth three times daily. 2 tabs three times a day omeprazole 20 mg capsule Take 20 mg by mouth once daily. metFORMIN (GLUCOPHAGE) 850 mg tablet Take 1 tablet by mouth three times daily. Resume tomorrow 12/14/17. (Patient not taking: Reported on 08/06/2020) lisinopril (ZESTRIL, PRINIVIL) 5 mg tablet Take 5 mg by mouth once daily. (Patient not taking: Reported on 09/15/2023) citalopram hydrobromide (CELEXA) 10 mg tablet Take 1/2 tablet once daily. (Patient not taking: Reported on 09/15/2023) REVIEW OF SYSTEMS: GENERAL: Negative for: weight loss or weight gain, fever or chills, and sleep difficulties HEENT: Negative for: headache, impaired vision, glasses, hearing impairment, ringing in ears, vertigo, nosebleeds, poor dental care, bleeding gums, dentures NECK: Negative for: swelling, pain, stiffness RESPIRATORY: Negative for: blood in sputum, wheezing GASTROINTESTINAL: Negative for: abdominal pain, trouble swallowing, heartburn, change in bowel habits, blood in stool, dark black stools MUSCULOSKELETAL: Negative for: muscle or joint pain, stiffness, joint swelling NEUROLOGIC/PSYCHIATRIC: Negative for: weakness, paralysis, numbness, tingling, tremor, nervousness, depressed mood, memory loss SKIN: Negative for: rashes, itching HEMATOLOGICAL/LYMPHATIC: Negative for: easy bruising, easy bleeding ENDOCRINE: Negative for: heat or cold intolerance, excessive sweating, frequent urination, frequent thirst PHYSICAL EXAMINATION: Blood Pressure 116/50 Pulse 86 Height 182.9 cm (6') Weight 125.2 kg (276 lb) Body Mass Index 37.43 kg/m? Ill appearing in no distress. Skin: No clubbing, no cyanosis. Eyes: Extra ocular movements intact Neck: No jugular venous distention, no carotid bruits. Lungs: Clear to auscultation bilaterally, no wheezing or rhonchi. Heart: Regular rhythm, PMI not palpable. Abdomen: Soft, obese, nontender, bowel sounds normal, no palpable organomegaly, no bruits. Extremities: 3+ peripheral edema, non-pitting, no clubbing or cyanosis. Normal pulses bilaterally. Neuro: Oriented to person, place and richard (more content not included)...[facility]11-14-2023 Instructions* Patient Instructions* Aquiles Lim MD - 10/12/2023 2:11 PM EST Please, follow up with me after the echocardiogram to discuss results. Please, see me as scheduled, or sooner should symptoms appear or worsen. [facility] History of Present illness Narrative* Aquiles Lim MD - 10/12/2023 2:00 PM EST Images from the original note were not included. REASON FOR VISIT: Follow up of aortic regurgitation. INTERVAL HISTORY: Previous visit was on 10.27.2022; assessment and plan at that time: Moderate aortic regurgitation, unchanged as per last year's echocardiogram. Preserved LV systolic function, normal LV diameters. Asymptomatic (he has dyspnea on exertion but most probably due to deconditioning/obesity). Will obtain a follow up echocardiogram at 2 years from previous, if no change in symptoms. Hypertension. Well-controlled now. Type 2 diabetes mellitus. Severe left carotid artery disease; s/p CEA in November 2018. Asymptomatic; to continue with statin and aspirin. 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 Dyspnea on exertion: Stable. Most probably multifactorial: obesity/deconditioning/asthma. Obesity. Patient instructed ONCE AGAIN to engage on a healthy lifestyle that includes low fat low calorie diet along with regular aerobic exercise for at least 30', 5-7 days a week. Since then Hospital admission with acute on chronic HF for 10 days COVID and MRSA infection Walks a little, had a fall. Unchanged shortness of breath on exertion. PAST CARDIAC HISTORY: See above and below. PAST MEDICAL HISTORY Diagnosis Date Carotid artery stenosis, asymptomatic, left 10/05/2017 Controlled type 2 diabetes mellitus without complication, without long-term current use of insulin (HCC) 10/12/2016 Cyst and pseudocyst of pancreas Depressive disorder, not elsewhere classified Diabetic neuropathy ([facility]) Dyslipidemia 10/12/2016 Essential hypertension 10/12/2016 Non morbid obesity due to excess calories 10/12/2016 Nonrheumatic aortic valve insufficiency 10/10/2015 Obstructive sleep apnea on CPAP Occlusion and stenosis of carotid artery without mention of cerebral infarction Left Orthostatic hypotension Other and unspecified hyperlipidemia PVD (peripheral vascular disease) ([facility]) Shortness of breath Thyroid cyst 03/2013 R lobe. 0.5 cm x 0.4 cm Type II or unspecified type diabetes mellitus without mention of complication, uncontrolled Unspecified essential hypertension MEDICATIONS: furosemide (LASIX) 40 mg tablet Take 2 tablets by mouth once daily. Takes 80 mg daily traMADol (ULTRAM) 50 mg tablet Take 50 mg by mouth every 6 hours as needed. aspirin, enteric coated (ASPIRIN, ENTERIC COATED) 81 mg EC tablet Take 81 mg by mouth once daily. amLODIPine (NORVASC) 10 mg tablet Take 10 mg by mouth once daily. atorvastatin (LIPITOR) 80 mg tablet Take 1 tablet by mouth daily at bedtime. pioglitazone (ACTOS) 15 mg tablet Take 2 tablets daily with evening meal. gabapentin (NEURONTIN) 300 mg capsule Take 200 mg by mouth three times daily. 2 tabs three times a day omeprazole 20 mg capsule Take 20 mg by mouth once daily. metFORMIN (GLUCOPHAGE) 850 mg tablet Take 1 tablet by mouth three times daily. Resume tomorrow 12/14/17. (Patient not taking: Reported on 08/06/2020) lisinopril (ZESTRIL, PRINIVIL) 5 mg tablet Take 5 mg by mouth once daily. (Patient not taking: Reported on 09/15/2023) citalopram hydrobromide (CELEXA) 10 mg tablet Take 1/2 tablet once daily. (Patient not taking: Reported on 09/15/2023) REVIEW OF SYSTEMS: GENERAL: Negative for: weight loss or weight gain, fever or chills, and sleep difficulties HEENT: Negative for: headache, impaired vision, glasses, hearing impairment, ringing in ears, vertigo, nosebleeds, poor dental care, bleeding gums, dentures NECK: Negative for: swelling, pain, stiffness RESPIRATORY: Negative for: blood in sputum, wheezing GASTROINTESTINAL: Negative for: abdominal pain, trouble swallowing, heartburn, change in bowel habits, blood in stool, dark black stools MUSCULOSKELETAL: Negative for: muscle or joint pain, stiffness, joint swelling NEUROLOGIC/PSYCHIATRIC: Negative for: weakness, paralysis, numbness, tingling, tremor, nervousness,depressed mood, memory loss SKIN: Negative for: rashes, itching HEMATOLOGICAL/LYMPHATIC: Negative for: easy bruising, easy bleeding ENDOCRINE: Negative for: heat or cold intolerance, excessive sweating, frequent urination, frequentthirst PHYSICAL EXAMINATION: Blood Pressure 116/50 Pulse 86 Height 182.9 cm (6') Weight 125.2 kg (276 lb) Body Mass Index 37.43 kg/m Ill appearing in no distress. Skin: No clubbing, no cyanosis. Eyes: Extra ocular movements intact Neck: No jugular venous distention, no carotid bruits. Lungs: Clear to auscultation bilaterally, no wheezing or rhonchi. Heart: Regular rhythm, PMI not palpable. Abdomen: Soft, obese, nontender, bowel sounds normal, no palpable organomegaly, no bruits. Extremities: 3+ peripheral edema, non-pitting, no clubbing or cyanosis. Normal pulses bilaterally. Neuro: Oriented to person, place and time, alert, cooperative. CARDIOVASCULAR MEDICINE TESTING: WBC (k/uL) Date Value 12/13/2018 7.89 12/12/2018 5.82 12/06/2018 4.60 Hemoglobin (g/dL) Date Value 12/13/2018 10.8 12/12/2018 10.4 12/06/2018 12.2 Hematocrit (%) Date Value 12/13/2018 32.4 12/12/2018 31.6 12/06/2018 36.1 Platelet Count (k/uL) Date Value 12/13/2018 98 12/12/2018 117 12/06/2018 136 Sodium (mmol/L) Date Value 12/13/2018 140 12/12/2018 143 12/06/2018 141 Potassium (mmol/L) Date Value 12/13/2018 4.5 12/12/2018 4.5 12/06/2018 4.7 CO2 (mmol/L) Date Value 12/13/2018 20 12/12/2018 23 12/06/2018 22 BUN (mg/dL) Date Value 12/13/2018 22 12/12/2018 29 12/06/2018 20 Creatinine (mg/dL) Date Value 12/13/2018 1.23 12/12/2018 1.53 12/06/2018 1.34 Glucose (mg/dL) Date Value 12/13/2018 134 12/12/2018 156 12/06/2018 111 Echocardiogram 3. - The left ventricle is normal in size. There is mild upper septal left ventricular hypertrophy. Left ventricular systolic function is normal. EF = 55 5% (2D biplane) Definity contrast used for endocardial border detection. Grade I left ventricular diastolic dysfunction. - The right ventricle is normal in size. Right ventricular systolic function is normal. - The visualized aorta is borderline dilated with a maximal dimension of 4.0 cm. - There is moderate (2+) aortic valve regurgitation. Difficult to assess severity of AI due to eccentric jet. - Exam was compared with the prior echocardiographic exam performed on 12/09/18. Similar findings. I have personally reviewed the Electrocardiogram. IMPRESSION/PLAN: Moderate aortic regurgitation, unchanged as per last year's echocardiogram. Preserved LV systolic function, normal LV diameters. Asymptomatic (he has dyspnea on exertion but most probably due to deconditioning/obesity). Will obtain a follow up echocardiogram in a year, if no change in symptoms. Hypertension. Well-controlled now. Type 2 diabetes mellitus. Severe left carotid artery disease; s/p CEA in November 2018. Asymptomatic; to continue with statin and aspirin. 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 Dyspnea on exertion: Stable. Most probably multifactorial: obesity/deconditioning/asthma. Obesity. Patient instructed ONCE AGAIN to engage on a healthy lifestyle that includes low fat low calorie diet along with regular aerobic exercise for at least 30', 5-7 days a week. HFpEF with recent acute decompensation. NYHA FC cannot be established. Volume overload, 3+ edema. To continue with current regimen. Lower extremities edema. I think there is a mix of vascular congestion and lymphedema. Non-pitting edema. Will have him evaluated by vascular medicine specialist. I appreciate the opportunity of partaking in the care of Bere Callejas and look forward to following him along with you in the future. CONTACT INFORMATION: Aquiles Lim M.D. Staff Client Account Representative [facility] [place] [id number] [id number] Part of this note was copied from my previous note on 01/13/2021 all content has been individually and thoroughly reviewed, updated as necessary, patient assessed with updated information, and changesappropriately documented/adjusted. documented in this encounter[facility] 09-15-[facility]23 NoteHNO ID: [id number] Author: Malka Rivera MD Service: ? Author Type: Physician Type: Progress Notes Filed: 09/15/2023 3:08 PM Note Text: [facility] [place] DEPARTMENT OF VASCULAR SURGERY OUTPATIENT VISIT DATE September 15, 2023 OUTPATIENT VISIT TYPE ESTABLISHED SERVICE DATE: 09/15/2023 SERVICE TIME: 3:03 PM PRIMARY CARE PHYSICIAN: Albert Meza DO HISTORY OF PRESENT ILLNESS: Mr. Callejas is a 88 year old male who presents today for a vascular surgery follow follow-up. continued follow-up of r left carotid endarterectomy. Doing well denies any unilateral weakness Arther vision changes. Had a left heel wound after a stay in a SNF. This has resolved with local wound care PAST MEDICAL HISTORY Diagnosis Date Carotid artery stenosis, asymptomatic, left 10/05/2017 Controlled type 2 diabetes mellitus without complication, without long-term current use of insulin ([facility]) 10/12/2016 Cyst and pseudocyst of pancreas Depressive disorder, not elsewhere classified Diabetic neuropathy ([facility]) Dyslipidemia 10/12/2016 Essential hypertension 10/12/2016 Non morbid obesity due to excess calories 10/12/2016 Nonrheumatic aortic valve insufficiency 10/10/2015 Obstructive sleep apnea on CPAP Occlusion and stenosis of carotid artery without mention of cerebral infarction Left Orthostatic hypotension Other and unspecified hyperlipidemia PVD (peripheral vascular disease) ([facility]) Shortness of breath Thyroid cyst 03/2013 R lobe. 0.5 cm x 0.4 cm Type II or unspecified type diabetes mellitus without mention of complication, uncontrolled Unspecified essential hypertension PAST SURGICAL HISTORY Procedure Laterality Date PAST SURGICAL HISTORY OF Bilat knees laparoscopic procedures PAST SURGICAL HISTORY OF Bilat carpal tunnel repair SOCIAL HISTORY Social History Tobacco Use Smoking status: Never Smokeless tobacco: Never Substance Use Topics Alcohol use: No Drug use: No MEDICATIONS: traMADol (ULTRAM) 50 mg tablet Take 50 mg by mouth every 6 hours as needed. aspirin, enteric coated (ASPIRIN, ENTERIC COATED) 81 mg EC tablet Take 81 mg by mouth once daily. amLODIPine (NORVASC) 10 mg tablet Take 10 mg by mouth once daily. atorvastatin (LIPITOR) 80 mg tablet Take 1 tablet by mouth daily at bedtime. pioglitazone (ACTOS) 15 mg tablet Take 2 tablets daily with evening meal. gabapentin (NEURONTIN) 300 mg capsule Take 200 mg by mouth three times daily. 2 tabs three times a day omeprazole 20 mg capsule Take 20 mg by mouth once daily. metFORMIN (GLUCOPHAGE) 850 mg tablet Take 1 tablet by mouth three times daily. Resume tomorrow 12/14/17. (Patient not taking: No sig reported) lisinopril (ZESTRIL, PRINIVIL) 5 mg tablet Take 5 mg by mouth once daily. (Patient not taking: Reported on 09/15/2023) citalopram hydrobromide (CELEXA) 10 mg tablet Take 1/2 tablet once daily. (Patient not taking: Reported on 09/15/2023) ALLERGIES: ALLERGIES No Known Allergies PHYSICAL EXAM: BP 143/57 Pulse 84 General: Alert and oriented Integumentary: Normal color, no rash, no lesions. HEENT: EOM, pupils equal, round and reactive. Cardiovascular: Normal S1 AND S2, no rubs, murmurs or gallops. No JVD., Pulse regular. Lungs: Normal breath sounds, no wheezes or crackles. Abdomen: Soft, non-tender, no rigidity. Bilateral palpable femoral pulse no popliteal pedal pulse calf level edema pitting bilaterally Diagnostic tests reviewed for today's visit: Duplex ultrasound demonstrates no evidence of hemodynamically significant carotid stenosis IMPRESSION: Mr. Callejas is a 88 year old male with artery stenosis doing well. Follow-up in 2 years continue with antiplatelet,. PLAN and RECOMMENDATIONS: As above SIGNATURE: Malka Rivera MD PATIENT NAME: Bere Callejas DATE: September 15, 2023 TIME: 3:03 [facility]10-18-2023 History of Present illness Narrative* Malka Rivera MD - 09/15/2023 2:58 PM EDT Images from the original note were not included. [facility] [place] DEPARTMENT OF VASCULAR SURGERY OUTPATIENT VISIT DATE September 15, 2023 OUTPATIENT VISIT TYPE ESTABLISHED SERVICE DATE: 09/15/2023 SERVICE TIME: 3:03 PM PRIMARY CARE PHYSICIAN: Albert Meza DO HISTORY OF PRESENT ILLNESS: Mr. Callejas is a 88 year old male who presents today for a vascular surgery follow follow-up. continued follow-up of r left carotid endarterectomy. Doing well denies any unilateral weakness Arther vision changes. Had a left heel wound after a stay in a SNF. This has resolved with local wound care PAST MEDICAL HISTORY Diagnosis Date Carotid artery stenosis, asymptomatic, left 10/05/2017 Controlled type 2 diabetes mellitus without complication, without long-term current use of insulin ([facility]) 10/12/2016 Cyst and pseudocyst of pancreas Depressive disorder, not elsewhere classified Diabetic neuropathy (HCC) Dyslipidemia 10/12/2016 Essential hypertension 10/12/2016 Non morbid obesity due to excess calories 10/12/2016 Nonrheumatic aortic valve insufficiency 10/10/2015 Obstructive sleep apnea on CPAP Occlusion and stenosis of carotid artery without mention of cerebral infarction Left Orthostatic hypotension Other and unspecified hyperlipidemia PVD (peripheral vascular disease) ([facility]) Shortness of breath Thyroid cyst 03/2013 R lobe. 0.5 cm x 0.4 cm Type II or unspecified type diabetes mellitus without mention of complication, uncontrolled Unspecified essential hypertension PAST SURGICAL HISTORY Procedure Laterality Date PAST SURGICAL HISTORY OF Bilat knees laparoscopic procedures PAST SURGICAL HISTORY OF Bilat carpal tunnel repair SOCIAL HISTORY Social History Tobacco Use Smoking status: Never Smokeless tobacco: Never Substance Use Topics Alcohol use: No Drug use: No MEDICATIONS: traMADol (ULTRAM) 50 mg tablet Take 50 mg by mouth every 6 hours as needed. aspirin, enteric coated (ASPIRIN, ENTERIC COATED) 81 mg EC tablet Take 81 mg by mouth once daily. amLODIPine (NORVASC) 10 mg tablet Take 10 mg by mouth once daily. atorvastatin (LIPITOR) 80 mg tablet Take 1 tablet by mouth daily at bedtime. pioglitazone (ACTOS) 15 mg tablet Take 2 tablets daily with evening meal. gabapentin (NEURONTIN) 300 mg capsule Take 200 mg by mouth three times daily. 2 tabs three times a day omeprazole 20 mg capsule Take 20 mg by mouth once daily. metFORMIN (GLUCOPHAGE) 850 mg tablet Take 1 tablet by mouth three times daily. Resume tomorrow 12/14/17. (Patient not taking: No sig reported) lisinopril (ZESTRIL, PRINIVIL) 5 mg tablet Take 5 mg by mouth once daily. (Patient not taking: Reported on 09/15/2023) citalopram hydrobromide (CELEXA) 10 mg tablet Take 1/2 tablet once daily. (Patient not taking: Reported on 09/15/2023) ALLERGIES: ALLERGIES No Known Allergies PHYSICAL EXAM: BP 143/57 Pulse 84 General: Alert and oriented Integumentary: Normal color, no rash, no lesions. HEENT: EOM, pupils equal, round and reactive. Cardiovascular: Normal S1 & S2, no rubs, murmurs or gallops. No JVD., Pulse regular. Lungs: Normal breath sounds, no wheezes or crackles. Abdomen: Soft, non-tender, no rigidity. Bilateral palpable femoral pulse no popliteal pedal pulse calf level edema pitting bilaterally Diagnostic tests reviewed for today's visit: Duplex ultrasound demonstrates no evidence of hemodynamically significant carotid stenosis IMPRESSION: Mr. Callejas is a 88 year old male with artery stenosis doing well. Follow-up in 2 years continue withantiplatelet,. PLAN and RECOMMENDATIONS: As above SIGNATURE: Malka Rivera MD PATIENT NAME: Bere Callejas DATE: September 15, 2023 TIME: 3:03 PM documented in this encounterOhio [facility]10[facility] 08-24-2023 [facility]09-25-2023 [facility]09-25-2023 Note [id number]#1.00[facility]08-16-2023 [id number]#1.00[facility] 06-28-2023 [facility]07-28-20[facility]07-24-20[id number]07-07-2023 [facility]07-05-2023 [facility]06-06-2023 [facility] 03-24-2023 [facility]04-17-2023 [facility]04-06-2023 Note [id number]#1.00[facility]04-05-2023 [id number]#1.00[facility] 03-03-2023 [facility]03-29-2023 Miscellaneous Notes* Telephone Encounter - Edwige Youngblood - 02/24/2023 11:21 AM EDT Reason for call: Ms Wood called and she would like to schedule an appointment with Contact Name (If not the pt): Nina Home and cell number: [phone] Diagnosis: 2 y f/u Kind Regards, Edwige Rader documented in this encounterOhio [facility]11-29-2022 NoteHNO ID: [id number] Author: Aquiles Lim MD Service: ? Author Type: Physician Type: Progress Notes Filed: 10/27/2022 4:14 PM Note Text: REASON FOR VISIT: Follow up of aortic regurgitation. INTERVAL HISTORY: Previous visit was on 03.02.2022; assessment and plan at that time: Moderate aortic regurgitation, unchanged as per last year's echocardiogram. Preserved LV systolic function, normal LV diameters. Asymptomatic (he has dyspnea on exertion but most probably due to deconditioning/obesity). Will obtain a follow up echocardiogram at 2 years from previous, if no change in symptoms. Hypertension. Well-controlled now. Type 2 diabetes mellitus. Severe left carotid artery disease; s/p CEA in November 2018. Asymptomatic; to continue with statin and aspirin. 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 Dyspnea on exertion: Stable. Most probably multifactorial: obesity/deconditioning/asthma. Obesity. Patient instructed ONCE AGAIN to engage on a healthy lifestyle that includes low fat low calorie diet along with regular aerobic exercise for at least 30', 5-7 days a week. Labs done by his PCP (Pt. Harper). Since then No cardiac complaints except for poor balance. Unchanged shortness of breath on exertion that he attributes to his asthma. Denies chest pain, orthopnea, cough, edema, palpitations, PND, lightheadedness or syncope. About to have shoulder sx. PAST CARDIAC HISTORY: See above and below. PAST MEDICAL HISTORY Diagnosis Date Carotid artery stenosis, asymptomatic, left 10/05/2017 Controlled type 2 diabetes mellitus without complication, without long-term current use of insulin (HCC) 10/12/2016 Cyst and pseudocyst of pancreas Depressive disorder, not elsewhere classified Diabetic neuropathy (HCC) Dyslipidemia 10/12/2016 Essential hypertension 10/12/2016 Non morbid obesity due to excess calories 10/12/2016 Nonrheumatic aortic valve insufficiency 10/10/2015 Obstructive sleep apnea on CPAP Occlusion and stenosis of carotid artery without mention of cerebral infarction Left Orthostatic hypotension Other and unspecified hyperlipidemia PVD (peripheral vascular disease) (HCC) Shortness of breath Thyroid cyst 03/2013 R lobe. 0.5 cm x 0.4 cm Type II or unspecified type diabetes mellitus without mention of complication, uncontrolled Unspecified essential hypertension MEDICATIONS: traMADol (ULTRAM) 50 mg tabletTake 50 mg by mouth every 6 hours as needed. Disp: Rfl: 0 aspirin, enteric coated (ASPIRIN, ENTERIC COATED) 81 mg EC tabletTake 81 mg by mouth once daily.Disp: Rfl: lisinopril (ZESTRIL, PRINIVIL) 5 mg tabletTake 5 mg by mouth once daily.Disp: Rfl: amLODIPine (NORVASC) 10 mg tabletTake 10 mg by mouth once daily.Disp: Rfl: atorvastatin (LIPITOR) 80 mg tabletTake 1 tablet by mouth daily at bedtime.Disp: 90 tabletRfl: 3 citalopram hydrobromide (CELEXA) 10 mg tabletTake 1/2 tablet once daily.Disp: Rfl: pioglitazone (ACTOS) 15 mg tabletTake 2 tablets daily with evening meal.Disp: Rfl: gabapentin (NEURONTIN) 300 mg capsuleTake 200 mg by mouth three times daily. 2 tabs three times a day Disp: Rfl: omeprazole 20 mg capsuleTake 20 mg by mouth once daily.Disp: Rfl: metFORMIN (GLUCOPHAGE) 850 mg tabletTake 1 tablet by mouth three times daily. Resume tomorrow 12/14/17.Disp: Rfl: (Patient not taking: No sig reported) REVIEW OF SYSTEMS: GENERAL: Negative for: weight loss or weight gain, fever or chills, and sleep difficulties HEENT: Negative for: headache, impaired vision, glasses, hearing impairment, ringing in ears, vertigo, nosebleeds, poor dental care, bleeding gums, dentures NECK: Negative for: swelling, pain, stiffness RESPIRATORY: Negative for: blood in sputum, wheezing GASTROINTESTINAL: Negative for: abdominal pain, trouble swallowing, heartburn, change in bowel habits, blood in stool, dark black stools MUSCULOSKELETAL: Negative for: muscle or joint pain, stiffness, joint swelling NEUROLOGIC/PSYCHIATRIC: Negative for: weakness, paralysis, numbness, tingling, tremor, nervousness, depressed mood, memory loss SKIN: Negative for: rashes, itching HEMATOLOGICAL/LYMPHATIC: Negative for: easy bruising, easy bleeding ENDOCRINE: Negative for: heat or cold intolerance, excessive sweating, frequent urination, frequent thirst PHYSICAL EXAMINATION: Blood Pressure 142/64 (BP Site: Left Arm, BP Position: Sitting, BP Cuff Size: Regular Adult) Pulse 68 Weight 118.4 kg (261 lb) Oxygen Saturation 98% Body Mass Index 35.40 kg/m? Skin: No clubbing, no cyanosis. Eyes: Extra ocular movements intact Neck: No jugular venous distention, no carotid bruits. Lungs: Clear to auscultation bilaterally, no wheezing or rhonchi. Heart: Regular rhythm, PMI not palpable, normal heart sounds; ANNE 1/6 at the base. Abdomen: Soft, obese, nontender, bowel sounds normal, no palpable organomegaly, no bruits (more content not included)...[facility] 10-27-2022 History of Present illness Narrative* Aquiles Lim MD - 10/27/2022 4:00 PM EST REASON FOR VISIT: Follow up of aortic regurgitation. INTERVAL HISTORY: Previous visit was on 03.02.2022; assessment and plan at that time: Moderate aortic regurgitation, unchanged as per last year's echocardiogram. Preserved LV systolic function, normal LV diameters. Asymptomatic (he has dyspnea on exertion but most probably due to deconditioning/obesity). Will obtain a follow up echocardiogram at 2 years from previous, if no change in symptoms. Hypertension. Well-controlled now. Type 2 diabetes mellitus. Severe left carotid artery disease; s/p CEA in November 2018. Asymptomatic; to continue with statin and aspirin. 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 Dyspnea on exertion: Stable. Most probably multifactorial: obesity/deconditioning/asthma. Obesity. Patient instructed ONCE AGAIN to engage on a healthy lifestyle that includes low fat low calorie diet along with regular aerobic exercise for at least 30', 5-7 days a week. Labs done by his PCP (Pt. Harper). Since then No cardiac complaints except for poor balance. Unchanged shortness of breath on exertion that he attributes to his asthma. Denies chest pain, orthopnea, cough, edema, palpitations, PND, lightheadedness or syncope. About to have shoulder sx. PAST CARDIAC HISTORY: See above and below. PAST MEDICAL HISTORY Diagnosis Date Carotid artery stenosis, asymptomatic, left 10/05/2017 Controlled type 2 diabetes mellitus without complication, without long-term current use of insulin ([facility]) 10/12/2016 Cyst and pseudocyst of pancreas Depressive disorder, not elsewhere classified Diabetic neuropathy ([facility]) Dyslipidemia 10/12/2016 Essential hypertension 10/12/2016 Non morbid obesity due to excess calories 10/12/2016 Nonrheumatic aortic valve insufficiency 10/10/2015 Obstructive sleep apnea on CPAP Occlusion and stenosis of carotid artery without mention of cerebral infarction Left Orthostatic hypotension Other and unspecified hyperlipidemia PVD (peripheral vascular disease) ([facility]) Shortness of breath Thyroid cyst 03/2013 R lobe. 0.5 cm x 0.4 cm Type II or unspecified type diabetes mellitus without mention of complication, uncontrolled Unspecified essential hypertension MEDICATIONS: traMADol (ULTRAM) 50 mg tablet^Take 50 mg by mouth every 6 hours as needed. ^Disp: ^Rfl: 0 aspirin, enteric coated (ASPIRIN, ENTERIC COATED) 81 mg EC tablet^Take 81 mg by mouth once daily.^Disp: ^Rfl: lisinopril (ZESTRIL, PRINIVIL) 5 mg tablet^Take 5 mg by mouth once daily.^Disp: ^Rfl: amLODIPine (NORVASC) 10 mg tablet^Take 10 mg by mouth once daily.^Disp: ^Rfl: atorvastatin (LIPITOR) 80 mg tablet^Take 1 tablet by mouth daily at bedtime.^Disp: 90 tablet^Rfl: 3 citalopram hydrobromide (CELEXA) 10 mg tablet^Take 1/2 tablet once daily.^Disp: ^Rfl: pioglitazone (ACTOS) 15 mg tablet^Take 2 tablets daily with evening meal.^Disp: ^Rfl: gabapentin (NEURONTIN) 300 mg capsule^Take 200 mg by mouth three times daily. 2 tabs three times a day ^Disp: ^Rfl: omeprazole 20 mg capsule^Take 20 mg by mouth once daily.^Disp: ^Rfl: metFORMIN (GLUCOPHAGE) 850 mg tablet^Take 1 tablet by mouth three times daily. Resume tomorrow 12/14/17.^Disp: ^Rfl: (Patient not taking: No sig reported) REVIEW OF SYSTEMS: GENERAL: Negative for: weight loss or weight gain, fever or chills, and sleep difficulties HEENT: Negative for: headache, impaired vision, glasses, hearing impairment, ringing in ears, vertigo, nosebleeds, poor dental care, bleeding gums, dentures NECK: Negative for: swelling, pain, stiffness RESPIRATORY: Negative for: blood in sputum, wheezing GASTROINTESTINAL: Negative for: abdominal pain, trouble swallowing, heartburn, change in bowel habits, blood in stool, dark black stools MUSCULOSKELETAL: Negative for: muscle or joint pain, stiffness, joint swelling NEUROLOGIC/PSYCHIATRIC: Negative for: weakness, paralysis, numbness, tingling, tremor, nervousness,depressed mood, memory loss SKIN: Negative for: rashes, itching HEMATOLOGICAL/LYMPHATIC: Negative for: easy bruising, easy bleeding ENDOCRINE: Negative for: heat or cold intolerance, excessive sweating, frequent urination, frequentthirst PHYSICAL EXAMINATION: Blood Pressure 142/64 (BP Site: Left Arm, BP Position: Sitting, BP Cuff Size: Regular Adult) Pulse 68 Weight 118.4 kg (261 lb) Oxygen Saturation 98% Body Mass Index 35.40 kg/m Skin: No clubbing, no cyanosis. Eyes: Extra ocular movements intact Neck: No jugular venous distention, no carotid bruits. Lungs: Clear to auscultation bilaterally, no wheezing or rhonchi. Heart: Regular rhythm, PMI not palpable, normal heart sounds; ANNE 1/6 at the base. Abdomen: Soft, obese, nontender, bowel sounds normal, no palpable organomegaly, no bruits. Extremities: No peripheral edema, no clubbing or cyanosis. Normal pulses bilaterally. Neuro: Oriented to person, place and time, alert, cooperative. CARDIOVASCULAR MEDICINE TESTING: Electrocardiogram October 27, 2022 Normal sinus rhythm. Right bundle branch block and left anterior fascicular block; unchanged from previous. WBC (k/uL) Date Value 12/13/2018 7.89 12/12/2018 5.82 12/06/2018 4.60 Hemoglobin (g/dL) Date Value 12/13/2018 10.8 12/12/2018 10.4 12/06/2018 12.2 Hematocrit (%) Date Value 12/13/2018 32.4 12/12/2018 31.6 12/06/2018 36.1 Platelet Count (k/uL) Date Value 12/13/2018 98 12/12/2018 117 12/06/2018 136 Sodium (mmol/L) Date Value 12/13/2018 140 12/12/2018 143 12/06/2018 141 Potassium (mmol/L) Date Value 12/13/2018 4.5 12/12/2018 4.5 12/06/2018 4.7 CO2 (mmol/L) Date Value 12/13/2018 20 12/12/2018 23 12/06/2018 22 BUN (mg/dL) Date Value 12/13/2018 22 12/12/2018 29 12/06/2018 20 Creatinine (mg/dL) Date Value 12/13/2018 1.23 12/12/2018 1.53 12/06/2018 1.34 Glucose (mg/dL) Date Value 12/13/2018 134 12/12/2018 156 12/06/2018 111 Echocardiogram 02.26.2021 - The left ventricle is normal in size. There is mild upper septal left ventricular hypertrophy. Left ventricular systolic function is normal. EF = 55 5% (2D biplane) Definity contrast used for endocardial border detection. Grade I left ventricular diastolic dysfunction. - The right ventricle is normal in size. Right ventricular systolic function is normal. - The visualized aorta is borderline dilated with a maximal dimension of 4.0 cm. - There is moderate (2+) aortic valve regurgitation. Difficult to assess severity of AI due to eccentric jet. - Exam was compared with the prior echocardiographic exam performed on 12/09/18. Similar findings. I have personally reviewed the Electrocardiogram. IMPRESSION/PLAN: Moderate aortic regurgitation, unchanged as per last year's echocardiogram. Preserved LV systolic function, normal LV diameters. Asymptomatic (he has dyspnea on exertion but most probably due to deconditioning/obesity). Will obtain a follow up echocardiogram at 2 years from previous, if no change in symptoms. Hypertension. Well-controlled now. Type 2 diabetes mellitus. Severe left carotid artery disease; s/p CEA in November 2018. Asymptomatic; to continue with statin and aspirin. 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 Dyspnea on exertion: Stable. Most probably multifactorial: obesity/deconditioning/asthma. Obesity. Patient instructed ONCE AGAIN to engage on a healthy lifestyle that includes low fat low calorie diet along with regular aerobic exercise for at least 30', 5-7 days a week. Presurgical risk assessment. The patient can undergo surgery as planned. There is no need for further cardiac testing at this time. Continue cardiac medications to reduce the risk for vascular events. If applicable, resume antiplatelet and/or anticoagulant medication/s as soon as possible after surgery. I appreciate the opportunity of partaking in the care of Bere Callejas and look forward to following him along with you in the future. CONTACT INFORMATION: Aquiles Lim M.D. Staff Client Account Representative [facility] [place] [id number] [facility] [place] [address] Part of this note was copied from my previous note on 01/13/2021 all content has been individually and thoroughly reviewed, updated as necessary, patient assessed with updated information, and changesappropriately documented/adjusted. documented in this encounter[facility]11-[facility]-20[facility] Miscellaneous Notes* Telephone Encounter - Sapphire Anglin MA - 10/19/2022 8:06 AM EST Received form from [facility] requesting cardiac clearance for pt's upcoming R TSA. Dr. Lim is out of office until 10/26/2022. Placed on his desk along with SAYDA note for review upon return. documented in this [facility]04-[facility] History of Present illness Narrative* Aquiles Lim MD - 03/02/2022 2:00 PM EDT REASON FOR VISIT: Follow up of aortic regurgitation. INTERVAL HISTORY: Previous visit was on 08.02.2019; assessment and plan at that time: Moderate aortic regurgitation, unchanged for 2 years. Preserved LV systolic function, normal LV diameters. Asymptomatic (he has dyspnea on exertion but most probably due to deconditioning/obesity). Will obtain a follow up echocardiogram at 1 year from previous, if no change in symptoms. Hypertension. Well-controlled now. Type 2 diabetes mellitus. Severe left carotid artery disease; s/p CEA in November 2018. Asymptomatic; to continue with statin and aspirin. 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 Dyspnea on exertion: worse. I still think dyspnea is multifactorial, reasons being obesity/deconditioning and diastolic dysfunction. Expect to improve if he loses weight and starts exercising more. Obesity. Patient instructed ONCE AGAIN to engage on a healthy lifestyle that includes low fat low calorie diet along with regular aerobic exercise for at least 30', 5-7 days a week. Dietary non-compliance. Since then No cardiac complaints except for poor balance. Unchanged shortness of breath on exertion that he attributes to his asthma. Denies chest pain, orthopnea, cough, edema, palpitations, PND, lightheadedness or syncope. PAST CARDIAC HISTORY: See above and below. PAST MEDICAL HISTORY Diagnosis Date Carotid artery stenosis, asymptomatic, left 10/05/2017 Controlled type 2 diabetes mellitus without complication, without long-term current use of insulin ([facility]) 10/12/2016 Cyst and pseudocyst of pancreas Depressive disorder, not elsewhere classified Diabetic neuropathy ([facility]) Dyslipidemia 10/12/2016 Essential hypertension 10/12/2016 Non morbid obesity due to excess calories 10/12/2016 Nonrheumatic aortic valve insufficiency 10/10/2015 Obstructive sleep apnea on CPAP Occlusion and stenosis of carotid artery without mention of cerebral infarction Left Orthostatic hypotension Other and unspecified hyperlipidemia PVD (peripheral vascular disease) ([facility]) Shortness of breath Thyroid cyst 03/2013 R lobe. 0.5 cm x 0.4 cm Type II or unspecified type diabetes mellitus without mention of complication, uncontrolled Unspecified essential hypertension MEDICATIONS: traMADol (ULTRAM) 50 mg tablet Take 50 mg by mouth every 6 hours as needed. metFORMIN (GLUCOPHAGE) 850 mg tablet Take 1 tablet by mouth three times daily. Resume tomorrow 12/14/17. aspirin, enteric coated (ASPIRIN, ENTERIC COATED) 81 mg EC tablet Take 81 mg by mouth once daily. lisinopril (ZESTRIL, PRINIVIL) 5 mg tablet Take 5 mg by mouth once daily. amLODIPine (NORVASC) 10 mg tablet Take 10 mg by mouth once daily. atorvastatin (LIPITOR) 80 mg tablet Take 1 tablet by mouth daily at bedtime. citalopram hydrobromide (CELEXA) 10 mg tablet Take 1/2 tablet once daily. pioglitazone (ACTOS) 15 mg tablet Take 2 tablets daily with evening meal. gabapentin (NEURONTIN) 300 mg capsule Take 200 mg by mouth three times daily. 2 tabs three times a day omeprazole 20 mg capsule Take 20 mg by mouth once daily. REVIEW OF SYSTEMS: GENERAL: Negative for: weight loss or weight gain, fever or chills, and sleep difficulties HEENT: Negative for: headache, impaired vision, glasses, hearing impairment, ringing in ears, vertigo, nosebleeds, poor dental care, bleeding gums, dentures NECK: Negative for: swelling, pain, stiffness RESPIRATORY: Negative for: blood in sputum, wheezing GASTROINTESTINAL: Negative for: abdominal pain, trouble swallowing, heartburn, change in bowel habits, blood in stool, dark black stools MUSCULOSKELETAL: Negative for: muscle or joint pain, stiffness, joint swelling NEUROLOGIC/PSYCHIATRIC: Negative for: weakness, paralysis, numbness, tingling, tremor, nervousness,depressed mood, memory loss SKIN: Negative for: rashes, itching HEMATOLOGICAL/LYMPHATIC: Negative for: easy bruising, easy bleeding ENDOCRINE: Negative for: heat or cold intolerance, excessive sweating, frequent urination, frequentthirst PHYSICAL EXAMINATION: Blood Pressure 142/72 Pulse 73 Height 182.9 cm (6') Weight 113.9 kg (251 lb) Body Mass Index 34.04 kg/m Skin: No clubbing, no cyanosis. Eyes: Extra ocular movements intact Neck: No jugular venous distention, no carotid bruits. Lungs: Clear to auscultation bilaterally, no wheezing or rhonchi. Heart: Regular rhythm, PMI not palpable, normal heart sounds; ANNE 1/6 at the base. Abdomen: Soft, obese, nontender, bowel sounds normal, no palpable organomegaly, no bruits. Extremities: No peripheral edema, no clubbing or cyanosis. Normal pulses bilaterally. Neuro: Oriented to person, place and time, alert, cooperative. CARDIOVASCULAR MEDICINE TESTING: Electrocardiogram March 02, 2022. Normal sinus rhythm at 73 bpm. Right bundle branch block and left anterior fascicular block; unchanged from previous. WBC (k/uL) Date Value 12/13/2018 7.89 12/12/2018 5.82 12/06/2018 4.60 Hemoglobin (g/dL) Date Value 12/13/2018 10.8 12/12/2018 10.4 12/06/2018 12.2 Hematocrit (%) Date Value 12/13/2018 32.4 12/12/2018 31.6 12/06/2018 36.1 Platelet Count (k/uL) Date Value 12/13/2018 98 12/12/2018 117 12/06/2018 136 Sodium (mmol/L) Date Value 12/13/2018 140 12/12/2018 143 12/06/2018 141 Potassium (mmol/L) Date Value 12/13/2018 4.5 12/12/2018 4.5 12/06/2018 4.7 CO2 (mmol/L) Date Value 12/13/2018 20 12/12/2018 23 12/06/2018 22 BUN (mg/dL) Date Value 12/13/2018 22 12/12/2018 29 12/06/2018 20 Creatinine (mg/dL) Date Value 12/13/2018 1.23 12/12/2018 1.53 12/06/2018 1.34 Glucose (mg/dL) Date Value 12/13/2018 134 12/12/2018 156 12/06/2018 111 Echocardiogram 02.26.2021 - The left ventricle is normal in size. There is mild upper septal left ventricular hypertrophy. Left ventricular systolic function is normal. EF = 55 5% (2D biplane) Definity contrast used for endocardial border detection. Grade I left ventricular diastolic dysfunction. - The right ventricle is normal in size. Right ventricular systolic function is normal. - The visualized aorta is borderline dilated with a maximal dimension of 4.0 cm. - There is moderate (2+) aortic valve regurgitation. Difficult to assess severity of AI due to eccentric jet. - Exam was compared with the prior echocardiographic exam performed on 12/09/18. Similar findings. I have personally reviewed the Electrocardiogram. IMPRESSION/PLAN: Moderate aortic regurgitation, unchanged as per last year's echocardiogram. Preserved LV systolic function, normal LV diameters. Asymptomatic (he has dyspnea on exertion but most probably due to deconditioning/obesity). Will obtain a follow up echocardiogram at 2 years from previous, if no change in symptoms. Hypertension. Well-controlled now. Type 2 diabetes mellitus. Severe left carotid artery disease; s/p CEA in November 2018. Asymptomatic; to continue with statin and aspirin. 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 Dyspnea on exertion: Stable. Most probably multifactorial: obesity/deconditioning/asthma. Obesity. Patient instructed ONCE AGAIN to engage on a healthy lifestyle that includes low fat low calorie diet along with regular aerobic exercise for at least 30', 5-7 days a week. Labs done by his PCP (Pt. Harper). I appreciate the opportunity of partaking in the care of Bere Callejas and look forward to following him along with you in the future. CONTACT INFORMATION: Aquiles Lim M.D. Staff Client Account Representative [facility] [place] [id number] [facility] [address] Part of this note was copied from my previous note on 01/13/2021 all content has been individually and thoroughly reviewed, updated as necessary, patient assessed with updated information, and changesappropriately documented/adjusted. documented in this encounterOhio [facility]10-20-2021 Evaluation note* Encounter Date Diagnosis Assessment Notes Treatment Notes Treatment Clinical Notes Aug, Obstructive sleep apnea (ICD-10 - G47.33) He is fortunately using and benefiting from the machine. He will continue with device, and will call if problems. He is encouraged to use it for entire sleep time. 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 This emphasizes importance of using treatment every night, all night. Aug, Chronic insomnia (ICD-10 - F51.04) Sleep habits are much improved and he does not have significant insomnia issues now [employer] Other 08-17-2015 History of Past illness Narrative* Problem Noted Date Resolved Date Other dyspnea and respiratory abnormality 201409/01/2016 documented as of this encounter (statuses as of 03/02/2022) [facility] Narrative* Problem Noted Date Resolved Date Other dyspnea and respiratory abnormality 201409/01/2016 documented as of this encounter (statuses as of 10/21/2022) [facility] of Past illness Narrative* Problem Noted Date Resolved Date Other dyspnea and respiratory abnormality 201409/01/2016 documented as of this encounter (statuses as of 10/27/2022) [address]17-2015 History of Past illness Narrative* Problem Noted Date Resolved Date Other dyspnea and respiratory abnormality 201409/01/2016 documented as of this encounter (statuses as of 02/24/2023) [address]17-2015 History of Past illness Narrative* Problem Noted Date Resolved Date Other dyspnea and respiratory abnormality 201409/01/2016 documented as of this encounter (statuses as of 02/25/2023) [address]17-2015 History of Past illness Narrative* Problem Noted Date Diagnosed Date Resolved Date Other dyspnea and respiratory abnormality 07/15/2015 09/01/2016 documented as of this encounter (statuses as of 09/16/2023) [address]17-2015 History of Past illness Narrative* Problem Noted Date Diagnosed Date Resolved Date Other dyspnea and respiratory abnormality 07/15/2015 09/01/2016 documented as of this encounter (statuses as of 10/12/2023) [facility] Diagnosis Nonrheumatic aortic valve insufficiency- Primary Aortic valve disorders Essential hypertension Unspecified essential hypertension EKG abnormality Nonspecific abnormal electrocardiogram (ECG) (EKG) Stenosis of left carotid artery Occlusion and stenosis of carotid artery without mention of cerebral infarction DACOSTA (dyspnea on exertion) Other dyspnea and respiratory abnormality documented in this encounter [facility] noteNo [facility] [employer] Other Evaluation note* Diagnosis Essential hypertension- Primary Unspecified essential hypertension Nonrheumatic aortic valve insufficiency Aortic valve disorders Stenosis of left carotid artery Occlusion and stenosis of carotid artery without mention of cerebral infarction EKG abnormality Nonspecific abnormal electrocardiogram (ECG) (EKG) DACOSTA (dyspnea on exertion) Other dyspnea and respiratory abnormality Preoperative clearance Preoperative examination, unspecified Controlled type 2 diabetes mellitus without complication, without long-term current use of insulin ([facility]) Non morbid obesity due to excess calories [facility]* Diagnosis PAD (peripheral artery disease) ([facility])- Primary Peripheral vascular disease, unspecified 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 documented in this encounter [facility] note* Diagnosis PAD (peripheral artery disease) ([facility])- Primary Peripheral vascular disease, unspecified Bilateral carotid artery stenosis Occlusion and stenosis of carotid artery without mention of cerebral infarction [facility] this encounter [facility] Diagnosis Acute on chronic heart failure with preserved ejection fraction (HCC)- Primary Pedal edema Edema Nonrheumatic aortic valve insufficiency Aortic valve disorders Controlled type 2 diabetes mellitus without complication, without long-term current use of insulin (HCC) EKG abnormality Nonspecific abnormal electrocardiogram (ECG) (EKG) Stenosis of left carotid artery Occlusion and stenosis of carotid artery without mention of cerebral infarction DACOSTA (dyspnea on exertion) Other dyspnea and respiratory abnormality Essential hypertension Unspecified essential hypertension 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 and body mass index (BMI) of 37.0 to 37.9 in adult Non-pitting edema documented in this encounter [facility]No [facility] Work Phone[facility]* Diagnosis Onset Date Resolution Status Acute kidney injury acute Cellulitis of foot acute Diabetes acute Necrosis of toe acute [facility] Work Phone: Evaluation note* Diagnosis 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 Type II or unspecified type diabetes mellitus with neurological manifestations, not stated as uncontrolled Peripheral arterial disease (CMS/HCC) Unspecified peripheral vascular disease Gangrene of toe of left foot (CMS/HCC) [facility] Diagnosis 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 Type II or unspecified type diabetes mellitus with neurological manifestations, not stated as uncontrolled Gangrene of toe of left foot (CMS/HCC) Peripheral arterial disease ([facility]/HCC) Unspecified peripheral vascular disease [facility] Diagnosis Onset Date Resolution Status Acute kidney injury acute Acute kidney injury superimposed on CKD acute Acute on chronic anemia acut e Cellulitis of foot acute Diabetes acute Diabetes mellitus with diabetic neuropathy acute Foot pain, left acute Gangrene of toe of left foot acute Hyperkalemia acute [id number] acute Metabolic acidosis acute Necrosis of toe acute Peripheral arterial disease acute Thrombocytopenia acute Type 2 diabetes mellitus wit h diabetic chronic kidney disease acute [facility] Work Phone: History general Narrative - Reported* Type Description Date Medical History hypertension Medical History diabetes mellitis Medical History GERD Medical History high cholesterol Medical History LYN Medical History Claudication Medical History pancreatitis Surgical History carotid surgery 2017 Surgical History right knee replacement 2016 Surgical History gall bladder 2014 Hospitalization History see surgical hx [employer] Other Reason for referral (narrative)* Outpatient Procedure (Routine) - Pending Review Specialty Diagnoses / Procedures [facility] [place] Diagnoses Nonrheumatic aortic valve insufficiency Procedures ECHO ECHO TTHRC R-T 2D W/WOM-MODE COMPL SPEC&COLR D Aquiles Lim MD [address] [place] [address] [facility] [place] [address] Referral ID Status Reason Start Date Expiration Date Visits Requested Visits Authorized [id number] Pending Review Auto-Generat ed Referral 12/02/2022 03/02/2023 1 1 * Outpatient Procedure (Routine) - Closed Specialty Diagnoses / Procedures [facility] [place] Diagnoses Nonrheumatic aortic valve insufficiency Procedures ECG COMPLETE ECG ROUTINE ECG W/LEAST 12 LDS W/I&R Aquiles Lim MD [address] [place] [address] [address] Referral ID Status Reason Start Date Expiration Date V isits Requested Visits Authorized [id number] Closed Auto-Generate d Referral 03/02/2022 03/02/2023 1 1 [facility] for referral (narrative)* Outpatient Procedure (Routine) - Authorized Specialty Diagnoses / Procedures [facility] [place] Diagnoses PAD (peripheral artery disease) (HCC) Aneurysm of carotid artery (HCC) Procedures US CAROTID ARTERIES [facility] DUPLEX SCAN EXTRACRANIAL ART COMPL BI STUDY Malka Rivera MD [address] [place] [address] [address] Referral ID Status Reason Start Date Expiration Date Visits Requested Visits Authorized [id number] Authorized Auto-Generat ed Referral 02/25/2023 02/25/2024 1 1 * Outpatient Procedure (Routine) - Authorized Specialty Diagnoses / Procedures Referred By Contac t Referred To Contact [facility] Diagnoses PAD (peripheral artery disease) (HCC) Procedures PVR LEG [facility] NON-INVASIVE PHYSIOLOGIC STUDY EXTREMITY 3 Malka Hein MD [address] [place] [address] [address] Referral ID Status Reason Start Date Expiration Date Visits Requested Visits Authorized [id number] Authorized Auto-Generat ed Referral 02/25/2023 02/25/2024 1 1 [facility] for referral (narrative)* Outpatient Procedure (Routine) - Authorized Specialty Diagnoses / Procedures Referred By Contac t Referred To Contact [facility] Diagnoses Nonrheumatic aortic valve insufficiency Procedures ECHO ECHO TTHRC R-T 2D W/WOM-MODE COMPL SPEC&[place] [address] [place] [address] [address] Referral ID Status Reason Start Date Expiration Date Visits Requested Visits Authorized [id number] Authorized Auto-Generat ed Referral 3 10/11/2024 1 1 * Consult, Test, Treat (Routine) - Authorized Specialty Diagnoses / Procedures Referred By Contac t Referred To Contact [facility] Diagnoses Pedal edema Procedures CONSULT TO VASCULAR MEDICINE OFFICE/OUTPATIENT NEW HIGH MDM 60-[place] [address] [place] [address] Referral ID Status Reason Start Date Expiration Date Visits Requested Visits Authorized [id number] Authorized PCP Requested Referral 3 10/11/2024 1 1 * Outpatient Procedure (Routine) - Pending Review Specialty Diagnoses / Procedures Referred By Contac t [facility] Diagnoses Acute on chronic heart failure with preserved ejection fraction (HCC) Procedures ECG COMPLETE ECG ROUTINE ECG W/LEAST 12 LDS W/I&R Aquiles Lim MD [address] [place] [address] [facility] [place] [address] Referral ID Status Reason Start Date Expiration Date Visits Requested Visits Authorized [id number] Pending Review Auto-Generat ed Referral 3 10/11/2024 1 1 [facility] Advance Directives No Advanced Directives Records FoundDocuments on File Type Date Recorded Patient Leaflet Distributor Expl anation Advance Directive(s) 12/09/2018 5:09 PM Advance Directive Response Recorded Date/ Time Advance Directives No December 07, 2017 9:50am Summary Purpose Family History No Family History Records Found Relationship Condition Age at Onset Recorded Date/T jonathan father Malignant neoplasm Unknown Unknown Not Specified Malignant neoplasm Unknown Chief Complaint and Reason for Visit Chief Complaint LYN/ANNUAL/MSC Chief Complaint LYN/ANNUAL/MSC I96 e11.49 L97.523 i73.9 Chief Complaint LYN/ANNUAL/MSC I96 e11.49 L97.523 i73.9 left foot second toe infection Reason for Visit Acute kidney injury Cellulitis of foot Diabetes Necrosis of toe Chief Complaint LYN/ANNUAL/MSC l97.523 I96 e11.49 L97.523 i73.9 left foot second toe infection left foot second toe infection left foot second toe infection left foot second toe infection left foot second toe infection left foot second toe infection left foot second toe infection left foot second toe infection Reason for Visit Acute kidney injury Acute kidney injury superimposed on CKD Acute on chronic anemia Cellulitis of foot Diabetes Diabetes mellitus with diabetic neuropathy Foot pain, left Gangrene of toe of left foot Hyperkalemia [id number] Metabolic acidosis Necrosis of toe Peripheral arterial disease Thrombocytopenia Type 2 diabetes mellitus with diabetic chronic kidney disease Additional Source Comments Source Comments (unrecognize d section and content) In the event this informatio n is protected by the Federal Confidentiality of Alcohol and Drug Abuse Patient Records regulations: The Federal rules restrict any use of the information to criminally investigate or prosecute any alcohol or drug abuse patient.[facility] the event this information is protected by the Federal Confidentiality of Alcohol and Drug Abuse Patient Records regulations: The Federal rules restrict any use of the information to criminally investigate or prosecute any alcohol or drug abuse patient.[facility] the event this information is protected by the Federal Confidentiality of Alcohol and Drug Abuse Patient Records regulations: The Federal rules restrict any use of the information to criminally investigate or prosecute any alcohol or drug abuse patient.[facility] the event this information is protected by the Federal Confidentiality of Alcohol and Drug Abuse Patient Records regulations: The Federal rules restrict any use of the information to criminally investigate or prosecute any alcohol or drug abuse patient.[facility] the event this information is protected by the Federal Confidentiality of Alcohol and Drug Abuse Patient Records regulations: The Federal rules restrict any use of the information to criminally investigate or prosecute any alcohol or drug abuse patient.[facility] the event this information is protected by the Federal Confidentiality of Alcohol and Drug Abuse Patient Records regulations: The Federal rules restrict any use of the information to criminally investigate or prosecute any alcohol or drug abuse patient.[facility] the event this information is protected by the Federal Confidentiality of Alcohol and Drug Abuse Patient Records regulations: The Federal rules restrict any use of the information to criminally investigate or prosecute any alcohol or drug abuse patient.[facility] Reason for Visit (unrecogniz ed section and content) Reason Comments CARD New Patient Consult Reason Comments Other Cardiac Clearance Reason Comments Established Patient Reason Comments Appointment Reason Comments Follow Up Care Teams (unrecognized sec tion and content) Mirror Department Supervisor Relationship Specialty Start Date End Date Albert Meza, DO [address] [place] [address] PCP - General Internal Medicine 10/09/16 Aquiles Lim MD Primary Staff Physician Cardiology 02/14/19 Mirror Department Supervisor Relationship Specialty Start Date End Date Albert Meza, DO [address] [place] [address] PCP - General Internal Medicine 10/09/16 Aquiles Lim MD [address] [place] [address] Primary Staff Physician Cardiology 02/14/19 [facility] Department Supervisor Relationship Specialty Start Date End Date Albert Meza, DO [address] [place] [address] PCP - General Internal Medicine 10/09/16 Aquiles Lim MD [address] [place] [address] Primary Staff Physician Cardiology 02/14/19 Mirror Department Supervisor Relationship Specialty Start Date End Date Albert Meza, DO [address] [place] [address] PCP - General Internal Medicine 10/09/16 Aquiles Lim MD [address] [place] [address] Primary Staff Physician Cardiology 02/14/19 Mirror Department Supervisor Relationship Specialty Start Date End Date Derrick Albert W, DO [address] [place] [address] PCP - General Internal Medicine 10/09/16 Aquiles Lim MD [address] [place] [address] Primary Staff Physician Cardiology 02/14/19 Mirror Department Supervisor Relationship Specialty Start Date End Date Albert Meza DO [address] [place] [address] PCP - General Internal Medicine 10/09/16 Aquiles Lim MD [address] [place] [address] Primary Staff Physician Cardiology 02/14/19 [facility] Department Supervisor Relationship Specialty Start Date End Date Albert Meza DO [address] [place] [address] PCP - General Internal Medicine 10/09/16 Aquiles Lim MD [address] [place] [address] Primary Staff Physician Cardiology 02/14/19 Team Status: Active Member Role Status Dates Albert Meza DO Primary Care Provider Active Team Status: Inactive Member Role Status Dates Albert Meza DO Primary Care Provider Active Dustin Jacobs MD Attending Provider Active Mirror Department Supervisor Relationship Specialty [place] [address] [place] [id number] PCP - General Internal Medicine 06/21/23 Team Status: Inactive Member Role Status Dates Dustin Jacobs MD Attending Provider Active S tart: October 27, 2023 End: October 27, 2023 Team Status: Inactive Member Role Status Dates Albert Meza DO Primary Care Provider Active Start: October 27, 2023 End: October 27, 2023 Dustin Jacobs MD Attending Provider Active S tart: October 27, 2023 End: October 27, 2023 Team Status: Inactive Member Role Status Dates Jose Rafael Cho DPM Attending Provider Active Start: December 30, 2023 End: December 30, 2023 Team Status: Inactive Member Role Status Dates Albert DO Derrick Primary Care Provider Active Start: December 31, 2023 End: December 31, 2023 Jose Rafael Cho DPM Attending Provider Active Start: December 31, 2023 End: December 31, 2023 Mirror Department Supervisor Relationship Specialty Start Date End Date Albert Meza DO [address] [place] [address] PCP - General Internal Medicine 06/21/23 Team Status: Active Member Role Status Dates Albert DO Derrick Primary Care Provider Active Start: January 03, 2024 Babatunde Masters DO Emergency Provider Active Sta rt: January 03, 2024 Massiel Ramirez MD Admit Provider, Atte nding Provider Active Start: January 03, 2024 Mirror Department Supervisor Relationship Specialty Start Date End Date Albert Meza DO [address] [place] [address] PCP - General Internal Medicine 06/21/23 Mirror Department Supervisor Relationship Specialty Start Date End Date Albert Meza DO [address] [place] [id number] PCP - General Internal Medicine 06/21/23 Team Status: Active Member Role Status Dates Albert Meza DO Primary Care Provider Active Start: January 03, 2024 Babatunde Masters DO Emergency Provider Active Sta rt: January 03, 2024 Massiel Ramirez MD Admit Provider, Othe r Provider Active Start: January 03, 2024 Kevin Oliveira MD Other Provider Active Start: January 03, 2024 Jose Rafael Cho DPM Other Provider Active Sta rt: January 03, 2024 Paolo Curtis MD Other Provider Active Start : January 03, 2024 RAMÓN Sanford Attending Provider Active Start: January 03, 2024 Miguel Carpenter MD Other Provider Active Start: 2023 End: January 16, 2024 RAMÓN Day Other Provider Active Start: January 03, 2024 End: January 16, 2024 Tri Beal MD Other Provider Active Start: 2023 End: January 16, 2024 Arron Esqueda MD Other Provider Active Star t: January 03, 2024 End: January 16, 2024 Robe Dinero MD Other Provider Active Start: January 03, 2024 End: January 16, 2024 Meron Talbot MD Other Provider Active Start: 2023 End: January 16, 2024 William Dean MD Attending Provider Active Start: January 03, 2024 End: January 16, 2024 Team Status: Active Member Role Status Dates Albert Meza DO Primary Care Provider Active Start: January 09, 2024 Babatunde Masters DO Emergency Provider Active Sta rt: January 09, 2024 Massiel Ramirez MD Admit Provider, Othe r Provider Active Start: January 09, 2024 Kevin Oliveira MD Other Provider Active Start: January 09, 2024 Jose Rafael Cho DPM Other Provider Active Sta rt: January 09, 2024 Paolo Curtis MD Other Provider Active Start : January 09, 2024 Miguel Carpenter MD Other Provider Active Start: 2023 RAMÓN Day Other Provider Active Start: January 09, 2024 Tri Beal MD Attending Provider, Other Provider Active Start: January 09, 2024 Arron Esqueda MD Other Provider Active Star t: January 09, 2024 Robe Dinero MD Other Provider Active Start: January 09, 2024 Meron Talbot MD Other Provider Active Start: 2023 Team Status: Active Member Role Status Dates Albert Meza DO Primary Care Provider Active Start: January 10, 2024 Babatunde Masters DO Emergency Provider Active Sta rt: January 10, 2024 Massiel Ramirez MD Admit Provider Active Start: January 10, 2024 Kevin Oliveira MD Attending Provider, Other Provider Active Start: January 10, 2024 Jose Rafael Cho DPM Other Provider Active Sta rt: January 10, 2024 Paolo Curtis MD Other Provider Active Start : January 10, 2024 Miguel Carpenter MD Other Provider Active Start: 2023 Nancy Roy NP-C Other Provider Active Start: January 10, 2024 Tri Beal MD Other Provider Active Start: 2023 Arron Esqueda MD Other Provider Active Star t: January 10, 2024 Robe Dinero MD Other Provider Active Start: January 10, 2024 Meron Talbot MD Other Provider Active Start: 2023 Angus Minaya MD Other Provider Active Start: 2023 Team Status: Active Member Role Status Dates Alebrt Meza DO Primary Care Provider Active Start: January 10, 2024 Babatunde Masters DO Emergency Provider Active Sta rt: January 10, 2024 Massiel Ramirez MD Admit Provider Active Start: January 10, 2024 Kevin Oliveira MD Other Provider Active Start: January 10, 2024 Jose Rafael Cho DPM Other Provider Active Sta rt: January 10, 2024 Paolo Curtis MD Other Provider Active Start : January 10, 2024 Miguel Carpenter MD Other Provider Active Start: 2023 Nancy Roy NP-C Other Provider Active Start: January 10, 2024 Tri Beal MD Other Provider Active Start: 2023 Arron Esqueda MD Other Provider Active Star t: January 10, 2024 Robe Dinero MD Other Provider Active Start: January 10, 2024 Meron Talbot MD Other Provider Active Start: 2023 Angus Minaya MD Attending Provider, Other Provider Active Start: January 10, 2024 Samuel Paz MD Other Provider Active Start: January 10, 2024 Team Status: Active Member Role Status Dates Albert Meza DO Primary Care Provider Active Start: January 11, 2024 Babatunde Masters DO Emergency Provider Active Sta rt: January 11, 2024 Massiel Ramirez MD Admit Provider Active Start: January 11, 2024 Kevin Oliveira MD Other Provider Active Start: January 11, 2024 Jose Rafael Cho DPM Other Provider Active Sta rt: January 11, 2024 Paolo Curtis MD Other Provider Active Start : January 11, 2024 Miguel Carpenter MD Other Provider Active Start: ebruary 2023 LUIS DayC Other Provider Active Start: January 11, 2024 Tri Beal MD Other Provider Active Start: 2023 Arron Esqueda MD Other Provider Active Star t: January 11, 2024 Robe Dinero MD Other Provider Active Start: January 11, 2024 Meron Talbot MD Other Provider Active Start: ebruary 2023 Angus Minaya MD Other Provider Active Start: ebruary 2023 Samuel Paz MD Attending [facility], Other Provider Active Start: January 11, 2024 Team Status: Active Member Role Status Dates Albert Meza DO Primary Care Provider Active Start: January 14, 2024 Babatunde Masters DO Emergency Provider Active Sta rt: January 14, 2024 Massiel Ramirez MD Admit Provider Active Start: January 14, 2024 Kevin Oliveira MD Other Provider Active Start: January 14, 2024 Jose Rafael Cho DPM Other Provider Active Sta rt: January 14, 2024 Paolo Curtis MD Other Provider Active Start : January 14, 2024 Samuel Paz MD Other Provider Active Start: January 14, 2024 Miguel Carpenter MD Other Provider Active Start: ebruary 2023 RAMÓN Day Other Provider Active Start: January 14, 2024 Tri Beal MD Other Provider Active Start: 2023 Arron Esqueda MD Other Provider Active Star t: January 14, 2024 Robe Dinero MD Other Provider Active Start: January 14, 2024 Meron Talbot MD Other Provider Active Start: ebruary 2023 Amairani Ram MD Other Provider Active Start: 2023 William Bailey MD Attending Provider Active Start: January 14, 2024 Team Status: Active Member Role Status Dates Albertradha LanceDO natanael Primary Care Provider Active Start: January 16, 2024 Babatunde Masters DO Emergency Provider Active Sta rt: January 16, 2024 Massiel Ramirez MD Admit Provider Active Start: January 16, 2024 Kevin Oliveira MD Other Provider Active Start: January 16, 2024 Jose Rafael Cho DPM Other Provider Active Sta rt: January 16, 2024 Paolo Curtis MD Other Provider Active Start : January 16, 2024 Samuel Paz MD Other Provider Active Start: January 16, 2024 Miguel Carpenter MD Other Provider Active Start: 2023 RAMÓN Day Other Provider Active Start: January 16, 2024 Tri Beal MD Other Provider Active Start: 2023 Arron Esqueda MD Other Provider Active Star t: January 16, 2024 Robe Dinero MD Other Provider Active Start: January 16, 2024 Meron Talbot MD Other Provider Active Start: 2023 William Daen MD Attending Provider, Other Provider Active Start: January 16, 2024 Team Status: Active Member Role Status Dates Albert OlguinDO kiet Primary Care Provider Active Start: January 16, 2024 Babatunde Masters DO Emergency Provider Active Sta rt: January 16, 2024 Massiel Ramirez MD Admit Provider Active Start: January 16, 2024 Kevin Oliveira MD Other Provider Active Start: January 16, 2024 Jose Rafael Cho DPM Other Provider Active Sta rt: January 16, 2024 Paolo Curtis MD Other Provider Active Start : January 16, 2024 Samuel Paz MD Other Provider Active Start: January 16, 2024 Miguel Carpenter MD Attending Provider, Other Provider Active Start: January 16, 2024 RAMÓN Day Other Provider Active Start: January 16, 2024 Tri Beal MD Other Provider Active Start: 2023 Arron Esqueda MD Other Provider Active Star t: January 16, 2024 Robe Dinero MD Other Provider Active Start: January 16, 2024 Meron Talbot MD Other Provider Active Start: [facility] 2023 William Dean MD Other Provider Active Start: Dec blanca 2023 (unrecognized sect ion and content) No Status Records FoundNo Status Records FoundNo Status Records FoundNo Status Records FoundNo Status Records Found INFORMATION SOURCE (unrecogn ized section and content) DATE CREATED AUTHOR 07/17/2023 [facility] DATE CREATED AUTHOR AUTHOR'S ORGANIZ ATION 10/18/2023 [facility] DATE CREATED AUTHOR AUTHOR'S ORGANIZ ATION 02/09/2024 [facility] DATE CREATED AUTHOR AUTHOR'S ORGANIZ ATION 02/11/2024 [facility] DATE CREATED AUTHOR AUTHOR'S ORGANIZ ATION 02/11/2024 [facility] EPIC Goals (unrecognized section and content) Goals may be documented in a n alternate section FOR RECORDS PERTAINING TO PATIENTS WHO ARE OR HAVE BEEN ENROLLED IN A CHEMICAL DEPENDENCY/SUBSTANCEABUSE PROGRAM, SOME INFORMATION MAY BE OMITTED. This clinical summary was aggregated from multiple sources. Caution should be exercised in using it in the provision of clinical care. This summary normalizes information from multiple sources, and as a consequence, information in this document may materially change the coding, format and clinical context of patient data. In addition, data may be omitted in some cases. CLINICAL DECISIONS SHOULD BE BASED ON THE PRIMARY CLINICAL RECORDS. [facility] [employer] provides no warranty or guarantee of the accuracy or completeness of information in this document.
[2024-02-13 12:08] LABS: Basophils Percent Auto 0.5 % (0.2-2.0); Eosinophils Absolute Auto 0.2 10^3/uL (0.0-0.7); Eosinophils Percent Auto 2.5 % (0.9-7.0); Hematocrit 31.1 % (42.0-54.0); Hemoglobin 9.7 g/dL (14.0-18.0); Immature Granulocytes Abs Auto 0.08 10^3/uL (0.00-0.03); Immature Granulocytes Pct Auto 1.1 % (0.0-0.5); Lymphocytes Absolute Auto 1.3 10^3/uL (1.2-3.8); Lymphocytes Percent Auto 17.3 % (20.5-60.0); Mean Corpuscular HGB Conc 31.2 g/dL (29.9-35.2); Mean Corpuscular Hemoglobin 32.7 pg (25.9-34.0); Mean Corpuscular Volume 104.7 fL (80.0-94.0); Mean Platelet Volume 10.2 fL (9.5-13.5); Monocytes Absolute Auto 0.7 10^3/uL (0.3-0.8); Monocytes Percent Auto 9.5 % (1.7-12.0); Neutrophils Absolute Auto 5.1 10^3/uL (1.4-6.5); Neutrophils Percent Auto 69.1 % (43.0-75.0); Platelet Count 209 10^3/uL (150-450); Red Blood Count 2.97 10^6/uL (4.70-6.10); Red Cell Distribution Width 16.9 % (11.0-15.0); White Blood Count 7.3 10^3/uL (4.0-11.0)
[2024-02-13 12:23] LABS: Alanine Aminotransferase 53 U/L (16-63); Albumin Globulin Ratio 0.9; Albumin Level 3.3 g/dL (3.4-5.0); Alkaline Phosphatase 147 U/L (46-116); Aspartate Amino Transferase 28 U/L (15-37); BUN Creatinine Ratio 18.2; Bilirubin Total 1.7 mg/dL (0.2-1.0); Calcium 8.6 mg/dL (8.5-10.1); Carbon Dioxide 25.6 mmol/L (21.0-32.0); Chloride 100 mmol/L (98-107); Estimated GFR (African America 27 (>=60); Estimated GFR (Non-African Ame 22 (>=60); Globulin 3.5 g/dL; Glucose 130 mg/dL (74-106); Potassium 3.6 mmol/L (3.5-5.1); Sodium 139 mmol/L (136-145); Total Protein 6.8 g/dL (6.4-8.2)
== END 2024-02-13 11:36 | disposition home or self-care (01) ==
LOC: LAB 11:35
DX: R53.1 Weakness (principal)
CPT/HCPCS: 36415; 80053; 85025